=== PATIENT | male | born 1985 | race Caucasian/White ===

== ENCOUNTER → 2018-01-14 15:29 | Outpatient (CLI) | payer BC, SELFPAY ==
[2018-01-14 17:57] LABS: Absolute Lymphocyte Count 1.95 X10^3/ul (0.83-4.51); Absolute Neutrophil Count 10.1 X10^3/uL (2.0-7.7); Basophil# 0.01 X10^3/uL; Basophil% 0.1 % (0-1); Eosinophil# 0.11 X10^3/uL; Eosinophils% 0.8 % (0-5); Hematocrit 36.1 % (40-54); Hemoglobin 11.7 g/dl (13.0-16.5); Lymphocyte # 1.95 X10^3/ul (4.0); Lymphocyte % 14.6 % (19-41); Mean Corp Hgb Conc 32.4 g/gl (32-36); Mean Corpuscular Hgb 30.5 pg (27.0-32.0); Mean Platelet Vol. 11.7 fl (6.2-12.0); Monocyte# 1.15 X10^3/uL; Monocyte% 8.6 % (0-10); Neutrophil # 10.09 X10^3/uL (2.7-7.7); Neutrophil % 75.7 % (47-70); Platelet Count 173 K/mm3 (150-450); RBC Distribution Width CV 13.6 % (11.6-14.6); RBC Distribution Width SD 46.6 fl (35.1-43.9); Red Blood Count 3.84 M/mm3 (4.6-6.2); White Blood Count 13.3 K/mm3 (4.4-11.0)
[2018-01-14 18:05] LABS: POSITIVE COUNT NO; POSITIVE DIFFERENTIAL NO; POSITIVE MORPHOLOGY NO
[2018-01-14 22:49] LABS: ALB/GLOB Ratio 0.8 RATIO (0.9-2.4); AST(SGOT) 10 U/L (15-37); Alanine Aminotransfer ALT/SGPT 16 U/L (16-61); Albumin, Serum 3.5 g/dL (3.2-5.0); Alkaline Phosphatase 115 U/L (45-117); Anion Gap 12 (5-15); BUN 52 mg/dL (7-18); BUN/Creat Ratio 12.7 RATIO (10-20); Calcium,Total 8.6 mg/dL (8.5-10.1); Chloride 112 mmol/L (98-107); Creatinine, Serum 4.09 mg/dL (0.70-1.30); EST Glomerular Filtration Rate 18 mL/min (>60); Est Glom Filt Rate - Afr Amer 22 mL/min (>60); Globulin 4.3 g/dL (2.2-4.2); Glucose 93 mg/dL (74-106); Potassium 5.7 mmol/L (3.5-5.1); Protein, Total 7.8 g/dL (6.4-8.2); Sodium Level 136 mmol/L (136-145)
== END ==
PROVIDERS: Visit Provider Family Medicine
DX: E86.0 Dehydration (principal); Z79.899 Other long term (current) drug therapy; I12.9 Hypertensive chronic kidney disease with stage 1 through stage 4 chronic kidney disease, or unspecified chronic kidney disease; N18.9 Chronic kidney disease, unspecified; Z94.0 Kidney transplant status
CPT/HCPCS: 36415; 80053; 85025

== ENCOUNTER 2018-01-15 12:27 | Inpatient (IN) | payer BC, SELFPAY ==
[2018-01-15 12:28] VITALS: BP 124/64; PULSE 84; RESP 16; TEMP 37.4; O2SAT 98; BMI 27.8
[2018-01-15] MEDS: 0.9% Normal Saline 1,000 ML 1000 ML IV (12:58)
[2018-01-15 13:07] VITALS: BP 122/69; PULSE 73; RESP 24; TEMP 36.7; O2SAT 99
[2018-01-15 13:10] LABS: Absolute Lymphocyte Count 1.11 X10^3/ul (0.83-4.51); Absolute Neutrophil Count 11.6 X10^3/uL (2.0-7.7); Basophil# 0.02 X10^3/uL; Basophil% 0.1 % (0-1); Eosinophil# 0.12 X10^3/uL; Eosinophils% 0.9 % (0-5); Hematocrit 34.1 % (40-54); Hemoglobin 11.4 g/dl (13.0-16.5); Lymphocyte # 1.11 X10^3/ul (4.0); Lymphocyte % 7.9 % (19-41); Mean Corp Hgb Conc 33.4 g/gl (32-36); Mean Corpuscular Hgb 30.9 pg (27.0-32.0); Mean Corpuscular Volume 92.4 fL (80-94); Mean Platelet Vol. 10.8 fl (6.2-12.0); Monocyte# 1.15 X10^3/uL; Monocyte% 8.2 % (0-10); Neutrophil # 11.56 X10^3/uL (2.7-7.7); Neutrophil % 82.6 % (47-70); POSITIVE COUNT NO; POSITIVE DIFFERENTIAL NO; POSITIVE MORPHOLOGY NO; Platelet Count 165 K/mm3 (150-450); RBC Distribution Width CV 13.2 % (11.6-14.6); RBC Distribution Width SD 44.7 fl (35.1-43.9); Red Blood Count 3.69 M/mm3 (4.6-6.2)
--- NOTE | 2018-01-15 13:10 | RAD_ITS ---
STUDY: X-RAY CHEST REASON FOR EXAM: Male, 32 years old. Increased creatinine TECHNIQUE: PA and lateral views of the chest. COMPARISON: 01/19/2013 FINDINGS: The lungs are clear and expanded. There is no demonstrated pleural abnormality. Normal size heart. Normal mediastinum and stephanie. Normal visualized pulmonary arteries. Normal visualized aortic arch and descending thoracic aorta. Normal visualized thoracic spine. Normal visualized ribs, clavicles, and shoulders. There is no demonstrated abnormality of the visualized soft tissue structures of the upper abdomen. RAD/Chest PA and Lateral IMPRESSION: Normal x-ray examination of the chest. Electronically Signed: Kendell Schultz DO at 13:41 EDT Tel , Service support ,
--- NOTE | 2018-01-15 13:18 | EKG12_ITS ---
Test Reason : ABNL LABS Blood Pressure : / mmHG Vent. Rate : 069 BPM Atrial Rate : 069 BPM P-R Int : 146 ms QRS Dur : 104 ms QT Int : 382 ms P-R-T Axes : 042 054 043 degrees QTc Int : 409 ms Normal sinus rhythm Normal ECG Confirmed by DAKOTAH CARLSON, LIDIA ([id number]), general expeditor SYLVIA THOMASON ([id number]) on 01/16/2018 1:00:05 PM Referred By: RENETTA Confirmed By:LIDIA CLAIRE MD
[2018-01-15 13:25] LABS: ALB/GLOB Ratio 0.8 RATIO (0.9-2.4); AST(SGOT) 6 U/L (15-37); Alanine Aminotransfer ALT/SGPT 13 U/L (16-61); Albumin, Serum 3.2 g/dL (3.2-5.0); Alkaline Phosphatase 102 U/L (45-117); Anion Gap 9 (5-15); BUN 55 mg/dL (7-18); BUN/Creat Ratio 15.1 RATIO (10-20); Calcium,Total 8.5 mg/dL (8.5-10.1); Chloride 112 mmol/L (98-107); Creatinine, Serum 3.65 mg/dL (0.70-1.30); EST Glomerular Filtration Rate 20 mL/min (>60); Est Glom Filt Rate - Afr Amer 25 mL/min (>60); Estimated Creatinine Clearance 30.37 ml/min; Glucose 145 mg/dL (74-106); Potassium 5.2 mmol/L (3.5-5.1); Protein, Total 7.2 g/dL (6.4-8.2); Sodium Level 135 mmol/L (136-145)
[2018-01-15 13:32] LABS: Lactic Acid 0.7 mmol/L (0.4-2.0)
[2018-01-15 13:52] LABS: Bacteria 0 SEEN /hpf (None Seen); Mucous, Urine 0 SEEN /hpf (<or=2+); Red Blood Cells-Urine 0 SEEN /hpf (0-5); Squamous Epithelial Cells - UA 0 SEEN /hpf (0-5); White Blood Cells 0 SEEN /hpf (0-5)
[2018-01-15 14:03] LABS: Color, Urine Yellow (Yellow); Glucose, Dipstick Normal (Normal); Ketone-Dipstick Negative (Negative); Leukocyte Esterase-Dipstick Negative /ul (Negative); Nitrite-Dipstick Negative (Negative); Occult Blood-Urine Negative /ul (Negative); Protein-Dipstick 100 mg/dl (Negative); Urine Bilirubin Dipstick Negative (Negative); Urine Clarity Clear (Clear); Urine Urobilinogen Normal (Normal)
[2018-01-15] MEDS: Dextrose 50%-Water 25 GM/50 ML DISP.SYRIN IV (14:08)
[2018-01-15] MEDS: Calcium Chloride 1 GM/10 ML Syringe IV (14:08)
[2018-01-15 14:14] VITALS: BP 153/80; PULSE 66; RESP 18; O2SAT 100
--- NOTE | 2018-01-15 14:32 | ED.VISSUMM ---
- ER Visit Summary Date of Service: 01/15/18 Chief Complaint: Elevated creatinine History of Present Illness: The patient is a [address] Oglesby and Dr. Kamara. He has a history of a kidney transplant in 2004 at [facility]. 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 He is currently on CellCept and Prograf. Reports he has not missed any doses. Patient reports that over the course of the past 10 days he has had chills, a sore throat is 2 out of 10 severity, cough productive green/yellow sputum without blood and wheezing that is relieved by his inhaler. States over the past 2 days he has had generalized weakness. He had 3-4 episodes of diarrhea yesterday. No blood in his stools. No abdominal pain, nausea, or vomiting. No dysuria, hematuria or frequency. Patient saw his primary care physician in the office yesterday and had blood work obtained which showed his creatinine was 4.09. He reports his baseline is 2. Physical Examination: Vitals: 99.3, 124/64, 84, 16, 98% on room air which is not hypoxic. General: Well-nourished and well-developed. Head: Normocephalic atraumatic. Neck: Supple, no lymphadenopathy. No JVD. Nontender. Cardiovascular: Regular rate and rhythm. No murmurs. Respiratory: No respiratory distress. Clear to auscultation bilaterally. Abdominal: Soft, nontender, nondistended, normal bowel sounds. No guarding, rebound, or peritoneal signs. Back: Nontender. Extremities: Nontender, no edema. Skin: Normal color, no rash. Neurologic: Alert and oriented ?3. Cranial nerves II through XII are intact. Normal strength and sensation. Psych: Normal affect. Test Results: EKG is sinus at 69 with a QRS interval of 104. There is not an old EKG for comparison. Chest x-ray is normal. CBC is remarkable for a white count of 14.0, H&H 11.4 and 34.1, segment neutrophils 83, lymphs lites of 8. Chem-7 is more for a creatinine of 3.65 with a BUN of 55. Potassium is 5.2, chloride is 112, CO2 is 14, glucose 145. LFTs marked for an ALT of 13 and AST of 6. UA shows protein only. Lactic acid is 0.7. Strep is negative. Emergency Department Course and Treatment: The patient was discussed with Dr. Lundberg and was started on D5 water with 3 A of sodium bicarb at 150 cc/h. With the prolonged QRS he was given a dose of calcium chloride IV. He was also given D50 and insulin IV. Treatment Plan: Patient was discussed with Dr. Parikh. He will be admitted to the hospital for further relation and treatment. Disposition: Admitted in improved condition. Impression: 1. Acute on chronic renal insufficiency. 2. History of a kidney transplant. 3. Hyperkalemia. 4. URI. This note was generated with [employer] dictation software. It may contain incorrect words, spelling, and punctuation that were not noted in review of the chart prior to signing ED Disposition - Plan for ED Patient: Chief Complaint: Abn Labs Referrals: Fredrick Oglesby DO [Primary Care Provider] -
[2018-01-15 14:50] VITALS: BMI 27.9
[2018-01-15 15:59] VITALS: BP 128/84; PULSE 74; RESP 18; O2SAT 98
[2018-01-15 16:15] VITALS: BP 127/70; PULSE 76; RESP 18; TEMP 36.9; O2SAT 100
[2018-01-15 16:23] VITALS: BMI 27.8
--- NOTE | 2018-01-15 18:39 | PCM.HP.STD ---
Problem List (1) Elevated serum creatinine Status: Acute History of Present Illness Date of Admission: 01/15/18 Chief Complaint: Elevated creatinine The patient is a 32 year old M who was seen in the emergency room at [facility] after his PCP called him today informing him that he had an elevation of his creatinine on his labs. Patient has a history of kidney disease and underwent a renal transplant in 2004, his usual creatinine is around 2, his family physician renetta lab yesterday and his creatinine was 4.09. Patient has no complaints of any fatigue, he was recently placed on Zithromax for an upper respiratory tract infection but he denies any fevers, chills, or diaphoresis. Patient has no complaints of any shortness of breath. Evaluation in the emergency room today included labs which were remarkable for a potassium of 5.2, BUN was 55, creatinine was 3.65, white blood cell count was 14,000, hemoglobin was 11.4. Patient had a chest x-ray which showed no active disease. Nephrology was contacted by the emergency room physician, nephrology recommended D5W with bicarb be administered and the patient be admitted. Hospitalist service was called for admission, patient will be placed in observation status for acute kidney injury and seen in consultation by nephrology. IV fluids will be administered and labs will be repeated. Past Medical History Allergies No Known Allergies Allergy (Verified 01/15/18 12:32) Home Medications: Ambulatory Orders Medication Instructions Recorded Azithromycin [Zithromax] 250 mg PO DAILY 01/15/18 Cholecalciferol (Vitamin D3) 2,000 unit PO DAILY 01/15/18 [Vitamin D3] Lisinopril [Zestril] 10 mg PO DAILY 01/15/18 Mycophenolate Mofetil [Cellcept] 750 mg PO BID 01/15/18 Omeprazole 40 mg PO DAILY 01/15/18 Tacrolimus Anhydrous [Prograf] 4 mg PO BID 01/15/18 Surgical History: - - Renal transplant, fistula insertion Psychiatric History: No pertinent psych hx Lives: Spouse/ Significant Other Smoking Status: Light Smoker (<10/day) Tobacco Use: Cigarettes Alcohol: Occasional Drugs: None - *Family History Maternal History Items: No pertinent history Paternal History Items: Diabetes, Hypertension Review of Systems Constitutional: Denies: Anorexia, Chills, Fever, Night Sweats, Malaise, Weakness, Weight Change, Fatigue Eyes: Denies: Blurred vision, Cataracts, Conjunctivae Inflammation, Double vision, Drainage HEENT: Denies: Difficulty Swallowing, Dysphasia, Ear Pain, Eye Pain, Head Aches, Hearing Changes, Nasal bleeding, Nasal Congestion, Post Nasal Drip Cardiovascular: Denies: Chest Pain, Claudication, Chest Pressure, Chest Tightness, Edema, Heaviness, Orthopnea, Palpitations, Paroxysmal Noc. Dyspnea Respiratory: Reports: Cough, Sputum production - Yellow sputum production. Denies: Hemoptysis, Shortness of breath at rest, Shortness of breath upon exertion Gastrointestinal: Denies: Abdominal Pain, Constipation, Diarrhea, Hematemesis, Hematochezia, Nausea, Melena, Vomiting Genitourinary: Denies: Dysuria, Frequency, Hematuria, Hesitancy, Incontinence, Urgency Musculoskeletal: Denies: Back Pain, Foot Pain, Hand Pain, Joint Pain, Joint stiffness, Joint swelling, Joint Tenderness, Leg Pain Skin: Denies: Dryness, Jaundice, Pruritis, Rash Neurological: Denies: Blurred vision, Double vision, Change in Speech, Slurred speech, Difficulty swallowing, Focal weakness, Headaches, Incoordination, Numbness, Tingling Psychiatric: Denies: Anxiety, Depression, Homicidal Ideations, Suicidal Ideations Endocrine: Denies: Change in Body Habitus, Heat/ Cold Intolerance, Polydipsia, Polyuria Hematologic/ Lymphatic: Denies: Adenopathy, Anemia, Easy Bruising, Easy Bleeding, Petechiae, Purpura VTE Information - Inpt Only VTE Present on Admission: No VTE Mechan Device Prophylaxis: None VTE Pharm Prophylaxis ordered?: No Reason prophylaxis not ordered:: Treatment Not Indicated - low risk for VTE Patient Problems: Active and Suspected Problems Elevated serum creatinine (Acute) - Physical Exam General: Alert, Oriented x3, Cooperative, No apparent distress, Well developed, Well nourished HEENT: Atraumatic, PERRLA, EOMI, Normocephalic Oral: Moist Mucosa Neck: Supple, No JVD, Negative Carotid Bruits, No Nuchal Rigidity, Trachea Midline, Thyroid Normal Size and Texture Lungs: Clear to auscultation, Normal air movement, No rhonchi, No wheeze, No rales Cardiovascular: Regular rate, Regular Rhythm, Normal S1, Normal S2, No murmurs, No Ectopic Activity, PMI Normal, No rub noted, No Gallop Abdomen: Bowel Sounds Present, Soft, Non Tender, Non-Distended, No hernias noted Extremities: No clubbing, No cyanosis, No edema, Capillary Refill Less than 3 Seconds Skin: No rashes, No breakdown Musculoskeletal: No Tenderness to Palpation of Joints or Extremities Neurological: Cranial nerves II-XII grossly intact, Neuro grossly intact, Sensory exam intact to light touch and pain, Coordination normal Psych/Mental Status: Normal Affect, Appropriate, Alert and oriented to time, place, person, mood and affect Vital Signs Temp Pulse Resp BP Pulse Ox 98.4 F 76 18 127/70 H 100 01/15/18 16:15 01/15/18 16:15 01/15/18 16:15 01/15/18 16:15 01/15/18 16:15 Oxygen Delivery Method Room Air Weight: 90.775 kg Body Mass Index (BMI) 27.8 Intake and Output for Last 24 Hours 01/13/18 01/14/18 01/15/18 23:59 23:59 23:59 Intake Total 300 / 300 Balance 300 / 300 Assessment/Plan All Active Problems Elevated serum creatinine (Acute) #1 acute kidney injury on a backdrop of chronic kidney disease-patient will be placed in observation status on MedSurg 3, he will be seen by nephrology, he will be given IV fluids, labs will be rechecked. 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 #2 bronchitis-patient was placed on Zithromax yesterday for possible bronchitis, patient will continue his medication as an outpatient, it is likely he may be discharged tomorrow and he can resume this medication then. Patient has no evidence of any infiltrates on his chest x-ray and is afebrile. #3 GERD #4 chronic kidney disease #5 hyperkalemia-mild, this is probably not significant Code Visit OBSV E&M: 74931 Initial observation care L3
--- NOTE | 2018-01-15 18:47 | HP.PCM_ITS ---
Problem List (1) Elevated serum creatinine Status: Acute History of Present Illness Date of Admission: 01/15/18 Chief Complaint: Elevated creatinine The patient is a 32 year old M who was seen in the emergency room at [facility] after his PCP called him today informing him that he had an elevation of his creatinine on his labs. Patient has a history of kidney disease and underwent a renal transplant in 2004, his usual creatinine is around 2, his family physician renetta lab yesterday and his creatinine was 4.09. Patient has no complaints of any fatigue, he was recently placed on Zithromax for an upper respiratory tract infection but he denies any fevers, chills, or diaphoresis. Patient has no complaints of any shortness of breath. Evaluation in the emergency room today included labs which were remarkable for a potassium of 5.2, BUN was 55, creatinine was 3.65, white blood cell count was 14,000, hemoglobin was 11.4. Patient had a chest x-ray which showed no active disease. Nephrology was contacted by the emergency room physician, nephrology recommended D5W with bicarb be administered and the patient be admitted. Hospitalist service was called for admission, patient will be placed in observation status for acute kidney injury and seen in consultation by nephrology. IV fluids will be administered and labs will be repeated. Past Medical History Allergies No Known Allergies Allergy (Verified 01/15/18 12:32) Home Medications: Ambulatory Orders Medication Instructions Recorded Azithromycin [Zithromax] 250 mg PO DAILY 01/15/18 Cholecalciferol (Vitamin D3) 2,000 unit PO DAILY 01/15/18 [Vitamin D3] Lisinopril [Zestril] 10 mg PO DAILY 01/15/18 Mycophenolate Mofetil [Cellcept] 750 mg PO BID 01/15/18 Omeprazole 40 mg PO DAILY 01/15/18 Tacrolimus Anhydrous [Prograf] 4 mg PO BID 01/15/18 Surgical History: - - Renal transplant, fistula insertion Psychiatric History: No pertinent psych hx Lives: Spouse/ Significant Other Smoking Status: Light Smoker (<10/day) Tobacco Use: Cigarettes Alcohol: Occasional Drugs: None - *Family History Maternal History Items: No pertinent history Paternal History Items: Diabetes, Hypertension Review of Systems Constitutional: Denies: Anorexia, Chills, Fever, Night Sweats, Malaise, Weakness , Weight Change, Fatigue Eyes: Denies: Blurred vision, Cataracts, Conjunctivae Inflammation, Double vision, Drainage HEENT: Denies: Difficulty Swallowing, Dysphasia, Ear Pain, Eye Pain, Head Aches , Hearing Changes, Nasal bleeding, Nasal Congestion, Post Nasal Drip Cardiovascular: Denies: Chest Pain, Claudication, Chest Pressure, Chest Tightness, Edema, Heaviness, Orthopnea, Palpitations, Paroxysmal Noc. Dyspnea Respiratory: Reports: Cough, Sputum production - Yellow sputum production. Denies: Hemoptysis, Shortness of breath at rest, Shortness of breath upon exertion Gastrointestinal: Denies: Abdominal Pain, Constipation, Diarrhea, Hematemesis, Hematochezia, Nausea, Melena, Vomiting Genitourinary: Denies: Dysuria, Frequency, Hematuria, Hesitancy, Incontinence, Urgency Musculoskeletal: Denies: Back Pain, Foot Pain, Hand Pain, Joint Pain, Joint stiffness, Joint swelling, Joint Tenderness, Leg Pain Skin: Denies: Dryness, Jaundice, Pruritis, Rash Neurological: Denies: Blurred vision, Double vision, Change in Speech, Slurred speech, Difficulty swallowing, Focal weakness, Headaches, Incoordination, Numbness, Tingling Psychiatric: Denies: Anxiety, Depression, Homicidal Ideations, Suicidal Ideations Endocrine: Denies: Change in Body Habitus, Heat/ Cold Intolerance, Polydipsia, Polyuria Hematologic/ Lymphatic: Denies: Adenopathy, Anemia, Easy Bruising, Easy Bleeding , Petechiae, Purpura VTE Information - Inpt Only VTE Present on Admission: No VTE Mechan Device Prophylaxis: None VTE Pharm Prophylaxis ordered?: No Reason prophylaxis not ordered:: Treatment Not Indicated - low risk for VTE Patient Problems: Active and Suspected Problems Elevated serum creatinine (Acute) - Physical Exam General: Alert, Oriented x3, Cooperative, No apparent distress, Well developed, Well nourished HEENT: Atraumatic, PERRLA, EOMI, Normocephalic Oral: Moist Mucosa Neck: Supple, No JVD, Negative Carotid Bruits, No Nuchal Rigidity, Trachea Midline, Thyroid Normal Size and Texture Lungs: Clear to auscultation, Normal air movement, No rhonchi, No wheeze, No rales Cardiovascular: Regular rate, Regular Rhythm, Normal S1, Normal S2, No murmurs, No Ectopic Activity, PMI Normal, No rub noted, No Gallop Abdomen: Bowel Sounds Present, Soft, Non Tender, Non-Distended, No hernias noted Extremities: No clubbing, No cyanosis, No edema, Capillary Refill Less than 3 Seconds Skin: No rashes, No breakdown Musculoskeletal: No Tenderness to Palpation of Joints or Extremities Neurological: Cranial nerves II-XII grossly intact, Neuro grossly intact, Sensory exam intact to light touch and pain, Coordination normal Psych/Mental Status: Normal Affect, Appropriate, Alert and oriented to time, place, person, mood and affect Vital Signs Temp Pulse Resp BP Pulse Ox 98.4 F 76 18 127/70 H 100 01/15/18 16:15 01/15/18 16:15 01/15/18 16:15 01/15/18 16:15 01/15/18 16:15 Oxygen Delivery Method Room Air Weight: 90.775 kg Body Mass Index (BMI) 27.8 Intake and Output for Last 24 Hours 01/13/18 01/14/18 01/15/18 23:59 23:59 23:59 Intake Total 300 / 300 Balance 300 / 300 Assessment/Plan All Active Problems Elevated serum creatinine (Acute) #1 acute kidney injury on a backdrop of chronic kidney disease-patient will be placed in observation status on MedSurg 3, he will be seen by nephrology, he will be given IV fluids, labs will be rechecked. 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 #2 bronchitis-patient was placed on Zithromax yesterday for possible bronchitis , patient will continue his medication as an outpatient, it is likely he may be discharged tomorrow and he can resume this medication then. Patient has no evidence of any infiltrates on his chest x-ray and is afebrile. #3 GERD #4 chronic kidney disease #5 hyperkalemia-mild, this is probably not significant Code Visit OBSV E&M: 36054 Initial observation care L3
[2018-01-15 21:29] VITALS: BP 150/73; PULSE 74; RESP 16; TEMP 37.2; O2SAT 100
[2018-01-15] MEDS: Acetaminophen 325 MG Tablet 650 MG PO (21:45)
[2018-01-16 02:11] VITALS: BP 130/71; PULSE 70; RESP 16; TEMP 37.1; O2SAT 98
[2018-01-16 07:05] LABS: Anion Gap 10 (5-15); BUN 45 mg/dL (7-18); Calcium,Total 8.5 mg/dL (8.5-10.1); Chloride 110 mmol/L (98-107); Creatinine, Serum 2.82 mg/dL (0.70-1.30); EST Glomerular Filtration Rate 27 mL/min (>60); Est Glom Filt Rate - Afr Amer 33 mL/min (>60); Estimated Creatinine Clearance 39.31 ml/min; Glucose 122 mg/dL (74-106); Potassium 4.1 mmol/L (3.5-5.1); Sodium Level 140 mmol/L (136-145)
[2018-01-16 08:34] VITALS: BP 130/84; PULSE 75; RESP 18; TEMP 37.1; O2SAT 97
[2018-01-16] MEDS: 0.9% NaCl Peripheral Flush Adult/Peds IV (09:12)
--- NOTE | 2018-01-16 09:32 | CON.PCM_ITS ---
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 He is s/p LRD kidney transplant at [facility] in 2005 from his mom. He is immunosuppressed with tacrolimus and mycophenolate. The pt is followed by Dr. Kamara. His baseline SCr has been around 2.0 mg/dL. He has also been dealing with rising proteinuria, and he had been placed on lisinopril a few months ago. The pt presents with TED, SCr was 4.09 mg/dL on 01/14/18. The pt has been ill for the last 10 days. He started with decreased appetite and nausea. He also complained of diarrhea for 2 days prior to admission. He also has dysphagia for the last month. 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 The pt also has cough which is productive. He was placed on Zpak 2 days prior to admission. The pt feels better since admit and with IVF. He denies CP, SOB, nausea or edema today. There has been no LUTS. There is no hematuria or dysuria. He does admits to chill. The pt denies chronic use of NSAID. There is no recent exposure to IV contrast. - Allergies Allergies: Allergies No Known Allergies Allergy (Verified 01/15/18 12:32) - Current Medications Current Medications: Current Medications Acetaminophen (Tylenol) 650 mg PO Q6H PRN PRN PRN Reason: Mild Pain (1-3)/Temp > 100.7 F Last Admin: 01/15/18 21:45 Dose: 650 mg Sodium Bicarbonate 150 meq/ (Dextrose) 1,150 mls @ 150 mls/hr IV .[id number] SHERLYN Last Admin: 01/16/18 05:52 Dose: 150 mls/hr Lisinopril (Zestril) 10 mg PO DAILY REPLACED BY [facility] Mycophenolate Mofetil (Cellcept) 750 mg PO BID SHERLYN Last Admin: 01/16/18 08:34 Dose: Not Given Pantoprazole Sodium (Protonix) 40 mg PO DAILY REPLACED BY [facility] Sodium Chloride () 5 - 30 ml IV UD PRN PRN Reason: SALINE FLUSH Last Admin: 01/16/18 09:12 Dose: 20 ml Tacrolimus (Prograf) 4 mg PO BID SHERLYN Last Admin: 01/16/18 08:34 Dose: Not Given - Past Surgical History Surgical History: - - Renal transplant, fistula insertion - Social History Smoking Status: Light Smoker (<10/day) Alcohol: Occasional Drugs: None - Family History Maternal History Items: No pertinent history Paternal History Items: Diabetes, Hypertension Review of Systems Constitutional: Reports: Anorexia, Chills, Night Sweats, Malaise, Weakness, Fatigue. Denies: Fever Eyes: Denies: Blurred vision, Pain, Redness HEENT: Reports: Sore Throat. Denies: Head Aches, Sinus Congestion, Sinus Drainage Cardiovascular: Denies: Chest Pain, Claudication, Chest Pressure, Edema, Orthopnea, Palpitations Respiratory: Reports: Cough, Sputum production Gastrointestinal: Reports: Diarrhea, Nausea. Denies: Abdominal Pain, Constipation, Hematemesis, Hematochezia, Vomiting Genitourinary: Denies: Dysuria, Frequency, Hematuria, Hesitancy, Incontinence, Urgency Musculoskeletal: Reports: Muscle pain. Denies: Joint Pain, Joint Tenderness Skin: Denies: Rash, Wounds Neurological: Denies: Numbness, Tingling, Focal weakness Psychiatric: Denies: Anxiety, Depression, Homicidal Ideations, Suicidal Ideations Endocrine: Denies: Polydipsia, Polyuria Hematologic/ Lymphatic: Denies: Easy Bruising, Easy Bleeding Patient Problems: Active and Suspected Problems Elevated serum creatinine (Acute) - Physical Exam General: Alert, Oriented x3 HEENT: Atraumatic, PERRLA, EOMI Oral: Dry Mucosa Neck: Supple, No JVD Lungs: Clear to auscultation Cardiovascular: Regular rate, Regular Rhythm, Normal S1, Normal S2, No rub noted Abdomen: Bowel Sounds Present, Soft, Non Tender, Non-Distended Extremities: No clubbing, No cyanosis, No edema Skin: No rashes Musculoskeletal: No Tenderness to Palpation of Joints or Extremities Lymphatic: No Cervical, Supraclavicular, or Inguinal Adenopathy Neurological: Cranial nerves II-XII grossly intact Psych/Mental Status: Normal Affect Vital Signs Temp Pulse Resp BP Pulse Ox 98.8 F 75 18 130/84 H 97 01/16/18 08:34 01/16/18 08:34 01/16/18 08:34 01/16/18 08:34 01/16/18 08:34 Oxygen Delivery Method Room Air Weight: 90.775 kg Body Mass Index (BMI) 27.8 Intake and Output for Last 24 Hours 01/14/18 01/15/18 01/16/18 23:59 23:59 23:59 Intake Total 300 / 300 3550 / 3550 Output Total 700 / 700 Balance 300 / 300 2850 / 2850 Laboratory Tests Past 24 Hrs 01/16/18 06:05 Sodium 140 Potassium 4.1 Chloride 110 H Carbon Dioxide 20.0 L Anion Gap 10 BUN 45 H Creatinine 2.82 H Estim Creat Clear Calc 39.31 Est GFR (MDRD) Af Amer 33 L Est GFR (MDRD) Non-Af 27 L BUN/Creatinine Ratio 16.0 Glucose 122 H Calcium 8.5 Assessment/Plan All Active Problems Elevated serum creatinine (Acute) 1. Acute kidney injury on chronic kidney disease stage 3. Baseline SCr is 2.00 mg/dL. Pt has allograft dysfunction. May also have recurrence of FSGS. TED is likely prerenal from decreased intake, concurrent use of ACEI, GI loss. Allograft function is already improved with hydration. Would continue IVF. Stop ACEI for now. Will check urine indices. I have low suspicion for other causes of TED at this point. Doubt acute rejection or obstruction. However, I will expand the work up to include other causes of TED if SCr fails to continue to improve. No current need for MOBILE TESTER. Meds reviewed. 2. s/p LRD kidney transplant. Continue current immunosupression with tacrolimus and mycophenolate. 3. Hyperkalemia. Resolved. Will monitor K. 4. Nausea/Vomiting/Diarrhea. Gastroenteritis. Likely viral. Continue supportive care. 5. Cough. Will defer to hospitalist.
[2018-01-16] MEDS: Pantoprazole Sodium 40 MG Tablet PO (10:16)
[2018-01-16] MEDS: Acetaminophen 325 MG Tablet 650 MG PO (10:16)
[2018-01-16 10:20] VITALS: PULSE 76
--- NOTE | 2018-01-16 11:03 | PN_ITS ---
Patient Problems: Active and Suspected Problems Elevated serum creatinine (Acute) Subjective: Patient is a 32-year-old gentleman with history of kidney transplant currently on immunosuppressive therapy who presented with worsening kidney function Vitals/I&O's: Vital Signs Temp Pulse Resp BP Pulse Ox 98.8 F 75 18 130/84 H 97 01/16/18 08:34 01/16/18 08:34 01/16/18 08:34 01/16/18 08:34 01/16/18 08:34 Oxygen Delivery Method Room Air Weight: 90.775 kg Body Mass Index (BMI) 27.8 Intake and Output for Last 24 Hours 01/14/18 01/15/18 01/16/18 23:59 23:59 23:59 Intake Total 300 / 300 3550 / 3550 Output Total 700 / 700 Balance 300 / 300 2850 / 2850 General: Cooperative HEENT: Atraumatic Oral: Moist Mucosa Neck: Supple, No JVD Lungs: Clear to auscultation Cardiovascular: Regular rate, Regular Rhythm Abdomen: Bowel Sounds Present Extremities: No clubbing, No cyanosis Skin: No rashes Lymphatic: No Cervical, Supraclavicular, or Inguinal Adenopathy Psych/Mental Status: Normal Affect, Appropriate Laboratory Results 01/16/18 06:05: Sodium 140, Potassium 4.1, Chloride 110 H, Carbon Dioxide 20.0 L , Anion Gap 10, BUN 45 H, Creatinine 2.82 H, Estim Creat Clear Calc 39.31, Est GFR (MDRD) Af Amer 33 L, Est GFR (MDRD) Non-Af 27 L, BUN/Creatinine Ratio 16.0, Glucose 122 H, Calcium 8.5 Current Medications Acetaminophen (Tylenol) 650 mg PO Q6H PRN PRN PRN Reason: Mild Pain (1-3)/Temp > 100.7 F Last Admin: 01/16/18 10:16 Dose: 650 mg Sodium Bicarbonate 150 meq/ (Dextrose) 1,150 mls @ 150 mls/hr IV .Q7H40M COUNT INCLUDES THE [facility] Last Admin: 01/16/18 05:52 Dose: 150 mls/hr Mycophenolate Mofetil (Cellcept) 750 mg PO BID COUNT INCLUDES THE [facility] Last Admin: 01/16/18 08:34 Dose: Not Given Pantoprazole Sodium (Protonix) 40 mg PO DAILY COUNT INCLUDES THE [facility] Last Admin: 01/16/18 10:16 Dose: 40 mg Sodium Chloride () 5 - 30 ml IV UD PRN PRN Reason: SALINE FLUSH Last Admin: 01/16/18 09:12 Dose: 20 ml Tacrolimus (Prograf) 4 mg PO BID COUNT INCLUDES THE [facility] Last Admin: 01/16/18 08:34 Dose: Not Given Medical Necessity - Tobacco Use Smoking Status: Light Smoker (<10/day) Tobacco Use: Cigarettes Assessment/Plan All Active Problems Elevated serum creatinine (Acute) Patient is a 32-year-old gentleman with history of kidney transplant currently on immunosuppressive therapy who presented with worsening kidney function 1. Acute kidney injury to 2 prerenal kidney injury from dehydration in the setting of concomitant use of RADHA inhibitors. Patient is inhibitors were held on admission admitted to regular nursing floor managed with IV hydration with consultation placed to Dr. Brink with nephrology he did see the patient and his notes and recommendations reviewed 2. Acute gastroenteritis suspected to be viral managed with supportive care 3. Hypokalemia resolved 4. Chronic kidney disease stage III 5. History of kidney transplant with living donor currently on immunosupression with tacrolimus and mycophenolate. 6. Acute bronchitis managed with Z-Emmanuel as outpatient 7. DVT prophylaxis low risk did encourage early ambulation Clinical Impression(s) from Imaging Studies Chest X-Ray 01/15/18 13:10 IMPRESSION: Normal x-ray examination of the chest. Electronically Signed: Kendell Schultz DO at 13:41 EDT Tel , Service support , Active Medications Acetaminophen (Tylenol) 650 mg PO Q6H PRN PRN PRN Reason: Mild Pain (1-3)/Temp > 100.7 F Last Admin: 01/16/18 10:16 Dose: 650 mg Sodium Bicarbonate 150 meq/ (Dextrose) 1,150 mls @ 150 mls/hr IV .Q7H40M COUNT INCLUDES THE [facility] Last Admin: 01/16/18 05:52 Dose: 150 mls/hr Mycophenolate Mofetil (Cellcept) 750 mg PO BID COUNT INCLUDES THE [facility] Last Admin: 01/16/18 08:34 Dose: Not Given Pantoprazole Sodium (Protonix) 40 mg PO DAILY COUNT INCLUDES THE [facility] Last Admin: 01/16/18 10:16 Dose: 40 mg Sodium Chloride () 5 - 30 ml IV UD PRN PRN Reason: SALINE FLUSH Last Admin: 01/16/18 09:12 Dose: 20 ml Tacrolimus (Prograf) 4 mg PO BID COUNT INCLUDES THE [facility] Last Admin: 01/16/18 08:34 Dose: Not Given Code Visit Inpatient E&M: 81399 Subs Hosp L3
[2018-01-16 16:15] VITALS: BP 126/75; PULSE 66; RESP 16; TEMP 36.7; O2SAT 98
[2018-01-16 18:57] LABS: Urine Sodium 99 mmol/L (Not Establ.)
[2018-01-16 22:15] VITALS: BP 155/90; PULSE 71; RESP 18; TEMP 36.8; O2SAT 99
[2018-01-17] MEDS: Acetaminophen 325 MG Tablet 650 MG PO (04:04)
[2018-01-17 04:15] VITALS: BP 149/84; PULSE 66; RESP 18; TEMP 36.9; O2SAT 99
[2018-01-17 07:43] LABS: Albumin, Serum 3.2 g/dL (3.2-5.0); BUN 33 mg/dL (7-18); BUN/Creat Ratio 13.5 RATIO (10-20); Calcium,Total 9.1 mg/dL (8.5-10.1); Chloride 105 mmol/L (98-107); Creatinine, Serum 2.44 mg/dL (0.70-1.30); EST Glomerular Filtration Rate 32 mL/min (>60); Est Glom Filt Rate - Afr Amer 39 mL/min (>60); Estimated Creatinine Clearance 45.43 ml/min; Glucose 119 mg/dL (74-106); Phosphorus 3.2 mg/dL (2.5-4.9); Sodium Level 143 mmol/L (136-145)
[2018-01-17 07:53] VITALS: BP 144/93; PULSE 68; RESP 14; TEMP 36.8; O2SAT 100
--- NOTE | 2018-01-17 09:21 | NURSING ---
[facility] HAS A PAGE OUT FOR DR FIELD. ACCORDING TO DR SHETH, IF DR FIELD IS OKAY WITH [facility] PT CAN BE DC'D. WILL ALSO ASK ABOUT RESUMING LISINIPRIL. PT IS AWARE.
[2018-01-17] MEDS: Pantoprazole Sodium 40 MG Tablet PO (09:23)
--- NOTE | 2018-01-17 10:21 | DCINST_ITS ---
- Discharge Diagnoses Current Active Problems: Current Active and Chronic Problems Elevated serum creatinine (Acute) You will use the following diet at home:: Cardiac, Renal (restricted protein/ sodium) Discharge Activity: Return to Normal Activity Weight Bearing Status: Weight bearing as tolerated Call your doctor if you observe: Fever of 101 or Higher, Shortness of breath, Dizziness, Fainting spells, Chest pain, Increased palpitations (irregular heartbeat), Uncontrolled pain Allergies/Adverse Reactions: Allergies No Known Allergies Allergy (Verified 01/15/18 12:32) Medications to take at Discharge Azithromycin [Zithromax] 250 mg PO DAILY 01/15/18 Cholecalciferol (Vitamin D3) [Vitamin D3] 2,000 unit PO DAILY 01/15/18 Mycophenolate Mofetil [Cellcept] 750 mg PO BID 01/15/18 Omeprazole 40 mg PO DAILY 01/15/18 Tacrolimus Anhydrous [Prograf] 4 mg PO BID 01/15/18 Amlodipine [Norvasc] 5 mg PO DAILY #30 tab 01/17/18 The following prescriptions were given: Amlodipine [Norvasc] 5 mg PO DAILY #30 tab Primary Care Physician: Fredrick Oglesby DO [Primary Care Provider] - Please follow up with your Primary Care Physician in: 1 week. Test Results: Test results from this visit will be discussed in further detail at your follow- up appointment, if applicable. Please Follow Up With: Leonela Orantes MD When: please call his office.
[2018-01-17] MEDS: amLODIPine 5 MG Tablet PO (11:08)
--- NOTE | 2018-01-17 11:56 | PCM.DC.SUM ---
Discharge Date and Diagnosis Date of Admission: 01/15/18 Date of Discharge: 01/17/18 - Primary Discharge Diagnosis #1 acute kidney injury on top of stage III chronic kidney disease. #2 status post kidney transplant. #3 hyperkalemia. #4 acute viral gastroenteritis. Hospital Course and Treatment Imaging Results: Clinical Impression(s) from Imaging Studies Chest X-Ray 01/15/18 13:10 IMPRESSION: Normal x-ray examination of the chest. Electronically Signed: Kendell Schultz DO at 13:41 EDT Tel , Service support , Dr. Sepulveda, nephrology. Operations: None Procedures: None Summary of Care Provided: Patient seen and examined on the day of discharge and appeared to be stable to be discharged home. He denies any complaints. His vital signs are stable. His blood pressure started to go up since we stopped his lisinopril. - Physical Exam General: Alert, Oriented x3, Cooperative, No apparent distress. HEENT: Atraumatic, PERRLA, EOMI. Neck: Supple, No JVD, Negative Carotid Bruits, Trachea Midline, Thyroid Normal. Lungs: Clear to auscultation, Normal air movement, No rhonchi, No wheeze, No rales. Cardiovascular: Regular rate, Regular Rhythm, Normal S1, Normal S2, PMI Normal. Abdomen: Bowel Sounds Present, Soft, Non Tender, Non-Distended, No Hepato-splenomegaly. Extremities: No clubbing, No cyanosis, No edema Skin: No rashes, No breakdown Neurological: Neuro grossly intact Vital Signs are stable. Hospital course: The patient is a 32 year old M was referred to the ED from his PCPs office because of worsening kidney function. This patient had a history of kidney transplant, has been on immunosuppressive therapy. He had a blood work done as outpatient and he was found to have creatinine 4.09 and potassium 5.7. Patient did complain of diarrhea with nausea and vomiting which is attributed to probable viral gastritis. He was found to have acute kidney injury on top of stage III chronic kidney disease which is attributed to prerenal etiology secondary to dehydration as well as nausea and vomiting and diarrhea. His baseline creatinine according to nephrology has been around 2 mg/dL. Patient was treated with IV fluids and lisinopril was discontinued. With IV fluid therapy, patient's potassium went back to normal and his creatinine came down to 2.44. Nephrology consulted and recommended no other treatments to be given at this time. There was no evidence of organ rejection or dysfunction. His blood pressure has been in the range of 140-150 after discontinuation of lisinopril. After discussion with nephrology on the day of discharge, we agreed to discharge patient home, agreed to discontinue lisinopril and to start patient on Norvasc for hypertension. Patient discharged home in a stable medical condition, discharged on Norvasc 5 mg p.o. daily, recommended to continue and complete Zithromax that was started for bronchitis as outpatient, continued on CellCept and Prograf, order given to repeat BMP in 3 days, follow-up with PCP in 1 week and follow-up with nephrology according to Dr. Sepulveda recommendation. This note was generated with [employer] dictation software. It may contain incorrect words, spelling, and punctuation that were not noted in checking the note before signing. Discharge Activity: Return to Normal Activity Weight Bearing Status: Weight bearing as tolerated Call your doctor if you observe: Fever of 101 or Higher, Shortness of breath, Dizziness, Fainting spells, Chest pain, Increased palpitations (irregular heartbeat), Uncontrolled pain Home Medications: Medications to take at Discharge Azithromycin [Zithromax] 250 mg PO DAILY 01/15/18 Cholecalciferol (Vitamin D3) [Vitamin D3] 2,000 unit PO DAILY 01/15/18 Mycophenolate Mofetil [Cellcept] 750 mg PO BID 01/15/18 Omeprazole 40 mg PO DAILY 01/15/18 Tacrolimus Anhydrous [Prograf] 4 mg PO BID 01/15/18 Amlodipine [Norvasc] 5 mg PO DAILY #30 tab 01/17/18 Following Prescrptions Were Given to Patient: Amlodipine [Norvasc] 5 mg PO DAILY #30 tab Primary Care Physician: Fredrick Oglesby DO [Primary Care Provider] - Please follow up with your Primary Care Physician in: 1 week. Please Follow Up With: Leonela Orantes MD When: please call his office. Disposition: Home Minutes spent on discharge:: 32 Patient Condition:: Stable Medical Necessity - Tobacco Use Smoking Status: Light Smoker (<10/day) Tobacco Use: Cigarettes Meaningful Use Info Meaningful Use Diagnoses (Choose all that apply): None applicable Code Visit Inpatient E&M: 91790 Disch Hosp
--- NOTE | 2018-01-17 12:04 | DS.PCM_ITS ---
Discharge Date and Diagnosis Date of Admission: 01/15/18 Date of Discharge: 01/17/18 - Primary Discharge Diagnosis #1 acute kidney injury on top of stage III chronic kidney disease. #2 status post kidney transplant. #3 hyperkalemia. #4 acute viral gastroenteritis. Hospital Course and Treatment Imaging Results: Clinical Impression(s) from Imaging Studies Chest X-Ray 01/15/18 13:10 IMPRESSION: Normal x-ray examination of the chest. Electronically Signed: Kendell Schultz DO at 13:41 EDT Tel , Service support , Dr. Sepulveda, nephrology. Operations: None Procedures: None Summary of Care Provided: Patient seen and examined on the day of discharge and appeared to be stable to be discharged home. He denies any complaints. His vital signs are stable. His blood pressure started to go up since we stopped his lisinopril. - Physical Exam General: Alert, Oriented x3, Cooperative, No apparent distress. HEENT: Atraumatic, PERRLA, EOMI. Neck: Supple, No JVD, Negative Carotid Bruits, Trachea Midline, Thyroid Normal. Lungs: Clear to auscultation, Normal air movement, No rhonchi, No wheeze, No rales. Cardiovascular: Regular rate, Regular Rhythm, Normal S1, Normal S2, PMI Normal. Abdomen: Bowel Sounds Present, Soft, Non Tender, Non-Distended, No Hepato- splenomegaly. Extremities: No clubbing, No cyanosis, No edema Skin: No rashes, No breakdown Neurological: Neuro grossly intact Vital Signs are stable. Hospital course: The patient is a 32 year old M was referred to the ED from his PCPs office because of worsening kidney function. This patient had a history of kidney transplant, has been on immunosuppressive therapy. He had a blood work done as outpatient and he was found to have creatinine 4.09 and potassium 5.7. Patient did complain of diarrhea with nausea and vomiting which is attributed to probable viral gastritis. He was found to have acute kidney injury on top of stage III chronic kidney disease which is attributed to prerenal etiology secondary to dehydration as well as nausea and vomiting and diarrhea. His baseline creatinine according to nephrology has been around 2 mg/dL. Patient was treated with IV fluids and lisinopril was discontinued. With IV fluid therapy, patient's potassium went back to normal and his creatinine came down to 2.44. Nephrology consulted and recommended no other treatments to be given at this time. There was no evidence of organ rejection or dysfunction. His blood pressure has been in the range of 140-150 after discontinuation of lisinopril. After discussion with nephrology on the day of discharge, we agreed to discharge patient home, agreed to discontinue lisinopril and to start patient on Norvasc for hypertension. Patient discharged home in a stable medical condition, discharged on Norvasc 5 mg p.o. daily, recommended to continue and complete Zithromax that was started for bronchitis as outpatient, continued on CellCept and Prograf, order given to repeat BMP in 3 days, follow- up with PCP in 1 week and follow-up with nephrology according to Dr. Sepulveda recommendation. This note was generated with [employer] dictation software. It may contain incorrect words, spelling, and punctuation that were not noted in checking the note before signing. Discharge Activity: Return to Normal Activity Weight Bearing Status: Weight bearing as tolerated Call your doctor if you observe: Fever of 101 or Higher, Shortness of breath, Dizziness, Fainting spells, Chest pain, Increased palpitations (irregular heartbeat), Uncontrolled pain Home Medications: Medications to take at Discharge Azithromycin [Zithromax] 250 mg PO DAILY 01/15/18 Cholecalciferol (Vitamin D3) [Vitamin D3] 2,000 unit PO DAILY 01/15/18 Mycophenolate Mofetil [Cellcept] 750 mg PO BID 01/15/18 Omeprazole 40 mg PO DAILY 01/15/18 Tacrolimus Anhydrous [Prograf] 4 mg PO BID 01/15/18 Amlodipine [Norvasc] 5 mg PO DAILY #30 tab 01/17/18 Following Prescrptions Were Given to Patient: Amlodipine [Norvasc] 5 mg PO DAILY #30 tab Primary Care Physician: Fredrick Oglesby DO [Primary Care Provider] - Please follow up with your Primary Care Physician in: 1 week. Please Follow Up With: Leonela Orantes MD When: please call his office. Disposition: Home Minutes spent on discharge:: 32 Patient Condition:: Stable Medical Necessity - Tobacco Use Smoking Status: Light Smoker (<10/day) Tobacco Use: Cigarettes Meaningful Use Info Meaningful Use Diagnoses (Choose all that apply): None applicable Code Visit Inpatient E&M: 44309 Disch Hosp
[2018-01-19 12:26] LABS: Tacrolimus (FK506) 12.8 ng/mL (2.0-20.0)
== END 2018-01-17 11:29 | disposition home or self-care (01) | DRG 683 ==
LOC: ED 13:29 → MS3 01-16 07:20
PROVIDERS: Internal Medicine Nephrology; Admitting Provider Internal Medicine; Emergency Provider Emergency Medicine; Family Provider Family Medicine; PCP Family Medicine; Visit Provider Hospitalist
DX: N17.9 Acute kidney failure, unspecified (principal); Z94.0 Kidney transplant status; I12.9 Hypertensive chronic kidney disease with stage 1 through stage 4 chronic kidney disease, or unspecified chronic kidney disease; N18.3 Chronic kidney disease, stage 3 (moderate); E87.5 Hyperkalemia; F17.210 Nicotine dependence, cigarettes, uncomplicated; K21.9 Gastro-esophageal reflux disease without esophagitis; J20.9 Acute bronchitis, unspecified; A08.4 Viral intestinal infection, unspecified; E86.0 Dehydration
CPT/HCPCS: 36415; 71046; 80048; 80053; 80069; 80197; 81001; 82570; 83605; 84300; 85025; 87040; 87880; 93005; 99283; 99406; J7030; A4216

== ENCOUNTER 2018-01-19 22:00 | Inpatient (IN) | payer BC, SELFPAY ==
[2018-01-19 22:01] VITALS: BP 142/89; PULSE 80; RESP 16; TEMP 37.7; O2SAT 99; BMI 29.0
--- NOTE | 2018-01-19 23:22 | ED.VISSUMM ---
- ER Visit Summary Date of Service: 01/19/18 Chief Complaint: [] Left arm redness and infection History of Present Illness: The patient is a 32 M planing of cellulitis to his left inner arm for the last 3 days gradual onset continuous. He was recently admitted for acute on chronic kidney disease. He was prerenal secondary to nausea vomiting and diarrhea that has resolved. She was on a Z-Emmanuel earlier in the week for bronchitis but only took for 2 days. He just got discharged from our hospital couple days ago. He has a history of chronic kidney disease status post transplant plant. He is on CellCept and Prograf. He had an IV in his left antecubital he thinks got his arm infected. No abscess. No previous infections. No fevers or chills. Increasing pain and redness noted. Physical Examination: [] Vital signs reviewed General: Well-nourished well-developed Head: Normocephalic atraumatic Eyes: Pupils equal round and reactive to light extraocular movements intact ENT: TMs clear no hemotympanum no trauma Neck: Nontender full range of motion Cardiovascular: Regular rate rhythm no murmurs normal S1-S2 Respiratory: No distress clear to auscultation bilaterally chest nontender Abdomen: Soft nontender nondistended normal bowel sounds no masses Back: Nontender no CVA tenderness Extremities: Left inner arm from mid bicep to mid forearm shows a cellulitis. No abscess. Skin: Normal color no trauma Neuro alert oriented cranial nerves II through XII intact normal strength sensation reflexes Test Results: [] Emergency Department Course and Treatment: [] Patient given a dose of vancomycin which should cover all gram positives. Blood culture sent. Lab work obtained and the patient will be admitted for further treatment of his cellulitis. Lab work shows no leukocytosis. Creatinine 2.9. Treatment Plan: [] Disposition: [] Impression: [] Left arm cellulitis This note was generated with [employer] dictation software. It may contain incorrect words, spelling, and punctuation that were not noted in review of the chart prior to signing ED Disposition - Plan for ED Patient: Chief Complaint: Cellulitis Referrals: Fredrick Oglesby DO [Primary Care Provider] -
[2018-01-19] MEDS: Vancomycin IV 1,000 MG/200 ML BAG 200 MG IV (23:57)
[2018-01-20] VITALS (8 sets, daily range): BP systolic 132–145; BP diastolic 77–99; PULSE 66–73; RESP 16–22; TEMP 36.6–36.9; O2SAT 95–100; BMI 28.2
[2018-01-20] MEDS: Morphine 4 MG/ML Syringe IV (00:32)
[2018-01-20 00:34] LABS: Basophil# 0.03 X10^3/uL; Basophil% 0.3 % (0-1); Eosinophil# 0.31 X10^3/uL; Eosinophils% 3.2 % (0-5); Hematocrit 32.7 % (40-54); Hemoglobin 10.7 g/dl (13.0-16.5); Lymphocyte % 24.9 % (19-41); Mean Corp Hgb Conc 32.7 g/gl (32-36); Mean Corpuscular Hgb 30.5 pg (27.0-32.0); Mean Corpuscular Volume 93.2 fL (80-94); Mean Platelet Vol. 10.8 fl (6.2-12.0); Monocyte# 0.87 X10^3/uL; Neutrophil % 62.3 % (47-70); Platelet Count 215 K/mm3 (150-450); RBC Distribution Width CV 12.9 % (11.6-14.6); RBC Distribution Width SD 43.2 fl (35.1-43.9); Red Blood Count 3.51 M/mm3 (4.6-6.2); White Blood Count 9.6 K/mm3 (4.4-11.0)
[2018-01-20 00:39] LABS: POSITIVE COUNT NO; POSITIVE DIFFERENTIAL NO; POSITIVE MORPHOLOGY NO
[2018-01-20 00:40] LABS: Anion Gap 8 (5-15); BUN 31 mg/dL (7-18); BUN/Creat Ratio 10.5 RATIO (10-20); Calcium,Total 9.2 mg/dL (8.5-10.1); Chloride 107 mmol/L (98-107); Creatinine, Serum 2.94 mg/dL (0.70-1.30); EST Glomerular Filtration Rate 26 mL/min (>60); Est Glom Filt Rate - Afr Amer 32 mL/min (>60); Estimated Creatinine Clearance 36.56 ml/min; Glucose 131 mg/dL (74-106); Potassium 4.6 mmol/L (3.5-5.1); Sodium Level 138 mmol/L (136-145)
--- NOTE | 2018-01-20 01:19 | PCM.HP.STD ---
Problem List (1) History of kidney transplant Status: Chronic (2) Cellulitis Status: Acute (3) Elevated serum creatinine Status: Chronic History of Present Illness Date of Admission: 01/20/18 Chief Complaint: skin infection The patient is a 32 year old male patient who was just in the hospital for acute on chronic kidney disease who presents to the ER with a skin infection in his left arm. The arm was 8/10 painful this evening so he came in for evaluation. The area of erythema in on the left arm over the elbow and extends to mid forearm up to mid humerus. Vancomycin was initiated in the ER. The patient is on immunosuppressive therapy for his kidney transplant. Past Medical History Past Medical History (Chronic Problems): Chronic Problems Elevated serum creatinine (Chronic) History of kidney transplant (Chronic) Allergies No Known Allergies Allergy (Verified 01/19/18 22:05) Home Medications: Ambulatory Orders Medication Instructions Recorded Cholecalciferol (Vitamin D3) 2,000 unit PO DAILY 01/15/18 [Vitamin D3] Mycophenolate Mofetil [Cellcept] 750 mg PO BID 01/15/18 Omeprazole 40 mg PO DAILY 01/15/18 Tacrolimus Anhydrous [Prograf] 4 mg PO BID 01/15/18 Amlodipine [Norvasc] 5 mg PO DAILY #30 tab 01/17/18 Cephalexin [Keflex] 500 mg PO Q8 01/19/18 Surgical History: - - Renal transplant, fistula insertion Smoking Status: Never smoker - *Family History Maternal History Items: No pertinent history Paternal History Items: Diabetes, Hypertension Review of Systems Constitutional: Denies: Chills, Fever, Weight Change HEENT: Denies: Head Aches, Sinus Congestion, Sinus Drainage Cardiovascular: Denies: Chest Pain, Palpitations Respiratory: Denies: Cough, Shortness of breath at rest, Sputum production Gastrointestinal: Denies: Abdominal Pain, Nausea, Vomiting Genitourinary: Denies: Dysuria Musculoskeletal: Denies: Joint Pain, Joint Tenderness Skin: Reports: Wounds - left arm infection/pain. Denies: Rash Neurological: Denies: Numbness, Tingling, Focal weakness Psychiatric: Denies: Anxiety, Depression, Homicidal Ideations, Suicidal Ideations Hematologic/ Lymphatic: Denies: Easy Bruising, Easy Bleeding VTE Information - Inpt Only VTE Present on Admission: No VTE Mechan Device Prophylaxis: SCD's VTE Pharm Prophylaxis ordered?: No Patient Problems: Active and Suspected Problems Cellulitis (Acute) - Physical Exam General: Alert, Oriented x3, Cooperative HEENT: Atraumatic, Normocephalic Neck: Supple Lungs: Clear to auscultation, Normal air movement Cardiovascular: Regular rate, Normal S1, Normal S2, No murmurs Abdomen: Bowel Sounds Present Extremities: No edema, Capillary Refill Less than 3 Seconds Skin: Ulcer/ Wound - cellulitis, left arm left mid upper arm to left lower arm, erthema, tender Musculoskeletal: No Tenderness to Palpation of Joints or Extremities Neurological: Neuro grossly intact Psych/Mental Status: Normal Affect, Appropriate Vital Signs Temp Pulse Resp BP Pulse Ox 99.9 F H 71 16 145/77 H 95 01/19/18 22:01 01/20/18 00:35 01/20/18 00:35 01/20/18 00:35 01/20/18 00:35 Oxygen Delivery Method Room Air Weight: 202 lb 9.677 oz Body Mass Index (BMI) 29.0 Laboratory Tests Past 24 Hrs 01/19/18 01/19/18 22:15 22:15 WBC 9.6 RBC 3.51 L Hgb 10.7 L Hct 32.7 L MCV 93.2 MCH 30.5 MCHC 32.7 RDW 12.9 RDW Differential 43.2 Plt Count 215 MPV 10.8 Immature Gran % (Auto) 0.300 Neut % (Auto) 62.3 Lymph % (Auto) 24.9 [place] % (Auto) 9.0 Eos % (Auto) 3.2 Baso % (Auto) 0.3 Absolute Neuts (auto) 6.0 Absolute Lymphs (auto) 2.40 Total Counted Not Reportable Sodium 138 Potassium 4.6 Chloride 107 Carbon Dioxide 23.0 Anion Gap 8 BUN 31 H Creatinine 2.94 H Estim Creat Clear Calc 36.56 Est GFR (MDRD) Af Amer 32 L Est GFR (MDRD) Non-Af 26 L BUN/Creatinine Ratio 10.5 Glucose 131 H Calcium 9.2 Assessment/Plan All Active Problems Cellulitis (Acute) Chronic Problems Elevated serum creatinine (Chronic) History of kidney transplant (Chronic) Plan - admit to general medical floor - continue vancomycin pharmacy to dose - cbc, bmp in am - morphine 2mg q 2 hrs prn pain - scds for dvt prophylaxis - continue routine home medications Code Visit Inpatient E&M: 97532 Init Hosp L3
[2018-01-20 02:30] LABS: Bedside Glucose 98 mg/dL (70-110)
[2018-01-20] MEDS: HYDROmorphone 1 MG/ML Syringe IV ×6 (03:00→21:02)
[2018-01-20] MEDS: 0.9% NaCl Peripheral Flush Adult/Peds IV ×5 (03:00→18:14)
--- NOTE | 2018-01-20 05:57 | PCM.RX.CS ---
<Jimbo Olson - Last Filed: 01/20/18 05:57> Consult Pharmacy has been consulted to manage selected antiobiotic: Vancomycin Type of Consult: New start Suspected Infection: Skin/Soft tissue Labs: Sodium 138 mmol/L (136-145) 01/19/18 22:15 Potassium 4.6 mmol/L (3.5-5.1) 01/19/18 22:15 Chloride 107 mmol/L (98-107) 01/19/18 22:15 Carbon Dioxide 23.0 mmol/L (21.0-32.0) 01/19/18 22:15 Anion Gap 8 (5-15) 01/19/18 22:15 BUN 31 mg/dL (7-18) H 01/19/18 22:15 Creatinine 2.94 mg/dL (0.70-1.30) H 01/19/18 22:15 Est GFR (MDRD) Af Amer 32 mL/min (>60) L 01/19/18 22:15 Est GFR (MDRD) Non-Af 26 mL/min (>60) L 01/19/18 22:15 BUN/Creatinine Ratio 10.5 RATIO (10-20) 01/19/18 22:15 Glucose 131 mg/dL (74-106) H 01/19/18 22:15 Weight used for dosin lb 6.15 oz Estimated Creatinine Clearance: 36.56 Goal Trough: 10-15 mcg/mL Pharmacy Plan for Drug Dosing: Pharmacy Service will continue to monitor and adjust dosing as required. Medications Vancomycin HCl (Vancomycin) 1,000 mg in 200 mls @ 200 mls/hr IV Q24H [facility] Follow-Up Labs: Trough Vancomycin Labs to be done on [date and time ordered]: 01/22 @ 0000 <Gómez Lino - Last Filed: 01/20/18 06:48> Consult Labs: Sodium 138 mmol/L (136-145) 01/19/18 22:15 Potassium 4.6 mmol/L (3.5-5.1) 01/19/18 22:15 Chloride 107 mmol/L (98-107) 01/19/18 22:15 Carbon Dioxide 23.0 mmol/L (21.0-32.0) 01/19/18 22:15 Anion Gap 8 (5-15) 01/19/18 22:15 BUN 31 mg/dL (7-18) H 01/19/18 22:15 Creatinine 2.94 mg/dL (0.70-1.30) H 01/19/18 22:15 Est GFR (MDRD) Af Amer 32 mL/min (>60) L 01/19/18 22:15 Est GFR (MDRD) Non-Af 26 mL/min (>60) L 01/19/18 22:15 BUN/Creatinine Ratio 10.5 RATIO (10-20) 01/19/18 22:15 Glucose 131 mg/dL (74-106) H 01/19/18 22:15 Pharmacy Plan for Drug Dosing: Pharmacy Service will continue to monitor and adjust dosing as required.
[2018-01-20 07:16] LABS: Bedside Glucose 121 mg/dL (70-110)
[2018-01-20 07:50] LABS: Absolute Lymphocyte Count 2.36 X10^3/ul (0.83-4.51); Absolute Neutrophil Count 6.2 X10^3/uL (2.0-7.7); Basophil# 0.03 X10^3/uL; Basophil% 0.3 % (0-1); Eosinophil# 0.33 X10^3/uL; Eosinophils% 3.3 % (0-5); Hematocrit 32.5 % (40-54); Hemoglobin 10.7 g/dl (13.0-16.5); Lymphocyte # 2.36 X10^3/ul (4.0); Lymphocyte % 23.5 % (19-41); Mean Corp Hgb Conc 32.9 g/gl (32-36); Mean Corpuscular Hgb 31.1 pg (27.0-32.0); Mean Corpuscular Volume 94.5 fL (80-94); Mean Platelet Vol. 10.1 fl (6.2-12.0); Monocyte# 1.04 X10^3/uL; Monocyte% 10.3 % (0-10); Neutrophil # 6.22 X10^3/uL (2.7-7.7); Neutrophil % 61.8 % (47-70); Platelet Count 201 K/mm3 (150-450); RBC Distribution Width CV 12.6 % (11.6-14.6); RBC Distribution Width SD 42.1 fl (35.1-43.9); Red Blood Count 3.44 M/mm3 (4.6-6.2); White Blood Count 10.1 K/mm3 (4.4-11.0)
[2018-01-20 07:52] LABS: POSITIVE COUNT NO; POSITIVE DIFFERENTIAL NO; POSITIVE MORPHOLOGY NO
[2018-01-20 08:12] LABS: Anion Gap 8 (5-15); BUN 29 mg/dL (7-18); BUN/Creat Ratio 11.2 RATIO (10-20); Chloride 108 mmol/L (98-107); EST Glomerular Filtration Rate 30 mL/min (>60); Est Glom Filt Rate - Afr Amer 36 mL/min (>60); Estimated Creatinine Clearance 42.64 ml/min; Glucose 111 mg/dL (74-106); Potassium 4.5 mmol/L (3.5-5.1); Sodium Level 141 mmol/L (136-145)
--- NOTE | 2018-01-20 09:27 | VDUE_ITS ---
Reason For Study: LUE pain/swelling Left Proximal Left jugular vein is spontaneous, widely patent, phasic, with no intraluminal echogenicity noted. Left subclavian vein is spontaneous, widely patent, phasic, with no intraluminal echogenicity noted. Left Arm Left axillary vein is spontaneous, patent, phasic, competent, compressible and demonstrates augmentation. Left brachial vein is compressible. Cephalic v is partially compressible from wrist to antecubital space. Median cubital v is dilated and non- compressible. Basilic vein is dilated and non-compressible from Axillary/Basilic junction to antecubital space. Thrombus is at level of but not extending into deep system. Left Lower Arm Left radial vein is compressible. Left ulnar vein is compressible. < Interpretation Summary Deep veins of the left upper extremity are patent and compressible segmentally. There is no evidence of deep vein thrombosis. Acute superficial thrombophlebitis is noted in the left cephalic vein from the wrist to the left antecubital space. Acute superficial thrombophlebitis is noted in the left median cubital vein. Acute superficial thrombophlebitis is noted in the left basilic vein from the left antecubital space to the junction with the deep venous system in the axilla, but not extending into the deep venous system. Ordering Physician: Lyndsey Jimenez Referring Physician: Fredrick Oglesby Performed By: Jennifer Castorena RVT ??? Reason For Study: LUE pain/swelling < Interpretation Summary Ordering Physician: Lyndsey Jimenez Referring Physician: Fredrick Oglesby Performed By: Jennifer Castorena RVT
--- NOTE | 2018-01-20 09:45 | CASEMGMT ---
RN MARITA Face to Face with patient for initial transition planning/care coordination assessment. RN CM introduced self and role at [facility]. Patient sitting in chair, alert and oriented. Patient willing to participate in assessment and is able to answer all questions appropriately. Care providers, pharmacy, and demographics verified. See link attached. Patient wishes to discharge home, denies need for home health at this time. Patient states he has no further needs or concerns at this time. CM to follow for discharge planning needs that may arise. Disposition Plan: Patient to discharge home with family support and follow-up plans in place.
[2018-01-20] MEDS: oxyCODONE 5 MG Tablet PO ×2 (11:29→16:26)
--- NOTE | 2018-01-20 11:35 | NURSING ---
patient's went home to retrieve patient's medications that are needed related to kidney transplant. patient requesting to wait to take all pills at one time. Awaiting 's return.
[2018-01-20] MEDS: Pantoprazole Sodium 40 MG Tablet PO (11:50)
[2018-01-20] MEDS: amLODIPine 5 MG Tablet PO (11:50)
[2018-01-20] MEDS: Cefazolin 2 GM in 0.9% Normal Saline 100 ML IV ×2 (13:52→21:08)
--- NOTE | 2018-01-20 16:27 | PCM.PN.HOSP ---
Patient Problems: Active and Suspected Problems Cellulitis (Acute) Subjective: Patient was seen and examined. Left upper extremity swelling with erythema present. No fever or chills. Vitals/I&O's: Vital Signs Temp Pulse Resp BP Pulse Ox 98.3 F 71 18 145/99 H 100 01/20/18 13:42 01/20/18 13:42 01/20/18 13:42 01/20/18 13:42 01/20/18 13:42 Oxygen Delivery Method Room Air Weight: 91.8 kg Body Mass Index (BMI) 28.2 Intake and Output for Last 24 Hours 01/18/18 01/19/18 01/20/18 23:59 23:59 23:59 Intake Total 720 / 720 Balance 720 / 720 General: Alert, Oriented x3, Cooperative HEENT: Atraumatic, PERRLA, EOMI, Normocephalic Oral: Moist Mucosa Neck: Supple Lungs: Clear to auscultation, Normal air movement Cardiovascular: Regular rate, Regular Rhythm, Normal S1, Normal S2, No murmurs Abdomen: Bowel Sounds Present, Soft, Non Tender, Non-Distended, No Hepato-splenomegaly Extremities: - - Swelling of the left antecubital region with erythema and induration Skin: No rashes, No breakdown Musculoskeletal: No Tenderness to Palpation of Joints or Extremities Lymphatic: No Cervical, Supraclavicular, or Inguinal Adenopathy Neurological: Cranial nerves II-XII grossly intact, Neuro grossly intact Psych/Mental Status: Normal Affect, Appropriate Laboratory Results 01/20/18 02:25: POC Glucose 98 01/20/18 06:57: POC Glucose 121 H 01/20/18 07:35: WBC 10.1, RBC 3.44 L, Hgb 10.7 L, Hct 32.5 L, MCV 94.5 H, MCH 31.1, MCHC 32.9, RDW 12.6, RDW Differential 42.1, Plt Count 201, MPV 10.1, Immature Gran % (Auto) 0.800, Neut % (Auto) 61.8, Lymph % (Auto) 23.5, [place] % (Auto) 10.3 H, Eos % (Auto) 3.3, Baso % (Auto) 0.3, Absolute Neuts (auto) 6.2, Absolute Lymphs (auto) 2.36, Total Counted Not Reportable 01/20/18 07:35: Sodium 141, Potassium 4.5, Chloride 108 H, Carbon Dioxide 25.0, Anion Gap 8, BUN 29 H, Creatinine 2.60 H, Estim Creat Clear Calc 42.64, Est GFR (MDRD) Af Amer 36 L, Est GFR (MDRD) Non-Af 30 L, BUN/Creatinine Ratio 11.2, Glucose 111 H, Calcium 9.0 Current Medications Amlodipine Besylate (Norvasc) 5 mg PO DAILY [facility] Last Admin: 01/20/18 11:50 Dose: 5 mg Cholecalciferol (Vitamin D) 2,000 unit PO DAILY [facility] Last Admin: 01/20/18 11:50 Dose: 2,000 unit Hydromorphone HCl (Dilaudid Inj) 1 mg IV Q2H PRN PRN PRN Reason: SEVERE PAIN (6-10/10) Last Admin: 01/20/18 13:52 Dose: 1 mg Cefazolin Sodium 2 gm/ Sodium (Chloride) 110 mls @ 150 mls/hr IV Q8 [facility] Last Admin: 01/20/18 13:52 Dose: 150 mls/hr Magnesium Hydroxide (Milk Of Magnesia) 30 ml PO DAILY PRN PRN PRN Reason: Constipation Mycophenolate Mofetil (Cellcept) 750 mg PO BID [facility] Last Admin: 01/20/18 11:48 Dose: Not Given Oxycodone HCl (Oxyir) 5 mg PO Q4H PRN PRN PRN Reason: SEVERE PAIN (6-10/10) Last Admin: 01/20/18 16:26 Dose: 5 mg Pantoprazole Sodium (Protonix) 40 mg PO DAILY [facility] Last Admin: 01/20/18 11:50 Dose: 40 mg Sodium Chloride () 5 - 30 ml IV UD PRN PRN Reason: SALINE FLUSH Last Admin: 01/20/18 13:51 Dose: 10 ml Tacrolimus (Prograf) 4 mg PO BID [facility] Last Admin: 01/20/18 11:49 Dose: Not Given Medical Necessity - Tobacco Use Smoking Status: Light Smoker (<10/day) Tobacco Use: Cigarettes Assessment/Plan All Active Problems Cellulitis (Acute) 32 y/o male with past medical history of status post kidney transplant, on immunosuppressants, comes in with complaints of swelling of the left arm as well as erythema. She was recently seen in the hospital for acute on chronic CKD 1. Left extremity swelling/cellulitis, recent IV access at that site, Doppler ultrasound shows superficial vein thrombosis, with thrombosis in the basilic and cephalic vein to the deep system. Cultures are pending; would avoid vancomycin in view of patient's recent TED, will continue on IV cefazolin, would continue to ice the LUE. 2. CKD stage III, status post kidney transplant, on immunosuppression, will continue 3. Hypertension, continue on amlodipine, continue to monitor vitals 4. DVT PPx- Lovenox SC Code Visit Inpatient E&M: 30033 Subs Hosp L2
--- NOTE | 2018-01-20 16:30 | NURSING ---
Dr. Jimenez called this RN and states that patient does have superficial blood clot in arm but that there is no need for blood thinners. She states that she would like current treatment to continue- including ice. Notified that this RN could notify patient but that would prefer to notify patient in the morning. 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 Currently is taking care of child at home and will return later.
--- NOTE | 2018-01-20 16:39 | PN_ITS ---
Patient Problems: Active and Suspected Problems Cellulitis (Acute) Subjective: Patient was seen and examined. Left upper extremity swelling with erythema present. No fever or chills. Vitals/I&O's: Vital Signs Temp Pulse Resp BP Pulse Ox 98.3 F 71 18 145/99 H 100 01/20/18 13:42 01/20/18 13:42 01/20/18 13:42 01/20/18 13:42 01/20/18 13:42 Oxygen Delivery Method Room Air Weight: 91.8 kg Body Mass Index (BMI) 28.2 Intake and Output for Last 24 Hours 01/18/18 01/19/18 01/20/18 23:59 23:59 23:59 Intake Total 720 / 720 Balance 720 / 720 General: Alert, Oriented x3, Cooperative HEENT: Atraumatic, PERRLA, EOMI, Normocephalic Oral: Moist Mucosa Neck: Supple Lungs: Clear to auscultation, Normal air movement Cardiovascular: Regular rate, Regular Rhythm, Normal S1, Normal S2, No murmurs Abdomen: Bowel Sounds Present, Soft, Non Tender, Non-Distended, No Hepato- splenomegaly Extremities: - - Swelling of the left antecubital region with erythema and induration Skin: No rashes, No breakdown Musculoskeletal: No Tenderness to Palpation of Joints or Extremities Lymphatic: No Cervical, Supraclavicular, or Inguinal Adenopathy Neurological: Cranial nerves II-XII grossly intact, Neuro grossly intact Psych/Mental Status: Normal Affect, Appropriate Laboratory Results 01/20/18 02:25: POC Glucose 98 01/20/18 06:57: POC Glucose 121 H 01/20/18 07:35: WBC 10.1, RBC 3.44 L, Hgb 10.7 L, Hct 32.5 L, MCV 94.5 H, MCH 31.1, MCHC 32.9, RDW 12.6, RDW Differential 42.1, Plt Count 201, MPV 10.1, Immature Gran % (Auto) 0.800, Neut % (Auto) 61.8, Lymph % (Auto) 23.5, [place] % ( Auto) 10.3 H, Eos % (Auto) 3.3, Baso % (Auto) 0.3, Absolute Neuts (auto) 6.2, Absolute Lymphs (auto) 2.36, Total Counted Not Reportable 01/20/18 07:35: Sodium 141, Potassium 4.5, Chloride 108 H, Carbon Dioxide 25.0, Anion Gap 8, BUN 29 H, Creatinine 2.60 H, Estim Creat Clear Calc 42.64, Est GFR (MDRD) Af Amer 36 L, Est GFR (MDRD) Non-Af 30 L, BUN/Creatinine Ratio 11.2, Glucose 111 H, Calcium 9.0 Current Medications Amlodipine Besylate (Norvasc) 5 mg PO DAILY [facility] Last Admin: 01/20/18 11:50 Dose: 5 mg Cholecalciferol (Vitamin D) 2,000 unit PO DAILY [facility] Last Admin: 01/20/18 11:50 Dose: 2,000 unit Hydromorphone HCl (Dilaudid Inj) 1 mg IV Q2H PRN PRN PRN Reason: SEVERE PAIN (6-10/10) Last Admin: 01/20/18 13:52 Dose: 1 mg Cefazolin Sodium 2 gm/ Sodium (Chloride) 110 mls @ 150 mls/hr IV Q8 [facility] Last Admin: 01/20/18 13:52 Dose: 150 mls/hr Magnesium Hydroxide (Milk Of Magnesia) 30 ml PO DAILY PRN PRN PRN Reason: Constipation Mycophenolate Mofetil (Cellcept) 750 mg PO BID [facility] Last Admin: 01/20/18 11:48 Dose: Not Given Oxycodone HCl (Oxyir) 5 mg PO Q4H PRN PRN PRN Reason: SEVERE PAIN (6-10/10) Last Admin: 01/20/18 16:26 Dose: 5 mg Pantoprazole Sodium (Protonix) 40 mg PO DAILY [facility] Last Admin: 01/20/18 11:50 Dose: 40 mg Sodium Chloride () 5 - 30 ml IV UD PRN PRN Reason: SALINE FLUSH Last Admin: 01/20/18 13:51 Dose: 10 ml Tacrolimus (Prograf) 4 mg PO BID [facility] Last Admin: 01/20/18 11:49 Dose: Not Given Medical Necessity - Tobacco Use Smoking Status: Light Smoker (<10/day) Tobacco Use: Cigarettes Assessment/Plan All Active Problems Cellulitis (Acute) 32 y/o male with past medical history of status post kidney transplant, on immunosuppressants, comes in with complaints of swelling of the left arm as well as erythema. She was recently seen in the hospital for acute on chronic CKD 1. Left extremity swelling/cellulitis, recent IV access at that site, Doppler ultrasound shows superficial vein thrombosis, with thrombosis in the basilic and cephalic vein to the deep system. Cultures are pending; would avoid vancomycin in view of patient's recent TED, will continue on IV cefazolin, would continue to ice the LUE. 2. CKD stage III, status post kidney transplant, on immunosuppression, will continue 3. Hypertension, continue on amlodipine, continue to monitor vitals 4. DVT PPx- Lovenox SC Code Visit Inpatient E&M: 65755 Subs Hosp L2
[2018-01-20] MEDS: Enoxaparin 40 MG/0.4 ML Syringe SC (18:07)
[2018-01-21] MEDS: HYDROmorphone 1 MG/ML Syringe IV ×4 (00:55→12:16)
[2018-01-21 03:00] VITALS: BP 135/93; PULSE 68; RESP 16; TEMP 36.7; O2SAT 99
[2018-01-21] MEDS: oxyCODONE 5 MG Tablet PO ×2 (03:14→10:19)
[2018-01-21] MEDS: Cefazolin 2 GM in 0.9% Normal Saline 100 ML IV (05:47)
--- NOTE | 2018-01-21 08:22 | VDUE_ITS ---
Reason For Study: F/U LUE SVT Left Proximal Left jugular vein is spontaneous, widely patent, phasic, with no intraluminal echogenicity noted. Left subclavian vein is spontaneous, widely patent, phasic, with no intraluminal echogenicity noted. Left Arm Left axillary vein is spontaneous, patent, phasic, competent, compressible and demonstrates augmentation. Left brachial vein is compressible. Cephalic v is partially compressible from wrist to antecubital space Median Cubital vein is dilated and non- compressible. Basilic vein is dilated and non-compressible from axillary/basilic junction to antecubital space. Thrombus does not extend into deep system. No change from previous exam. Left Lower Arm Left radial vein is compressible. Left ulnar vein is compressible. < Interpretation Summary Deep veins of the left upper extremity are patent and compressible segmentally. There is no evidence of deep vein thrombosis. Acute superficial thrombophlebitis is noted in the left cephalic vein from the wrist to the left antecubital space. Acute superficial thrombophlebitis is noted in the left median cubital vein. Acute superficial thrombophlebitis is noted in the left basilic vein from the left antecubital space to the junction with the deep venous system in the axilla, but not extending into the deep venous system. There has been no change since a prior study on 01/20/2018. Ordering Physician: Lyndsey Jimenez Referring Physician: Fredrick Oglesby Performed By: Jennifer Castorena RVT ??? Reason For Study: F/U LUE SVT < Interpretation Summary Ordering Physician: Lyndsey Jimenez Referring Physician: Fredrick Oglesby Performed By: Jennifer Castorena RVT
[2018-01-21 08:31] VITALS: BP 142/92; PULSE 73; RESP 18; TEMP 36.9; O2SAT 99
[2018-01-21 08:34] LABS: Absolute Lymphocyte Count 2.51 X10^3/ul (0.83-4.51); Absolute Neutrophil Count 5.6 X10^3/uL (2.0-7.7); Basophil# 0.03 X10^3/uL; Basophil% 0.3 % (0-1); Eosinophil# 0.35 X10^3/uL; Eosinophils% 3.7 % (0-5); Hematocrit 37.5 % (40-54); Lymphocyte # 2.51 X10^3/ul (4.0); Lymphocyte % 26.6 % (19-41); Mean Corpuscular Hgb 30.2 pg (27.0-32.0); Mean Corpuscular Volume 94.2 fL (80-94); Mean Platelet Vol. 10.3 fl (6.2-12.0); Monocyte# 0.95 X10^3/uL; Monocyte% 10.1 % (0-10); Neutrophil # 5.55 X10^3/uL (2.7-7.7); Neutrophil % 58.7 % (47-70); Platelet Count 222 K/mm3 (150-450); RBC Distribution Width CV 12.7 % (11.6-14.6); RBC Distribution Width SD 43.7 fl (35.1-43.9); Red Blood Count 3.98 M/mm3 (4.6-6.2); White Blood Count 9.5 K/mm3 (4.4-11.0)
[2018-01-21 08:36] LABS: POSITIVE COUNT NO; POSITIVE DIFFERENTIAL NO; POSITIVE MORPHOLOGY NO
[2018-01-21] MEDS: 0.9% NaCl Peripheral Flush Adult/Peds IV ×2 (08:41→12:16)
[2018-01-21 08:48] LABS: Albumin, Serum 3.1 g/dL (3.2-5.0); BUN 24 mg/dL (7-18); BUN/Creat Ratio 9.7 RATIO (10-20); Calcium,Total 9.5 mg/dL (8.5-10.1); Chloride 107 mmol/L (98-107); Creatinine, Serum 2.48 mg/dL (0.70-1.30); EST Glomerular Filtration Rate 32 mL/min (>60); Est Glom Filt Rate - Afr Amer 38 mL/min (>60); Glucose 92 mg/dL (74-106); Phosphorus 3.6 mg/dL (2.5-4.9); Sodium Level 138 mmol/L (136-145)
[2018-01-21] MEDS: Piperacil/Tazobactam 3.375 GM/50 ML ML IV (08:57)
[2018-01-21] MEDS: amLODIPine 5 MG Tablet PO (10:19)
[2018-01-21] MEDS: Pantoprazole Sodium 40 MG Tablet PO (10:19)
[2018-01-21] MEDS: Enoxaparin 40 MG/0.4 ML Syringe SC (10:21)
--- NOTE | 2018-01-21 11:06 | PN_ITS ---
Patient Problems: Active and Suspected Problems Cellulitis (Acute) Subjective: Patient was seen and examined. Complains of worsening swelling of the left upper extremity. Doppler ultrasound yesterday showed superficial thrombus in the basilic vein from the axillary/basilic junction to antecubital space. Repeat doppler ultrasound shows the same. Denies fever or chills or chest pain or SOB or dizziness or palpitations. Family at bedside, hostile, attempted at answering all questions. Vitals/I&O's: Vital Signs Temp Pulse Resp BP Pulse Ox 98.4 F 73 18 142/92 H 99 01/21/18 08:31 01/21/18 08:31 01/21/18 08:31 01/21/18 08:31 01/21/18 08:31 Oxygen Delivery Method Room Air Weight: 91.8 kg Body Mass Index (BMI) 28.2 Intake and Output for Last 24 Hours 01/19/18 01/20/18 01/21/18 23:59 23:59 23:59 Intake Total 1320 / 1320 890 / 890 Balance 1320 / 1320 890 / 890 General: Alert, Oriented x3, Cooperative, No apparent distress HEENT: Atraumatic, PERRLA, EOMI, Normocephalic Oral: Moist Mucosa Neck: Supple Lungs: Clear to auscultation, Normal air movement Cardiovascular: Regular rate, Regular Rhythm, Normal S1, Normal S2, No murmurs Abdomen: Bowel Sounds Present, Soft, Non Tender, Non-Distended Extremities: - - LUE edema, not much change, erythema appears the same, not extending beyond the borders. Skin: No rashes Musculoskeletal: No Tenderness to Palpation of Joints or Extremities Lymphatic: No Cervical, Supraclavicular, or Inguinal Adenopathy Neurological: Cranial nerves II-XII grossly intact, Motor Exam 5/5 strength throughout Psych/Mental Status: Normal Affect, Appropriate Laboratory Results 01/21/18 08:15: WBC 9.5, RBC 3.98 L, Hgb 12.0 L, Hct 37.5 L, MCV 94.2 H, MCH 30.2, MCHC 32.0, RDW 12.7, RDW Differential 43.7, Plt Count 222, MPV 10.3, Immature Gran % (Auto) 0.600, Neut % (Auto) 58.7, Lymph % (Auto) 26.6, [place] % ( Auto) 10.1 H, Eos % (Auto) 3.7, Baso % (Auto) 0.3, Absolute Neuts (auto) 5.6, Absolute Lymphs (auto) 2.51, Total Counted Not Reportable 01/21/18 08:15: Sodium 138, Potassium 5.0, Chloride 107, Carbon Dioxide 23.0, BUN 24 H, Creatinine 2.48 H, Estim Creat Clear Calc 44.70, Est GFR (MDRD) Af Amer 38 L, Est GFR (MDRD) Non-Af 32 L, BUN/Creatinine Ratio 9.7 L, Glucose 92, Calcium 9.5, Phosphorus 3.6, Albumin 3.1 L Current Medications Amlodipine Besylate (Norvasc) 5 mg PO DAILY [facility] Last Admin: 01/21/18 10:19 Dose: 5 mg Cholecalciferol (Vitamin D) 2,000 unit PO DAILY [facility] Last Admin: 01/21/18 10:19 Dose: 2,000 unit Enoxaparin Sodium (Lovenox) 40 mg SC DAILY [facility] Last Admin: 01/21/18 10:21 Dose: 40 mg Hydromorphone HCl (Dilaudid Inj) 1 mg IV Q2H PRN PRN PRN Reason: SEVERE PAIN (6-1010) Last Admin: 01/21/18 08:41 Dose: 1 mg Piperacillin Sod/Tazobactam Sod (Zosyn) 3.375 gm in 50 mls @ 12.5 mls/hr IV Q8 [facility] Last Admin: 01/21/18 08:57 Dose: 12.5 mls/hr Magnesium Hydroxide (Milk Of Magnesia) 30 ml PO DAILY PRN PRN PRN Reason: Constipation Mycophenolate Mofetil (Cellcept) 750 mg PO BID [facility] Last Admin: 01/21/18 10:20 Dose: Not Given Oxycodone HCl (Oxyir) 5 mg PO Q4H PRN PRN PRN Reason: SEVERE PAIN (6-10/10) Last Admin: 01/21/18 10:19 Dose: 5 mg Pantoprazole Sodium (Protonix) 40 mg PO DAILY [facility] Last Admin: 01/21/18 10:19 Dose: 40 mg Sodium Chloride () 5 - 30 ml IV UD PRN PRN Reason: SALINE FLUSH Last Admin: 01/21/18 08:41 Dose: 10 ml Tacrolimus (Prograf) 4 mg PO BID [facility] Last Admin: 01/21/18 10:20 Dose: Not Given Medical Necessity - Tobacco Use Smoking Status: Light Smoker (<10/day) Tobacco Use: Cigarettes Assessment/Plan All Active Problems Cellulitis (Acute) 32 y/o male with past medical history of status post kidney transplant, on immunosuppressants, comes in with complaints of swelling of the left arm as well as erythema. She was recently seen in the hospital for acute on chronic CKD 1. Left extremity swelling secondary to cellulitis and basilic/cephalic vein superficial thrombus, no thrombus in the deep system. Recent IV access at that site, repeat Doppler ultrasound today is unchanged. No indication for anticoagulation. On cefazolin, switched to zosyn IV, reassured patient and family, will continue elevation of left upper extremity, Ice to help with swelling 2. CKD stage III, status post kidney transplant, Creatinine appears improved, will continue to monitor. 3. Hypertension, continue on amlodipine, continue to monitor vitals 4. DVT PPx- Lovenox SC Code Visit Inpatient E&M: 41808 Subs Hosp L3
--- NOTE | 2018-01-21 13:12 | CON.PCM_ITS ---
Problem List (1) Cellulitis Status: Acute Reason for Consult: cellulitis Consulted by: Dr. 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 Had PIV placed in L antecubital in ED. IV was removed due to some leaking, he was discharged 01/17, felt like he had a bruise at the site. On 01/18 had progressive swelling, redness, and pain at the site. No fever. Pain was moderate, worse with movement. No drainage or purulence. Came to ED due to worsening sx, admitted. Given vanc, cefazolin, then abx changed to zosyn this AM due to mildly worsened swelling. Stable pain, redness , and warmth. Full ROS performed and neg except as noted above. - Medical History Past Medical History (Chronic Problems): Chronic Problems Elevated serum creatinine (Chronic) History of kidney transplant (Chronic) Allergies/Adverse Reactions: Allergies No Known Allergies Allergy (Verified 01/19/18 22:05) Home Medications: Ambulatory Orders Medication Instructions Recorded Cholecalciferol (Vitamin D3) 2,000 unit PO DAILY 01/15/18 [Vitamin D3] Mycophenolate Mofetil [Cellcept] 750 mg PO BID 01/15/18 Omeprazole 40 mg PO DAILY 01/15/18 Tacrolimus Anhydrous [Prograf] 4 mg PO BID 01/15/18 Amlodipine [Norvasc] 5 mg PO DAILY #30 tab 01/17/18 Cephalexin [Keflex] 500 mg PO Q8 01/19/18 - Social History Tobacco Use: cigarettes Vital Signs Temp Pulse Resp BP Pulse Ox 98.4 F 73 18 142/92 H 99 01/21/18 08:31 01/21/18 08:31 01/21/18 08:31 01/21/18 08:31 01/21/18 08:31 Oxygen Delivery Method Room Air Weight: 91.8 kg Body Mass Index (BMI) 28.2 Laboratory Tests Past 24 Hrs 01/21/18 01/21/18 08:15 08:15 WBC 9.5 RBC 3.98 L Hgb 12.0 L Hct 37.5 L MCV 94.2 H MCH 30.2 MCHC 32.0 RDW 12.7 RDW Differential 43.7 Plt Count 222 MPV 10.3 Immature Gran % (Auto) 0.600 Neut % (Auto) 58.7 Lymph % (Auto) 26.6 [place] % (Auto) 10.1 H Eos % (Auto) 3.7 Baso % (Auto) 0.3 Absolute Neuts (auto) 5.6 Absolute Lymphs (auto) 2.51 Total Counted Not Reportable Sodium 138 Potassium 5.0 Chloride 107 Carbon Dioxide 23.0 BUN 24 H Creatinine 2.48 H Estim Creat Clear Calc 44.70 Est GFR (MDRD) Af Amer 38 L Est GFR (MDRD) Non-Af 32 L BUN/Creatinine Ratio 9.7 L Glucose 92 Calcium 9.5 Phosphorus 3.6 Albumin 3.1 L - Other Studies Radiology: [] reviewed Other Studies: [] Route of nutrition/ use of supplements: [] Nutritional Intake: [] IV Site: [] Betancourt Catheter: [] - Physical Exam General: Alert, Oriented x3, Cooperative, No apparent distress HEENT: Atraumatic, PERRLA, EOMI Neck: Supple, No Nodes Lungs: Clear to auscultation, Normal air movement Cardiovascular: Regular rate, Regular Rhythm, No murmurs Abdomen: Bowel Sounds Present, Soft, Non Tender, Non-Distended Extremities: - - LUE swelling Skin: - - L antecub with area of mild redness, warmth, and swelling IV Site: Peripheral, without redness Neurological: Cranial nerves II-XII grossly intact - Assessment/Plan Antibiotics: [] Assessment/Plan: [] Active and Suspected Problems Cellulitis (Acute) LUE SVT with phlebitis at site of recent PIV - not clear if there is associated cellulitis, very low suspicion for suppurative thrombophlebitis. Ok to narrow abx to short 7 day total course of abx, will treat with keflex. Given location and lack of improvement, would recommend anticoagulation to help resolve sx more quickly. Thank you, will follow, d/w primary team.
--- NOTE | 2018-01-21 13:43 | PCM.CONS.R ---
Problem List (1) History of kidney transplant Status: Chronic Consultation - Renal 01/21/18 PCP/ Referring MD: Requesting physician: Dr Jimenez Primary care physician: Fredrick Oglesby DO Reason for Consultation:: Kidney transplant - History of Present Illness History of Present Illness: The patient is a 32 year old M well known to us. 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 was recently admitted here for diarrhea. came back now with LUE cellulitis/thrombophlebitis. Sustained slight TED in last hospital stay. currently feels better - Allergies Allergies: Allergies No Known Allergies Allergy (Verified 01/19/18 22:05) - Current Medications Current Medications: Current Medications Acetaminophen (Tylenol) 650 mg PO Q6H PRN PRN PRN Reason: PAIN Amlodipine Besylate (Norvasc) 5 mg PO DAILY [facility] Last Admin: 01/21/18 10:19 Dose: 5 mg Cephalexin (Keflex) 500 mg PO Q12 [facility] Cholecalciferol (Vitamin D) 2,000 unit PO DAILY [facility] Last Admin: 01/21/18 10:19 Dose: 2,000 unit Enoxaparin Sodium (Lovenox) 40 mg SC DAILY [facility] Last Admin: 01/21/18 10:21 Dose: 40 mg Hydromorphone HCl (Dilaudid Inj) 1 mg IV Q2H PRN PRN PRN Reason: SEVERE PAIN (6-10/10) Last Admin: 01/21/18 12:16 Dose: 1 mg Magnesium Hydroxide (Milk Of Magnesia) 30 ml PO DAILY PRN PRN PRN Reason: Constipation Mycophenolate Mofetil (Cellcept) 750 mg PO BID [facility] Last Admin: 01/21/18 10:20 Dose: Not Given Oxycodone HCl (Oxyir) 5 mg PO Q4H PRN PRN PRN Reason: SEVERE PAIN (6-10/10) Last Admin: 01/21/18 10:19 Dose: 5 mg Pantoprazole Sodium (Protonix) 40 mg PO DAILY [facility] Last Admin: 01/21/18 10:19 Dose: 40 mg Sodium Chloride () 5 - 30 ml IV UD PRN PRN Reason: SALINE FLUSH Last Admin: 01/21/18 12:16 Dose: 10 ml Tacrolimus (Prograf) 4 mg PO BID [facility] Last Admin: 01/21/18 10:20 Dose: Not Given - Past Medical History Past Medical History (Chronic Problems): Chronic Problems Elevated serum creatinine (Chronic) History of kidney transplant (Chronic) - Past Surgical History Surgical History: - - Renal transplant, fistula insertion - Social History Smoking Status: Light Smoker (<10/day) - Family History Maternal History Items: No pertinent history Paternal History Items: Diabetes, Hypertension Review of Systems Constitutional: Denies: Chills, Fever, Weight Change HEENT: Denies: Head Aches, Sinus Congestion, Sinus Drainage Cardiovascular: Denies: Chest Pain, Palpitations Respiratory: Denies: Cough, Shortness of breath at rest, Sputum production Gastrointestinal: Denies: Abdominal Pain, Nausea, Vomiting Genitourinary: Denies: Dysuria Musculoskeletal: Denies: Joint Pain, Joint Tenderness Skin: Denies: Rash, Wounds Neurological: Denies: Numbness, Tingling, Focal weakness Psychiatric: Denies: Anxiety, Depression, Homicidal Ideations, Suicidal Ideations Hematologic/ Lymphatic: Denies: Easy Bruising, Easy Bleeding Patient Problems: Active and Suspected Problems Cellulitis (Acute) - Physical Exam General: Alert, Oriented x3, Cooperative HEENT: Atraumatic, PERRLA, EOMI, Normocephalic Neck: Supple, No JVD, Negative Carotid Bruits Lungs: Clear to auscultation, Normal air movement Cardiovascular: Regular rate, No murmurs Abdomen: Bowel Sounds Present, Soft, Non Tender Extremities: No edema, Capillary Refill Less than 3 Seconds Skin: No rashes, No breakdown Musculoskeletal: No Tenderness to Palpation of Joints or Extremities Neurological: Cranial nerves II-XII grossly intact Psych/Mental Status: Normal Affect, Appropriate Vital Signs Temp Pulse Resp BP Pulse Ox 98.4 F 73 18 142/92 H 99 01/21/18 08:31 01/21/18 08:31 01/21/18 08:31 01/21/18 08:31 01/21/18 08:31 Oxygen Delivery Method Room Air Weight: 91.8 kg Body Mass Index (BMI) 28.2 Intake and Output for Last 24 Hours 01/19/18 01/20/18 01/21/18 23:59 23:59 23:59 Intake Total 1320 / 1320 890 / 890 Balance 1320 / 1320 890 / 890 Laboratory Tests Past 24 Hrs 01/21/18 01/21/18 08:15 08:15 WBC 9.5 RBC 3.98 L Hgb 12.0 L Hct 37.5 L MCV 94.2 H MCH 30.2 MCHC 32.0 RDW 12.7 RDW Differential 43.7 Plt Count 222 MPV 10.3 Immature Gran % (Auto) 0.600 Neut % (Auto) 58.7 Lymph % (Auto) 26.6 [place] % (Auto) 10.1 H Eos % (Auto) 3.7 Baso % (Auto) 0.3 Absolute Neuts (auto) 5.6 Absolute Lymphs (auto) 2.51 Total Counted Not Reportable Sodium 138 Potassium 5.0 Chloride 107 Carbon Dioxide 23.0 BUN 24 H Creatinine 2.48 H Estim Creat Clear Calc 44.70 Est GFR (MDRD) Af Amer 38 L Est GFR (MDRD) Non-Af 32 L BUN/Creatinine Ratio 9.7 L Glucose 92 Calcium 9.5 Phosphorus 3.6 Albumin 3.1 L Assessment/Plan All Active Problems Cellulitis (Acute) CKD 3 Kidney transplant Baseline immunosupression is tacrolimus 4 mg BID and cellcept 750 mg BID Last level was somewhat high at 12.5. usual goal is 6-8 recently lisinopril was stopped and amlodipine started usually CCBs increase tacro levels. repeat levels from 2 days ago is pending. change to 3 mg BID for now continue same dose of cellcept ok to send home on [employer] d/w Dr Parikh, at bedside
--- NOTE | 2018-01-21 13:44 | PCM.DC ---
- Discharge Diagnoses Current Active Problems: Current Active and Chronic Problems History of kidney transplant (Chronic) Cellulitis (Acute) You will use the following diet at home:: No restrictions Your food should be the consistency of: Regular Your liquids should be the consistency of: Regular/Thin Discharge Activity: Return to Normal Activity Return to work on:: 01/27/18 Weight Bearing Status: Full weight bearing Additional Instructions: Take one 325 mg aspirin twice a day for two weeks, warm compress to left upper arm 3-4 times daily, elevate arm when seated if able Allergies/Adverse Reactions: Allergies No Known Allergies Allergy (Verified 01/19/18 22:05) Medications to take at Discharge Cholecalciferol (Vitamin D3) [Vitamin D3] 2,000 unit PO DAILY 01/15/18 Mycophenolate Mofetil [Cellcept] 750 mg PO BID 01/15/18 Omeprazole 40 mg PO DAILY 01/15/18 Amlodipine [Norvasc] 5 mg PO DAILY #30 tab 01/17/18 Acetaminophen [Tylenol Tablet] 650 mg PO Q6H PRN PRN tablet 01/21/18 Cephalexin [Keflex] 500 mg PO Q12 #14 cap 01/21/18 Oxycodone [Oxyir] 5 mg PO Q4H PRN PRN 7 Days #25 tablet 01/21/18 Tacrolimus Anhydrous [Prograf] 3 mg PO BID #1 capsule 01/21/18 The following prescriptions were given: Oxycodone [Oxyir] 5 mg PO Q4H PRN PRN 7 Days #25 tablet PRN Reason: Severe Pain (6-10/10) Cephalexin [Keflex] 500 mg PO Q12 #14 cap Tacrolimus Anhydrous [Prograf] 3 mg PO BID #1 capsule Primary Care Physician: Fredrick Oglesby DO [Primary Care Provider] - Please follow up with your Primary Care Physician in: Next Friday at 3:40 pm Test Results: Test results from this visit will be discussed in further detail at your follow-up appointment, if applicable.
[2018-01-21 13:46] VITALS: BP 132/88; PULSE 76; RESP 16; TEMP 36.9; O2SAT 100
--- NOTE | 2018-01-21 13:47 | DCINST_ITS ---
- Discharge Diagnoses Current Active Problems: Current Active and Chronic Problems History of kidney transplant (Chronic) Cellulitis (Acute) You will use the following diet at home:: No restrictions Your food should be the consistency of: Regular Your liquids should be the consistency of: Regular/Thin Discharge Activity: Return to Normal Activity Return to work on:: 01/27/18 Weight Bearing Status: Full weight bearing Additional Instructions: Take one 325 mg aspirin twice a day for two weeks, warm compress to left upper arm 3-4 times daily, elevate arm when seated if able Allergies/Adverse Reactions: Allergies No Known Allergies Allergy (Verified 01/19/18 22:05) Medications to take at Discharge Cholecalciferol (Vitamin D3) [Vitamin D3] 2,000 unit PO DAILY 01/15/18 Mycophenolate Mofetil [Cellcept] 750 mg PO BID 01/15/18 Omeprazole 40 mg PO DAILY 01/15/18 Amlodipine [Norvasc] 5 mg PO DAILY #30 tab 01/17/18 Acetaminophen [Tylenol Tablet] 650 mg PO Q6H PRN PRN tablet 01/21/18 Cephalexin [Keflex] 500 mg PO Q12 #14 cap 01/21/18 Oxycodone [Oxyir] 5 mg PO Q4H PRN PRN 7 Days #25 tablet 01/21/18 Tacrolimus Anhydrous [Prograf] 3 mg PO BID #1 capsule 01/21/18 The following prescriptions were given: Oxycodone [Oxyir] 5 mg PO Q4H PRN PRN 7 Days #25 tablet PRN Reason: Severe Pain (6-10/10) Cephalexin [Keflex] 500 mg PO Q12 #14 cap Tacrolimus Anhydrous [Prograf] 3 mg PO BID #1 capsule Primary Care Physician: Fredrick gOlesby DO [Primary Care Provider] - Please follow up with your Primary Care Physician in: Next Friday at 3:40 pm Test Results: Test results from this visit will be discussed in further detail at your follow- up appointment, if applicable.
--- NOTE | 2018-01-21 13:48 | CON.PCM_ITS ---
Problem List (1) History of kidney transplant Status: Chronic Consultation - Renal 01/21/18 PCP/ Referring MD: Requesting physician: Dr Jimenez Primary care physician: Fredrick Oglesby DO Reason for Consultation:: Kidney transplant - History of Present Illness History of Present Illness: The patient is a 32 year old M well known to us. 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 was recently admitted here for diarrhea. came back now with LUE cellulitis/thrombophlebitis. Sustained slight TED in last hospital stay. currently feels better - Allergies Allergies: Allergies No Known Allergies Allergy (Verified 01/19/18 22:05) - Current Medications Current Medications: Current Medications Acetaminophen (Tylenol) 650 mg PO Q6H PRN PRN PRN Reason: PAIN Amlodipine Besylate (Norvasc) 5 mg PO DAILY [facility] Last Admin: 01/21/18 10:19 Dose: 5 mg Cephalexin (Keflex) 500 mg PO Q12 [facility] Cholecalciferol (Vitamin D) 2,000 unit PO DAILY [facility] Last Admin: 01/21/18 10:19 Dose: 2,000 unit Enoxaparin Sodium (Lovenox) 40 mg SC DAILY [facility] Last Admin: 01/21/18 10:21 Dose: 40 mg Hydromorphone HCl (Dilaudid Inj) 1 mg IV Q2H PRN PRN PRN Reason: SEVERE PAIN (6-10/10) Last Admin: 01/21/18 12:16 Dose: 1 mg Magnesium Hydroxide (Milk Of Magnesia) 30 ml PO DAILY PRN PRN PRN Reason: Constipation Mycophenolate Mofetil (Cellcept) 750 mg PO BID [facility] Last Admin: 01/21/18 10:20 Dose: Not Given Oxycodone HCl (Oxyir) 5 mg PO Q4H PRN PRN PRN Reason: SEVERE PAIN (6-10/10) Last Admin: 01/21/18 10:19 Dose: 5 mg Pantoprazole Sodium (Protonix) 40 mg PO DAILY [facility] Last Admin: 01/21/18 10:19 Dose: 40 mg Sodium Chloride () 5 - 30 ml IV UD PRN PRN Reason: SALINE FLUSH Last Admin: 01/21/18 12:16 Dose: 10 ml Tacrolimus (Prograf) 4 mg PO BID [facility] Last Admin: 01/21/18 10:20 Dose: Not Given - Past Medical History Past Medical History (Chronic Problems): Chronic Problems Elevated serum creatinine (Chronic) History of kidney transplant (Chronic) - Past Surgical History Surgical History: - - Renal transplant, fistula insertion - Social History Smoking Status: Light Smoker (<10/day) - Family History Maternal History Items: No pertinent history Paternal History Items: Diabetes, Hypertension Review of Systems Constitutional: Denies: Chills, Fever, Weight Change HEENT: Denies: Head Aches, Sinus Congestion, Sinus Drainage Cardiovascular: Denies: Chest Pain, Palpitations Respiratory: Denies: Cough, Shortness of breath at rest, Sputum production Gastrointestinal: Denies: Abdominal Pain, Nausea, Vomiting Genitourinary: Denies: Dysuria Musculoskeletal: Denies: Joint Pain, Joint Tenderness Skin: Denies: Rash, Wounds Neurological: Denies: Numbness, Tingling, Focal weakness Psychiatric: Denies: Anxiety, Depression, Homicidal Ideations, Suicidal Ideations Hematologic/ Lymphatic: Denies: Easy Bruising, Easy Bleeding Patient Problems: Active and Suspected Problems Cellulitis (Acute) - Physical Exam General: Alert, Oriented x3, Cooperative HEENT: Atraumatic, PERRLA, EOMI, Normocephalic Neck: Supple, No JVD, Negative Carotid Bruits Lungs: Clear to auscultation, Normal air movement Cardiovascular: Regular rate, No murmurs Abdomen: Bowel Sounds Present, Soft, Non Tender Extremities: No edema, Capillary Refill Less than 3 Seconds Skin: No rashes, No breakdown Musculoskeletal: No Tenderness to Palpation of Joints or Extremities Neurological: Cranial nerves II-XII grossly intact Psych/Mental Status: Normal Affect, Appropriate Vital Signs Temp Pulse Resp BP Pulse Ox 98.4 F 73 18 142/92 H 99 01/21/18 08:31 01/21/18 08:31 01/21/18 08:31 01/21/18 08:31 01/21/18 08:31 Oxygen Delivery Method Room Air Weight: 91.8 kg Body Mass Index (BMI) 28.2 Intake and Output for Last 24 Hours 01/19/18 01/20/18 01/21/18 23:59 23:59 23:59 Intake Total 1320 / 1320 890 / 890 Balance 1320 / 1320 890 / 890 Laboratory Tests Past 24 Hrs 01/21/18 01/21/18 08:15 08:15 WBC 9.5 RBC 3.98 L Hgb 12.0 L Hct 37.5 L MCV 94.2 H MCH 30.2 MCHC 32.0 RDW 12.7 RDW Differential 43.7 Plt Count 222 MPV 10.3 Immature Gran % (Auto) 0.600 Neut % (Auto) 58.7 Lymph % (Auto) 26.6 [place] % (Auto) 10.1 H Eos % (Auto) 3.7 Baso % (Auto) 0.3 Absolute Neuts (auto) 5.6 Absolute Lymphs (auto) 2.51 Total Counted Not Reportable Sodium 138 Potassium 5.0 Chloride 107 Carbon Dioxide 23.0 BUN 24 H Creatinine 2.48 H Estim Creat Clear Calc 44.70 Est GFR (MDRD) Af Amer 38 L Est GFR (MDRD) Non-Af 32 L BUN/Creatinine Ratio 9.7 L Glucose 92 Calcium 9.5 Phosphorus 3.6 Albumin 3.1 L Assessment/Plan All Active Problems Cellulitis (Acute) CKD 3 Kidney transplant Baseline immunosupression is tacrolimus 4 mg BID and cellcept 750 mg BID Last level was somewhat high at 12.5. usual goal is 6-8 recently lisinopril was stopped and amlodipine started usually CCBs increase tacro levels. repeat levels from 2 days ago is pending. change to 3 mg BID for now continue same dose of cellcept ok to send home on [employer] [facility] d/w Dr Parikh, at bedside
--- NOTE | 2018-01-21 15:11 | NURSING ---
Addendum entered by La Gao 01/21/18 17:14: Earlier in discussion mother in law/ state that patient should have never had an IV in his left arm last admission due to fistula. This RN notified them it was reported that fistula was not function- no bruit or thrill. Verbally verified that same was correct. Notified that may be used if not functional and that orange band to not use left arm that was applied this stay was simply for DVT/ painful arm not due to fistula. Later in day- when Dr. Kamara came to see patient- again asked him same question. Dr. Kamara stated that it was fine for left arm to be used for IV's since fistula is non functional. Original Note: This RN entered patient's room this morning with prn pain medication per his request. At this time Dr. Jimenez entered patient's room and completed assessment and spoke with patient regarding POC. Opportunity offered for patient to voice his concerns- denied any. Doctor left room and this RN gave patient PRN dilaudid for elevated pain per pt request. Patient's called in and began inquiring if doctor had been in to see patient yet. He verbalized that she had and patient stated that the nurse said she wouldn't be in until after 0830. (This RN spoke with patient's yesterday prior to her leaving with daughters and stated that if she was here by 0730 she should not miss doctor rounding.) Verbalized that nursing cannot guarantee when a doctor will round. states that I WILL make the nurse get the physician IN THE ROOM when I arrive. Notified her that this RN will try but that we will definitely call her and she can speak with doctor. became short on phone and hung up. Upon 's arrival to unit- this RN entered and updated patient and on the changes and POC. This RN asked if she would like to speak with doctor or attempt to have her come to room. states, No, you have answered all my questions. This RN was called by patient's at 1002 to request for patient to receive his medications. This RN was providing care in another room but went to patient's room directly after. Upon entry to room found patient's and her mother in room visiting patient. Patient's mother in law was speaking with patient and then states well she has some explaining to do. gesturing to this RN. Mother in law was very aggressive and hostile when speaking with staff. She looked at this RN and stated, where was the IV located on his last visit? This RN verbalized that per patient IV was located on left AC- but this RN did not care for patient last visit and did not view. Mother in law stated well don't you think it is funny that all of his problems are located in the same area? It's from his IV isn't it? This RN stated that it cannot be confirmed but that it could be possible. This RN notified mother in law that it would be appreciated if we could deescalate the conversation- notified her that this RN feels like she is being attacked. Mother in law states that it probably comes off that was but that it is warranted due to all of the issues they are dealing with. Mother in law then demanding information regarding patient : pain meds, how often he is taking, why redness is there and why edema has increased if atb's are infusing. Notified [id number], who states that she is a community care nurse/ hospice nurse, that symptoms of blood clots cause redness, warmth and swelling and so it is difficult to say how much of the redness is due to cellulitis and how much to blood clot. Patient states this hospital is ridiculous and they should probably look to transfer care elsewhere. Looking at this RN- she then states he probably doesn't even have a pulse does he. The care here is terrible. Wanting to know exact times that consulted physicians would arrive. Mother in law asked more questions and then demanded for doctor to come in to room. She also asked if this RN was also the charge authorizer- which she was notified was the case. Dr. Jimenez notified of situation and of mother in law's behavior and arrived to unit to address questions. This RN entered patient's room with Dr. Jimenez. Dr. Jimenez said hello and notified them that she would talk to her patient and then answer any questions from family. Immediately doctor was speaking to patient and mother in law ran to head of bed to listen. Dr. Jimenez again stated that she would talk to patient and then family- patient's visibly angered stated that patient had a hard time understanding doctor due to accent. Dr. Jimenez very professional throughout conversation and mother in law's aggressive behavior continued. She stated that this could be litigation. Dr. Jimenez attempted to calm atmosphere in room a few different times by stating that we are here to take care of the patient, and that we all want the same thing- what is best for him. Dr. Jimenez refused to discuss what happened in the past but that she is focuses on fixing the present issues. Aggressive behavior continued from mother in law. Both mother and stated that questions were not answered adequately- doctor stated that she isn't sure what isn't clear- mother in law became very angry and stated that patient needs transferred or need a second opinion. visibly upset stormed out of room. Dr. Jimenez stood up stated that staff does not deserve to be treated in this manner and this RN left room with Doctor. This RN returned to room to see if patient would like to be transferred to another facility- and if so check with their insurance to decide where. mother in law states I never said we wanted to be transferred- You should have had all of the options available when you came here to talk to us. This RN inquired what options she wanted- she asked if there was another doctor that could come in for a second opinion. This RN stated that we would look into what we can do for family. Abigail, RN cheese supervisor notified and Juan, RN assistant professor of geography notified of situation. Juan came to speak with patient and Dr. Ceja came at same time. ATB changed to PO Keflex as Dr. Ceja attributed most of issue to be related to blood clot since ATB's had made no improvement. Juan spoke with family and was able to have Dr. Parikh come for a second opinion. At the time Dr. Costa came up to room- and patient were only ones here. Dr. Kamara arrived at that time as well. Dr. Parikh stated that he had contacted multiple physicians including vascular to form POC. States that all physicians agree patient can be d/c'ed home on PO Keflex and aspirin with warm compresses along with pain meds. Notified patient will need excused from work until after f/u appt with Dr. Oglesby on Friday. Understanding verbalized and further questions denied by patient and his .
--- NOTE | 2018-01-21 19:10 | PCM.HOSP.N ---
Hospitalist Note Patient was seen and examined today at the request of family members as a result of patient's family and patient requesting a new hospitalist for his medical care. Dr. Jimenez contacted me and I examined the patient, he has a superficial thrombophlebitis of his left upper arm vision to his cellulitis, I talked at length with infectious diseases who recommended treating the patient with oral antibiotics and Dr. Peter SalasKeokc-igpkfrgm-cegavcoood the case, Dr. Salas advised that the patient should receive anti-inflammatory agents not full anticoagulation for his thrombophlebitis since it is superficial, due to the fact the patient has intrinsic renal disease, he will not be able to take a nonsteroidal agent such as Motrin, instead, he will be placed on aspirin and follow-up with his family care physician early next week. I went over this plan of care with the patient's knockdown man Dr. Alex and he had no problems with the patient being placed on aspirin. Patient was discharged to home on Keflex, his renal transplant rejection medication was adjusted by , and I contacted his PCPs office regarding an office visit next Friday and I left a message with a nurse to give to his PCP regarding his hospital course and need for follow-up on his superficial thrombophlebitis of his left upper arm as well as his cellulitis.
--- NOTE | 2018-01-21 19:16 | CCHN_ITS ---
Hospitalist Note Patient was seen and examined today at the request of family members as a result of patient's family and patient requesting a new hospitalist for his medical care. Dr. Jimenez contacted me and I examined the patient, he has a superficial thrombophlebitis of his left upper arm vision to his cellulitis, I talked at length with infectious diseases who recommended treating the patient with oral antibiotics and Dr. Peter SalasWuflm-xwubsnva-mkhcjqvizr the case, Dr. Salas advised that the patient should receive anti-inflammatory agents not full anticoagulation for his thrombophlebitis since it is superficial, due to the fact the patient has intrinsic renal disease, he will not be able to take a nonsteroidal agent such as Motrin, instead, he will be placed on aspirin and follow-up with his family care physician early next week. I went over this plan of care with the patient's customer sales distributor Dr. Alex and he had no problems with the patient being placed on aspirin. Patient was discharged to home on Keflex, his renal transplant rejection medication was adjusted by , and I contacted his PCPs office regarding an office visit next Friday and I left a message with a nurse to give to his PCP regarding his hospital course and need for follow-up on his superficial thrombophlebitis of his left upper arm as well as his cellulitis.
--- NOTE | 2018-01-26 10:20 | DS.PCM_ITS ---
Discharge Date and Diagnosis Date of Admission: 01/20/18 Date of Discharge: 01/21/18 - Primary Discharge Diagnosis #1 left upper arm cellulitis #2 left upper arm superficial thrombophlebitis #3 kidney disease stage III - Secondary Discharge Diagnosis Chronic Problems Elevated serum creatinine (Chronic) History of kidney transplant (Chronic) Hospital Course and Treatment Operations: None Procedures: None Summary of Care Provided: The patient is a 32 year old M seen in the emergency room at [facility] with chief complaint of left upper arm redness and possible cellulitis , he complained of redness and swelling and discomfort of his left upper arm for approximately 3 days. Patient had recently been admitted to the hospital for acute kidney injury and has been given IV fluids and that same arm. Evaluation in the emergency room showed no leukocytosis on his CBC, his creatinine was 2.9, patient was given a dose of vancomycin and admitted to the hospitalist service on MedSurg 2. Is treated with IV antibiotics and analgesic medications. Patient continued to have left upper arm pain and consideration was given to the fact that the patient might have a DVT in the left upper arm, duplex scan of the left arm was carried out which showed superficial thrombophlebitis in the left arm. I contacted vascular surgery who advised treating the patient with aspirin and warm compresses to the left arm. Nephrology saw the patient in consultation and they agreed that aspirin therapy was permitted with the patient's kidney disease. On 01/21/18, patient was seen and examined and felt to be in stable condition for discharge home Discharge Activity: Return to Normal Activity Return to work on:: 01/27/18 Weight Bearing Status: Full weight bearing Home Medications: Medications to take at Discharge Cholecalciferol (Vitamin D3) [Vitamin D3] 2,000 unit PO DAILY 01/15/18 Mycophenolate Mofetil [Cellcept] 750 mg PO BID 01/15/18 Omeprazole 40 mg PO DAILY 01/15/18 Amlodipine [Norvasc] 5 mg PO DAILY #30 tab 01/17/18 Acetaminophen [Tylenol Tablet] 650 mg PO Q6H PRN PRN tablet 01/21/18 Cephalexin [Keflex] 500 mg PO Q12 #14 cap 01/21/18 Oxycodone [Oxyir] 5 mg PO Q4H PRN PRN 7 Days #25 tablet 01/21/18 Tacrolimus Anhydrous [Prograf] 3 mg PO BID #1 capsule 01/21/18 Following Prescrptions Were Given to Patient: Oxycodone [Oxyir] 5 mg PO Q4H PRN PRN 7 Days #25 tablet PRN Reason: Severe Pain (-04/08) Cephalexin [Keflex] 500 mg PO Q12 #14 cap Tacrolimus Anhydrous [Prograf] 3 mg PO BID #1 capsule Primary Care Physician: Fredrick Oglesby DO [Primary Care Provider] - Please follow up with your Primary Care Physician in: Next Friday at 3:40 pm Disposition: Home Minutes spent on discharge:: 32 Patient Condition:: Stable Medical Necessity - Tobacco Use Smoking Status: Light Smoker (<10/day) Tobacco Use: Cigarettes Meaningful Use Info Meaningful Use Diagnoses (Choose all that apply): None applicable Code Visit Inpatient E&M: 50460 Disch Hosp
== END 2018-01-21 14:24 | disposition home or self-care (01) | DRG 603 ==
LOC: ED 23:09 → MS2 01-20 01:45
PROVIDERS: Internal Medicine; Admitting Provider Family Medicine; Emergency Provider Emergency Medicine; Family Provider Family Medicine; PCP Family Medicine; Visit Provider Internal Medicine
DX: L03.114 Cellulitis of left upper limb (principal); Z94.0 Kidney transplant status; I12.0 Hypertensive chronic kidney disease with stage 5 chronic kidney disease or end stage renal disease; I82.612 Acute embolism and thrombosis of superficial veins of left upper extremity; N18.3 Chronic kidney disease, stage 3 (moderate); F17.210 Nicotine dependence, cigarettes, uncomplicated
CPT/HCPCS: 80048; 80069; 82962; 85025; 87040; 93971; 99284; J7040; A4216

== ENCOUNTER 2018-05-05 19:55 | Observation (INO) | payer BC, SELFPAY ==
--- NOTE | 2018-05-05 19:53 | PCM.HP.STD ---
Problem List (1) TED (acute kidney injury) Status: Acute (2) Uncontrolled hypertension Status: Acute (3) CKD (chronic kidney disease) stage 3, GFR 30-59 ml/min Status: Chronic (4) HTN (hypertension) Status: Chronic Qualifiers: Hypertension type: essential hypertension Qualified Code(s): I10 - Essential (primary) hypertension (5) Tobacco use Status: Chronic (6) GERD (gastroesophageal reflux disease) Status: Chronic Qualifiers: Esophagitis presence: esophagitis presence not specified Qualified Code(s): K21.9 - Gastro-esophageal reflux disease without esophagitis (7) History of kidney transplant Status: Chronic History of Present Illness Date of Admission: 05/05/18 Chief Complaint: TED, Uncontrolled HTN The patient is a 32 y/o M w/ PMHx: 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 Discussed case w/ Dr. Kamara who has been caring for the patient. At home his BPs have been varying, 150/105-->SBP in the 180s. He upon presentation notes having taken clonidine today secondary to elevated BPs. He has been wearing SYLVIA hose for the last 3 days secondary to the severity of the edema, 2+ pitting prior his notes with some improvement with these interventions. He denies any chest pain, dyspnea, headaches, vision changes with recent elevated BPs. Past Medical History Past Medical History (Chronic Problems): Chronic Problems Elevated serum creatinine (Chronic) History of kidney transplant (Chronic) CKD (chronic kidney disease) stage 3, GFR 30-59 ml/min (Chronic) HTN (hypertension) (Chronic) Tobacco use (Chronic) GERD (gastroesophageal reflux disease) (Chronic) Allergies No Known Allergies Allergy (Verified 01/19/18 22:05) Home Medications: Ambulatory Orders Medication Instructions Recorded Cholecalciferol (Vitamin D3) 2,000 unit PO DAILY 01/15/18 [Vitamin D3] Mycophenolate Mofetil [Cellcept] 750 mg PO BID 01/15/18 Omeprazole 40 mg PO DAILY 01/15/18 Amlodipine [Norvasc] 5 mg PO DAILY #30 tab 01/17/18 Acetaminophen [Tylenol Tablet] 650 mg PO Q6H PRN PRN tablet 01/21/18 Cephalexin [Keflex] 500 mg PO Q12 #14 cap 01/21/18 Oxycodone [Oxyir] 5 mg PO Q4H PRN PRN 7 Days #25 01/21/18 tablet Tacrolimus Anhydrous [Prograf] 3 mg PO BID #1 capsule 01/21/18 Surgical History: - - Renal transplant, fistula insertion/creation x 2 Psychiatric History: No pertinent psych hx Lives: Spouse/ Significant Other Tobacco Use: Cigarettes - 3-4 per day. Alcohol: None Drugs: None - *Family History Maternal History Items: - - Mother healthy, donated her kidney to her son. Paternal History Items: Diabetes, Hypertension Review of Systems Constitutional: Denies: Chills, Fever, Weight Change HEENT: Denies: Head Aches, Sinus Congestion, Sinus Drainage Cardiovascular: Denies: Chest Pain, Palpitations Respiratory: Denies: Cough, Shortness of breath at rest, Sputum production Gastrointestinal: Denies: Abdominal Pain, Nausea, Vomiting Genitourinary: Denies: Dysuria Musculoskeletal: Denies: Joint Pain, Joint Tenderness Skin: Denies: Rash, Wounds Neurological: Denies: Numbness, Tingling, Focal weakness Psychiatric: Denies: Anxiety, Depression, Homicidal Ideations, Suicidal Ideations Hematologic/ Lymphatic: Denies: Easy Bruising, Easy Bleeding VTE Information - Inpt Only VTE Present on Admission: No VTE Mechan Device Prophylaxis: SCD's VTE Pharm Prophylaxis ordered?: Yes Patient Problems: Active and Suspected Problems TED (acute kidney injury) (Acute) Uncontrolled hypertension (Acute) Subjective: Seated upright in the bed, NAD currently. Objective: Physical Examination: General: awake, alert, oriented x 3 and cooperative, seated upright in bed in no apparent distress. Skin: normal color, turgor, no icterus, cyanosis. HEENT: AT/NC, EOMI, PERRLA, MMM, no carotid bruits or JVD noted. Lungs: CTA bilaterally, moderate effort, mild decrease BL bases, no rales, ronchi or wheezing. Heart: Regular rate and rhythm; no gallop, rub audible. Abdomen: soft, overweight, NTTP, ND, normal BS, no HSM. Extremities: no cyanosis, clubbing, BL LE pedal to proximal huff 1+ pitting edema, and patient note was worse prior, has been wearing TEDs, LUE w/ fistula present. Neurological: patient awake, alert, oriented x 3; cognitive function intact; pupils equally reactive to light and accomodation; cranial nerves II-XII grossly normal, moving all 4 extremities, no focal deficits, strength preserved. Psychiatric: affect appears normal, no acute evidence of depressive or anxiety feelings. 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 (1) Acute kidney injury on CKD stage III: Secondary to his worsened hypertension and also nephrotoxic regimen in addition to possibly allograft dysfunction w/ possibly recurrence FSGS. Admission Cr 3.[address] Kamara recent report, prior baseline creatinine noted to be 2.4-2.6. Given concurrent uncontrolled hypertension with BL LE edema per discussion w/ Nephrology will obtain renal artery doppler of specifically the transplanted kidney as suspectible to stenosis, initiate IV lasix 40 mg BID, decrease norvasc to 5 mg daily, discontinue chlorthalidone, add labetolol, add hydralazine if needed. Repeat BMP upon admission and in AM. (2) Uncontrolled Hypertension: Per discussion w/ Nephrology will place on lasix IV 40 mg BID given worsened BL LE edema and worsened renal function w/ likely ineffectiveness of other agents, decrease the prior norvasc back to 5 mg daily which he had been on prior, add labetolol. PRN hydralazine. If severely worsens may consider transitioning to drip. Snug RADHA wraps. (3) Renal Transplant Status: Maintain on home cellcept, prograf. Possible allograft dysfunction w/ possibly recurrence FSGS. Continue evaluation as noted #1. (4) Tobacco Abuse: Encouraged cessation, inpatient consultation per RT, defer NR given only 3-5 cigarette/day (5) GERD: PPI. (6) DVT Prophylaxis: SCDs, heparin. Code Visit Inpatient E&M: 63973 Init Hosp L3
--- NOTE | 2018-05-05 19:55 | EKG12_ITS ---
Test Reason : DIRECT ADMIT Blood Pressure : / mmHG Vent. Rate : 065 BPM Atrial Rate : 065 BPM P-R Int : 142 ms QRS Dur : 104 ms QT Int : 410 ms P-R-T Axes : 044 062 053 degrees QTc Int : 426 ms Normal sinus rhythm Normal ECG When compared with ECG of 15-JAN-2018 13:43, No significant change was found Confirmed by DAKOTAH CARLSON, LIDIA ([id number]), editor map SYLVIA THOMASON ([id number]) on 05/07/2018 3:55:58 PM Referred By: Ale Che Confirmed By:LIDIA CLAIRE MD
[2018-05-05 20:00] VITALS: BP 136/84; BP 146/94; PULSE 66; RESP 18; TEMP 36.8; O2SAT 96
--- NOTE | 2018-05-05 20:00 | HP.PCM_ITS ---
Problem List (1) TED (acute kidney injury) Status: Acute (2) Uncontrolled hypertension Status: Acute (3) CKD (chronic kidney disease) stage 3, GFR 30-59 ml/min Status: Chronic (4) HTN (hypertension) Status: Chronic Qualifiers: Hypertension type: essential hypertension Qualified Code(s): I10 - Essential (primary) hypertension (5) Tobacco use Status: Chronic (6) GERD (gastroesophageal reflux disease) Status: Chronic Qualifiers: Esophagitis presence: esophagitis presence not specified Qualified Code(s): K21.9 - Gastro-esophageal reflux disease without esophagitis (7) History of kidney transplant Status: Chronic History of Present Illness Date of Admission: 05/05/18 Chief Complaint: TED, Uncontrolled HTN The patient is a 32 y/o M w/ PMHx: ESRD secondary to FSGS s/p LRD Renal Transplant at [place] [address] from his mother w/ now CKD stage III progressing toward CKD stage IV w/ baseline Cr prior to current presentation 2.4-2.6, Tobacco use, GERD, HTN who presents to the [facility] on 05/05/18 as direct admission w/ history off worsening hypertension over the last 1 month 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 Discussed case w/ Dr. Kamara who has been caring for the patient. At home his BPs have been varying, 150/105-->SBP in the 180s. He upon presentation notes having taken clonidine today secondary to elevated BPs. He has been wearing SYLVIA hose for the last 3 days secondary to the severity of the edema, 2+ pitting prior his notes with some improvement with these interventions. He denies any chest pain, dyspnea, headaches, vision changes with recent elevated BPs. Past Medical History Past Medical History (Chronic Problems): Chronic Problems Elevated serum creatinine (Chronic) History of kidney transplant (Chronic) CKD (chronic kidney disease) stage 3, GFR 30-59 ml/min (Chronic) HTN (hypertension) (Chronic) Tobacco use (Chronic) GERD (gastroesophageal reflux disease) (Chronic) Allergies No Known Allergies Allergy (Verified 01/19/18 22:05) Home Medications: Ambulatory Orders Medication Instructions Recorded Cholecalciferol (Vitamin D3) 2,000 unit PO DAILY 01/15/18 [Vitamin D3] Mycophenolate Mofetil [Cellcept] 750 mg PO BID 01/15/18 Omeprazole 40 mg PO DAILY 01/15/18 Amlodipine [Norvasc] 5 mg PO DAILY #30 tab 01/17/18 Acetaminophen [Tylenol Tablet] 650 mg PO Q6H PRN PRN tablet 01/21/18 Cephalexin [Keflex] 500 mg PO Q12 #14 cap 01/21/18 Oxycodone [Oxyir] 5 mg PO Q4H PRN PRN 7 Days #25 01/21/18 tablet Tacrolimus Anhydrous [Prograf] 3 mg PO BID #1 capsule 01/21/18 Surgical History: - - Renal transplant, fistula insertion/creation x 2 Psychiatric History: No pertinent psych hx Lives: Spouse/ Significant Other Tobacco Use: Cigarettes - 3-4 per day. Alcohol: None Drugs: None - *Family History Maternal History Items: - - Mother healthy, donated her kidney to her son. Paternal History Items: Diabetes, Hypertension Review of Systems Constitutional: Denies: Chills, Fever, Weight Change HEENT: Denies: Head Aches, Sinus Congestion, Sinus Drainage Cardiovascular: Denies: Chest Pain, Palpitations Respiratory: Denies: Cough, Shortness of breath at rest, Sputum production Gastrointestinal: Denies: Abdominal Pain, Nausea, Vomiting Genitourinary: Denies: Dysuria Musculoskeletal: Denies: Joint Pain, Joint Tenderness Skin: Denies: Rash, Wounds Neurological: Denies: Numbness, Tingling, Focal weakness Psychiatric: Denies: Anxiety, Depression, Homicidal Ideations, Suicidal Ideations Hematologic/ Lymphatic: Denies: Easy Bruising, Easy Bleeding VTE Information - Inpt Only VTE Present on Admission: No VTE Mechan Device Prophylaxis: SCD's VTE Pharm Prophylaxis ordered?: Yes Patient Problems: Active and Suspected Problems TED (acute kidney injury) (Acute) Uncontrolled hypertension (Acute) Subjective: Seated upright in the bed, NAD currently. Objective: Physical Examination: General: awake, alert, oriented x 3 and cooperative, seated upright in bed in no apparent distress. Skin: normal color, turgor, no icterus, cyanosis. HEENT: AT/NC, EOMI, PERRLA, MMM, no carotid bruits or JVD noted. Lungs: CTA bilaterally, moderate effort, mild decrease BL bases, no rales, ronchi or wheezing. Heart: Regular rate and rhythm; no gallop, rub audible. Abdomen: soft, overweight, NTTP, ND, normal BS, no HSM. Extremities: no cyanosis, clubbing, BL LE pedal to proximal huff 1+ pitting edema, and patient note was worse prior, has been wearing TEDs, LUE w/ fistula present. Neurological: patient awake, alert, oriented x 3; cognitive function intact; pupils equally reactive to light and accomodation; cranial nerves II-XII grossly normal, moving all 4 extremities, no focal deficits, strength preserved. Psychiatric: affect appears normal, no acute evidence of depressive or anxiety feelings. 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 (1) Acute kidney injury on CKD stage III: Secondary to his worsened hypertension and also nephrotoxic regimen in addition to possibly allograft dysfunction w/ possibly recurrence FSGS. Admission Cr 3.[address] Kamara recent report, prior baseline creatinine noted to be 2.4-2.6. Given concurrent uncontrolled hypertension with BL LE edema per discussion w/ Nephrology will obtain renal artery doppler of specifically the transplanted kidney as suspectible to stenosis, initiate IV lasix 40 mg BID, decrease norvasc to 5 mg daily, discontinue chlorthalidone, add labetolol, add hydralazine if needed. Repeat BMP upon admission and in AM. (2) Uncontrolled Hypertension: Per discussion w/ Nephrology will place on lasix IV 40 mg BID given worsened BL LE edema and worsened renal function w/ likely ineffectiveness of other agents, decrease the prior norvasc back to 5 mg daily which he had been on prior, add labetolol. PRN hydralazine. If severely worsens may consider transitioning to drip. Snug RADHA wraps. (3) Renal Transplant Status: Maintain on home cellcept, prograf. Possible allograft dysfunction w/ possibly recurrence FSGS. Continue evaluation as noted #1. (4) Tobacco Abuse: Encouraged cessation, inpatient consultation per RT, defer NR given only 3-5 cigarette/day (5) GERD: PPI. (6) DVT Prophylaxis: SCDs, heparin. Code Visit Inpatient E&M: 44631 Init Hosp L3
[2018-05-05 20:09] VITALS: PULSE 72
[2018-05-05 20:32] VITALS: BMI 29.9
[2018-05-05 21:01] LABS: Hematocrit 42.1 % (40-54); Hemoglobin 14.5 g/dl (13.0-16.5); Mean Corp Hgb Conc 34.4 g/gl (32-36); Mean Corpuscular Hgb 31.3 pg (27.0-32.0); Mean Corpuscular Volume 90.7 fL (80-94); Mean Platelet Vol. 10.9 fl (6.2-12.0); Platelet Count 208 K/mm3 (150-450); RBC Distribution Width CV 13.9 % (11.6-14.6); RBC Distribution Width SD 45.7 fl (35.1-43.9); Red Blood Count 4.64 M/mm3 (4.6-6.2); Scan Indicated on CBC? Y/N NO
[2018-05-05 21:16] LABS: ALB/GLOB Ratio 0.7 RATIO (0.9-2.4); AST(SGOT) 20 U/L (15-37); Alanine Aminotransfer ALT/SGPT 27 U/L (16-61); Albumin, Serum 2.6 g/dL (3.2-5.0); Alkaline Phosphatase 126 U/L (45-117); Anion Gap 11 (5-15); BUN 44 mg/dL (7-18); BUN/Creat Ratio 13.3 RATIO (10-20); Calcium,Total 7.9 mg/dL (8.5-10.1); Chloride 110 mmol/L (98-107); Creatinine, Serum 3.32 mg/dL (0.70-1.30); EST Glomerular Filtration Rate 23 mL/min (>60); Est Glom Filt Rate - Afr Amer 27 mL/min (>60); Estimated Creatinine Clearance 33.39 ml/min; Globulin 3.7 g/dL (2.2-4.2); Glucose 111 mg/dL (74-106); Magnesium 1.7 mg/dL (1.6-2.6); Phosphorus 4.3 mg/dL (2.5-4.9); Potassium 3.9 mmol/L (3.5-5.1); Protein, Total 6.3 g/dL (6.4-8.2); Sodium Level 140 mmol/L (136-145)
[2018-05-05] MEDS: Tacrolimus Anhydrous 1 MG Capsule 3 MG PO (22:02)
[2018-05-05] MEDS: Furosemide 40 MG/4 ML Vial IV (22:03)
[2018-05-05] MEDS: Mycophenolate Mofetil 250 MG Capsule 750 MG PO (22:03)
[2018-05-05] MEDS: Heparin Injection (Vial) 5,000 UNIT/ML VIAL 5000 UNIT SC (22:03)
[2018-05-05] MEDS: Pantoprazole Sodium 40 MG Tablet PO (22:27)
[2018-05-05 22:30] VITALS: BP 141/91; PULSE 66; RESP 18; TEMP 36.5; O2SAT 97
[2018-05-05 22:58] VITALS: PULSE 66
[2018-05-06 02:59] VITALS: PULSE 60
[2018-05-06 04:10] VITALS: BP 133/86; PULSE 62; RESP 16; TEMP 36.4; O2SAT 96
--- NOTE | 2018-05-06 05:55 | RDU_ITS ---
Reason For Study: HYPERTENSION Right Renal Artery Transplant artery Origin - 111.0/20.1 cm/s Prox - 111.0/20.1 cm/s Mid - 95.8/20.1 cm/s Distal - 89.2/19.6 cm/s RT RAR - 1.2. Right Renal Parenchyma Upper Pole Medula 17.6/5.7 PSV/EDV. Right upper pole medulla EDR .32 . Right upper pole medulla R.I. .68 . Upper Jass Cortx 13.3/4.0 PSV/EDV. Right upper pole cortex EDR .30 . Right upper pole cortex R.I. .70 . Right lower Pole medulla 30.9/10.7 PSV/EDV . Right lower pole medulla EDR .35 . Right lower pole medulla R.I. .65 . Lower Pole Cortex 20.6/6.7 PSV/EDV. Right lower pole cortex EDR .33 . Right lower pole cortex R.I. .68 . Right Renal Hilar Right Hilar avg 69.3/15.5 PSV/EDV. Right hilar acceleration time 51 m/sec. Right Renal Dimensions Right kidney size 12.0 cm . Right cortical dimension 1.2 cm . Aorta Proximal abdominal aorta 1.8 x 1.7 cm . Distal abdominal aorta 1.5 x 1.6 cm . Proximal abdominal aorta peak systolic velocity is 93.0 cm/sec . Distal abdominal aorta peak systolic velocity is 102.0 cm/sec . Interpretation Summary Right kidney 12 cm length Right renal transplant artery with <60% stenosis. No criteria exist for transplant artery evaluation but normal flows are identified. Abdominal aorta 1.78 x 1.72 cm maximally proximally Ordering Physician: Ale Che Referring Physician: Fredrick Oglesby Performed By: Jennifer Castorena RVT
[2018-05-06 06:39] LABS: Anion Gap 11 (5-15); BUN 46 mg/dL (7-18); BUN/Creat Ratio 14.2 RATIO (10-20); Calcium,Total 8.6 mg/dL (8.5-10.1); Chloride 110 mmol/L (98-107); Creatinine, Serum 3.25 mg/dL (0.70-1.30); EST Glomerular Filtration Rate 23 mL/min (>60); Est Glom Filt Rate - Afr Amer 28 mL/min (>60); Estimated Creatinine Clearance 34.11 ml/min; Glucose 104 mg/dL (74-106); Potassium 3.6 mmol/L (3.5-5.1); Sodium Level 141 mmol/L (136-145)
[2018-05-06 07:04] VITALS: PULSE 69
[2018-05-06 08:38] VITALS: BP 147/94; PULSE 65; RESP 18; TEMP 36.3; O2SAT 97
[2018-05-06] MEDS: Mycophenolate Mofetil 250 MG Capsule 750 MG PO (08:47)
[2018-05-06] MEDS: Labetalol 100 MG Tablet PO (08:47)
[2018-05-06] MEDS: amLODIPine 5 MG Tablet PO (08:47)
[2018-05-06] MEDS: Furosemide 40 MG/4 ML Vial IV (08:47)
[2018-05-06] MEDS: Pantoprazole Sodium 40 MG Tablet PO (08:47)
[2018-05-06] MEDS: Tacrolimus Anhydrous 1 MG Capsule 3 MG PO (08:47)
[2018-05-06 08:57] VITALS: RESP 18
--- NOTE | 2018-05-06 09:23 | PCM.CONS.R ---
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 12 year out. on immunosupression as below recently had high BP readings, edema, poor appetite and weakness all within last 2 weeks several medications were adjusted , amlodipine to 10 mg daily, addition of chlorthalidone and addition of clonidine. BP remained high hence referred to admission overnight he received lasix 40 mg BID IV. feels better - Allergies Allergies: Allergies No Known Allergies Allergy (Verified 01/19/18 22:05) - Current Medications Current Medications: Current Medications Acetaminophen (Tylenol) 650 mg PO Q6H PRN PRN PRN Reason: Non-cardiac pain (mod-severe) Al Hydroxide/Mg Hydroxide (Mylanta Ii) 30 ml PO Q6H PRN PRN PRN Reason: Gastric burning Amlodipine Besylate (Norvasc) 5 mg PO DAILY [facility] Last Admin: 05/06/18 08:47 Dose: 5 mg Cholecalciferol (Vitamin D) 2,000 unit PO DAILYCM [facility] Last Admin: 05/06/18 08:47 Dose: 2,000 unit Furosemide (Lasix) 40 mg IV BID@1000,1800 [facility] Last Admin: 05/06/18 08:47 Dose: 40 mg Heparin Sodium (Porcine) (Heparin Na) 5,000 unit SC Q12 [facility] Last Admin: 05/06/18 08:47 Dose: Not Given Hydralazine HCl (Apresoline Iv) 10 mg IV Q4H PRN PRN PRN Reason: SBP > 160 Labetalol HCl (Trandate) 100 mg PO BID [facility] Last Admin: 05/06/18 08:47 Dose: 100 mg Magnesium Hydroxide (Milk Of Magnesia) 30 ml PO DAILY PRN PRN Reason: Constipation Mycophenolate Mofetil (Cellcept) 750 mg PO BID [facility] Last Admin: 05/06/18 08:47 Dose: 750 mg Ondansetron HCl (Zofran) 4 mg IV Q8H PRN PRN PRN Reason: NAUSEA Pantoprazole Sodium (Protonix) 40 mg PO BID [facility] Last Admin: 05/06/18 08:47 Dose: 40 mg Sodium Chloride () 5 - 30 ml IV UD PRN PRN Reason: SALINE FLUSH Tacrolimus (Prograf) 3 mg PO BID [facility] Last Admin: 05/06/18 08:47 Dose: 3 mg - Past Medical History Past Medical History (Chronic Problems): Chronic Problems Elevated serum creatinine (Chronic) History of kidney transplant (Chronic) CKD (chronic kidney disease) stage 3, GFR 30-59 ml/min (Chronic) HTN (hypertension) (Chronic) Tobacco use (Chronic) GERD (gastroesophageal reflux disease) (Chronic) - Past Surgical History Surgical History: - - Renal transplant, fistula insertion/creation x 2 - Social History Smoking Status: Current every day smoker Alcohol: None Drugs: None - Family History Maternal History Items: - - Mother healthy, donated her kidney to her son. Paternal History Items: Diabetes, Hypertension Review of Systems Constitutional: Denies: Chills, Fever, Weight Change HEENT: Denies: Head Aches, Sinus Congestion, Sinus Drainage Cardiovascular: Denies: Chest Pain, Palpitations Respiratory: Denies: Cough, Shortness of breath at rest, Sputum production Gastrointestinal: Denies: Abdominal Pain, Nausea, Vomiting Genitourinary: Denies: Dysuria Musculoskeletal: Denies: Joint Pain, Joint Tenderness Skin: Denies: Rash, Wounds Neurological: Denies: Numbness, Tingling, Focal weakness Psychiatric: Denies: Anxiety, Depression, Homicidal Ideations, Suicidal Ideations Hematologic/ Lymphatic: Denies: Easy Bruising, Easy Bleeding Patient Problems: Active and Suspected Problems TED (acute kidney injury) (Acute) Uncontrolled hypertension (Acute) - Physical Exam General: Alert, Oriented x3, Cooperative HEENT: Atraumatic, PERRLA, EOMI, Normocephalic Neck: Supple, No JVD, Negative Carotid Bruits Lungs: Clear to auscultation, Normal air movement Cardiovascular: Regular rate, No murmurs Abdomen: Bowel Sounds Present, Soft, Non Tender Extremities: No edema, Capillary Refill Less than 3 Seconds Skin: No rashes, No breakdown Musculoskeletal: No Tenderness to Palpation of Joints or Extremities Neurological: Cranial nerves II-XII grossly intact Psych/Mental Status: Normal Affect, Appropriate Vital Signs Temp Pulse Resp BP Pulse Ox 97.4 F L 65 18 147/94 H 97 05/06/18 08:38 05/06/18 08:38 05/06/18 08:57 05/06/18 08:38 05/06/18 08:38 Oxygen Delivery Method Room Air Weight: 97.6 kg Body Mass Index (BMI) 29.9 Intake and Output for Last 24 Hours 05/04/18 05/05/18 05/06/18 23:59 23:59 23:59 Intake Total 240 / 240 Output Total 1375 / 1375 Balance -1135 / -1135 Laboratory Tests Past 24 Hrs 05/05/18 05/05/18 05/06/18 20:45 20:45 05:50 WBC 9.0 RBC 4.64 Hgb 14.5 Hct 42.1 MCV 90.7 MCH 31.3 MCHC 34.4 RDW 13.9 RDW Differential 45.7 H Plt Count 208 MPV 10.9 Sodium 140 141 Potassium 3.9 3.6 Chloride 110 H 110 H Carbon Dioxide 19.0 L 20.0 L Anion Gap 11 11 BUN 44 H 46 H Creatinine 3.32 H 3.25 H Estim Creat Clear Calc 33.39 34.11 Est GFR (MDRD) Af Amer 27 L 28 L Est GFR (MDRD) Non-Af 23 L 23 L BUN/Creatinine Ratio 13.3 14.2 Glucose 111 H 104 Calcium 7.9 L 8.6 Phosphorus 4.3 Magnesium 1.7 Total Bilirubin 0.20 AST 20 ALT 27 Alkaline Phosphatase 126 H Total Protein 6.3 L Albumin 2.6 L Globulin 3.7 Albumin/Globulin Ratio 0.7 L Assessment/Plan All Active Problems Cellulitis (Acute) TED (acute kidney injury) (Acute) Uncontrolled hypertension (Acute) TED CKD stage 3 kidney transplant Creatinine most of last year is 2 to 2.4. now around 3.2 or so primary kidney disease was related FSGS creatinine is more than baseline overall. ? progression of kidney disease vs sub acute rejection will plan for a kidney biopsy as outpatient HTN. likely volume related continue amlodipine 5 mg daily change lasix to 40 mg PO daily continue labetalol at current dose will follow on renal doppler d/w Dr Parikh
--- NOTE | 2018-05-06 09:35 | CON.PCM_ITS ---
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 12 year out. on immunosupression as below recently had high BP readings, edema, poor appetite and weakness all within last 2 weeks several medications were adjusted , amlodipine to 10 mg daily, addition of chlorthalidone and addition of clonidine. BP remained high hence referred to admission overnight he received lasix 40 mg BID IV. feels better - Allergies Allergies: Allergies No Known Allergies Allergy (Verified 01/19/18 22:05) - Current Medications Current Medications: Current Medications Acetaminophen (Tylenol) 650 mg PO Q6H PRN PRN PRN Reason: Non-cardiac pain (mod-severe) Al Hydroxide/Mg Hydroxide (Mylanta Ii) 30 ml PO Q6H PRN PRN PRN Reason: Gastric burning Amlodipine Besylate (Norvasc) 5 mg PO DAILY [facility] Last Admin: 05/06/18 08:47 Dose: 5 mg Cholecalciferol (Vitamin D) 2,000 unit PO DAILYCM [facility] Last Admin: 05/06/18 08:47 Dose: 2,000 unit Furosemide (Lasix) 40 mg IV BID@1000,1800 [facility] Last Admin: 05/06/18 08:47 Dose: 40 mg Heparin Sodium (Porcine) (Heparin Na) 5,000 unit SC Q12 [facility] Last Admin: 05/06/18 08:47 Dose: Not Given Hydralazine HCl (Apresoline Iv) 10 mg IV Q4H PRN PRN PRN Reason: SBP > 160 Labetalol HCl (Trandate) 100 mg PO BID [facility] Last Admin: 05/06/18 08:47 Dose: 100 mg Magnesium Hydroxide (Milk Of Magnesia) 30 ml PO DAILY PRN PRN Reason: Constipation Mycophenolate Mofetil (Cellcept) 750 mg PO BID [facility] Last Admin: 05/06/18 08:47 Dose: 750 mg Ondansetron HCl (Zofran) 4 mg IV Q8H PRN PRN PRN Reason: NAUSEA Pantoprazole Sodium (Protonix) 40 mg PO BID [facility] Last Admin: 05/06/18 08:47 Dose: 40 mg Sodium Chloride () 5 - 30 ml IV UD PRN PRN Reason: SALINE FLUSH Tacrolimus (Prograf) 3 mg PO BID [facility] Last Admin: 05/06/18 08:47 Dose: 3 mg - Past Medical History Past Medical History (Chronic Problems): Chronic Problems Elevated serum creatinine (Chronic) History of kidney transplant (Chronic) CKD (chronic kidney disease) stage 3, GFR 30-59 ml/min (Chronic) HTN (hypertension) (Chronic) Tobacco use (Chronic) GERD (gastroesophageal reflux disease) (Chronic) - Past Surgical History Surgical History: - - Renal transplant, fistula insertion/creation x 2 - Social History Smoking Status: Current every day smoker Alcohol: None Drugs: None - Family History Maternal History Items: - - Mother healthy, donated her kidney to her son. Paternal History Items: Diabetes, Hypertension Review of Systems Constitutional: Denies: Chills, Fever, Weight Change HEENT: Denies: Head Aches, Sinus Congestion, Sinus Drainage Cardiovascular: Denies: Chest Pain, Palpitations Respiratory: Denies: Cough, Shortness of breath at rest, Sputum production Gastrointestinal: Denies: Abdominal Pain, Nausea, Vomiting Genitourinary: Denies: Dysuria Musculoskeletal: Denies: Joint Pain, Joint Tenderness Skin: Denies: Rash, Wounds Neurological: Denies: Numbness, Tingling, Focal weakness Psychiatric: Denies: Anxiety, Depression, Homicidal Ideations, Suicidal Ideations Hematologic/ Lymphatic: Denies: Easy Bruising, Easy Bleeding Patient Problems: Active and Suspected Problems TED (acute kidney injury) (Acute) Uncontrolled hypertension (Acute) - Physical Exam General: Alert, Oriented x3, Cooperative HEENT: Atraumatic, PERRLA, EOMI, Normocephalic Neck: Supple, No JVD, Negative Carotid Bruits Lungs: Clear to auscultation, Normal air movement Cardiovascular: Regular rate, No murmurs Abdomen: Bowel Sounds Present, Soft, Non Tender Extremities: No edema, Capillary Refill Less than 3 Seconds Skin: No rashes, No breakdown Musculoskeletal: No Tenderness to Palpation of Joints or Extremities Neurological: Cranial nerves II-XII grossly intact Psych/Mental Status: Normal Affect, Appropriate Vital Signs Temp Pulse Resp BP Pulse Ox 97.4 F L 65 18 147/94 H 97 05/06/18 08:38 05/06/18 08:38 05/06/18 08:57 05/06/18 08:38 05/06/18 08:38 Oxygen Delivery Method Room Air Weight: 97.6 kg Body Mass Index (BMI) 29.9 Intake and Output for Last 24 Hours 05/04/18 05/05/18 05/06/18 23:59 23:59 23:59 Intake Total 240 / 240 Output Total 1375 / 1375 Balance -1135 / -1135 Laboratory Tests Past 24 Hrs 05/05/18 05/05/18 05/06/18 20:45 20:45 05:50 WBC 9.0 RBC 4.64 Hgb 14.5 Hct 42.1 MCV 90.7 MCH 31.3 MCHC 34.4 RDW 13.9 RDW Differential 45.7 H Plt Count 208 MPV 10.9 Sodium 140 141 Potassium 3.9 3.6 Chloride 110 H 110 H Carbon Dioxide 19.0 L 20.0 L Anion Gap 11 11 BUN 44 H 46 H Creatinine 3.32 H 3.25 H Estim Creat Clear Calc 33.39 34.11 Est GFR (MDRD) Af Amer 27 L 28 L Est GFR (MDRD) Non-Af 23 L 23 L BUN/Creatinine Ratio 13.3 14.2 Glucose 111 H 104 Calcium 7.9 L 8.6 Phosphorus 4.3 Magnesium 1.7 Total Bilirubin 0.20 AST 20 ALT 27 Alkaline Phosphatase 126 H Total Protein 6.3 L Albumin 2.6 L Globulin 3.7 Albumin/Globulin Ratio 0.7 L Assessment/Plan All Active Problems Cellulitis (Acute) TED (acute kidney injury) (Acute) Uncontrolled hypertension (Acute) TED CKD stage 3 kidney transplant Creatinine most of last year is 2 to 2.4. now around 3.2 or so primary kidney disease was related FSGS creatinine is more than baseline overall. ? progression of kidney disease vs sub acute rejection will plan for a kidney biopsy as outpatient HTN. likely volume related continue amlodipine 5 mg daily change lasix to 40 mg PO daily continue labetalol at current dose will follow on renal doppler d/w Dr Parikh
[2018-05-06 11:05] VITALS: PULSE 74
--- NOTE | 2018-05-06 11:30 | DCINST_ITS ---
- Discharge Diagnoses Current Active Problems: Current Active and Chronic Problems TED (acute kidney injury) (Acute) CKD (chronic kidney disease) stage 3, GFR 30-59 ml/min (Chronic) Uncontrolled hypertension (Acute) HTN (hypertension) (Chronic) Tobacco use (Chronic) GERD (gastroesophageal reflux disease) (Chronic) You will use the following diet at home:: No restrictions Your food should be the consistency of: Regular Your liquids should be the consistency of: Regular/Thin Discharge Activity: Return to Normal Activity Weight Bearing Status: Full weight bearing Allergies/Adverse Reactions: Allergies No Known Allergies Allergy (Verified 01/19/18 22:05) Medications to take at Discharge Cholecalciferol (Vitamin D3) [Vitamin D3] 2,000 unit PO DAILY 01/15/18 Mycophenolate Mofetil [Cellcept] 750 mg PO BID 01/15/18 Acetaminophen [Tylenol Tablet] 650 mg PO Q6H PRN PRN tablet 01/21/18 Oxycodone [Oxyir] 5 mg PO Q4H PRN PRN 7 Days #25 tablet 01/21/18 Tacrolimus Anhydrous [Prograf] 3 mg PO BID #1 capsule 01/21/18 Cholecalciferol (Vitamin D3) [Vitamin D3] 2,000 unit PO 05/05/18 Pantoprazole Sodium [Protonix] 40 mg PO BID 05/05/18 Acetaminophen [Tylenol Tablet] 650 mg PO Q6H PRN PRN tablet 05/06/18 Amlodipine [Norvasc] 5 mg PO DAILY tablet 05/06/18 Furosemide [Lasix] 40 mg PO DAILY #30 tablet 05/06/18 Labetalol [Trandate (Beta Evelina)] 100 mg PO BID #60 tablet 05/06/18 The following prescriptions were given: Furosemide [Lasix] 40 mg PO DAILY #30 tablet Labetalol [Trandate (Beta Evelina)] 100 mg PO BID #60 tablet Primary Care Physician: Fredrick Oglesby DO [Primary Care Provider] - Please follow up with your Primary Care Physician in: at regular office visit Test Results: Test results from this visit will be discussed in further detail at your follow- up appointment, if applicable. Please Follow Up With: Kris Kamara MD When: call for appointment
--- NOTE | 2018-05-07 20:11 | PCM.DC.SUM ---
Discharge Date and Diagnosis Date of Admission: 05/05/18 Date of Discharge: 05/06/18 - Primary Discharge Diagnosis #1 uncontrolled hypertension #2 acute kidney injury #3 chronic kidney disease stage III - Secondary Discharge Diagnosis Chronic Problems Elevated serum creatinine (Chronic) History of kidney transplant (Chronic) CKD (chronic kidney disease) stage 3, GFR 30-59 ml/min (Chronic) HTN (hypertension) (Chronic) Tobacco use (Chronic) GERD (gastroesophageal reflux disease) (Chronic) Hospital Course and Treatment Operations: None Procedures: - - Renal artery ultrasound Summary of Care Provided: The patient is a 32 year old M was directly admitted to PCU at [facility] at the request of his community cultural development officer due to uncontrolled high blood pressure. Patient's medications were adjusted during his hospital stay, blood pressure was under control with addition of several medications. Patient's renal function improved slightly during his hospitalization. Physical exam: On examination he appeared in good health and spirits. Vital signs as documented. Skin warm and dry and without overt rashes. Neck without JVD. Lungs clear. Heart exam notable for regular rhythm, normal sounds and absence of murmurs, rubs or gallops. Abdomen unremarkable and without evidence of organomegaly, masses, or abdominal aortic enlargement. Extremities nonedematous. Neuro: Cranial nerves II through XII are grossly intact, no focal motor deficits were noted. Psych: Patient is alert and oriented x3 and is appropriate, patient does not appear anxious or depressed Patient was seen and examined on 05/06/18 and felt to be in stable condition for discharge home. - Physical Exam Vital Signs Temp Pulse Resp BP Pulse Ox 97.4 F L 74 18 147/94 H 97 05/06/18 08:38 05/06/18 11:05 05/06/18 08:57 05/06/18 08:38 05/06/18 08:38 Oxygen Delivery Method Room Air Weight: 97.6 kg Body Mass Index (BMI) 29.9 Intake and Output for Last 24 Hours 05/05/18 05/06/18 05/07/18 23:59 23:59 23:59 Intake Total 240 / 240 Output Total 1375 / 1375 Balance -1135 / -1135 Discharge Activity: Return to Normal Activity Weight Bearing Status: Full weight bearing Home Medications: Medications to take at Discharge Cholecalciferol (Vitamin D3) [Vitamin D3] 2,000 unit PO DAILY 01/15/18 Mycophenolate Mofetil [Cellcept] 750 mg PO BID 01/15/18 Acetaminophen [Tylenol Tablet] 650 mg PO Q6H PRN PRN tablet 01/21/18 Oxycodone [Oxyir] 5 mg PO Q4H PRN PRN 7 Days #25 tablet 01/21/18 Tacrolimus Anhydrous [Prograf] 3 mg PO BID #1 capsule 01/21/18 Cholecalciferol (Vitamin D3) [Vitamin D3] 2,000 unit PO 05/05/18 Pantoprazole Sodium [Protonix] 40 mg PO BID 05/05/18 Acetaminophen [Tylenol Tablet] 650 mg PO Q6H PRN PRN tablet 05/06/18 Amlodipine [Norvasc] 5 mg PO DAILY tablet 05/06/18 Furosemide [Lasix] 40 mg PO DAILY #30 tablet 05/06/18 Labetalol [Trandate (Beta Evelina)] 100 mg PO BID #60 tablet 05/06/18 Following Prescrptions Were Given to Patient: Furosemide [Lasix] 40 mg PO DAILY #30 tablet Labetalol [Trandate (Beta Evelina)] 100 mg PO BID #60 tablet Primary Care Physician: Fredrick Oglesby DO [Primary Care Provider] - Please follow up with your Primary Care Physician in: at regular office visit Please Follow Up With: Kris Kamara MD When: call for appointment Disposition: Home Minutes spent on discharge:: 25 Patient Condition:: Stable Medical Necessity - Tobacco Use Smoking Status: Current every day smoker Tobacco Use: Cigarettes Meaningful Use Info Meaningful Use Diagnoses (Choose all that apply): None applicable Code Visit OBSV E&M: 13343 Observation care discharge
== END 2018-05-06 12:11 | disposition home or self-care (01) ==
PROVIDERS: Admitting Provider Family Medicine; Family Provider Family Medicine; PCP Family Medicine; Referring Provider Family Medicine; Visit Provider Internal Medicine
DX: I12.9 Hypertensive chronic kidney disease with stage 1 through stage 4 chronic kidney disease, or unspecified chronic kidney disease (principal); N18.3 Chronic kidney disease, stage 3 (moderate); N17.9 Acute kidney failure, unspecified; Z94.0 Kidney transplant status; K21.9 Gastro-esophageal reflux disease without esophagitis; F17.210 Nicotine dependence, cigarettes, uncomplicated; Z79.899 Other long term (current) drug therapy
CPT/HCPCS: 36415; 80048; 80053; 83735; 84100; 85027; 93005; 93975; 96372; 96374; 96376; 97802; 99218; G0378; G0379; J1940

== ENCOUNTER 2018-07-03 10:58 | Inpatient (IN) | payer BC, SELFPAY ==
[2018-07-03] VITALS (8 sets, daily range): BP systolic 143–170; BP diastolic 86–108; PULSE 68–86; RESP 16–20; TEMP 36.6–36.8; O2SAT 95–98; BMI 29.2; BMI 30.7; BMI 30.8
[2018-07-03] MEDS: Acetaminophen 500 MG Tablet 1000 MG PO (11:46)
[2018-07-03] MEDS: Ondansetron 4 MG/2 ML Vial IV (11:47)
[2018-07-03 12:00] LABS: Absolute Neutrophil Count 12.1 X10^3/uL (2.0-7.7); Basophil# 0.02 X10^3/uL; Basophil% 0.2 % (0-1); Eosinophil# 0.01 X10^3/uL; Eosinophils% 0.1 % (0-5); Hematocrit 41.8 % (40-54); Hemoglobin 13.8 g/dl (13.0-16.5); Lymphocyte % 3.8 % (19-41); Mean Corpuscular Hgb 30.4 pg (27.0-32.0); Mean Corpuscular Volume 92.1 fL (80-94); Mean Platelet Vol. 10.6 fl (6.2-12.0); Monocyte# 0.43 X10^3/uL; Monocyte% 3.2 % (0-10); Neutrophil % 91.2 % (47-70); Platelet Count 170 K/mm3 (150-450); RBC Distribution Width CV 14.3 % (11.6-14.6); RBC Distribution Width SD 48.1 fl (35.1-43.9); Red Blood Count 4.54 M/mm3 (4.6-6.2); White Blood Count 13.3 K/mm3 (4.4-11.0)
--- NOTE | 2018-07-03 12:00 | ED.VISSUMM ---
- ER Visit Summary Date of Service: 07/03/18 Chief Complaint: I need dialysis History of Present Illness: The patient is a [address] Oglesby and Dr. Kamara. He has a history of a kidney transplant at [facility] 13 years ago following FSGN. They no longer have a transplant unit and he just follows along with Dr. Kamara. His baseline creatinine had been 1.9 prior to December 2017. At that time he became dehydrated and had acute kidney injury. His creatinine is been 2.4 since then. Is been gradually increasing. 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 This was performed at [facility]. He was referred to the transplant unit in [place] last month and at that time was placed on steroids. He has taken 2 weeks of 60 mg of prednisone and is on day 2 of 40 mg of prednisone. Prograf was decreased from 3 twice daily to 3 every morning and 2 every afternoon. Patient had blood work today that shows that his creatinine is increased to 4.3. He complains of increasing lower extremity edema over the past 2 weeks. States that his blood pressure has been difficult to control and that he has a mild headache and generalized weakness. Physical Examination: Vitals: Stable. Afebrile. General: Well-nourished and well-developed. Head: Normocephalic atraumatic. Neck: Supple, no lymphadenopathy. No JVD. Nontender. Cardiovascular: Regular rate and rhythm. No murmurs. Respiratory: No respiratory distress. Clear to auscultation bilaterally. Abdominal: Soft, nontender, nondistended, normal bowel sounds. No guarding, rebound, or peritoneal signs. Back: Nontender. Extremities: Nontender, 1+ edema of his lower extremities bilaterally.. Skin: Normal color, no rash. Neurologic: Alert and oriented ?3. Cranial nerves II through XII are intact. Normal strength and sensation. Psych: Normal affect. Test Results: CBC is remarkable for a white count of 13.3 with 91 segmented neutrophils and 4 lymphocytes. Chem-7 is more for CO2 of 19, glucose 148, BUN of 80, creatinine of 4.13. Emergency Department Course and Treatment: Patient had an IV placed. He was given Zofran IV and Tylenol p.o. He is resting comfortably. Treatment Plan: Patient was discussed with Dr. Kamara and Dr. Dionisio Alonso. He will be admitted to the hospital with a plan to have a tunneled dialysis catheter placed tomorrow morning at [address] Dionisio Alonso. The patient will be discussed with the hospitalist for admission. Disposition: Admitted in stable condition. Impression: 1. Acute on chronic renal insufficiency. 2. Leukocytosis, uncertain cause. This note was generated with [employer] dictation software. It may contain incorrect words, spelling, and punctuation that were not noted in review of the chart prior to signing ED Disposition - Plan for ED Patient: Chief Complaint: General Illness Referrals: Fredrick Oglesby DO [Primary Care Provider] -
[2018-07-03 12:03] LABS: Differential Indicated SCAN CRITERIA MET; POSITIVE COUNT NO; POSITIVE DIFFERENTIAL YES; POSITIVE MORPHOLOGY NO
--- NOTE | 2018-07-03 12:03 | ED.DCSUM_ITS ---
- ER Visit Summary Date of Service: 07/03/18 Chief Complaint: I need dialysis History of Present Illness: The patient is a [address] Oglesby and Dr. Kamara. He has a history of a kidney transplant at [facility] 13 years ago following FSGN. They no longer have a transplant unit and he just follows along with Dr. Kamara. His baseline creatinine had been 1.9 prior to December 2017. At that time he became dehydrated and had acute kidney injury. His creatinine is been 2.4 since then. Is been gradually increasing. 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 This was performed at [facility]. He was referred to the transplant unit in [place] last month and at that time was placed on steroids. He has taken 2 weeks of 60 mg of prednisone and is on day 2 of 40 mg of prednisone. Prograf was decreased from 3 twice daily to 3 every morning and 2 every afternoon. Patient had blood work today that shows that his creatinine is increased to 4.3. He complains of increasing lower extremity edema over the past 2 weeks. States that his blood pressure has been difficult to control and that he has a mild headache and generalized weakness. Physical Examination: Vitals: Stable. Afebrile. General: Well-nourished and well-developed. Head: Normocephalic atraumatic. Neck: Supple, no lymphadenopathy. No JVD. Nontender. Cardiovascular: Regular rate and rhythm. No murmurs. Respiratory: No respiratory distress. Clear to auscultation bilaterally. Abdominal: Soft, nontender, nondistended, normal bowel sounds. No guarding, rebound, or peritoneal signs. Back: Nontender. Extremities: Nontender, 1+ edema of his lower extremities bilaterally.. Skin: Normal color, no rash. Neurologic: Alert and oriented ?3. Cranial nerves II through XII are intact. Normal strength and sensation. Psych: Normal affect. Test Results: CBC is remarkable for a white count of 13.3 with 91 segmented neutrophils and 4 lymphocytes. Chem-7 is more for CO2 of 19, glucose 148, BUN of 80, creatinine of 4.13. Emergency Department Course and Treatment: Patient had an IV placed. He was given Zofran IV and Tylenol p.o. He is resting comfortably. Treatment Plan: Patient was discussed with Dr. Kamara and Dr. Dionisio Alonso. He will be admitted to the hospital with a plan to have a tunneled dialysis catheter placed tomorrow morning at [address] Dionisio Alonso. The patient will be discussed with the hospitalist for admission. Disposition: Admitted in stable condition. Impression: 1. Acute on chronic renal insufficiency. 2. Leukocytosis, uncertain cause. This note was generated with [employer] dictation software. It may contain incorrect words, spelling, and punctuation that were not noted in review of the chart prior to signing ED Disposition - Plan for ED Patient: Chief Complaint: General Illness Referrals: Fredrick Oglesby DO [Primary Care Provider] -
[2018-07-03 12:04] LABS: Anion Gap 15 (5-15); BUN 80 mg/dL (7-18); BUN/Creat Ratio 19.4 RATIO (10-20); Calcium,Total 8.5 mg/dL (8.5-10.1); Chloride 106 mmol/L (98-107); Creatinine, Serum 4.13 mg/dL (0.70-1.30); EST Glomerular Filtration Rate 18 mL/min (>60); Est Glom Filt Rate - Afr Amer 21 mL/min (>60); Estimated Creatinine Clearance 26.84 ml/min; Glucose 148 mg/dL (74-106); Potassium 4.1 mmol/L (3.5-5.1); Sodium Level 140 mmol/L (136-145)
--- NOTE | 2018-07-03 12:30 | NURSING ---
DR KIMBERLY HENAO
--- NOTE | 2018-07-03 13:32 | PCM.HP.STD ---
Problem List (1) TED (acute kidney injury) Status: Acute (2) History of kidney transplant Status: Chronic (3) CKD (chronic kidney disease) stage 3, GFR 30-59 ml/min Status: Chronic (4) HTN (hypertension) Status: Chronic Qualifiers: Hypertension type: essential hypertension Qualified Code(s): I10 - Essential (primary) hypertension (5) Tobacco use Status: Chronic (6) GERD (gastroesophageal reflux disease) Status: Chronic Qualifiers: Esophagitis presence: esophagitis presence not specified Qualified Code(s): K21.9 - Gastro-esophageal reflux disease without esophagitis History of Present Illness Date of Admission: 07/03/18 Chief Complaint: Nausea, increased BL LE edema, fatigue x 1-2 weeks. 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 Kamara in conjunction with the transplant team with recent trial steroids without marked improvement with now recommendation from Nephrology for increase oral steroids which they had recently already increased versus HD. Patient given symptoms ongoing, worsening elected to have HD intervention. Work-up in the ED w/ VS T 98, HR 86, BP 170/108, RR 16, CBC w/ WBC 13.3, Hgb 13.8, Plts 170 with L shift, BMP w/ CO2 19, BUN/Cr 80/4.13, glucose 148. In the ED patient administered tylenol, zofran. ED physician discussed status with Nephrology and also with Dr. Alonso who will place HD acecss 07/04/17 6:40 am. Past Medical History Past Medical History (Chronic Problems): Chronic Problems Elevated serum creatinine (Chronic) History of kidney transplant (Chronic) CKD (chronic kidney disease) stage 3, GFR 30-59 ml/min (Chronic) HTN (hypertension) (Chronic) Tobacco use (Chronic) GERD (gastroesophageal reflux disease) (Chronic) Allergies No Known Allergies Allergy (Verified 07/03/18 11:02) Home Medications: Ambulatory Orders Medication Instructions Recorded Mycophenolate Mofetil [Cellcept] 750 mg PO BID 01/15/18 Pantoprazole Sodium [Protonix] 40 mg PO BID 05/05/18 Amlodipine [Norvasc] 5 mg PO DAILY tablet 05/06/18 Furosemide [Lasix] 40 mg PO DAILY #30 tablet 05/06/18 Labetalol [Trandate (Beta Evelina)] 100 mg PO BID #60 tablet 05/06/18 Acetaminophen [Tylenol Extra 1,000 mg PO Q6H PRN PRN 07/03/18 Strength] Ascorbic Acid [Vitamin C] 1,000 mg PO DAILY 07/03/18 Calcitriol 1 tab PO DAILY 07/03/18 Cholecalciferol (Vitamin D3) 2,000 unit PO DAILY 07/03/18 [Vitamin D3] L.acidoph,Paracasei, B.lactis 2 capsule PO DAILY 07/03/18 [Probiotic] Multivit-Mins/Iron/Folic/Lycop 1 tab PO DAILY 07/03/18 [Centrum Men's Tablet] Prednisone 20 mg PO BID 07/03/18 Tacrolimus Anhydrous [Prograf] 2 mg PO QHS 07/03/18 Tacrolimus Anhydrous [Prograf] 3 mg PO DAILY 07/03/18 hydrALAZINE [Apresoline] 1 tab PO TID 07/03/18 Surgical History: - - Renal transplant, fistula insertion/creation x 2 Psychiatric History: No pertinent psych hx Lives: Spouse/ Significant Other Smoking Status: Current every day smoker - 3-4 per day. Tobacco Use: Cigarettes Alcohol: None Drugs: None - *Family History Maternal History Items: - - Mother healthy, donated her kidney to her son. Paternal History Items: Diabetes, Hypertension Review of Systems Constitutional: Reports: Anorexia, Malaise, Weakness, Weight Change, Fatigue. Denies: Chills, Fever HEENT: Denies: Head Aches, Sinus Congestion, Sinus Drainage Cardiovascular: Denies: Chest Pain, Palpitations Respiratory: Denies: Cough, Shortness of breath at rest, Sputum production Gastrointestinal: Reports: Nausea. Denies: Abdominal Pain, Vomiting Genitourinary: Denies: Dysuria Musculoskeletal: Denies: Joint Pain, Joint Tenderness Skin: Denies: Rash, Wounds Neurological: Denies: Numbness, Tingling, Focal weakness Psychiatric: Denies: Anxiety, Depression, Homicidal Ideations, Suicidal Ideations Hematologic/ Lymphatic: Reports: Anemia. Denies: Easy Bruising, Easy Bleeding VTE Information - Inpt Only VTE Present on Admission: No VTE Mechan Device Prophylaxis: SCD's VTE Pharm Prophylaxis ordered?: Yes Subjective: Seated upright in the ED bed, fatigued appearance, NAD otherwise. Objective: Physical Examination: General: awake, alert, oriented x 3 and cooperative, seated upright in the ED bed in no apparent distress. Skin: normal color, turgor, no icterus, cyanosis. HEENT: AT/NC, EOMI, PERRLA, MMM, no carotid bruits or JVD noted. Lungs: CTA bilaterally, moderate effort, mild decrease BL bases, no rales, ronchi or wheezing. Heart: Regular rate and rhythm; no gallop, rub audible. Abdomen: soft, overweight, NTTP, ND, normal BS, no HSM. Extremities: no cyanosis, clubbing, BL LE pedal to proximal huff 1+ pitting edema, improved from prior admit with family and noting he has been elevating his BL L E and wearing SYLVIA/compression hose, LUE w/ fistula present. Neurological: patient awake, alert, oriented x 3; cognitive function intact; pupils equally reactive to light and accomodation; cranial nerves II-XII grossly normal, moving all 4 extremities, no focal deficits, strength mildly to moderately globally decreased. Psychiatric: affect appears fatigued, mildly flat, no acute evidence of depressive or anxiety feelings. - Physical Exam Vital Signs Temp Pulse Resp BP 98.0 F 79 19 H 170/108 H 07/03/18 10:59 07/03/18 13:08 07/03/18 13:08 07/03/18 10:59 Weight: 210 lb Body Mass Index (BMI) 29.2 Laboratory Tests Past 24 Hrs 07/03/18 07/03/18 11:42 11:42 WBC 13.3 H RBC 4.54 L Hgb 13.8 Hct 41.8 MCV 92.1 MCH 30.4 MCHC 33.0 RDW 14.3 RDW Differential 48.1 H Plt Count 170 MPV 10.6 Immature Gran % (Auto) 1.500 H Neut % (Auto) 91.2 H Lymph % (Auto) 3.8 L [place] % (Auto) 3.2 Eos % (Auto) 0.1 Baso % (Auto) 0.2 Absolute Neuts (auto) 12.1 H Absolute Lymphs (auto) 0.50 L Total Counted Not Reportable Differential Comment COMMENT Sodium 140 Potassium 4.1 Chloride 106 Carbon Dioxide 19.0 L Anion Gap 15 BUN 80 H Creatinine 4.13 H Estim Creat Clear Calc 26.84 Est GFR (MDRD) Af Amer 21 L Est GFR (MDRD) Non-Af 18 L BUN/Creatinine Ratio 19.4 Glucose 148 H Calcium 8.5 Assessment/Plan All Active Problems Cellulitis (Resolved) TED (acute kidney injury) (Acute) Uncontrolled hypertension (Acute) The patient is a 32 y/o M w/ PMHx: 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 Given currently presentation, possibly allograft dysfunction w/ possibly recurrence FSGS. Admission Cr 4.13, prior baseline creatinine noted to be 2.4-2.6, but prior 05/05/18 3.32-->05/06/18 Cr 3.25. Recent admission w/ renal artery doppler US of renal transplant w/ noted right kidney 12 cm length, right renal transplant artery with less than 60% stenosis, normal flow is identified, abdominal aorta 1.78 x 1.72 cm maximally proximally. Will admit to [facility], initiate IV lasix 80 mg BID to start now pending AM HD, continue norvasc, labetolol and hydralazine regimen w/ PRN IV hydralazine. Trend BMP, pending mag and phos, INR/PT/PTT for planned AM HD operative access intervention per Dr. Alonso. Dr. Kamara consulted. (2) Uncontrolled Hypertension: Secondary to worsening function, possibly likely allograft dysfunction w/ possibly recurrence FSGS, has remained SBP 180s per family and patient report, will as noted initiate IV lasix 80 mg BID to start now pending AM HD, continue norvasc, labetolol and hydralazine regimen w/ PRN IV hydralazine. Snug RADHA wraps. (3) Renal Transplant Status: Maintain on home cellcept, prograf. Possible allograft dysfunction w/ possibly recurrence FSGS. Discussed with Dr. Kamara and effect likely not marked, but will in interim continue current steroid dose regimen. (4) Tobacco Abuse: Encouraged cessation, inpatient consultation per RT, defer NR given only 1-2 cigarette/day, reduced since last evaluation. (5) GERD: PPI. (6) DVT Prophylaxis: SCDs, hold chemoprophylaxis as planned early AM surgery, start following once cleared per Surgery. Code Visit Inpatient E&M: 53808 Init Hosp L3
[2018-07-03] MEDS: LORazepam 1 MG Tablet PO (13:52)
[2018-07-03 14:45] LABS: International Normalized Ratio 0.9; Prothrombin Time (Protime)PT. 12.5 SECONDS (11.7-14.9)
[2018-07-03 14:46] LABS: Partial Thromboplast Time 25.2 Seconds (24.1-36.2)
[2018-07-03] MEDS: Furosemide 100 MG/10 ML Vial 80 MG IV (15:25)
[2018-07-03] MEDS: hydrALAZINE 50 MG Tablet PO ×2 (15:25→21:51)
--- NOTE | 2018-07-03 16:52 | PCM.CONS.R ---
Problem List (1) History of kidney transplant Status: Chronic (2) TED (acute kidney injury) Status: Acute Consultation - Renal 07/03/18 PCP/ Referring MD: Requesting physician: Dr Che Primary care physician: Fredrick Oglesby DO Reason for Consultation:: TED - History of Present Illness History of Present Illness: The patient is a 32 year old M well known to us. Known history of LRKT at [facility]. on double immunosupression with tacro and cellcept. recently had progressively worsening renal failure. 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 discussed case with [facility] transplant nephrology and we decided to increase immunosupression significantly. Increased cellcept, started prednisone taper. unfortunately renal function continued to get worse. today am we received a call from patient and about significantly worsening symptoms of generalized weakness, edema. cr was 4.3. was supposed to see me in office next week but could not tolerate symptoms hence referred to ER. plan is to start dialysis for now - Allergies Allergies: Allergies No Known Allergies Allergy (Verified 07/03/18 11:02) - Current Medications Current Medications: Current Medications Acetaminophen (Tylenol) 650 mg PO Q6H PRN PRN PRN Reason: Non-cardiac pain (mod-severe) Hydrocodone Bitart/Acetaminophen ([place] 5mg-325mg) 1 - 2 tablet PO Q6H PRN PRN PRN Reason: Moderate-severe pain Al Hydroxide/Mg Hydroxide (Mylanta Ii) 30 ml PO Q6H PRN PRN PRN Reason: Gastric burning Amlodipine Besylate (Norvasc) 5 mg PO DAILY SHERLYN Ascorbic Acid (Vitamin C) 1,000 mg PO DAILY SHERLYN Calcitriol (Rocaltrol) 0.25 mcg PO DAILY SHERLYN Furosemide (Lasix) 80 mg IV BID@1000,1800 SHERLYN Hydralazine HCl (Apresoline) 50 mg PO TID SHERLYN Hydralazine HCl (Apresoline Iv) 10 mg IV Q4H PRN PRN PRN Reason: SBP > 160 Labetalol HCl (Trandate) 100 mg PO BID SHERLYN Magnesium Hydroxide (Milk Of Magnesia) 30 ml PO DAILY PRN PRN PRN Reason: Constipation Mycophenolate Mofetil (Cellcept) 750 mg PO BID SHERLYN Ondansetron HCl (Zofran) 4 mg IV Q8H PRN PRN PRN Reason: NAUSEA Pantoprazole Sodium (Protonix) 40 mg PO BID SHERLYN Prednisone () 20 mg PO BIDCM SHERLYN Tacrolimus (Prograf) 2 mg PO QHS SHERLYN Tacrolimus (Prograf) 3 mg PO DAILY SHERLYN - Past Medical History Past Medical History (Chronic Problems): Chronic Problems Elevated serum creatinine (Chronic) History of kidney transplant (Chronic) CKD (chronic kidney disease) stage 3, GFR 30-59 ml/min (Chronic) HTN (hypertension) (Chronic) Tobacco use (Chronic) GERD (gastroesophageal reflux disease) (Chronic) - Past Surgical History Surgical History: - - Renal transplant, fistula insertion/creation x 2 - Social History Smoking Status: Current every day smoker Alcohol: None Drugs: None - Family History Maternal History Items: - - Mother healthy, donated her kidney to her son. Paternal History Items: Diabetes, Hypertension Review of Systems HEENT: Denies: Head Aches, Sinus Congestion, Sinus Drainage Cardiovascular: Reports: Edema. Denies: Chest Pain, Palpitations Respiratory: Denies: Cough, Shortness of breath at rest, Sputum production Skin: Denies: Rash, Wounds Neurological: Denies: Numbness, Tingling, Focal weakness Psychiatric: Denies: Anxiety, Depression, Homicidal Ideations, Suicidal Ideations Hematologic/ Lymphatic: Denies: Easy Bruising, Easy Bleeding - Physical Exam General: Alert, Oriented x3, Cooperative HEENT: Atraumatic, PERRLA, EOMI, Normocephalic Neck: Supple, No JVD, Negative Carotid Bruits Lungs: Clear to auscultation, Normal air movement Cardiovascular: Regular rate, No murmurs Abdomen: Bowel Sounds Present, Soft, Non Tender Extremities: Edema Skin: No rashes, No breakdown Musculoskeletal: No Tenderness to Palpation of Joints or Extremities Neurological: Cranial nerves II-XII grossly intact Psych/Mental Status: Normal Affect, Appropriate Vital Signs Temp Pulse Resp BP Pulse Ox 98 F 68 16 159/100 H 98 07/03/18 14:26 07/03/18 15:25 07/03/18 14:26 07/03/18 14:26 07/03/18 14:26 Oxygen Delivery Method Room Air Weight: 100.1 kg Body Mass Index (BMI) 30.7 Laboratory Tests Past 24 Hrs 07/03/18 07/03/18 07/03/18 11:42 11:42 11:42 WBC 13.3 H RBC 4.54 L Hgb 13.8 Hct 41.8 MCV 92.1 MCH 30.4 MCHC 33.0 RDW 14.3 RDW Differential 48.1 H Plt Count 170 MPV 10.6 Immature Gran % (Auto) 1.500 H Neut % (Auto) 91.2 H Lymph % (Auto) 3.8 L [place] % (Auto) 3.2 Eos % (Auto) 0.1 Baso % (Auto) 0.2 Absolute Neuts (auto) 12.1 H Absolute Lymphs (auto) 0.50 L Total Counted Not Reportable Differential Comment COMMENT PT 12.5 INR 0.9 APTT 25.2 Sodium 140 Potassium 4.1 Chloride 106 Carbon Dioxide 19.0 L Anion Gap 15 BUN 80 H Creatinine 4.13 H Estim Creat Clear Calc 26.84 Est GFR (MDRD) Af Amer 21 L Est GFR (MDRD) Non-Af 18 L BUN/Creatinine Ratio 19.4 Glucose 148 H Calcium 8.5 Assessment/Plan All Active Problems Cellulitis (Resolved) TED (acute kidney injury) (Acute) Uncontrolled hypertension (Acute) 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 of note his e GFR is reading 18, somewhat higher cutoff for a young person like him to develop uremia. will check BKV and CMV virus titres. no evidence of BKV or CMV on recent transplant biopsy continue all meds as before will reach out to [facility] nephrology friday start dialysis tomorrow after TDC placement all questions answered
--- NOTE | 2018-07-03 18:19 | PCM.CONS.GEN ---
Problem List (1) TED (acute kidney injury) Status: Acute Reason for Consult Date of Consultation: 07/03/18 History of Present Illness: The patient is a 32 year old M who has had a renal transplant approximately since 2005. He now has acute on chronic kidney injury. His GFR has declined to the point where he has felt the need hemodialysis. He apparently was hospitalized in December with acute hypertension and initial renal decline. He was hospitalized in April with an IV site infection of his left upper arm/thrombophlebitis. He now has been ill for at least a week and a half with progressive lower extremity swelling. He has been initiated on high-dose reports an attempt to salvage his transplant renal function. I was contacted via the emergency room that request for urgent placement of hemodialysis catheters was requested. 3 It is of note that the patient has a congenitally small right upper extremity making it not feasible for fistula. He has previously had a left forearm fistula and possibly an additional left upper arm fistula both of which now are thrombosed. As noted he has had a recent thrombophlebitis with possible MRSA infection left upper arm at the site of an IV. His other medical problems include chronic tobacco use. Gastroesophageal reflux disease. Hypertension. His recent symptoms include nausea vomiting weakness and lower extremity swelling. The pt is referred by Dr Kamara and a written copy of my consult will be available in his chart. I have assisted him with his hemodialysis access in the past and I appreciate the opportunity of continue with the surgical care Dionisio Alonso M.D., F.A.C.S. Past Medical History Past Medical History (Chronic Problems): Chronic Problems Elevated serum creatinine (Chronic) History of kidney transplant (Chronic) CKD (chronic kidney disease) stage 3, GFR 30-59 ml/min (Chronic) HTN (hypertension) (Chronic) Tobacco use (Chronic) GERD (gastroesophageal reflux disease) (Chronic) Allergies No Known Allergies Allergy (Verified 07/03/18 11:02) Home Medications: Ambulatory Orders Medication Instructions Recorded Mycophenolate Mofetil [Cellcept] 750 mg PO BID 01/15/18 Pantoprazole Sodium [Protonix] 40 mg PO BID 05/05/18 Amlodipine [Norvasc] 5 mg PO DAILY tablet 05/06/18 Furosemide [Lasix] 40 mg PO DAILY #30 tablet 05/06/18 Labetalol [Trandate (Beta Evelina)] 100 mg PO BID #60 tablet 05/06/18 Acetaminophen [Tylenol Extra 1,000 mg PO Q6H PRN PRN 07/03/18 Strength] Ascorbic Acid [Vitamin C] 1,000 mg PO DAILY 07/03/18 Calcitriol 1 tab PO DAILY 07/03/18 Cholecalciferol (Vitamin D3) 2,000 unit PO DAILY 07/03/18 [Vitamin D3] L.acidoph,Paracasei, B.lactis 2 capsule PO DAILY 07/03/18 [Probiotic] Multivit-Mins/Iron/Folic/Lycop 1 tab PO DAILY 07/03/18 [Centrum Men's Tablet] Prednisone 20 mg PO BID 07/03/18 Tacrolimus Anhydrous [Prograf] 2 mg PO QHS 07/03/18 Tacrolimus Anhydrous [Prograf] 3 mg PO DAILY 07/03/18 hydrALAZINE [Apresoline] 50 mg PO TID 07/03/18 Surgical History: - - Renal transplant, fistula insertion/creation x 2 Lives: Spouse/ Significant Other Smoking Status: Current every day smoker Tobacco Use: Cigarettes Alcohol: None Drugs: None - *Family History Maternal History Items: - - Mother healthy, donated her kidney to her son. Paternal History Items: Diabetes, Hypertension Review of Systems Constitutional: Reports: Fatigue HEENT: Denies: Difficulty Swallowing Cardiovascular: Denies: Chest Pain Respiratory: Denies: Cough Gastrointestinal: Denies: Abdominal Pain Musculoskeletal: Denies: Arm Pain Psychiatric: Denies: Anxiety - Physical Exam General: Alert, Oriented x3, Cooperative, No apparent distress HEENT: Atraumatic Oral: Moist Mucosa Neck: Supple Lungs: Clear to auscultation Cardiovascular: Regular rate, Regular Rhythm Abdomen: Bowel Sounds Present, Soft, Non Tender, - - Transplant right lower quadrant without tenderness Skin: No rashes Psych/Mental Status: Normal Affect Vital Signs Temp Pulse Resp BP Pulse Ox 98 F 68 16 159/100 H 97 07/03/18 14:26 07/03/18 15:25 07/03/18 14:26 07/03/18 14:26 07/03/18 15:25 Oxygen Delivery Method Room Air Weight: 220 lb 10.923 oz Body Mass Index (BMI) 30.7 Laboratory Tests Past 24 Hrs 07/03/18 07/03/18 07/03/18 11:42 11:42 11:42 WBC 13.3 H RBC 4.54 L Hgb 13.8 Hct 41.8 MCV 92.1 MCH 30.4 MCHC 33.0 RDW 14.3 RDW Differential 48.1 H Plt Count 170 MPV 10.6 Immature Gran % (Auto) 1.500 H Neut % (Auto) 91.2 H Lymph % (Auto) 3.8 L [place] % (Auto) 3.2 Eos % (Auto) 0.1 Baso % (Auto) 0.2 Absolute Neuts (auto) 12.1 H Absolute Lymphs (auto) 0.50 L Total Counted Not Reportable Differential Comment COMMENT PT 12.5 INR 0.9 APTT 25.2 Sodium 140 Potassium 4.1 Chloride 106 Carbon Dioxide 19.0 L Anion Gap 15 BUN 80 H Creatinine 4.13 H Estim Creat Clear Calc 26.84 Est GFR (MDRD) Af Amer 21 L Est GFR (MDRD) Non-Af 18 L BUN/Creatinine Ratio 19.4 Glucose 148 H Calcium 8.5 Assessment/Plan All Active Problems Cellulitis (Resolved) TED (acute kidney injury) (Acute) Uncontrolled hypertension (Acute) The patient has a thrombosed left forearm radiocephalic AV fistula. By report he has had thrombophlebitis with cellulitis of the left upper arm. He has a congenitally atrophied right upper extremity. He may be a very difficult patient to inspect for future fistula creation. He has not had tunneled dialysis catheter since 2005 I proposed for him and ultrasound-guided placement of tunneled dialysis catheters right internal jugular. If that is not successful then would consider left internal jugular approach. He is aware of the technique, benefits, risks, alternatives. Absolutely no guarantees of success have been provided. Then as an outpatient in a more timely fashion would pursue bilateral upper extremity vein mapping for consideration of future replacement of an AV fistula if feasible. The patient has had an opportunity to ask and have questions answered. We will expedite his care early tomorrow morning. Dionisio Alonso M.D., F.A.C.S. cc:Dr Kamara
[2018-07-03] MEDS: predniSONE 20 MG Tablet PO (18:38)
[2018-07-03] MEDS: Mycophenolate Mofetil 250 MG Capsule 750 MG PO (21:51)
[2018-07-03] MEDS: Tacrolimus Anhydrous 1 MG Capsule 2 MG PO (21:51)
[2018-07-03] MEDS: Pantoprazole Sodium 40 MG Tablet PO (21:52)
[2018-07-03] MEDS: Labetalol 100 MG Tablet PO (21:52)
[2018-07-03] MEDS: DiphenhydrAMINE 25 MG Capsule PO (22:39)
[2018-07-03] MEDS: Acetaminophen 325 MG Tablet 650 MG PO (22:39)
[2018-07-04] VITALS (13 sets, daily range): BP systolic 147–171; BP diastolic 83–98; PULSE 70–89; RESP 16–18; TEMP 36.2–37.2; O2SAT 95–99
--- NOTE | 2018-07-04 04:00 | EKG12_ITS ---
Test Reason : PRE OP Blood Pressure : / mmHG Vent. Rate : 069 BPM Atrial Rate : 069 BPM P-R Int : 138 ms QRS Dur : 114 ms QT Int : 416 ms P-R-T Axes : 041 051 055 degrees QTc Int : 445 ms Normal sinus rhythm Normal ECG Confirmed by ANGELO CARLSON, SEFERINO ([id number]), state editor SYLVIA THOMASON ([id number]) on 07/09/2018 11:02:22 AM Referred By: Ale Che Confirmed By:SEFERNIO STEPHENS MD
[2018-07-04] MEDS: hydrALAZINE 50 MG Tablet PO ×2 (04:04→21:28)
[2018-07-04 05:23] LABS: Absolute Lymphocyte Count 0.55 X10^3/ul (0.83-4.51); Basophil# 0.02 X10^3/uL; Basophil% 0.2 % (0-1); Eosinophil# 0.01 X10^3/uL; Eosinophils% 0.1 % (0-5); Hematocrit 39.6 % (40-54); Lymphocyte # 0.55 X10^3/ul (4.0); Lymphocyte % 4.8 % (19-41); Mean Corp Hgb Conc 32.8 g/gl (32-36); Mean Corpuscular Hgb 30.6 pg (27.0-32.0); Mean Corpuscular Volume 93.2 fL (80-94); Monocyte# 0.65 X10^3/uL; Monocyte% 5.7 % (0-10); Neutrophil # 10.04 X10^3/uL (2.7-7.7); Neutrophil % 87.5 % (47-70); Platelet Count 159 K/mm3 (150-450); RBC Distribution Width CV 14.3 % (11.6-14.6); RBC Distribution Width SD 46.9 fl (35.1-43.9); Red Blood Count 4.25 M/mm3 (4.6-6.2); White Blood Count 11.5 K/mm3 (4.4-11.0)
[2018-07-04 05:24] LABS: Differential Indicated SCAN CRITERIA MET; POSITIVE COUNT NO; POSITIVE DIFFERENTIAL YES; POSITIVE MORPHOLOGY NO
[2018-07-04 05:30] LABS: International Normalized Ratio 0.9; Prothrombin Time (Protime)PT. 12.4 SECONDS (11.7-14.9)
[2018-07-04 05:31] LABS: Partial Thromboplast Time 24.9 Seconds (24.1-36.2)
[2018-07-04 05:32] LABS: Anion Gap 12 (5-15); BUN 83 mg/dL (7-18); Calcium,Total 8.1 mg/dL (8.5-10.1); Chloride 106 mmol/L (98-107); Creatinine, Serum 3.96 mg/dL (0.70-1.30); EST Glomerular Filtration Rate 19 mL/min (>60); Est Glom Filt Rate - Afr Amer 22 mL/min (>60); Estimated Creatinine Clearance 27.99 ml/min; Glucose 181 mg/dL (74-106); Magnesium 1.8 mg/dL (1.6-2.6); Phosphorus 5.9 mg/dL (2.5-4.9); Potassium 3.8 mmol/L (3.5-5.1); Sodium Level 138 mmol/L (136-145)
--- NOTE | 2018-07-04 05:54 | NURSING ---
verbal report to surgery nurse
--- NOTE | 2018-07-04 06:19 | PCM.DC.POR ---
Discharge Diet: Renal Diet Discharge Activity: Return to Normal Activity, May Not Shower Additional Dressing/Incision Instructions:: Please keep the dialysis catheter site clean and dry. Please assist with office contact and scheduling for outpatient upper extremity vein mapping Allergies/Adverse Reactions: Allergies No Known Allergies Allergy (Verified 07/03/18 11:02) Medications to take at Discharge Mycophenolate Mofetil [Cellcept] 750 mg PO BID 01/15/18 Pantoprazole Sodium [Protonix] 40 mg PO BID 05/05/18 Amlodipine [Norvasc] 5 mg PO DAILY tablet 05/06/18 Furosemide [Lasix] 40 mg PO DAILY #30 tablet 05/06/18 Labetalol [Trandate (Beta Evelina)] 100 mg PO BID #60 tablet 05/06/18 Acetaminophen [Tylenol Extra Strength] 1,000 mg PO Q6H PRN PRN 07/03/18 Ascorbic Acid [Vitamin C] 1,000 mg PO DAILY 07/03/18 Calcitriol 1 tab PO DAILY 07/03/18 Cholecalciferol (Vitamin D3) [Vitamin D3] 2,000 unit PO DAILY 07/03/18 L.acidoph,Paracasei, B.lactis [Probiotic] 2 capsule PO DAILY 07/03/18 Multivit-Mins/Iron/Folic/Lycop [Centrum Men's Tablet] 1 tab PO DAILY 07/03/18 Prednisone 20 mg PO BID 07/03/18 Tacrolimus Anhydrous [Prograf] 2 mg PO QHS 07/03/18 Tacrolimus Anhydrous [Prograf] 3 mg PO DAILY 07/03/18 hydrALAZINE [Apresoline] 50 mg PO TID 07/03/18 Primary Care Physician: Fredrick Oglesby DO [Primary Care Provider] - Test Results: Test results from this visit will be discussed in further detail at your follow-up appointment, if applicable. Please Follow Up With: Dionisio Alonso MD - [phone] When: Please plan to follow up in 7 days in the office.
--- NOTE | 2018-07-04 06:22 | DCINST_ITS ---
Discharge Diet: Renal Diet Discharge Activity: Return to Normal Activity, May Not Shower Additional Dressing/Incision Instructions:: Please keep the dialysis catheter site clean and dry. Please assist with office contact and scheduling for outpatient upper extremity vein mapping Allergies/Adverse Reactions: Allergies No Known Allergies Allergy (Verified 07/03/18 11:02) Medications to take at Discharge Mycophenolate Mofetil [Cellcept] 750 mg PO BID 01/15/18 Pantoprazole Sodium [Protonix] 40 mg PO BID 05/05/18 Amlodipine [Norvasc] 5 mg PO DAILY tablet 05/06/18 Furosemide [Lasix] 40 mg PO DAILY #30 tablet 05/06/18 Labetalol [Trandate (Beta Evelina)] 100 mg PO BID #60 tablet 05/06/18 Acetaminophen [Tylenol Extra Strength] 1,000 mg PO Q6H PRN PRN 07/03/18 Ascorbic Acid [Vitamin C] 1,000 mg PO DAILY 07/03/18 Calcitriol 1 tab PO DAILY 07/03/18 Cholecalciferol (Vitamin D3) [Vitamin D3] 2,000 unit PO DAILY 07/03/18 L.acidoph,Paracasei, B.lactis [Probiotic] 2 capsule PO DAILY 07/03/18 Multivit-Mins/Iron/Folic/Lycop [Centrum Men's Tablet] 1 tab PO DAILY 07/03/18 Prednisone 20 mg PO BID 07/03/18 Tacrolimus Anhydrous [Prograf] 2 mg PO QHS 07/03/18 Tacrolimus Anhydrous [Prograf] 3 mg PO DAILY 07/03/18 hydrALAZINE [Apresoline] 50 mg PO TID 07/03/18 Primary Care Physician: Fredrick Oglesby DO [Primary Care Provider] - Test Results: Test results from this visit will be discussed in further detail at your follow- up appointment, if applicable. Please Follow Up With: Dionisio Alonso MD - [phone] When: Please plan to follow up in 7 days in the office.
[2018-07-04] MEDS: Cefazolin 2 GM in 0.9% Normal Saline 100 ML IV (06:25)
[2018-07-04] MEDS: Heparin 10,000 UNITS/10 ML Vial 10000 UNITS (06:45)
[2018-07-04] MEDS: Bupivacaine 0.5% PF 10 ML VIAL (06:45)
--- NOTE | 2018-07-04 06:53 | PCM.OPRPT ---
Problem List (1) TED (acute kidney injury) Status: Acute (2) Kidney transplant failure Status: Acute Report of Operation Date of Procedure: 07/04/18 Pre-Operative Diagnosis: Renal transplant failure Post-Operative Diagnosis: Same Surgery/Procedure Performed:: Right internal jugular 19 cm pre-curved tunneled palindrome catheter placement Description of Surgical Findings:: Timeout and informed consent was obtained. 32-year-old gent was a Room. He was placed on the table. He underwent monitored anesthesia care. Ancef 2 g given intravenously he operatively. The right neck and chest and sterilely prepped and draped. Ultrasound was performed demonstrating a nicely patent right internal jugular vein. Under ultrasound guidance 1% lidocaine mixed 50-50 with 0.5% Marcaine was instilled as a local anesthetic. Throughout the entire procedure a total of 19 cc was used. Local was instilled and a micropuncture needle was inserted micropuncture wire inserted micropuncture catheter inserted and using fluoroscopy an 035 J-wire was nicely advanced into the SVC. Local was instilled down upon the right chest wall and exit site was selected the tubing was tunneled from the chest to the neck site. Serial dilatation was performed over the J-wire. The sheath dilator was inserted. The dilator and wire were removed. The catheter was advanced through the sheath. The sheath was split. The catheter was positioned to have the tip at the SVC atrial junction there was good curvilinear positioning. The catheter was secured to skin with interrupted 3-0 nylon. The counterincision of the neck was closed with interrupted 5-0 Vicryl subdermal stitches. Steri-Strip Telfa OpSite dressing was applied to that site. Silver dressing was applied to the exit site. The cath were aspirated easily. It was flushed then with saline and then with 1.8 cc of heparinized saline per channel. Sterile dressings applied. He was taken to the recovery area in satisfactory condition without apparent complication. Stat portable chest x-ray is pending. Specimens none. Drains none. Blood loss minimal. Dionisio Alonso M.D., F.A.C.S. Type of Anesthesia:: Local MAC Anesthesiologist: Anders Herrmann
--- NOTE | 2018-07-04 07:20 | RAD_ITS ---
STUDY: X-RAY CHEST REASON FOR EXAM: Male, 32 years old. Chest postop. TECHNIQUE: Single AP portable view of the chest. COMPARISON: 15 January 2018 FINDINGS: Right central line tip overlies the distal SVC. The lungs are clear and expanded. There is no demonstrated pleural abnormality. Normal size heart. Prominence of the right upper mediastinal region with underlying liver adenopathy not excluded. Normal visualized pulmonary arteries. Normal visualized aortic arch and descending thoracic aorta. Normal visualized thoracic spine. Normal visualized ribs, clavicles, and shoulders. There is no demonstrated abnormality of the visualized soft tissue structures of the upper abdomen. RAD/Chest 1 View (Portable) IMPRESSION: 1. Right central line tip overlies the distal SVC. There is right paratracheal and upper mediastinal prominence with underlying lymphadenopathy not excluded. No evidence of acute focal airspace disease. Electronically Signed: Douglas Contreras DO at 8:27 EST , Service support ,
[2018-07-04] MEDS: Acetaminophen 325 MG Tablet 650 MG PO (07:48)
[2018-07-04] MEDS: predniSONE 20 MG Tablet PO ×2 (07:49→21:28)
[2018-07-04] MEDS: Labetalol 100 MG Tablet PO ×2 (07:59→21:27)
[2018-07-04] MEDS: amLODIPine 5 MG Tablet PO (07:59)
[2018-07-04] MEDS: Mycophenolate Mofetil 250 MG Capsule 750 MG PO ×2 (09:34→21:28)
[2018-07-04] MEDS: Calcitriol 0.25 MCG Capsule PO (09:34)
[2018-07-04] MEDS: Pantoprazole Sodium 40 MG Tablet PO ×2 (09:34→21:27)
[2018-07-04] MEDS: Tacrolimus Anhydrous 1 MG Capsule 3 MG PO (09:34)
[2018-07-04] MEDS: Ascorbic Acid 500 MG Tablet 1000 MG PO (09:35)
--- NOTE | 2018-07-04 10:00 | PCM.PN.HOSP ---
Patient Problems: Active and Suspected Problems Kidney transplant failure (Acute) Subjective: Patient seen and examined. He was admitted on account of elevated BUN and creatinine. 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 He got a dialysis catheter placed way. He is due to start dialysis today. Patient seen and examined. He had no complaints and felt well. Pain is well controlled and denies any fever, any chills, any palpitations, any nausea vomiting, any abdominal pain, any diarrhea vomiting. Review of systems otherwise negative. He received a kidney transplant in the past which has failed and is being assessed for another kidney transplant. Patient would want to be referred to [facility] for workup for kidney transplant. Labs and vitals reviewed. Vitals/I&O's: Vital Signs Temp Pulse Resp BP Pulse Ox 97.6 F L 70 16 153/96 H 95 07/04/18 08:00 07/04/18 08:00 07/04/18 08:00 07/04/18 08:00 07/04/18 08:00 Oxygen Delivery Method Room Air Weight: 222 lb 10.67 oz Body Mass Index (BMI) 30.7 Intake and Output for Last 24 Hours 07/02/18 07/03/18 07/04/18 23:59 23:59 23:59 Intake Total 720 / 720 1000 / 1000 Output Total 1300 / 1300 2049 / 2049 Balance -580 / -580 -1050 / -1050 General: Alert, Oriented x3, Cooperative, No apparent distress HEENT: Atraumatic, PERRLA, EOMI, Normocephalic Oral: Moist Mucosa Neck: Supple, No JVD, Negative Carotid Bruits Lungs: Clear to auscultation, Normal air movement Cardiovascular: Regular rate, Regular Rhythm, Normal S1, Normal S2, No murmurs Abdomen: Bowel Sounds Present, Soft, Non Tender, Non-Distended, No Hepato-splenomegaly Extremities: No clubbing, No cyanosis, No edema, Capillary Refill Less than 3 Seconds Skin: No rashes, No breakdown Musculoskeletal: No Tenderness to Palpation of Joints or Extremities, - - left chest dialysis catheter in place Lymphatic: No Cervical, Supraclavicular, or Inguinal Adenopathy Neurological: Cranial nerves II-XII grossly intact Psych/Mental Status: Normal Affect, Appropriate, Alert and oriented to time, place, person, mood and affect Laboratory Results 07/03/18 11:42: WBC 13.3 H, RBC 4.54 L, Hgb 13.8, Hct 41.8, MCV 92.1, MCH 30.4, MCHC 33.0, RDW 14.3, RDW Differential 48.1 H, Plt Count 170, MPV 10.6, Immature Gran % (Auto) 1.500 H, Neut % (Auto) 91.2 H, Lymph % (Auto) 3.8 L, [place] % (Auto) 3.2, Eos % (Auto) 0.1, Baso % (Auto) 0.2, Absolute Neuts (auto) 12.1 H, Absolute Lymphs (auto) 0.50 L, Total Counted Not Reportable, Differential Comment COMMENT 07/03/18 11:42: Sodium 140, Potassium 4.1, Chloride 106, Carbon Dioxide 19.0 L, Anion Gap 15, BUN 80 H, Creatinine 4.13 H, Estim Creat Clear Calc 26.84, Est GFR (MDRD) Af Amer 21 L, Est GFR (MDRD) Non-Af 18 L, BUN/Creatinine Ratio 19.4, Glucose 148 H, Calcium 8.5 07/03/18 11:42: PT 12.5, INR 0.9, APTT 25.2 07/04/18 04:50: WBC 11.5 H, RBC 4.25 L, Hgb 13.0, Hct 39.6 L, MCV 93.2, MCH 30.6, MCHC 32.8, RDW 14.3, RDW Differential 46.9 H, Plt Count 159, MPV 11.0, Immature Gran % (Auto) 1.700 H, Neut % (Auto) 87.5 H, Lymph % (Auto) 4.8 L, [place] % (Auto) 5.7, Eos % (Auto) 0.1, Baso % (Auto) 0.2, Absolute Neuts (auto) 10.0 H, Absolute Lymphs (auto) 0.55 L, Total Counted Not Reportable 07/04/18 04:50: PT 12.4, INR 0.9, APTT 24.9 07/04/18 04:50: Sodium 138, Potassium 3.8, Chloride 106, Carbon Dioxide 20.0 L, Anion Gap 12, BUN 83 H, Creatinine 3.96 H, Estim Creat Clear Calc 27.99, Est GFR (MDRD) Af Amer 22 L, Est GFR (MDRD) Non-Af 19 L, BUN/Creatinine Ratio 21.0 H, Glucose 181 H, Calcium 8.1 L, Phosphorus 5.9 H, Magnesium 1.8 Current Medications Acetaminophen (Tylenol) 650 mg PO Q6H PRN PRN PRN Reason: pain Last Admin: 07/04/18 07:48 Dose: 650 mg Hydrocodone Bitart/Acetaminophen ([place] 5mg-325mg) 1 tablet PO Q4H PRN PRN PRN Reason: PAIN Al Hydroxide/Mg Hydroxide (Mylanta Ii) 30 ml PO Q6H PRN PRN PRN Reason: Gastric burning Amlodipine Besylate (Norvasc) 5 mg PO DAILY [facility] Last Admin: 07/04/18 07:59 Dose: 5 mg Ascorbic Acid (Vitamin C) 1,000 mg PO DAILY [facility] Last Admin: 07/04/18 09:35 Dose: 1,000 mg Calcitriol (Rocaltrol) 0.25 mcg PO DAILY [facility] Last Admin: 07/04/18 09:34 Dose: 0.25 mcg Diphenhydramine HCl (Benadryl) 25 mg PO QHS PRN PRN PRN Reason: SLEEP Last Admin: 07/03/18 22:39 Dose: 25 mg Furosemide (Lasix) 80 mg IV BID@1000,1800 [facility] Last Admin: 07/04/18 08:49 Dose: Not Given Hydralazine HCl (Apresoline) 50 mg PO TID [facility] Last Admin: 07/04/18 04:04 Dose: 50 mg Hydralazine HCl (Apresoline Iv) 10 mg IV Q4H PRN PRN PRN Reason: SBP > 160 Labetalol HCl (Trandate) 100 mg PO BID [facility] Last Admin: 07/04/18 07:59 Dose: 100 mg Magnesium Hydroxide (Milk Of Magnesia) 30 ml PO DAILY PRN PRN PRN Reason: Constipation Mycophenolate Mofetil (Cellcept) 750 mg PO BID [facility] Last Admin: 07/04/18 09:34 Dose: 750 mg Ondansetron HCl (Zofran) 4 mg IV Q8H PRN PRN PRN Reason: NAUSEA Pantoprazole Sodium (Protonix) 40 mg PO BID [facility] Last Admin: 07/04/18 09:34 Dose: 40 mg Prednisone () 20 mg PO BIDCM [facility] Last Admin: 07/04/18 07:49 Dose: 20 mg Sodium Chloride () 5 - 15 ml IV UD PRN PRN Reason: SALINE FLUSH Tacrolimus (Prograf) 2 mg PO QHS [facility] Last Admin: 07/03/18 21:51 Dose: 2 mg Tacrolimus (Prograf) 3 mg PO DAILY [facility] Last Admin: 07/04/18 09:34 Dose: 3 mg Medical Necessity - Tobacco Use Smoking Status: Current every day smoker Tobacco Use: Cigarettes Assessment/Plan All Active Problems Kidney transplant failure (Acute) Cellulitis (Resolved) TED (acute kidney injury) (Acute) Uncontrolled hypertension (Acute) 1. 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 admitted with a complaitn of worsening fatigue, weakness and nausea baseline Cr known to be 2.4-2.6; was 4.3 on admission, with BUN of 80 admitted for initiation of dialysis nephrology on board had dialysis catheter placed today to start dialysis today; Cr today is 3.96, BUN of 83 on IV lasix 40mg bid 2. Uncontrolled hypertension: continue norvasc, labetalol and hydralazine,. PRN hydralazine. 3. S/p renal transplant has chronic transplant rejection, per nephro on Cellcept and tacrolimus rest of management as per nephro 4.non-anion gap acidosis: Bicarb is 20 today. Anion gap is 12. Likely due to [place] on CKD. We will continue to monitor. should improve with dialysis 5. Nicotine abuse: encourage cessation. Nicotine patch 6. GERD: on PPI 7. DVT prophylaxis: SCDs Code Visit Inpatient E&M: 24031 Subs Hosp L3
--- NOTE | 2018-07-04 10:10 | PN_ITS ---
Patient Problems: Active and Suspected Problems Kidney transplant failure (Acute) Subjective: Patient seen and examined. He was admitted on account of elevated BUN and creatinine. 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 He got a dialysis catheter placed way. He is due to start dialysis today. Patient seen and examined. He had no complaints and felt well. Pain is well controlled and denies any fever, any chills, any palpitations, any nausea vomiting, any abdominal pain, any diarrhea vomiting. Review of systems otherwise negative. He received a kidney transplant in the past which has failed and is being assessed for another kidney transplant. Patient would want to be referred to [facility] for workup for kidney transplant. Labs and vitals reviewed. Vitals/I&O's: Vital Signs Temp Pulse Resp BP Pulse Ox 97.6 F L 70 16 153/96 H 95 07/04/18 08:00 07/04/18 08:00 07/04/18 08:00 07/04/18 08:00 07/04/18 08:00 Oxygen Delivery Method Room Air Weight: 222 lb 10.67 oz Body Mass Index (BMI) 30.7 Intake and Output for Last 24 Hours 07/02/18 07/03/18 07/04/18 23:59 23:59 23:59 Intake Total 720 / 720 1000 / 1000 Output Total 1300 / 1300 2049 / 2049 Balance -580 / -580 -1050 / -1050 General: Alert, Oriented x3, Cooperative, No apparent distress HEENT: Atraumatic, PERRLA, EOMI, Normocephalic Oral: Moist Mucosa Neck: Supple, No JVD, Negative Carotid Bruits Lungs: Clear to auscultation, Normal air movement Cardiovascular: Regular rate, Regular Rhythm, Normal S1, Normal S2, No murmurs Abdomen: Bowel Sounds Present, Soft, Non Tender, Non-Distended, No Hepato- splenomegaly Extremities: No clubbing, No cyanosis, No edema, Capillary Refill Less than 3 Seconds Skin: No rashes, No breakdown Musculoskeletal: No Tenderness to Palpation of Joints or Extremities, - - left chest dialysis catheter in place Lymphatic: No Cervical, Supraclavicular, or Inguinal Adenopathy Neurological: Cranial nerves II-XII grossly intact Psych/Mental Status: Normal Affect, Appropriate, Alert and oriented to time, place, person, mood and affect Laboratory Results 07/03/18 11:42: WBC 13.3 H, RBC 4.54 L, Hgb 13.8, Hct 41.8, MCV 92.1, MCH 30.4, MCHC 33.0, RDW 14.3, RDW Differential 48.1 H, Plt Count 170, MPV 10.6, Immature Gran % (Auto) 1.500 H, Neut % (Auto) 91.2 H, Lymph % (Auto) 3.8 L, [place] % (Auto) 3.2, Eos % (Auto) 0.1, Baso % (Auto) 0.2, Absolute Neuts (auto) 12.1 H, Absolute Lymphs (auto) 0.50 L, Total Counted Not Reportable, Differential Comment COMMENT 07/03/18 11:42: Sodium 140, Potassium 4.1, Chloride 106, Carbon Dioxide 19.0 L, Anion Gap 15, BUN 80 H, Creatinine 4.13 H, Estim Creat Clear Calc 26.84, Est GFR (MDRD) Af Amer 21 L, Est GFR (MDRD) Non-Af 18 L, BUN/Creatinine Ratio 19.4, Glucose 148 H, Calcium 8.5 07/03/18 11:42: PT 12.5, INR 0.9, APTT 25.2 07/04/18 04:50: WBC 11.5 H, RBC 4.25 L, Hgb 13.0, Hct 39.6 L, MCV 93.2, MCH 30.6, MCHC 32.8, RDW 14.3, RDW Differential 46.9 H, Plt Count 159, MPV 11.0, Immature Gran % (Auto) 1.700 H, Neut % (Auto) 87.5 H, Lymph % (Auto) 4.8 L, [place] % (Auto) 5.7, Eos % (Auto) 0.1, Baso % (Auto) 0.2, Absolute Neuts (auto) 10.0 H, Absolute Lymphs (auto) 0.55 L, Total Counted Not Reportable 07/04/18 04:50: PT 12.4, INR 0.9, APTT 24.9 07/04/18 04:50: Sodium 138, Potassium 3.8, Chloride 106, Carbon Dioxide 20.0 L, Anion Gap 12, BUN 83 H, Creatinine 3.96 H, Estim Creat Clear Calc 27.99, Est GFR (MDRD) Af Amer 22 L, Est GFR (MDRD) Non-Af 19 L, BUN/Creatinine Ratio 21.0 H, Glucose 181 H, Calcium 8.1 L, Phosphorus 5.9 H, Magnesium 1.8 Current Medications Acetaminophen (Tylenol) 650 mg PO Q6H PRN PRN PRN Reason: pain Last Admin: 07/04/18 07:48 Dose: 650 mg Hydrocodone Bitart/Acetaminophen ([place] 5mg-325mg) 1 tablet PO Q4H PRN PRN PRN Reason: PAIN Al Hydroxide/Mg Hydroxide (Mylanta Ii) 30 ml PO Q6H PRN PRN PRN Reason: Gastric burning Amlodipine Besylate (Norvasc) [address] [facility] Last Admin: 07/04/18 07:59 Dose: 5 mg Ascorbic Acid (Vitamin C) 1,[address] [facility] Last Admin: 07/04/18 09:35 Dose: 1,000 mg Calcitriol (Rocaltrol) 0.[address] [facility] Last Admin: 07/04/18 09:34 Dose: 0.25 mcg Diphenhydramine HCl (Benadryl) 25 mg PO QHS PRN PRN PRN Reason: SLEEP Last Admin: 07/03/18 22:39 Dose: 25 mg Furosemide (Lasix) 80 mg IV BID@1000,1800 [facility] Last Admin: 07/04/18 08:49 Dose: Not Given Hydralazine HCl (Apresoline) [address] [facility] Last Admin: 07/04/18 04:04 Dose: 50 mg Hydralazine HCl (Apresoline Iv) 10 mg IV Q4H PRN PRN PRN Reason: SBP > 160 Labetalol HCl (Trandate) [address] [facility] Last Admin: 07/04/18 07:59 Dose: 100 mg Magnesium Hydroxide (Milk Of Magnesia) 30 ml PO DAILY PRN PRN PRN Reason: Constipation Mycophenolate Mofetil (Cellcept) [address] [facility] Last Admin: 07/04/18 09:34 Dose: 750 mg Ondansetron HCl (Zofran) 4 mg IV Q8H PRN PRN PRN Reason: NAUSEA Pantoprazole Sodium (Protonix) [address] [facility] Last Admin: 07/04/18 09:34 Dose: 40 mg Prednisone () [address] [facility] Last Admin: 07/04/18 07:49 Dose: 20 mg Sodium Chloride () 5 - 15 ml IV UD PRN PRN Reason: SALINE FLUSH Tacrolimus (Prograf) [address] [facility] Last Admin: 07/03/18 21:51 Dose: 2 mg Tacrolimus (Prograf) [address] [facility] Last Admin: 07/04/18 09:34 Dose: 3 mg Medical Necessity - Tobacco Use Smoking Status: Current every day smoker Tobacco Use: Cigarettes Assessment/Plan All Active Problems Kidney transplant failure (Acute) Cellulitis (Resolved) TED (acute kidney injury) (Acute) Uncontrolled hypertension (Acute) 1. 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 * admitted with a complaitn of worsening fatigue, weakness and nausea * baseline Cr known to be 2.4-2.6; was 4.3 on admission, with BUN of 80 * admitted for initiation of dialysis * nephrology on board * had dialysis catheter placed today * to start dialysis today; Cr today is 3.96, BUN of 83 * on IV lasix 40mg bid * 2. Uncontrolled hypertension: continue norvasc, labetalol and hydralazine,. PRN hydralazine. 3. S/p renal transplant * has chronic transplant rejection, per nephro * on Cellcept and tacrolimus * rest of management as per nephro * 4.non-anion gap acidosis: Bicarb is 20 today. Anion gap is 12. Likely due to [place] on CKD. We will continue to monitor. should improve with dialysis 5. Nicotine abuse: encourage cessation. Nicotine patch 6. GERD: on PPI 7. DVT prophylaxis: SCDs Code Visit Inpatient E&M: 88543 Subs Hosp L3
[2018-07-04] MEDS: HYDROcodone Bitartrate/Apap 5/325 Tablet PO (13:21)
--- NOTE | 2018-07-04 14:42 | CM.UR ---
exchange architect completed. Met face to face with patient and his spouse, introduced myself and explained my role. Verbal consent for assessment. 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 Would prefer he get dialysis there but ok if it has to be in [place]. The patient is sleepy as he went to [place] this am. He kept falling asleep during assessment. will discuss further with him when he wakes up more. Soraya Che RN, [facility].
--- NOTE | 2018-07-04 16:35 | PCA ---
pt receiving dialysis
--- NOTE | 2018-07-04 18:22 | DIALYSIS ---
1st HD today off 23 min early due to clotting. RIJ with good flows. UF -1000ml pt and given education regarding treatment options. hep labs ordered. Post vitals stable. report to [place] [facility] Will need heparin next treatment
--- NOTE | 2018-07-04 18:52 | PCA ---
pt receiving dialysis
[2018-07-04] MEDS: Tacrolimus Anhydrous 1 MG Capsule 2 MG PO (21:27)
[2018-07-05] VITALS (9 sets, daily range): BP systolic 154–172; BP diastolic 85–102; PULSE 73–86; RESP 16–20; TEMP 36.6–37.4; O2SAT 97–98
[2018-07-05 05:24] LABS: Absolute Lymphocyte Count 0.64 X10^3/ul (0.83-4.51); Absolute Neutrophil Count 10.2 X10^3/uL (2.0-7.7); Basophil# 0.02 X10^3/uL; Basophil% 0.2 % (0-1); Hematocrit 38.7 % (40-54); Hemoglobin 12.5 g/dl (13.0-16.5); Lymphocyte # 0.64 X10^3/ul (4.0); Lymphocyte % 5.5 % (19-41); Mean Corp Hgb Conc 32.3 g/gl (32-36); Mean Corpuscular Hgb 30.4 pg (27.0-32.0); Mean Corpuscular Volume 94.2 fL (80-94); Monocyte# 0.64 X10^3/uL; Monocyte% 5.5 % (0-10); Neutrophil # 10.16 X10^3/uL (2.7-7.7); Neutrophil % 86.7 % (47-70); Platelet Count 149 K/mm3 (150-450); RBC Distribution Width CV 14.2 % (11.6-14.6); RBC Distribution Width SD 47.1 fl (35.1-43.9); Red Blood Count 4.11 M/mm3 (4.6-6.2); White Blood Count 11.7 K/mm3 (4.4-11.0)
[2018-07-05 05:25] LABS: Albumin, Serum 2.3 g/dL (3.2-5.0); BUN 64 mg/dL (7-18); BUN/Creat Ratio 19.2 RATIO (10-20); Calcium,Total 8.3 mg/dL (8.5-10.1); Chloride 107 mmol/L (98-107); Creatinine, Serum 3.33 mg/dL (0.70-1.30); EST Glomerular Filtration Rate 23 mL/min (>60); Est Glom Filt Rate - Afr Amer 27 mL/min (>60); Estimated Creatinine Clearance 33.29 ml/min; Glucose 145 mg/dL (74-106); Phosphorus 4.5 mg/dL (2.5-4.9); Sodium Level 140 mmol/L (136-145)
[2018-07-05 05:27] LABS: POSITIVE COUNT YES; POSITIVE DIFFERENTIAL NO; POSITIVE MORPHOLOGY YES
[2018-07-05] MEDS: hydrALAZINE 50 MG Tablet PO ×3 (05:57→21:39)
--- NOTE | 2018-07-05 09:55 | PCM.PN.HOSP ---
Patient Problems: Active and Suspected Problems Kidney transplant failure (Acute) Objective: Patient seen and examined. He had dialysis yesterday. He denies any fever chills, any pain around dialysis site, any cough or chest pain, any shortness of breath, abdominal pain, any diarrhea vomiting. He is due to have another session of dialysis tomorrow. Labs and vitals reviewed. Vitals/I&O's: Vital Signs Temp Pulse Resp BP Pulse Ox 98.7 F 80 16 160/85 H 97 07/05/18 02:42 07/05/18 05:57 07/05/18 02:42 07/05/18 02:42 07/05/18 07:24 Oxygen Delivery Method Room Air Weight: 220 lb 7.396 oz Body Mass Index (BMI) 30.7 Intake and Output for Last 24 Hours 07/03/18 07/04/18 07/05/18 23:59 23:59 23:59 Intake Total 720 / 720 1480 / 1480 950 / 950 Output Total 1300 / 1300 3500 / 3500 500 / 500 Balance -580 / -580 -2020 / -2020 450 / 450 General: Alert, Oriented x3, Cooperative, No apparent distress HEENT: Atraumatic, PERRLA, EOMI, Normocephalic Oral: Moist Mucosa Neck: Supple, No JVD, Negative Carotid Bruits Lungs: Clear to auscultation, Normal air movement Cardiovascular: Regular rate, Regular Rhythm, Normal S1, Normal S2, No murmurs Abdomen: Bowel Sounds Present, Soft, Non Tender, Non-Distended, No Hepato-splenomegaly Extremities: No clubbing, No cyanosis, No edema, Capillary Refill Less than 3 Seconds Skin: No rashes, No breakdown Musculoskeletal: No Tenderness to Palpation of Joints or Extremities, - - left chest dialysis catheter in place Lymphatic: No Cervical, Supraclavicular, or Inguinal Adenopathy Neurological: Cranial nerves II-XII grossly intact Psych/Mental Status: Normal Affect, Appropriate, Alert and oriented to time, place, person, mood and affect Laboratory Results 07/05/18 04:56: WBC 11.7 H, RBC 4.11 L, Hgb 12.5 L, Hct 38.7 L, MCV 94.2 H, MCH 30.4, MCHC 32.3, RDW 14.2, RDW Differential 47.1 H, Plt Count 149 L, MPV 11.0, Immature Gran % (Auto) 2.100 H, Neut % (Auto) 86.7 H, Lymph % (Auto) 5.5 L, [place] % (Auto) 5.5, Eos % (Auto) 0.0, Baso % (Auto) 0.2, Absolute Neuts (auto) 10.2 H, Absolute Lymphs (auto) 0.64 L, Total Counted Not Reportable, Diff Path Review October07/05/18 04:56: Sodium 140, Potassium 4.0, Chloride 107, Carbon Dioxide 22.0, BUN 64 H, Creatinine 3.33 H, Estim Creat Clear Calc 33.29, Est GFR (MDRD) Af Amer 27 L, Est GFR (MDRD) Non-Af 23 L, BUN/Creatinine Ratio 19.2, Glucose 145 H, Calcium 8.3 L, Phosphorus 4.5, Albumin 2.3 L 07/05/18 04:56: Hep Bs Antigen Pending, Hep Bs Antibody Pending, Hep B Core Total Ab Pending Current Medications Acetaminophen (Tylenol) 650 mg PO Q6H PRN PRN PRN Reason: pain Last Admin: 07/04/18 07:48 Dose: 650 mg Hydrocodone Bitart/Acetaminophen ([place] 5mg-325mg) 1 tablet PO Q4H PRN PRN PRN Reason: PAIN Last Admin: 07/04/18 13:21 Dose: 1 tablet Al Hydroxide/Mg Hydroxide (Mylanta Ii) 30 ml PO Q6H PRN PRN PRN Reason: Gastric burning Amlodipine Besylate (Norvasc) 5 mg PO DAILY [facility] Last Admin: 07/04/18 07:59 Dose: 5 mg Ascorbic Acid (Vitamin C) 1,000 mg PO DAILY [facility] Last Admin: 07/04/18 09:35 Dose: 1,000 mg Calcitriol (Rocaltrol) 0.25 mcg PO DAILY [facility] Last Admin: 07/04/18 09:34 Dose: 0.25 mcg Diphenhydramine HCl (Benadryl) 25 mg PO QHS PRN PRN PRN Reason: SLEEP Last Admin: 07/03/18 22:39 Dose: 25 mg Furosemide (Lasix) 80 mg IV BID@1000,1800 [facility] Last Admin: 07/04/18 08:49 Dose: Not Given Hydralazine HCl (Apresoline) 50 mg PO TID [facility] Last Admin: 07/05/18 05:57 Dose: 50 mg Hydralazine HCl (Apresoline Iv) 10 mg IV Q4H PRN PRN PRN Reason: SBP > 160 Labetalol HCl (Trandate) 100 mg PO BID [facility] Last Admin: 07/04/18 21:27 Dose: 100 mg Magnesium Hydroxide (Milk Of Magnesia) 30 ml PO DAILY PRN PRN PRN Reason: Constipation Mycophenolate Mofetil (Cellcept) 750 mg PO BID [facility] Last Admin: 07/04/18 21:28 Dose: 750 mg Ondansetron HCl (Zofran) 4 mg IV Q8H PRN PRN PRN Reason: NAUSEA Pantoprazole Sodium (Protonix) 40 mg PO BID [facility] Last Admin: 07/04/18 21:27 Dose: [facility] Last Admin: 07/04/18 21:28 Dose: 20 mg Sodium Chloride () 5 - 15 ml IV UD PRN PRN Reason: SALINE FLUSH Tacrolimus (Prograf) 2 mg PO QHS [facility] Last Admin: 07/04/18 21:27 Dose: 2 mg Tacrolimus (Prograf) 3 mg PO DAILY [facility] Last Admin: 07/04/18 09:34 Dose: 3 mg Medical Necessity - Tobacco Use Smoking Status: Current every day smoker Tobacco Use: Cigarettes Assessment/Plan All Active Problems Kidney transplant failure (Acute) Cellulitis (Resolved) TED (acute kidney injury) (Acute) Uncontrolled hypertension (Acute) 1. 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 admitted with a complaitn of worsening fatigue, weakness and nausea Cr down to 3.33 today had dialysis yesterday via left chest dialysis catheter still on IV lasix 40mg bid for another session of dialysis tomorrow nephrology on board 2. Hypertension: poorly controlled. On Norvasc, labetalol and hydralazine,. PRN hydralazine. 3. S/p renal transplant has chronic transplant rejection, per nephro on Cellcept and tacrolimus rest of management as per nephro 4.non-anion gap acidosis: resolved. Bicarb is 22 today. 5. Nicotine abuse: encourage cessation. Nicotine patch 6. GERD: on PPI 7. DVT prophylaxis: SCDs Code Visit Inpatient E&M: 76578 Subs Hosp L3
--- NOTE | 2018-07-05 09:58 | PN_ITS ---
Patient Problems: Active and Suspected Problems Kidney transplant failure (Acute) Objective: Patient seen and examined. He had dialysis yesterday. He denies any fever chills, any pain around dialysis site, any cough or chest pain, any shortness of breath, abdominal pain, any diarrhea vomiting. He is due to have another session of dialysis tomorrow. Labs and vitals reviewed. Vitals/I&O's: Vital Signs Temp Pulse Resp BP Pulse Ox 98.7 F 80 16 160/85 H 97 07/05/18 02:42 07/05/18 05:57 07/05/18 02:42 07/05/18 02:42 07/05/18 07:24 Oxygen Delivery Method Room Air Weight: 220 lb 7.396 oz Body Mass Index (BMI) 30.7 Intake and Output for Last 24 Hours 07/03/18 07/04/18 07/05/18 23:59 23:59 23:59 Intake Total 720 / 720 1480 / 1480 950 / 950 Output Total 1300 / 1300 3500 / 3500 500 / 500 Balance -580 / -580 -2020 / -2020 450 / 450 General: Alert, Oriented x3, Cooperative, No apparent distress HEENT: Atraumatic, PERRLA, EOMI, Normocephalic Oral: Moist Mucosa Neck: Supple, No JVD, Negative Carotid Bruits Lungs: Clear to auscultation, Normal air movement Cardiovascular: Regular rate, Regular Rhythm, Normal S1, Normal S2, No murmurs Abdomen: Bowel Sounds Present, Soft, Non Tender, Non-Distended, No Hepato- splenomegaly Extremities: No clubbing, No cyanosis, No edema, Capillary Refill Less than 3 Seconds Skin: No rashes, No breakdown Musculoskeletal: No Tenderness to Palpation of Joints or Extremities, - - left chest dialysis catheter in place Lymphatic: No Cervical, Supraclavicular, or Inguinal Adenopathy Neurological: Cranial nerves II-XII grossly intact Psych/Mental Status: Normal Affect, Appropriate, Alert and oriented to time, place, person, mood and affect Laboratory Results 07/05/18 04:56: WBC 11.7 H, RBC 4.11 L, Hgb 12.5 L, Hct 38.7 L, MCV 94.2 H, MCH 30.4, MCHC 32.3, RDW 14.2, RDW Differential 47.1 H, Plt Count 149 L, MPV 11.0, Immature Gran % (Auto) 2.100 H, Neut % (Auto) 86.7 H, Lymph % (Auto) 5.5 L, [place] % (Auto) 5.5, Eos % (Auto) 0.0, Baso % (Auto) 0.2, Absolute Neuts (auto) 10.2 H, Absolute Lymphs (auto) 0.64 L, Total Counted Not Reportable, Diff Path Review October07/05/18 04:56: Sodium 140, Potassium 4.0, Chloride 107, Carbon Dioxide 22.0, BUN 64 H, Creatinine 3.33 H, Estim Creat Clear Calc 33.29, Est GFR (MDRD) Af Amer 27 L, Est GFR (MDRD) Non-Af 23 L, BUN/Creatinine Ratio 19.2, Glucose 145 H, Calcium 8.3 L, Phosphorus 4.5, Albumin 2.3 L 07/05/18 04:56: Hep Bs Antigen Pending, Hep Bs Antibody Pending, Hep B Core Total Ab Pending Current Medications Acetaminophen (Tylenol) 650 mg PO Q6H PRN PRN PRN Reason: pain Last Admin: 07/04/18 07:48 Dose: 650 mg Hydrocodone Bitart/Acetaminophen (Lando 5mg-325mg) 1 tablet PO Q4H PRN PRN PRN Reason: PAIN Last Admin: 07/04/18 13:21 Dose: 1 tablet Al Hydroxide/Mg Hydroxide (Mylanta Ii) 30 ml PO Q6H PRN PRN PRN Reason: Gastric burning Amlodipine Besylate (Norvasc) 5 mg PO DAILY [facility] Last Admin: 07/04/18 07:59 Dose: 5 mg Ascorbic Acid (Vitamin C) 1,000 mg PO DAILY [facility] Last Admin: 07/04/18 09:35 Dose: 1,000 mg Calcitriol (Rocaltrol) 0.25 mcg PO DAILY [facility] Last Admin: 07/04/18 09:34 Dose: 0.25 mcg Diphenhydramine HCl (Benadryl) 25 mg PO QHS PRN PRN PRN Reason: SLEEP Last Admin: 07/03/18 22:39 Dose: 25 mg Furosemide (Lasix) 80 mg IV BID@1000,1800 [facility] Last Admin: 07/04/18 08:49 Dose: Not Given Hydralazine HCl (Apresoline) 50 mg PO TID [facility] Last Admin: 07/05/18 05:57 Dose: 50 mg Hydralazine HCl (Apresoline Iv) 10 mg IV Q4H PRN PRN PRN Reason: SBP > 160 Labetalol HCl (Trandate) 100 mg PO BID [facility] Last Admin: 07/04/18 21:27 Dose: 100 mg Magnesium Hydroxide (Milk Of Magnesia) 30 ml PO DAILY PRN PRN PRN Reason: Constipation Mycophenolate Mofetil (Cellcept) 750 mg PO BID [facility] Last Admin: 07/04/18 21:28 Dose: 750 mg Ondansetron HCl (Zofran) 4 mg IV Q8H PRN PRN PRN Reason: NAUSEA Pantoprazole Sodium (Protonix) 40 mg PO BID [facility] Last Admin: 07/04/18 21:27 Dose: 40 mg Prednisone () 20 mg PO BIDCM [facility] Last Admin: 07/04/18 21:28 Dose: 20 mg Sodium Chloride () 5 - 15 ml IV UD PRN PRN Reason: SALINE FLUSH Tacrolimus (Prograf) 2 mg PO QHS [facility] Last Admin: 07/04/18 21:27 Dose: 2 mg Tacrolimus (Prograf) 3 mg PO DAILY [facility] Last Admin: 07/04/18 09:34 Dose: 3 mg Medical Necessity - Tobacco Use Smoking Status: Current every day smoker Tobacco Use: Cigarettes Assessment/Plan All Active Problems Kidney transplant failure (Acute) Cellulitis (Resolved) TED (acute kidney injury) (Acute) Uncontrolled hypertension (Acute) 1. 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 * admitted with a complaitn of worsening fatigue, weakness and nausea * Cr down to 3.33 today * had dialysis yesterday via left chest dialysis catheter * still on IV lasix 40mg bid * for another session of dialysis tomorrow * nephrology on board * 2. Hypertension: poorly controlled. On Norvasc, labetalol and hydralazine,. PRN hydralazine. 3. S/p renal transplant * has chronic transplant rejection, per nephro * on Cellcept and tacrolimus * rest of management as per nephro * 4.non-anion gap acidosis: resolved. Bicarb is 22 today. 5. Nicotine abuse: encourage cessation. Nicotine patch 6. GERD: on PPI 7. DVT prophylaxis: SCDs Code Visit Inpatient E&M: 43149 Subs Hosp L3
[2018-07-05] MEDS: Mycophenolate Mofetil 250 MG Capsule 750 MG PO ×2 (10:06→21:39)
[2018-07-05] MEDS: amLODIPine 5 MG Tablet PO (10:07)
[2018-07-05] MEDS: Pantoprazole Sodium 40 MG Tablet PO ×2 (10:07→21:40)
[2018-07-05] MEDS: Furosemide 100 MG/10 ML Vial 80 MG IV ×2 (10:07→18:36)
[2018-07-05] MEDS: predniSONE 20 MG Tablet PO ×2 (10:07→18:39)
[2018-07-05] MEDS: Labetalol 100 MG Tablet PO ×2 (10:08→21:39)
[2018-07-05] MEDS: Ascorbic Acid 500 MG Tablet 1000 MG PO (10:08)
[2018-07-05] MEDS: Tacrolimus Anhydrous 1 MG Capsule 3 MG PO (10:09)
[2018-07-05] MEDS: Calcitriol 0.25 MCG Capsule PO (10:10)
[2018-07-05] MEDS: HYDROcodone Bitartrate/Apap 5/325 Tablet PO (10:19)
[2018-07-05] MEDS: 0.9% NaCl Peripheral Flush Adult/Peds IV (10:20)
[2018-07-05] MEDS: Acetaminophen 325 MG Tablet 650 MG PO ×2 (15:09→21:41)
--- NOTE | 2018-07-05 16:02 | PCM.PN.REN ---
Patient Problems: Active and Suspected Problems Kidney transplant failure (Acute) Subjective: no new complaints - Physical Exam General: Alert, Oriented x3, Cooperative HEENT: Atraumatic, PERRLA, EOMI, Normocephalic Neck: Supple, No JVD, Negative Carotid Bruits Lungs: Clear to auscultation, Normal air movement Cardiovascular: Regular rate, No murmurs Abdomen: Bowel Sounds Present, Soft, Non Tender Extremities: No edema, Capillary Refill Less than 3 Seconds Skin: No rashes, No breakdown Musculoskeletal: No Tenderness to Palpation of Joints or Extremities Neurological: Cranial nerves II-XII grossly intact Psych/Mental Status: Normal Affect, Appropriate Vital Signs Temp Pulse Resp BP Pulse Ox 99.3 F H 83 18 154/96 H 98 07/05/18 15:22 07/05/18 15:22 07/05/18 15:22 07/05/18 15:22 07/05/18 15:22 Oxygen Delivery Method Room Air Weight: 100 kg Body Mass Index (BMI) 30.7 Intake and Output for Last 24 Hours 07/03/18 07/04/18 07/05/18 23:59 23:59 23:59 Intake Total 720 / 720 1480 / 1480 1350 / 1350 Output Total 1300 / 1300 3500 / 3500 1100 / 1100 Balance -580 / -580 -2020 / -2020 250 / 250 Laboratory Tests Past 24 Hrs 07/05/18 07/05/18 07/05/18 04:56 04:56 04:56 WBC 11.7 H RBC 4.11 L Hgb 12.5 L Hct 38.7 L MCV 94.2 H MCH 30.4 MCHC 32.3 RDW 14.2 RDW Differential 47.1 H Plt Count 149 L MPV 11.0 Immature Gran % (Auto) 2.100 H Neut % (Auto) 86.7 H Lymph % (Auto) 5.5 L [place] % (Auto) 5.5 Eos % (Auto) 0.0 Baso % (Auto) 0.2 Absolute Neuts (auto) 10.2 H Absolute Lymphs (auto) 0.64 L Total Counted Not Reportable Diff Path Review May foll Sodium 140 Potassium 4.0 Chloride 107 Carbon Dioxide 22.0 BUN 64 H Creatinine 3.33 H Estim Creat Clear Calc 33.29 Est GFR (MDRD) Af Amer 27 L Est GFR (MDRD) Non-Af 23 L BUN/Creatinine Ratio 19.2 Glucose 145 H Calcium 8.3 L Phosphorus 4.5 Albumin 2.3 L Hep Bs Antigen Pending Hep Bs Antibody Pending Hep B Core Total Ab Pending Medical Necessity - Tobacco Use Smoking Status: Current every day smoker Tobacco Use: Cigarettes Assessment/Plan All Active Problems Kidney transplant failure (Acute) Cellulitis (Resolved) TED (acute kidney injury) (Acute) Uncontrolled hypertension (Acute) TED CKD 4 Chronic transplant rejection (antibody mediated) fluid overload S/p one session of dialysis feels significantly better. next HD tomorrow continue immunosupressive therapy as before cr is significantly better for one small session of dialysis check tacro levels tomorrow AM send CMV PCR tunneled line in place will discuss with family if PD is an option, if they want HD only will have Dr Alonso place an AVF
[2018-07-05] MEDS: Tacrolimus Anhydrous 1 MG Capsule 2 MG PO (21:40)
[2018-07-05] MEDS: DiphenhydrAMINE 25 MG Capsule PO (21:44)
[2018-07-06 03:28] VITALS: BP 152/87; PULSE 78; RESP 14; TEMP 36.8; O2SAT 94
--- NOTE | 2018-07-06 05:43 | VDUE_ITS ---
Reason For Study: Assessment for possible dialysis access placement Right Arm Left Arm Right Cephalic Vein at the wrist Right Cephalic Vein at wrist is non- measures .25 x .29 cm. compressible Right Cephalic Vein in the forearm Right Cephalic Vein mid forearm is partially measures .31 x .29 cm. compressible and residual lumen measures .41 Right Cephalic Vein below antecub x .47 cm measures .34 x .31 cm. Right Cephalic Vein is diminutive in upper Right Cephalic Vein above antecub arm. measures .14 x .14 cm. Left Cephalic Vein below antecub Right Cephalic Vein mid bicep measures .18 measures .54 x .55 cm. x .20 cm. Left Basilic Vein origin/mid is non- Right Cephalic Vein at the shoulder compressible with bright intraluminal echoes measures .19 x .19 cm. Left Basilic Vein distal - .29 x .28 cm Right Basilic Vein at the origin Brachial artery - .65 x .60 cm with a measures .61 x .69 cm. velocity of 115.0 cm/s Right Basilic Vein mid bicep measures .65 Radial artery - .39 x .40 cm with a velocity x .69 cm. of 76.8 cm/s. Right Basilic Vein above antecub measures .55 x .57 cm. Right Basilic Vein below antecub measures .35 x .33 cm. Right Basilic Vein in the forearm measures .29 x .29 cm. Right Basilic Vein at the wrist measures .29 x .31 cm. Brachial artery - .41 x .40 cm with a velocity of 60.5 cm/s Radial artery - .36 x .35 cm with a velocity of 78.2 cm/s. Interpretation Summary Adequate right cephalic vein of forearm but diminutive in upper arm Adequate right basilic vein throughout the upper arm and forearm Superficial thrombophlebitis left cephalic vein at wrist with partial thrombosis in the left mid forearm Chronic thrombophlebitis left basilic vein Adequate bilateral brachial and radial arteries. Ordering Physician: Dionisio Alonso Referring Physician: Fredrick Oglesby Performed By: Jennifer Castorena RVT ?
[2018-07-06 06:09] LABS: Absolute Lymphocyte Count 0.91 X10^3/ul (0.83-4.51); Absolute Neutrophil Count 11.6 X10^3/uL (2.0-7.7); Basophil# 0.01 X10^3/uL; Basophil% 0.1 % (0-1); Eosinophil# 0.01 X10^3/uL; Eosinophils% 0.1 % (0-5); Hematocrit 38.3 % (40-54); Hemoglobin 12.3 g/dl (13.0-16.5); Lymphocyte # 0.91 X10^3/ul (4.0); Lymphocyte % 6.7 % (19-41); Mean Corp Hgb Conc 32.1 g/gl (32-36); Mean Corpuscular Volume 93.4 fL (80-94); Mean Platelet Vol. 10.9 fl (6.2-12.0); Monocyte# 0.79 X10^3/uL; Monocyte% 5.9 % (0-10); Neutrophil # 11.64 X10^3/uL (2.7-7.7); Neutrophil % 86.2 % (47-70); Platelet Count 141 K/mm3 (150-450); RBC Distribution Width CV 14.4 % (11.6-14.6); RBC Distribution Width SD 48.7 fl (35.1-43.9); White Blood Count 13.5 K/mm3 (4.4-11.0)
[2018-07-06 06:10] LABS: Albumin, Serum 2.3 g/dL (3.2-5.0); BUN 68 mg/dL (7-18); BUN/Creat Ratio 19.3 RATIO (10-20); Calcium,Total 8.4 mg/dL (8.5-10.1); Chloride 107 mmol/L (98-107); Creatinine, Serum 3.52 mg/dL (0.70-1.30); EST Glomerular Filtration Rate 21 mL/min (>60); Est Glom Filt Rate - Afr Amer 26 mL/min (>60); Estimated Creatinine Clearance 31.49 ml/min; Glucose 162 mg/dL (74-106); Phosphorus 5.2 mg/dL (2.5-4.9); Potassium 3.8 mmol/L (3.5-5.1); Sodium Level 141 mmol/L (136-145)
[2018-07-06 06:20] VITALS: PULSE 78
[2018-07-06] MEDS: hydrALAZINE 50 MG Tablet PO ×2 (06:20→14:41)
[2018-07-06 06:26] LABS: POSITIVE COUNT NO; POSITIVE DIFFERENTIAL NO; POSITIVE MORPHOLOGY NO
[2018-07-06] MEDS: HYDROcodone Bitartrate/Apap 5/325 Tablet PO (06:26)
[2018-07-06 08:23] VITALS: BP 152/92; PULSE 81; RESP 16; TEMP 36.3; O2SAT 95
[2018-07-06 11:51] LABS: Pathologist Review Reviewed
[2018-07-06] MEDS: Pantoprazole Sodium 40 MG Tablet PO (12:25)
[2018-07-06] MEDS: Mycophenolate Mofetil 250 MG Capsule 750 MG PO (12:25)
[2018-07-06] MEDS: predniSONE 20 MG Tablet PO (12:25)
[2018-07-06] MEDS: Tacrolimus Anhydrous 1 MG Capsule 3 MG PO (12:26)
[2018-07-06] MEDS: amLODIPine 5 MG Tablet PO (12:26)
[2018-07-06] MEDS: Ascorbic Acid 500 MG Tablet 1000 MG PO (12:27)
[2018-07-06] MEDS: Calcitriol 0.25 MCG Capsule PO (12:27)
[2018-07-06] MEDS: Labetalol 100 MG Tablet PO (12:27)
[2018-07-06 12:30] VITALS: BP 140/96; PULSE 78; RESP 16; TEMP 36.7; O2SAT 94
[2018-07-06 14:41] VITALS: PULSE 77
--- NOTE | 2018-07-06 14:43 | PCM.DC ---
- Discharge Diagnoses Current Active Problems: Current Active and Chronic Problems Kidney transplant failure (Acute) You will use the following diet at home:: Renal (restricted protein/sodium) Your food should be the consistency of: Regular Your liquids should be the consistency of: Regular/Thin Discharge Activity: Return to Normal Activity, May Not Shower Weight Bearing Status: Weight bearing as tolerated Call your doctor if you observe: Fever of 101 or Higher, Inability to urinate, Shortness of breath, Swelling in the ankles Additional Dressing/Incision Instructions:: Please keep the dialysis catheter site clean and dry. Please assist with office contact and scheduling for outpatient upper extremity vein mapping Instructions: ED Renal Failure Chronic Allergies/Adverse Reactions: Allergies No Known Allergies Allergy (Verified 07/03/18 11:02) Medications to take at Discharge Mycophenolate Mofetil [Cellcept] 750 mg PO BID 01/15/18 Pantoprazole Sodium [Protonix] 40 mg PO BID 05/05/18 Amlodipine [Norvasc] 5 mg PO DAILY tablet 05/06/18 Labetalol [Trandate (Beta Evelina)] 100 mg PO BID #60 tablet 05/06/18 Acetaminophen [Tylenol Extra Strength] 1,000 mg PO Q6H PRN PRN 07/03/18 Ascorbic Acid [Vitamin C] 1,000 mg PO DAILY 07/03/18 Calcitriol 1 tab PO DAILY 07/03/18 Cholecalciferol (Vitamin D3) [Vitamin D3] 2,000 unit PO DAILY 07/03/18 L.acidoph,Paracasei, B.lactis [Probiotic] 2 capsule PO DAILY 07/03/18 Multivit-Mins/Iron/Folic/Lycop [Centrum Men's Tablet] 1 tab PO DAILY 07/03/18 Prednisone 20 mg PO BID 07/03/18 Tacrolimus Anhydrous [Prograf] 2 mg PO QHS 07/03/18 Tacrolimus Anhydrous [Prograf] 3 mg PO DAILY 07/03/18 hydrALAZINE [Apresoline] 50 mg PO TID 07/03/18 Furosemide [Lasix] 80 mg PO BIDLX #60 tablet 07/06/18 The following prescriptions were given: Furosemide [Lasix] 80 mg PO BIDLX #60 tablet Primary Care Physician: Fredrick Oglesby DO [Primary Care Provider] - Please follow up with your Primary Care Physician in: one week Test Results: Test results from this visit will be discussed in further detail at your follow-up appointment, if applicable. Please Follow Up With: Dionisio Alonso MD - [phone] When: Please plan to follow up in 7 days in the office. Please Follow Up With: Kris Kamara MD When: 1 week Proposed Discharge Date: 07/06/18
[2018-07-06 14:46] VITALS: BP 143/89; PULSE 77; RESP 16; TEMP 36.7; O2SAT 96
--- NOTE | 2018-07-06 14:46 | DCINST_ITS ---
- Discharge Diagnoses Current Active Problems: Current Active and Chronic Problems Kidney transplant failure (Acute) You will use the following diet at home:: Renal (restricted protein/sodium) Your food should be the consistency of: Regular Your liquids should be the consistency of: Regular/Thin Discharge Activity: Return to Normal Activity, May Not Shower Weight Bearing Status: Weight bearing as tolerated Call your doctor if you observe: Fever of 101 or Higher, Inability to urinate, Shortness of breath, Swelling in the ankles Additional Dressing/Incision Instructions:: Please keep the dialysis catheter site clean and dry. Please assist with office contact and scheduling for outpatient upper extremity vein mapping Instructions: ED Renal Failure Chronic Allergies/Adverse Reactions: Allergies No Known Allergies Allergy (Verified 07/03/18 11:02) Medications to take at Discharge Mycophenolate Mofetil [Cellcept] 750 mg PO BID 01/15/18 Pantoprazole Sodium [Protonix] 40 mg PO BID 05/05/18 Amlodipine [Norvasc] 5 mg PO DAILY tablet 05/06/18 Labetalol [Trandate (Beta Evelina)] 100 mg PO BID #60 tablet 05/06/18 Acetaminophen [Tylenol Extra Strength] 1,000 mg PO Q6H PRN PRN 07/03/18 Ascorbic Acid [Vitamin C] 1,000 mg PO DAILY 07/03/18 Calcitriol 1 tab PO DAILY 07/03/18 Cholecalciferol (Vitamin D3) [Vitamin D3] 2,000 unit PO DAILY 07/03/18 L.acidoph,Paracasei, B.lactis [Probiotic] 2 capsule PO DAILY 07/03/18 Multivit-Mins/Iron/Folic/Lycop [Centrum Men's Tablet] 1 tab PO DAILY 07/03/18 Prednisone 20 mg PO BID 07/03/18 Tacrolimus Anhydrous [Prograf] 2 mg PO QHS 07/03/18 Tacrolimus Anhydrous [Prograf] 3 mg PO DAILY 07/03/18 hydrALAZINE [Apresoline] 50 mg PO TID 07/03/18 Furosemide [Lasix] 80 mg PO BIDLX #60 tablet 07/06/18 The following prescriptions were given: Furosemide [Lasix] 80 mg PO BIDLX #60 tablet Primary Care Physician: Fredrick Oglesby DO [Primary Care Provider] - Please follow up with your Primary Care Physician in: one week Test Results: Test results from this visit will be discussed in further detail at your follow- up appointment, if applicable. Please Follow Up With: Dionisio Alonso MD - [phone] When: Please plan to follow up in 7 days in the office. Please Follow Up With: Kris Kamara MD When: 1 week Proposed Discharge Date: 07/06/18
--- NOTE | 2018-07-06 14:46 | PCM.DC.SUM ---
Discharge Date and Diagnosis - Problem List Patient Problems: Active and Suspected Problems Kidney transplant failure (Acute) Date of Admission: 07/03/18 Date of Discharge: 07/06/18 - Primary Discharge Diagnosis Active and Suspected Problems Kidney transplant failure (Acute) - Secondary Discharge Diagnosis Chronic Problems Elevated serum creatinine (Chronic) History of kidney transplant (Chronic) CKD (chronic kidney disease) stage 3, GFR 30-59 ml/min (Chronic) HTN (hypertension) (Chronic) Tobacco use (Chronic) GERD (gastroesophageal reflux disease) (Chronic) Hospital Course and Treatment Imaging Results: Diagnostic Data Chest X-Ray 07/04/18 07:20 IMPRESSION: 1. Right central line tip overlies the distal SVC. There is right paratracheal and upper mediastinal prominence with underlying lymphadenopathy not excluded. No evidence of acute focal airspace disease. 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 He also has a past medical history of tobacco abuse, hypertension and GERD. He was admitted with a complaint of progressively worsening fatigue, nausea and weakness without emesis for 2 weeks prior to presentation. He was evaluated by his kidney doctor noted to have worsening renal function. He had been initiated on steroids this did not help. He was admitted to be started on dialysis. He had dialysis catheter placed on 07/04/2017. He had 2 sessions of dialysis during this admission. He was set up to go for dialysis at [facility] oon Wednesdays for next session to be on Friday07/08/18. He is to follow-up with his primary care doctor, impression printer and general surgery. Patient seen and examined prior to discharge. He had no complaints and felt well. He was awaiting dialysis. He denied any fever, any chills, any cough or chest pain, any shortness of breath, abdominal pain could be dated 12. 12 point review of systems otherwise negative. Labs and vitals reviewed. Home medications reviewed and reconciled. o/e: Vital Signs Height 5 ft 11 in Weight: 220 lb 10.923 oz Weight in Pounds 220.7 lbs Pulse Ox 96 Temperature 98.0 F Pulse Rate 77 Respiratory Rate 16 Blood Pressure [2nd BP] 158/88 Blood Pressure 143/89 Blood Pressure Position [2nd Semi-Fowlers BP] Blood Pressure Position Semi-Fowlers General: Alert, Oriented x3, Cooperative, No apparent distress HEENT: Atraumatic, PERRLA, EOMI, Normocephalic Oral: Moist Mucosa Neck: Supple, No JVD, Negative Carotid Bruits Lungs: Clear to auscultation, Normal air movement Cardiovascular: Regular rate, Regular Rhythm, Normal S1, Normal S2, No murmurs Abdomen: Bowel Sounds Present, Soft, Non Tender, Non-Distended, No Hepato-splenomegaly Extremities: No clubbing, No cyanosis, No edema, Capillary Refill Less than 3 Seconds Skin: No rashes, No breakdown Musculoskeletal: No Tenderness to Palpation of Joints or Extremities, - - left chest dialysis catheter in place Lymphatic: No Cervical, Supraclavicular, or Inguinal Adenopathy Neurological: Cranial nerves II-XII grossly intact Psych/Mental Status: Normal Affect, Appropriate, Alert and oriented to time, place, person, mood and affect He was discharged with a prescription for p.o. Lasix 80 mg twice daily. Rest of plan as described above. He is also to follow up with the Transplant Team at [facility]. [] Patient Problems: Active and Suspected Problems Kidney transplant failure (Acute) - Physical Exam Vital Signs Temp Pulse Resp BP Pulse Ox 98.1 F 77 16 140/96 H 94 07/06/18 12:30 07/06/18 14:41 07/06/18 12:30 07/06/18 12:30 07/06/18 12:30 Oxygen Delivery Method Room Air Weight: 220 lb 10.923 oz Body Mass Index (BMI) 30.7 Intake and Output for Last 24 Hours 07/04/18 07/05/18 07/06/18 23:59 23:59 23:59 Intake Total 1480 / 1480 2200 / 2200 1100 / 1100 Output Total 3500 / 3500 1800 / 1800 460 / 460 Balance -2019 / -2019 400 / 400 640 / 640 Laboratory Tests Past 24 Hrs 07/05/18 07/06/18 07/06/18 04:56 05:30 05:30 WBC 13.5 H RBC 4.10 L Hgb 12.3 L Hct 38.3 L MCV 93.4 MCH 30.0 MCHC 32.1 RDW 14.4 RDW Differential 48.7 H Plt Count 141 L MPV 10.9 Immature Gran % (Auto) 1.000 H Neut % (Auto) 86.2 H Lymph % (Auto) 6.7 L [place] % (Auto) 5.9 Eos % (Auto) 0.1 Baso % (Auto) 0.1 Absolute Neuts (auto) 11.6 H Absolute Lymphs (auto) 0.91 Total Counted Not Reportable Diff Path Review Reviewed Sodium 141 Potassium 3.8 Chloride 107 Carbon Dioxide 21.0 BUN 68 H Creatinine 3.52 H Estim Creat Clear Calc 31.49 Est GFR (MDRD) Af Amer 26 L Est GFR (MDRD) Non-Af 21 L BUN/Creatinine Ratio 19.3 Glucose 162 H Calcium 8.4 L Phosphorus 5.2 H Albumin 2.3 L Tacrolimus CMV DNA Qual PCR 07/06/18 07/06/18 05:30 05:30 WBC RBC Hgb Hct MCV MCH MCHC RDW RDW Differential Plt Count MPV Immature Gran % (Auto) Neut % (Auto) Lymph % (Auto) [place] % (Auto) Eos % (Auto) Baso % (Auto) Absolute Neuts (auto) Absolute Lymphs (auto) Total Counted Diff Path Review Sodium Potassium Chloride Carbon Dioxide BUN Creatinine Estim Creat Clear Calc Est GFR (MDRD) Af Amer Est GFR (MDRD) Non-Af BUN/Creatinine Ratio Glucose Calcium Phosphorus Albumin Tacrolimus Pending CMV DNA Qual PCR Pending Discharge Diet: Renal Diet Discharge Activity: Return to Normal Activity, May Not Shower Weight Bearing Status: Weight bearing as tolerated Call your doctor if you observe: Fever of 101 or Higher, Inability to urinate, Shortness of breath, Swelling in the ankles Additional Dressing/Incision Instructions:: Please keep the dialysis catheter site clean and dry. Please assist with office contact and scheduling for outpatient upper extremity vein mapping Home Medications: Medications to take at Discharge Mycophenolate Mofetil [Cellcept] 750 mg PO BID 01/15/18 Pantoprazole Sodium [Protonix] 40 mg PO BID 05/05/18 Amlodipine [Norvasc] 5 mg PO DAILY tablet 05/06/18 Labetalol [Trandate (Beta Evelina)] 100 mg PO BID #60 tablet 05/06/18 Acetaminophen [Tylenol Extra Strength] 1,000 mg PO Q6H PRN PRN 07/03/18 Ascorbic Acid [Vitamin C] 1,000 mg PO DAILY 07/03/18 Calcitriol 1 tab PO DAILY 07/03/18 Cholecalciferol (Vitamin D3) [Vitamin D3] 2,000 unit PO DAILY 07/03/18 L.acidoph,Paracasei, B.lactis [Probiotic] 2 capsule PO DAILY 07/03/18 Multivit-Mins/Iron/Folic/Lycop [Centrum Men's Tablet] 1 tab PO DAILY 07/03/18 Prednisone 20 mg PO BID 07/03/18 Tacrolimus Anhydrous [Prograf] 2 mg PO QHS 07/03/18 Tacrolimus Anhydrous [Prograf] 3 mg PO DAILY 07/03/18 hydrALAZINE [Apresoline] 50 mg PO TID 07/03/18 Furosemide [Lasix] 80 mg PO BIDLX #60 tablet 07/06/18 Following Prescrptions Were Given to Patient: Furosemide [Lasix] 80 mg PO BIDLX #60 tablet Primary Care Physician: Fredrick Oglesby DO [Primary Care Provider] - Please follow up with your Primary Care Physician in: one week Please Follow Up With: Dionisio Alonso MD - [phone] When: Please plan to follow up in 7 days in the office. Please Follow Up With: Kris Kamara MD When: 1 week Patient Instructions: ED Renal Failure Chronic Disposition: Home Minutes spent on discharge:: 40 Patient Condition:: Stable Medical Necessity - Tobacco Use Smoking Status: Current every day smoker Tobacco Use: Cigarettes Meaningful Use Info Meaningful Use Diagnoses (Choose all that apply): None applicable Code Visit Inpatient E&M: 55748 Disch Hosp
--- NOTE | 2018-07-06 14:51 | DS.PCM_ITS ---
Discharge Date and Diagnosis - Problem List Patient Problems: Active and Suspected Problems Kidney transplant failure (Acute) Date of Admission: 07/03/18 Date of Discharge: 07/06/18 - Primary Discharge Diagnosis Active and Suspected Problems Kidney transplant failure (Acute) - Secondary Discharge Diagnosis Chronic Problems Elevated serum creatinine (Chronic) History of kidney transplant (Chronic) CKD (chronic kidney disease) stage 3, GFR 30-59 ml/min (Chronic) HTN (hypertension) (Chronic) Tobacco use (Chronic) GERD (gastroesophageal reflux disease) (Chronic) Hospital Course and Treatment Imaging Results: Diagnostic Data Chest X-Ray 07/04/18 07:20 IMPRESSION: 1. Right central line tip overlies the distal SVC. There is right paratracheal and upper mediastinal prominence with underlying lymphadenopathy not excluded. No evidence of acute focal airspace disease. 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 He also has a past medical history of tobacco abuse, hypertension and GERD. He was admitted with a complaint of progressively worsening fatigue, nausea and weakness without emesis for 2 weeks prior to presentation. He was evaluated by his kidney doctor noted to have worsening renal function. He had been initiated on steroids this did not help. He was admitted to be started on dialysis. He had dialysis catheter placed on 07/04/2017. He had 2 sessions of dialysis during this admission. He was set up to go for dialysis at [facility] oon Wednesdays for next session to be on Friday07/08/18. He is to follow-up with his primary care doctor, music pastor and general surgery. Patient seen and examined prior to discharge. He had no complaints and felt well. He was awaiting dialysis. He denied any fever, any chills, any cough or chest pain, any shortness of breath, abdominal pain could be dated 12. 12 point review of systems otherwise negative. Labs and vitals reviewed. Home medications reviewed and reconciled. o/e: Vital Signs Height 5 ft 11 in Weight: 220 lb 10.923 oz Weight in Pounds 220.7 lbs Pulse Ox 96 Temperature 98.0 F Pulse Rate 77 Respiratory Rate 16 Blood Pressure [2nd BP] 158/88 Blood Pressure 143/89 Blood Pressure Position [2nd Semi-Fowlers BP] Blood Pressure Position Semi-Fowlers General: Alert, Oriented x3, Cooperative, No apparent distress HEENT: Atraumatic, PERRLA, EOMI, Normocephalic Oral: Moist Mucosa Neck: Supple, No JVD, Negative Carotid Bruits Lungs: Clear to auscultation, Normal air movement Cardiovascular: Regular rate, Regular Rhythm, Normal S1, Normal S2, No murmurs Abdomen: Bowel Sounds Present, Soft, Non Tender, Non-Distended, No Hepato- splenomegaly Extremities: No clubbing, No cyanosis, No edema, Capillary Refill Less than 3 Seconds Skin: No rashes, No breakdown Musculoskeletal: No Tenderness to Palpation of Joints or Extremities, - - left chest dialysis catheter in place Lymphatic: No Cervical, Supraclavicular, or Inguinal Adenopathy Neurological: Cranial nerves II-XII grossly intact Psych/Mental Status: Normal Affect, Appropriate, Alert and oriented to time, place, person, mood and affect He was discharged with a prescription for p.o. Lasix 80 mg twice daily. Rest of plan as described above. He is also to follow up with the Transplant Team at [facility]. [] Patient Problems: Active and Suspected Problems Kidney transplant failure (Acute) - Physical Exam Vital Signs Temp Pulse Resp BP Pulse Ox 98.1 F 77 16 140/96 H 94 07/06/18 12:30 07/06/18 14:41 07/06/18 12:30 07/06/18 12:30 07/06/18 12:30 Oxygen Delivery Method Room Air Weight: 220 lb 10.923 oz Body Mass Index (BMI) 30.7 Intake and Output for Last 24 Hours 07/04/18 07/05/18 07/06/18 23:59 23:59 23:59 Intake Total 1480 / 1480 2200 / 2200 1100 / 1100 Output Total 3500 / 3500 1800 / 1800 460 / 460 Balance -2019 / -2019 400 / 400 640 / 640 Laboratory Tests Past 24 Hrs 07/05/18 07/06/18 07/06/18 04:56 05:30 05:30 WBC 13.5 H RBC 4.10 L Hgb 12.3 L Hct 38.3 L MCV 93.4 MCH 30.0 MCHC 32.1 RDW 14.4 RDW Differential 48.7 H Plt Count 141 L MPV 10.9 Immature Gran % (Auto) 1.000 H Neut % (Auto) 86.2 H Lymph % (Auto) 6.7 L [place] % (Auto) 5.9 Eos % (Auto) 0.1 Baso % (Auto) 0.1 Absolute Neuts (auto) 11.6 H Absolute Lymphs (auto) 0.91 Total Counted Not Reportable Diff Path Review Reviewed Sodium 141 Potassium 3.8 Chloride 107 Carbon Dioxide 21.0 BUN 68 H Creatinine 3.52 H Estim Creat Clear Calc 31.49 Est GFR (MDRD) Af Amer 26 L Est GFR (MDRD) Non-Af 21 L BUN/Creatinine Ratio 19.3 Glucose 162 H Calcium 8.4 L Phosphorus 5.2 H Albumin 2.3 L Tacrolimus CMV DNA Qual PCR 07/06/18 07/06/18 05:30 05:30 WBC RBC Hgb Hct MCV MCH MCHC RDW RDW Differential Plt Count MPV Immature Gran % (Auto) Neut % (Auto) Lymph % (Auto) [place] % (Auto) Eos % (Auto) Baso % (Auto) Absolute Neuts (auto) Absolute Lymphs (auto) Total Counted Diff Path Review Sodium Potassium Chloride Carbon Dioxide BUN Creatinine Estim Creat Clear Calc Est GFR (MDRD) Af Amer Est GFR (MDRD) Non-Af BUN/Creatinine Ratio Glucose Calcium Phosphorus Albumin Tacrolimus Pending CMV DNA Qual PCR Pending Discharge Diet: Renal Diet Discharge Activity: Return to Normal Activity, May Not Shower Weight Bearing Status: Weight bearing as tolerated Call your doctor if you observe: Fever of 101 or Higher, Inability to urinate, Shortness of breath, Swelling in the ankles Additional Dressing/Incision Instructions:: Please keep the dialysis catheter site clean and dry. Please assist with office contact and scheduling for outpatient upper extremity vein mapping Home Medications: Medications to take at Discharge Mycophenolate Mofetil [Cellcept] 750 mg PO BID 01/15/18 Pantoprazole Sodium [Protonix] 40 mg PO BID 05/05/18 Amlodipine [Norvasc] 5 mg PO DAILY tablet 05/06/18 Labetalol [Trandate (Beta Evelina)] 100 mg PO BID #60 tablet 05/06/18 Acetaminophen [Tylenol Extra Strength] 1,000 mg PO Q6H PRN PRN 07/03/18 Ascorbic Acid [Vitamin C] 1,000 mg PO DAILY 07/03/18 Calcitriol 1 tab PO DAILY 07/03/18 Cholecalciferol (Vitamin D3) [Vitamin D3] 2,000 unit PO DAILY 07/03/18 L.acidoph,Paracasei, B.lactis [Probiotic] 2 capsule PO DAILY 07/03/18 Multivit-Mins/Iron/Folic/Lycop [Centrum Men's Tablet] 1 tab PO DAILY 07/03/18 Prednisone 20 mg PO BID 07/03/18 Tacrolimus Anhydrous [Prograf] 2 mg PO QHS 07/03/18 Tacrolimus Anhydrous [Prograf] 3 mg PO DAILY 07/03/18 hydrALAZINE [Apresoline] 50 mg PO TID 07/03/18 Furosemide [Lasix] 80 mg PO BIDLX #60 tablet 07/06/18 Following Prescrptions Were Given to Patient: Furosemide [Lasix] 80 mg PO BIDLX #60 tablet Primary Care Physician: Fredrick Oglesby DO [Primary Care Provider] - Please follow up with your Primary Care Physician in: one week Please Follow Up With: Dionisio Alonso MD - [phone] When: Please plan to follow up in 7 days in the office. Please Follow Up With: Kris Kamara MD When: 1 week Patient Instructions: ED Renal Failure Chronic Disposition: Home Minutes spent on discharge:: 40 Patient Condition:: Stable Medical Necessity - Tobacco Use Smoking Status: Current every day smoker Tobacco Use: Cigarettes Meaningful Use Info Meaningful Use Diagnoses (Choose all that apply): None applicable Code Visit Inpatient E&M: 53611 Disch Hosp
--- NOTE | 2018-07-06 15:41 | PCM.PN.REN ---
Patient Problems: Active and Suspected Problems Kidney transplant failure (Acute) Subjective: no new complaints dialysis today uneventful - Physical Exam General: Alert, Oriented x3, Cooperative HEENT: Atraumatic, PERRLA, EOMI, Normocephalic Neck: Supple, No JVD, Negative Carotid Bruits Lungs: Clear to auscultation, Normal air movement Cardiovascular: Regular rate, No murmurs Abdomen: Bowel Sounds Present, Soft, Non Tender Extremities: No edema, Capillary Refill Less than 3 Seconds Skin: No rashes, No breakdown Musculoskeletal: No Tenderness to Palpation of Joints or Extremities Neurological: Cranial nerves II-XII grossly intact Psych/Mental Status: Normal Affect, Appropriate Vital Signs Temp Pulse Resp BP Pulse Ox 98.0 F 77 16 143/89 H 96 07/06/18 14:46 07/06/18 14:46 07/06/18 14:46 07/06/18 14:46 07/06/18 14:46 Oxygen Delivery Method Room Air Weight: 100.1 kg Body Mass Index (BMI) 30.7 Intake and Output for Last 24 Hours 07/04/18 07/05/18 07/06/18 23:59 23:59 23:59 Intake Total 1480 / 1480 2200 / 2200 1100 / 1100 Output Total 3500 / 3500 1800 / 1800 460 / 460 Balance -2020 / -2020 400 / 400 640 / 640 Laboratory Tests Past 24 Hrs 07/05/18 07/06/18 07/06/18 04:56 05:30 05:30 WBC 13.5 H RBC 4.10 L Hgb 12.3 L Hct 38.3 L MCV 93.4 MCH 30.0 MCHC 32.1 RDW 14.4 RDW Differential 48.7 H Plt Count 141 L MPV 10.9 Immature Gran % (Auto) 1.000 H Neut % (Auto) 86.2 H Lymph % (Auto) 6.7 L [place] % (Auto) 5.9 Eos % (Auto) 0.1 Baso % (Auto) 0.1 Absolute Neuts (auto) 11.6 H Absolute Lymphs (auto) 0.91 Total Counted Not Reportable Diff Path Review Reviewed Sodium 141 Potassium 3.8 Chloride 107 Carbon Dioxide 21.0 BUN 68 H Creatinine 3.52 H Estim Creat Clear Calc 31.49 Est GFR (MDRD) Af Amer 26 L Est GFR (MDRD) Non-Af 21 L BUN/Creatinine Ratio 19.3 Glucose 162 H Calcium 8.4 L Phosphorus 5.2 H Albumin 2.3 L Tacrolimus CMV DNA Qual PCR 07/06/18 07/06/18 05:30 05:30 WBC RBC Hgb Hct MCV MCH MCHC RDW RDW Differential Plt Count MPV Immature Gran % (Auto) Neut % (Auto) Lymph % (Auto) [place] % (Auto) Eos % (Auto) Baso % (Auto) Absolute Neuts (auto) Absolute Lymphs (auto) Total Counted Diff Path Review Sodium Potassium Chloride Carbon Dioxide BUN Creatinine Estim Creat Clear Calc Est GFR (MDRD) Af Amer Est GFR (MDRD) Non-Af BUN/Creatinine Ratio Glucose Calcium Phosphorus Albumin Tacrolimus Pending CMV DNA Qual PCR Pending Medical Necessity - Tobacco Use Smoking Status: Current every day smoker Tobacco Use: Cigarettes Assessment/Plan All Active Problems Kidney transplant failure (Acute) Cellulitis (Resolved) TED (acute kidney injury) (Acute) Uncontrolled hypertension (Acute) TED CKD 4 Chronic transplant rejection (antibody mediated) fluid overload Today I spent a total of 45 min with patient, over phone and both of them in conference. I also called the dialysis unit to check outpatient schedule, outpatient orders and further plans explained ongoing events, future plans including HD vs PD. they will discuss about dialysis modality and get back to me they have already been referred to [facility] for consideration of kidney transplant evaluation called dialysis unit and confirmed MWF 430 PM slot will check 24 hr collection for crcl this weekend all questions answered d/w Dr Aquiles rolon today change lasix to 80 mg BID
[2018-07-07 06:06] LABS: HEPATITIS B SURFACE AG Negative (Negative)
[2018-07-07 08:35] LABS: Hep B Surface Antibodies Non Reactive (.); Hepatitis B Core Ab Total Negative (Negative)
--- NOTE | 2018-07-08 13:09 | CASEMGMT ---
THis CINDA KIRKLAND received call from Dileep at [facility] and he is requesting hep panel to be faxed at this time. Hep panel faxed to [facility] at this time. Perla LOO CM
[2018-07-09 14:42] LABS: Tacrolimus (FK506) 4.1 ng/mL (2.0-20.0)
[2018-07-09 15:32] LABS: CMV by PCR Positive (Negative)
== END 2018-07-06 17:55 | disposition home or self-care (01) | DRG 674 ==
LOC: ED 13:47 → MS3 14:10
PROVIDERS: Internal Medicine Nephrology; Surgery; Admitting Provider Family Medicine; Emergency Provider Emergency Medicine; Family Provider Family Medicine; PCP Family Medicine; Referring Provider Family Medicine; Visit Provider Student in an Organized Health Care Education/Training Program
PROC: 0JH63XZ Insertion of Tunneled Vascular Access Device into Chest Subcutaneous Tissue and Fascia, Percutaneous Approach (ICD-10-PCS; principal; 2018-07-04 06:15)
DX: N17.9 Acute kidney failure, unspecified (principal); T86.12 Kidney transplant failure; K21.9 Gastro-esophageal reflux disease without esophagitis; I12.9 Hypertensive chronic kidney disease with stage 1 through stage 4 chronic kidney disease, or unspecified chronic kidney disease; Z79.899 Other long term (current) drug therapy; N18.4 Chronic kidney disease, stage 4 (severe); F17.210 Nicotine dependence, cigarettes, uncomplicated
CPT/HCPCS: 36415; 71045; 76000; 80048; 80069; 80197; 83735; 84100; 85025; 85610; 85730; 86704; 86706; 87340; 87496; 90937; 93005; 93970; 97802; 99285; 99406; A4216; C1750; G0257; J1940; J2405

== ENCOUNTER → 2018-07-15 15:26 | Outpatient (CLI) | payer BC, SELFPAY ==
[2018-07-08 08:28] VITALS: BMI 30.7
[2018-07-20 11:07] LABS: CMV by PCR Positive (Negative)
--- OUTSIDE RECORDS SUMMARY | 2018-09-19 14:49 | XMS RPT_ITS ---
:1985 Author Organization OHIP Support Name Relationship Address Phone WASTEQUIP Unavailable [address] + [place] [address] KIMMIE COREA Unavailable [address] + [place] [address] NOT GIVEN Unavailable Unavailable Unavailable COREAAMARAI Unavailable [address] + [place] [address] KIMMIE COREA Unavailable [address] [place] [address] NOT GIVEN Unavailable Unavailable Unavailable NAHOMY KIMMIE Unavailable [address] + [place] [address] KIMMIE COREA Unavailable [address] [place] [address] WASTEQUIP Unavailable [address] + [place] [address] KIMMIE COREA Unavailable [address] + [place] [address] WASTEQUIP Unavailable [address] + [place] [address] KIMMIE COREA Unavailable [address] + [place] [address] WASTEQUIP Unavailable [address] + [place] [address] KIMMIE COREA Unavailable [address] + [place] [address] WASTEQUIP Unavailable [address] + [place] [address] KIMMIE COREA Unavailable [address] + [place] [address] WASTEQUIP Unavailable [address] + [place] [address] COREA KIMMIE Unavailable [address] + [place] [address] WASTEQUIP Unavailable [address] + [place] [address] COREA KIMMIE Unavailable [address] + [place] [address] WASTEQUIP Unavailable [address] + [place] [address] COREA KIMMIE Unavailable [address] + [place] [address] WASTEQUIP Unavailable [address] + [place] [address] COREA KIMMIE Unavailable [address] + [place] [address] NOT GIVEN Unavailable Unavailable Unavailable COREA, KIMMIE Unavailable [address] + [place] [address] COREA KIMMIE Unavailable [address] [place] [address] NOT GIVEN Unavailable Unavailable Unavailable COREA, KIMMIE Unavailable [address] + [place] [address] COREA KIMMIE Unavailable [address] [place] [address] WASTEQUIP Unavailable [address] + [place] [address] COREA KIMMIE Unavailable [address] + [place] [address] WASTEQUIP Unavailable [address] + [place] [address] COERA KIMMIE Unavailable [address] + [place] [address] WASTEQUIP Unavailable [address] + [place] [address] COREA KIMMIE Unavailable [address] + [place] [address] WASTEQUIP Unavailable [address] + [place] [address] COREA KIMMIE Unavailable [address] + [place] [address] WASTEQUIP Unavailable [address] + [place] [address] COREA, KIMMIE Unavailable [address] + [place] [address] NOT GIVEN Unavailable Unavailable Unavailable COREA, KIMMIE Unavailable [address] + [place] [address] COREA, KIMMIE Unavailable [address] [place] [address] NOT GIVEN Unavailable Unavailable Unavailable COREA, KIMMIE Unavailable [address] + [place] [address] COREA, KIMMIE Unavailable [address] [place] [address] NOT GIVEN Unavailable Unavailable Unavailable COREA, KIMMIE Unavailable [address] + [place] [address] COREA, KIMMIE Unavailable [address] [place] [address] NOT GIVEN Unavailable Unavailable Unavailable COREA, KIMMIE Unavailable [address] + [place] [address] COREA, KIMMIE Unavailable [address] [place] [address] NOT GIVEN Unavailable Unavailable Unavailable COREA, KIMMIE Unavailable [address] + [place] [address] COREA, KIMMIE Unavailable [address] [place] [address] NOT GIVEN Unavailable Unavailable Unavailable COREA, KIMMIE Unavailable [address] + [place] [address] COREA, KIMMIE Unavailable [address] [place] [address] NOT GIVEN Unavailable Unavailable Unavailable COREA, KIMMIE Unavailable [address] + [place] [address] COREA, KIMMIE Unavailable [address] [place] [address] WASTEQUIP Unavailable [address] + [place] [address] AMARA COREAI Unavailable [address] + [place] [address] WASTEQUIP Unavailable [address] + [place] [address] AMARA COREAI Unavailable [address] + [place] [address] WASTEQUIP Unavailable [address] + [place] [address] NAHOMY KIMMIE Unavailable [address] + [place] [address] WASTEQUIP Unavailable [address] + [place] [address] NAHOMY KIMMIE Unavailable [address] + [place] [address] NOT GIVEN Unavailable Unavailable Unavailable COREAKIMMIE Mesa Unavailable [address] + [place] [address] NAHOMY KIMMIE Unavailable [address] [place] [address] WASTEQUIP Unavailable [address] + [place] [address] AMARA COREAI Unavailable [address] + [place] [address] WASTEQUIP Unavailable [address] + [place] [address] AMARA COREAI Unavailable [address] + [place] [address] WASTEQUIP Unavailable [address] + [place] [address] NAHOMY KIMMIE Unavailable [address] + [place] [address] WASTEQUIP Unavailable [address] + [place] [address] AMARA COREAI Unavailable [address] + [place] [address] WASTEQUIP Unavailable [address] + [place] [address] AMARA COREAI Unavailable [address] [facility] + [place] [address] NOT GIVEN Unavailable Unavailable Unavailable KIMMIE COREA Unavailable [address] [facility] + [place] [address] KIMMIE COREA Unavailable [address] [facility] [place] [address] Care Team Providers Name Role Phone KIMBERLY, JAYAPRAKASH Primary Care Unavailable KIMBERLY, JAYAPRAKASH Attending Unavailable KIMBERLY, JAYAPRAKASH Admitting Unavailable KIMBERLY, JAYAPRAKASH Primary Care Unavailable KIMBERLY, JAYAPRAKASH Attending Unavailable KIMBERLY, JAYAPRAKASH Admitting Unavailable IKMBERLY, JAYAPRAKASH Admitting Unavailable KIMBERLY, JAYAPRAKASH Attending Unavailable KIMBERLY, JAYAPRAKASH Primary Care Unavailable JOHANN BAILEY Admitting Unavailable JOHANN BAILEY Attending Unavailable JOHANN BAILEY Primary Care Unavailable ASHELFAH, GHASEM Admitting Unavailable ASHELFAH GHASEM Attending Unavailable ASHELFAH, GHASEM Primary Care Unavailable KIMBERLY, JAYAPRAKASH Admitting Unavailable KIMBERLY, JAYAPRAKASH Attending Unavailable KIMBERLY, JAYAPRAKASH Primary Care Unavailable YUDY KELLEY T Primary Care Unavailable YUDY KELLEY T Attending Unavailable MARLEENYUDY YOST T Admitting Unavailable MARLEENYUDY YOST T Admitting Unavailable MARLEENYUDY YOST T Attending Unavailable MARLEEN YUDY T Primary Care Unavailable KIMBERLY, JAYAPRAKASH Admitting Unavailable KIMBERLY, JAYAPRAKASH Attending Unavailable KIMBERLY, JAYAPRAKASH Primary Care Unavailable JOHANN BAILEY Consulting Unavailable PROVIDER, UNKNOWN Consulting Unavailable YANE JUNIOR Primary Care Unavailable JAKI CHEOLD Attending Unavailable YANE JUNIOR Admitting Unavailable JOHANN BAILEY Consulting Unavailable PROVIDER, UNKNOWN Consulting Unavailable KIMBERLY, JAYAPRAKASH Admitting Unavailable KIMBERLY, JAYAPRAKASH Attending Unavailable KIMBERLY, JAYAPRAKASH Primary Care Unavailable JOHANN BAILEY Consulting Unavailable PROVIDER, UNKNOWN Consulting Unavailable KIMBERLY, JAYAPRAKASH Admitting Unavailable KIMBERLY, JAYAPRAKASH Attending Unavailable KIMBERLY, JAYAPRAKASH Primary Care Unavailable JOHANN BAILEY Consulting Unavailable PROVIDER, UNKNOWN Consulting Unavailable KIMBERLY, JAYAPRAKASH Admitting Unavailable KIMBERLY, JAYAPRAKASH Attending Unavailable KIMBERLY, JAYAPRAKASH Primary Care Unavailable JOHANN BAILEY Consulting Unavailable PROVIDER, UNKNOWN Consulting Unavailable Koram, Daphne Jackelin Attending Unavailable Reny, Johann Primary Care Unavailable White, Ale Admitting Unavailable White, Ale Referring Unavailable Cebul, Dionisio Consulting Unavailable Kimberly, Jayaprakash Consulting Unavailable White, Ale Admitting Unavailable White, Ale Attending Unavailable White, Ale Referring Unavailable Reny, Johann Primary Care Unavailable White, Ale Consulting Unavailable White, Ale Admitting Unavailable Koram, Daphne Jackelin Attending Unavailable White, Ale Referring Unavailable Reny, Johann Primary Care Unavailable Cebul, Dionisio Consulting Unavailable Kimberly, Jayaprakash Consulting Unavailable Koram, Daphne Jackelin Consulting Unavailable White, Ale Admitting Unavailable Koram, Daphne Jackelin Attending Unavailable White, Ale Referring Unavailable Reny, Johann Primary Care Unavailable Cebul, Dionisio Consulting Unavailable Kimberly, Jayaprakash Consulting Unavailable Koram, Daphne Jackelin Consulting Unavailable White, Ale Admitting Unavailable Koram, Daphne Jackelin Attending Unavailable White, Ale Referring Unavailable Reny, Johann Primary Care Unavailable Cebul, Dionisio Consulting Unavailable Kimberly, Jayaprakash Consulting Unavailable Koram, Daphne Jackelin Consulting Unavailable Cebul, Dionisio Attending Unavailable RenyJohann deutsch Referring Unavailable Cebul, Dionisio Attending Unavailable Cebul, Dionisio Referring Unavailable Reny, Johann Primary Care Unavailable Gómez Carrero Attending Unavailable Anders [place] Referring Unavailable MARK FINCH Attending Unavailable MARK FINCH Referring Unavailable Johann Bailey Primary Care Unavailable Morris Prince Attending Unavailable Primay Care Physicia, No Primary Care Unavailable Reny, Johann Primary Care Unavailable Tereletsky, Johann Admitting Unavailable Bakhous, Aziz Consulting Unavailable HoldenelfRavinder santosasem Attending Unavailable Jl Johann Admitting Unavailable Johann Parikh Attending Unavailable Reny, Johann Primary Care Unavailable Bakhous, Aziz Consulting Unavailable Tereletsky, Johann Consulting Unavailable Tereletsky, Johann Admitting Unavailable Gregor Ball Attending Unavailable Reny, Johann Primary Care Unavailable Bakhous, Aziz Consulting Unavailable Gregor Ball Consulting Unavailable Tereletsky, Johann Admitting Unavailable Ashelfah, Ghasem Attending Unavailable Reny, Johann Primary Care Unavailable Bakhous, Aziz Consulting Unavailable Ashelfah, Ghasem Consulting Unavailable Reny, Johann Primary Care Unavailable Zoie, Gómez Admitting Unavailable Kimberly, Jayaprakash Consulting Unavailable Johann Parikh Attending Unavailable Marcial, Dionisio Consulting Unavailable Lino, Gómez Attending Unavailable Reny, Johann Primary Care Unavailable Lino, Gómez Admitting Unavailable Reny, Johann Primary Care Unavailable Kimberly, Jayaprakash Consulting Unavailable Johann Parikh Attending Unavailable Dionisio Ceja Consulting Unavailable Paintsil, [place] Consulting Unavailable Lino, Gómez Admitting Unavailable TerJohann mclain Attending Unavailable Reny, Johann Primary Care Unavailable Kimberly, Jayaprakash Consulting Unavailable Marcial, Dionisio Consulting Unavailable Jl, Johann Consulting Unavailable White, Ale Admitting Unavailable White, Ale Referring Unavailable Reny, Johann Primary Care Unavailable Kimberly, Jayaprakash Consulting Unavailable Johann Parikh Attending Unavailable White, Ale Admitting Unavailable White, Ale Attending Unavailable White, Ale Referring Unavailable Reny, Johann Primary Care Unavailable Kimberly, Jayaprakash Consulting Unavailable White, Ale Consulting Unavailable White, Ale Admitting Unavailable Johann Parikh Attending Unavailable White, Ale Referring Unavailable Reny, Johann Primary Care Unavailable Kimberly, Jayaprakash Consulting Unavailable Jl, Johann Consulting Unavailable Umberto, Joshua Attending Unavailable White, Ale Referring Unavailable Cebul, Dionisio Attending Unavailable White, Ael Referring Unavailable MARLEEN RICE, ~[phone] YUDY Attending Unavailable DR. JOHANN BAILEY DO Consulting Unavailable Junior Che Admitting Unavailable Junior Che Attending Unavailable IMCA Primary Care Unavailable JUNIOR CHE Admitting Unavailable JUNIOR CHE Attending Unavailable PROBLEMS PROBLEMS DATE TYPE CONDITION / CODE ATTENDING STATUS SOURCE 07/08/2018 Unknown T86.12 - Kidney Dionisio Alonso Active [facility] transplant failure Community / T86.12(ICD-10) Hospital Repository 07/15/2018 Unknown I12.9 - Gómez Carrero Active [facility] Hypertensive [facility] chronic kidney Hospital disease with stage Repository 1 through stage 4 chronic kidney disease, or unspecified chronic kidney disease / I12.9(ICD-10) 06/05/2018 Admitting Unknown / Junior Che General diagnosis UNK(Unknown) [facility] Repository 06/05/2018 Active Chronic kidney WHITEJUNIOR Active Elder disease, stage 3 Clinic Other (moderate) / [facility] N18.3(ICD-10) Repository 04/09/2018 Admitting Dysphagia, MARLEEN RICE, Active [facility] Diagnosis unspecified / ~[id number] [facility] R13.10(ICD-10) YUDY Repository 04/09/2018 Admitting Ulcer of esophagus MARLEEN RICE, Active [facility] Diagnosis without bleeding / ~[id number] [facility] K22.10(ICD-10) YUDY Repository 01/26/2018 Unknown L03.90 - Tereletsky, Active [facility] Cellulitis, [facility] unspecified / Hospital L03.90(ICD-10) Repository 01/19/2018 Admitting Acute kidney ASHELFAH, Active Greg[facility] Diagnosis failure, [facility] unspecified / Hospital N179(ICD-10) Repository 01/19/2018 Principle Acute kidney ASHELFAH, Active Gregor Pomerene Diagnosis failure, [facility] unspecified / Hospital N179(ICD-10) Repository 01/19/2018 Secondary Chronic kidney ASHELFAH, Active Greg[facility] Pomerene Diagnosis disease, [facility] unspecified / Hospital N189(ICD-10) Repository 01/14/2018 Unknown E86.0 - Morris Prince Active [facility] Dehydration / Community E86.0(ICD-10) Hospital Repository 01/14/2018 Unknown 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 Result Comment: INTERPRETATION: CMV DNA Detected by PCR Linear Range 137 - 9,100,000 IU/mL (2.14 - 6.96 log IU/mL) Reference Range: Negative for CMV DNA LAB CMVLOG log IU/mL CMV DNA (log IU/mL) <2.14 LAB CMVCPY copies/mL CMV DNA (copies/mL) <151 Performed By: #### CMVQNT #### [place] [address] [address] [place] [id number] BMP WITH EGFR Collected: 07/20/2018 Status: F Source: [facility] [place] 5:15 AM [facility] REPOSITORY TYPE CODE TESTS RESULT OUT OF RANGE REFERENCE UNITS LAB BMP with eGFR(LOINC) BMP with eGFR Result Comment: BASIC METABOLIC PANEL LAB SODIUM(LOINC) 136 - 145 mmol/l SODIUM 136 LAB POTASSIUM(LOINC) 3.5 - 5.1 mmol/L High POTASSIUM 5.3 LAB CHLORIDE(LOINC) 98 - 107 mmol/L CHLORIDE 105 LAB CO2(LOINC) 21.0 - mmol/L 31.0 CO2 22.6 LAB GLUCOSE(LOINC) 74 - 106 mg/dl GLUCOSE High 160 LAB BUN(LOINC) 6 - 20 mg/dl BUN High 60 LAB CREATININE(LOINC) 0.7 - 1.3 mg/dl High CREATININE 5.3 LAB CALCIUM(LOINC) 8.6 - mg/dl 10.2 CALCIUM 9.4 LAB ANION GAP(LOINC) 10 - 20 mmol/L ANION GAP 14 LAB AGE(LOINC) years AGE 33 LAB eGFR(LOINC) 60 - 999 ML/MINUTE eGFR Low 12 LAB eGFR(AA)(LOINC) 60 - 999 ML/MINUTE eGFR(AA) Low 15 Result Comment: ACCORDING TO THE NATIONAL KIDNEY DISEASE EDUCATION PROGRAM(NKDE), A NORMAL eGFR IS A VALUE GREATER THAN OR EQUAL TO 60 ML/MIN/1.73 SQ METERS. CHRONIC KIDNEY DISEASE: <60mL/MIN/1.73 SQ METERS KIDNEY FAILURE: <15mL/MIN/1.73 SQ METERS THIS TEST SHOULD ONLY BE USED FOR PATIENTS 18 YEARS OF AGE AND OLDER. Performed By: #### [id number] #### [facility],[address] [place] [address] BMP WITH EGFR Collected: 07/17/2018 Status: F Source: [facility] [place] 8:56 AM [facility] REPOSITORY TYPE CODE TESTS RESULT OUT OF RANGE REFERENCE UNITS LAB BMP with eGFR(LOINC) BMP with eGFR Result Comment: BASIC METABOLIC PANEL LAB SODIUM(LOINC) 136 - 145 mmol/l SODIUM 140 LAB POTASSIUM(LOINC) 3.5 - 5.1 mmol/L POTASSIUM 4.1 LAB CHLORIDE(LOINC) 98 - 107 mmol/L CHLORIDE 105 LAB CO2(LOINC) 21.0 - mmol/L 31.0 CO2 24.6 LAB GLUCOSE(LOINC) 74 - 106 mg/dl GLUCOSE High 134 LAB BUN(LOINC) 6 - 20 mg/dl BUN High 52 LAB CREATININE(LOINC) 0.7 - 1.3 mg/dl High CREATININE 3.7 LAB CALCIUM(LOINC) 8.6 - mg/dl 10.2 CALCIUM 9.3 LAB ANION GAP(LOINC) 10 - 20 mmol/L ANION GAP 15 LAB AGE(LOINC) years AGE 33 LAB eGFR(LOINC) 60 - 999 ML/MINUTE eGFR Low 19 LAB eGFR(AA)(LOINC) 60 - 999 ML/MINUTE eGFR(AA) Low 23 Result Comment: ACCORDING TO THE NATIONAL KIDNEY DISEASE EDUCATION PROGRAM(NKDE), A NORMAL eGFR IS A VALUE GREATER THAN OR EQUAL TO 60 ML/MIN/1.73 SQ METERS. CHRONIC KIDNEY DISEASE: <60mL/MIN/1.73 SQ METERS KIDNEY FAILURE: <15mL/MIN/1.73 SQ METERS THIS TEST SHOULD ONLY BE USED FOR PATIENTS 18 YEARS OF AGE AND OLDER. Performed By: #### [id number] #### [facility],[address] [place] [id number] CMV BY PCR Collected: 07/15/2018 Status: F Source: [facility] 3:34 PM [facility] REPOSITORY TYPE CODE TESTS RESULT OUT OF REFERENCE UNITS RANGE LAB L3400.1525 Negative High CMV PCR Positive [id number] Result Comment: Cytomegalovirus DNA Detected. This test was developed and its performance characteristics determined by [facility]. It has not been cleared or approved by the Food and Drug Administration. The FDA has determined that such clearance or approval is not necessary. Performed at: [address] [id number] [employer] Salesperson: Fareed Martel MD, Phone: [phone] Performed By: #### L3400.1525 #### [facility] (refer to report for specific site) refer to report for address and phone number 12 LEAD ELECTROCARDIOGRAM Observed: 07/09/2018 Status: F Source: [facility] 11:02 AM [facility] Cardiovascular Services [address] [place] [address] 12 Lead EKG 07/04/18 0524 MR#: [id number] Acct: [id number] Name: GERARDO COREA Rep #: [id number] : 1985 32 From: Gómez Carrero MD Attending Dr: Daphne Kwan MD Status: DIS IN Ordering Dr: Anders Herrmann MD Date: 07/04/18 Location: [facility] Sex: M C Admitted: 07/03/18 Test Reason : PRE OP Blood Pressure : / mmHG Vent. Rate : 069 BPM Atrial Rate : 069 BPM P-R Int : 138 ms QRS Dur : 114 ms QT Int : 416 ms P-R-T Axes : 041 051 055 degrees QTc Int : 445 ms Normal sinus rhythm Normal ECG Confirmed by ANGELO CARLSON, GÓMEZ ([id number]), news video editor SYLVIA THOMASON ([id number]) on 07/09/2018 11:02:22 AM Referred By: Ale Che Confirmed By:GÓMEZ CARRERO MD 07/09/18 1102 Date Gómez Carrero MD CC: Anders Herrmann MD; Ale Che; Johann Bailey DO; Daphne Kwan MD Signed SURGERY VISIT REPORT Observed: 07/08/2018 Status: F Source: [facility] 8:47 AM [facility] [address] [place] [address] OFFICE VISIT Date of Service: 07/08/18 MR#: [id number] Acct: [id number] Name: GERARDO COREA Rep #: [id number] : 1985 Provider: Dionisio Alonso MD Age/Sex: 32/M Location: [facility] Status: Signed Intake Vital Signs07/08/18 Body Mass Index (BMI) 30.7 07/08/18 Height 5 ft 11 in 07/08/18 Weight: 210 lb 07/08/18 Body Mass Index (BMI) 29.2 Intake Visit Reasons: Fistula Creation Chief Complaint: TED on CKD Crabber Required: No Allergies No Known Allergies Allergy (Verified 07/08/18 08:27) Medications Mycophenolate Mofetil [Cellcept] 750 mg PO BID 01/15/18 [History Confirmed 07/08/18] Pantoprazole Sodium [Protonix] 40 mg PO BID 05/05/18 [History Confirmed 07/08/18] Amlodipine [Norvasc] 5 mg PO DAILY tab 05/06/18 [Rx Confirmed 07/08/18] Labetalol [Trandate (Beta Evelina)] 100 mg PO BID #60 tab 05/06/18 [Rx Confirmed 07/08/18] Acetaminophen [Tylenol Extra Strength] 1,000 mg PO Q6H PRN PRN 07/03/18 [History Confirmed 07/08/18] Ascorbic Acid [Vitamin C] 1,000 mg PO DAILY 07/03/18 [History Confirmed 07/08/18] Calcitriol 1 tab PO DAILY 07/03/18 [History Confirmed 07/08/18] Cholecalciferol (Vitamin D3) [Vitamin D3] 2,000 unit PO DAILY 07/03/18 [History Confirmed 07/08/18] L.acidoph,Paracasei, B.lactis [Probiotic] 2 cap PO DAILY 07/03/18 [History Confirmed 07/08/18] Multivit-Mins/Iron/Folic/Lycop [Centrum Men's Tablet] 1 tab PO DAILY 07/03/18 [History Confirmed 07/08/18] Prednisone 20 mg PO BID 07/03/18 [History Confirmed 07/08/18] Tacrolimus Anhydrous [Prograf] 2 mg PO QHS 07/03/18 [History Confirmed 07/08/18] Tacrolimus Anhydrous [Prograf] 3 mg PO DAILY 07/03/18 [History Confirmed 07/08/18] hydrALAZINE [Apresoline] 50 mg PO TID 07/03/18 [History Confirmed 07/08/18] Furosemide [Lasix] 80 mg PO BIDLX #60 tab 07/06/18 [Rx Confirmed 07/08/18] PFSH Medical History Kidney transplant failure (Acute) Elevated serum creatinine (Chronic) Cellulitis (Resolved) TED (acute kidney injury) (Acute) CKD (chronic kidney disease) stage 3, GFR 30-59 ml/min (Chronic) Uncontrolled hypertension (Acute) HTN (hypertension) (Chronic) Tobacco use (Chronic) GERD (gastroesophageal reflux disease) (Chronic) Surgical History History of kidney transplant (Chronic) Social History Smoking Status: Current every day smoker alcohol intake: never HPI HPI HPI: GERARDO COREA, is a 32 M who presents to the office today for ongoing surgical consultation regarding dialysis needs. The patient was recently hospitalized at the [facility] with acute chronic transplant failure. I placed a urgent right internal jugular tunneled dialysis catheters for him on July 04, 2018. On July 06, 2018 had bilateral extremity vein mapping. He reminds me that remotely I attempted a right forearm radiocephalic AV fistula which failed. Then for a long period of time he was successful with a left forearm radiocephalic AV fistula. He then had a transplant placed in approximate 2005. Left forearm AV fistula eventually failed. On July 06, 2017 bilateral upper extremity vein mapping demonstrates that the left forearm AV fistula and cephalic vein is thrombosed. The left upper arm cephalic vein is diminutive. The left upper arm basilic vein has evidence of chronic deep venous thrombosis the patient works as a line welder. Very dirty environment. He is concerned about going to that area with his tunneled dialysis catheters. There was a brief discussion as to whether he would be a candidate for peritoneal dialysis catheters. The same problem exists with his dirty work environment and the peritoneal catheter ROS General General: Yes weight change and fatigue; no appetite, colon cancer, breast cancer or weakness HEENT HEENT: No difficulty swallowing, eye injury, eye surgery, swollen glands or hoarseness Endo Endocrine: No thyroid disease, diabetes mellitus, thyroid cancer, Hair loss, heat intolerance or cold intolerance Skin Skin: No rash or changing moles Breast Breast: No left breast lump, right breast lump, nipple discharge, breast pain, abnormal mammogram, abnormal US or breast enlargement Musc Musculoskeletal: No back problems, arthritis, rheumatoid arthritis, gout or joint pain Cardio Cardiovascular: Yes high blood pressure; no murmur, pacemaker, heart disease, atrial fibrillation, heart attack, heart stent, palpitations, shortness of breat with exertion or chest pain Psych Psychiatric: No depression, anxiety or hearing voices Resp Respiratory: Yes shortness of breath, Yes asthma, No sleep apnea, No cough, No COPD, No emphysema, No wheezing Gastro Gastrointestinal: No abdominal pain, No nausea or vomiting, No diarrhea, No constipation, No blood in stool, No acid reflux, No hemorrhoids, No ulcers, No gallbladder problem, No black,tarry stools Bradley Hematologic: No blood thinners, No blood disorders, No bleeding, No anemia, No blood clots Neuro Neurologic: No system reviewed and no additional complaints, except as docu, No as per HPI, No abnormal walking, No abnormal hearing, No abnormal movements, No abnormal speech, No behavioral changes, No burning sensations, No confusion, No seizure-like activity, No unsteadiness, No dizziness, No localized weakness, No frequent falls, No headache(s), No lack of coordination, No loss of vision, No memory loss, No numbness, No other visual disturbances, No radiating pain, No restless legs, No sensory deficit, No fainting, No tingling, No tremor(s), No weakness, No other Exam Const General: cooperative Nutritional Appearance: average body habitus Orientation: alert, awake, oriented x3 HENSC Head: normal to inspection Chest Breast Palpation: No nipple discharge Other: Tunneled right internal jugular dialysis catheters noted Resp Effort AND Inspection: normal respiratory effort Auscultation: clear to auscultation bilaterally Cardio Rate: regular rate Rhythm: regular rhythm Heart Sounds: no murmurs GI Palpation: soft, no hepatosplenomegaly Skin General: no rashes or lesions noted Extrem General: no calf tenderness bilaterally Psych Affect: normal affect Assessment AND Plan Problems 1. Kidney transplant failure T86.12 Plan I reviewed the patient's vein mapping. 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 His right upper extremity cephalic vein of the forearm is borderline but there is a very diminutive right upper arm cephalic vein. The right upper arm basilic vein is quite appropriate I propose for him stage I right upper extremity brachial to basilic arteriovenous fistula creation. He is aware of the technique, benefit, risks, alternatives. No guarantees of success have been offered. He is aware that future repeat surgery for transposition will be required. I very much appreciate the ongoing opportunity of assisting with his surgical care. CC: Dr. Johann Bailey and Dr.Dasari Dionisio Alonso M.D., F.A.C.S. Coding Level of Care Code Global Post Op Diagnoses Kidney transplant failure T86.12 07/08/18 0847 <Electronically signed by Dionisio Alonso MD> Date Dionisio Alonso MD Cosigner Signature: Date (if applicable) CC: Lucina Kamara M.D.; Johann Bailey DO VENOUS DUPLEX [facility] Observed: 07/07/2018 Status: F Source: [facility] 5:43 AM [facility] REPOSITORY [facility] Cardiovascular Services [address] [place] [address] Venous Duplex - [facility] 07/06/18 1516 MR#: [id number] Acct: [id number] Name: GERARDO COREA Rep #: [id number] : 1985 32 From: Dionisio Alonso MD Attending Dr: Daphne Kwan MD Status: DIS IN Ordering Dr: Dionisio Alonso MD Date: 07/06/18 Location: [facility]3 Sex: M C Admitted: 07/03/18 Reason For Study: Assessment for possible dialysis access placement Right Arm Left Arm Right Cephalic Vein at the wrist Right Cephalic Vein at wrist is non- measures .25 x .29 cm. compressible Right Cephalic Vein in the forearm Right Cephalic Vein mid forearm is partially measures .31 x .29 cm. compressible and residual lumen measures .41 Right Cephalic Vein below antecub x .47 cm measures .34 x .31 cm. Right Cephalic Vein is diminutive in upper Right Cephalic Vein above antecub arm. measures .14 x .14 cm. Left Cephalic Vein below antecub Right Cephalic Vein mid bicep measures .18 measures .54 x .55 cm. x .20 cm. Left Basilic Vein origin/mid is non- Right Cephalic Vein at the shoulder compressible with bright intraluminal echoes measures .19 x .19 cm. Left Basilic Vein distal - .29 x .28 cm Right Basilic Vein at the origin Brachial artery - .65 x .60 cm with a measures .61 x .69 cm. velocity of 115.0 cm/s Right Basilic Vein mid bicep measures .65 Radial artery - .39 x .40 cm with a velocity x .69 cm. of 76.8 cm/s. Right Basilic Vein above antecub measures .55 x .57 cm. Right Basilic Vein below antecub measures .35 x .33 cm. Right Basilic Vein in the forearm measures .29 x .29 cm. Right Basilic Vein at the wrist measures .29 x .31 cm. Brachial artery - .41 x .40 cm with a velocity of 60.5 cm/s Radial artery - .36 x .35 cm with a velocity of 78.2 cm/s. Interpretation Summary Adequate right cephalic vein of forearm but diminutive in upper arm Adequate right basilic vein throughout the upper arm and forearm Superficial thrombophlebitis left cephalic vein at wrist with partial thrombosis in the left mid forearm Chronic thrombophlebitis left basilic vein Adequate bilateral brachial and radial arteries. Ordering Physician: Dionisio Alonso Referring Physician: Johann Bailey Performed By: Jennifer Castorena RVT ? 07/07/18 0541 Date Dionisio Alonso MD CC: Ale Che; Johann Bailey DO; Daphne Kwan MD; Dionisio Alonso MD Date Dictated: 07/06/18 1516 Date Transcribed: 07/07/18 0541 Rn Care Transition: Signed DISCHARGE SUMMARY Observed: 07/06/2018 Status: F Source: [place] 2:52 PM [facility] REPOSIT[facility] Medical Records Department [address] [place] [address] Discharge Summary 07/06/18 1446 MR#: [id number] Acct: [id number] Name: GERARDO COREA Rep #: [id number] : 1985 32 From: Daphne Kwan MD PCP: Johann Bailey DO Status: ADM IN Y Location: [place] [id number] Discharge Date and Diagnosis - Problem List Patient Problems: Active and Suspected Problems Kidney transplant failure (Acute) Date of Admission: 07/03/18 Date of Discharge: 07/06/18 - Primary Discharge Diagnosis Active and Suspected Problems Kidney transplant failure (Acute) - Secondary Discharge Diagnosis Chronic Problems Elevated serum creatinine (Chronic) History of kidney transplant (Chronic) CKD (chronic kidney disease) stage 3, GFR 30-59 ml/min (Chronic) HTN (hypertension) (Chronic) Tobacco use (Chronic) GERD (gastroesophageal reflux disease) (Chronic) Hospital Course and Treatment Imaging Results: Diagnostic Data Chest X-Ray 07/04/18 07:20 IMPRESSION: 1. Right central line tip overlies the distal SVC. There is right paratracheal and upper mediastinal prominence with underlying lymphadenopathy not excluded. No evidence of acute focal airspace disease. 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 He also has a past medical history of tobacco abuse, hypertension and GERD. He was admitted with a complaint of progressively worsening fatigue, nausea and weakness without emesis for 2 weeks prior to presentation. He was evaluated by his kidney doctor noted to have worsening renal function. He had been initiated on steroids this did not help. He was admitted to be started on dialysis. He had dialysis catheter placed on 07/04/2017. He had 2 sessions of dialysis during this admission. He was set up to go for dialysis at [facility] oon Wednesdays for next session to be on Friday07/08/18. He is to follow-up with his primary care doctor, drafter structural and general surgery. Patient seen and examined prior to discharge. He had no complaints and felt well. He was awaiting dialysis. He denied any fever, any chills, any cough or chest pain, any shortness of breath, abdominal pain could be dated 12. 12 point review of systems otherwise negative. Labs and vitals reviewed. Home medications reviewed and reconciled. o/e: Vital Signs Height 5 ft 11 in Weight: 220 lb 10.923 oz General: Alert, Oriented x3, Cooperative, No apparent distress HEENT: Atraumatic, PERRLA, EOMI, Normocephalic Oral: Moist Mucosa Neck: Supple, No JVD, Negative Carotid Bruits Lungs: Clear to auscultation, Normal air movement Cardiovascular: Regular rate, Regular Rhythm, Normal S1, Normal S2, No murmurs Abdomen: Bowel Sounds Present, Soft, Non Tender, Non-Distended, No Hepato-splenomegaly Extremities: No clubbing, No cyanosis, No edema, Capillary Refill Less than 3 Seconds Skin: No rashes, No breakdown Musculoskeletal: No Tenderness to Palpation of Joints or Extremities, - - left chest dialysis catheter in place Lymphatic: No Cervical, Supraclavicular, or Inguinal Adenopathy Neurological: Cranial nerves II-XII grossly intact Psych/Mental Status: Normal Affect, Appropriate, Alert and oriented to time, place, person, mood and affect He was discharged with a prescription for p.o. Lasix 80 mg twice daily. Rest of plan as described above. He is also to follow up with the Transplant Team at [facility]. [] Patient Problems: Active and Suspected Problems Kidney transplant failure (Acute) - Physical Exam Vital Signs Temp Pulse Resp BP Pulse Ox 98.1 F 77 16 140/96 H 94 07/06/18 12:30 07/06/18 14:41 07/06/18 12:30 07/06/18 12:30 07/06/18 12:30 Oxygen Delivery Method Room Air Weight: 220 lb 10.923 oz Body Mass Index (BMI) 30.7 Intake and Output for Last 24 Hours Intake Total 1480 / 1480 2200 / 2200 1100 / 1100 Output Total 3500 / 3500 1800 / 1800 460 / 460 Balance -2019 / -2019 400 / 400 640 / 640 Laboratory Tests Past 24 Hrs WBC 13.5 H RBC 4.10 L Hgb 12.3 L WBC Discharge Diet: Renal Diet Discharge Activity: Return to Normal Activity, May Not Shower Weight Bearing Status: Weight bearing as tolerated Call your doctor if you observe: Fever of 101 or Higher, Inability to urinate, Shortness of breath, Swelling in the ankles Additional Dressing/Incision Instructions:: Please keep the dialysis catheter site clean and dry. Please assist with office contact and scheduling for outpatient upper extremity vein mapping Home Medications: Medications to take at Discharge Mycophenolate Mofetil [Cellcept] 750 mg PO BID 01/15/18 Pantoprazole Sodium [Protonix] 40 mg PO BID 05/05/18 Amlodipine [Norvasc] 5 mg PO DAILY tablet 05/06/18 Labetalol [Trandate (Beta Evelina)] 100 mg PO BID #60 tablet 05/06/18 Acetaminophen [Tylenol Extra Strength] 1,000 mg PO Q6H PRN PRN 07/03/18 Ascorbic Acid [Vitamin C] 1,000 mg PO DAILY 07/03/18 Calcitriol 1 tab PO DAILY 07/03/18 Cholecalciferol (Vitamin D3) [Vitamin D3] 2,000 unit PO DAILY 07/03/18 L.acidoph,Paracasei, B.lactis [Probiotic] 2 capsule PO DAILY 07/03/18 Multivit-Mins/Iron/Folic/Lycop [Centrum Men's Tablet] 1 tab PO DAILY 07/03/18 Prednisone 20 mg PO BID 07/03/18 Tacrolimus Anhydrous [Prograf] 2 mg PO QHS 07/03/18 Tacrolimus Anhydrous [Prograf] 3 mg PO DAILY 07/03/18 hydrALAZINE [Apresoline] 50 mg PO TID 07/03/18 Furosemide [Lasix] 80 mg PO BIDLX #60 tablet 07/06/18 Following Prescrptions Were Given to Patient: Furosemide [Lasix] 80 mg PO BIDLX #60 tablet Primary Care Physician: Johann Bailey DO [Primary Care Provider] - Please follow up with your Primary Care Physician in: one week Please Follow Up With: Dionisio Alonso MD - [phone] When: Please plan to follow up in 7 days in the office. Please Follow Up With: Kris Kamara MD When: 1 week Patient Instructions: ED Renal Failure Chronic Disposition: Home Minutes spent on discharge:: 40 Patient Condition:: Stable Medical Necessity - Tobacco Use Smoking Status: Current every day smoker Tobacco Use: Cigarettes Meaningful Use Info Meaningful Use Diagnoses (Choose all that apply): None applicable Code Visit Inpatient E AND M: 26738 Disch Hosp 07/06/18 1452 <Electronically signed by Daphne Kwan MD> Date Daphne Kwan MD Cosigner Signature (if applicable): Date CC: Johann Bailey DO; Daphne Kwan MD Signed DISCHARGE INSTRUCTION Observed: 07/06/2018 Status: F Source: [place] 2:46 PM [facility] RE[facility]IT[facility] Medical Records Department [address] [place] [address] Instructions for Home/Discharge Instructions 07/06/18 1443 MR#: [id number] Acct: [id number] Name: GERARDO COREA Marilee Rep #: [id number] : 1985 32 From: Daphne Kwan MD PCP: Johann Bailey DO Status: ADM IN - Discharge Diagnoses Current Active Problems: Current Active and Chronic Problems Kidney transplant failure (Acute) You will use the following diet at home:: Renal (restricted protein/sodium) Your food should be the consistency of: Regular Your liquids should be the consistency of: Regular/Thin Discharge Activity: Return to Normal Activity, May Not Shower Weight Bearing Status: Weight bearing as tolerated Call your doctor if you observe: Fever of 101 or Higher, Inability to urinate, Shortness of breath, Swelling in the ankles Additional Dressing/Incision Instructions:: Please keep the dialysis catheter site clean and dry. Please assist with office contact and scheduling for outpatient upper extremity vein mapping Instructions: ED Renal Failure Chronic Allergies/Adverse Reactions: Allergies No Known Allergies Allergy (Verified 07/03/18 11:02) Medications to take at Discharge Mycophenolate Mofetil [Cellcept] 750 mg PO BID 01/15/18 Pantoprazole Sodium [Protonix] 40 mg PO BID 05/05/18 Amlodipine [Norvasc] 5 mg PO DAILY tablet 05/06/18 Labetalol [Trandate (Beta Evelina)] 100 mg PO BID #60 tablet 05/06/18 Acetaminophen [Tylenol Extra Strength] 1,000 mg PO Q6H PRN PRN 07/03/18 Ascorbic Acid [Vitamin C] 1,000 mg PO DAILY 07/03/18 Calcitriol 1 tab PO DAILY 07/03/18 Cholecalciferol (Vitamin D3) [Vitamin D3] 2,000 unit PO DAILY 07/03/18 L.acidoph,Paracasei, B.lactis [Probiotic] 2 capsule PO DAILY 07/03/18 Multivit-Mins/Iron/Folic/Lycop [Centrum Men's Tablet] 1 tab PO DAILY 07/03/18 Prednisone 20 mg PO BID 07/03/18 Tacrolimus Anhydrous [Prograf] 2 mg PO QHS 07/03/18 Tacrolimus Anhydrous [Prograf] 3 mg PO DAILY 07/03/18 hydrALAZINE [Apresoline] 50 mg PO TID 07/03/18 Furosemide [Lasix] 80 mg PO BIDLX #60 tablet 07/06/18 The following prescriptions were given: Furosemide [Lasix] 80 mg PO BIDLX #60 tablet Primary Care Physician: Johann Bailey DO [Primary Care Provider] - Please follow up with your Primary Care Physician in: one week Test Results: Test results from this visit will be discussed in further detail at your follow-up appointment, if applicable. Please Follow Up With: Dionisio Alonso MD - [phone] When: Please plan to follow up in 7 days in the office. Please Follow Up With: Kris Kamara MD When: 1 week Proposed Discharge Date: 07/06/18 07/06/18 1446 <Electronically signed by Daphne Kwan MD> Date Daphne Kwan MD CC: Lucina Kamara M.D.; Johann Bailey DO; Dionisio Alonso MD Signed OPERATIVE REPORT Observed: 07/06/2018 Status: F Source: [place] 6:40 AM [facility] REPOSIT[facility] Medical Records Department [address] [place] [address] Operative Report 07/04/18 0653 MR#: [id number] Acct: [id number] Name: GERARDO COREA Rep #: [id number] : 1985 32 From: Dionisio Alonso MD PCP: Johann Bailey DO Status: ADM IN Location: [facility] [place] [id number] Problem List (1) TED (acute kidney injury) Status: Acute (2) Kidney transplant failure Status: Acute Report of Operation Date of Procedure: 07/04/18 Pre-Operative Diagnosis: Renal transplant failure Post-Operative Diagnosis: Same Surgery/Procedure Performed:: Right internal jugular 19 cm pre-curved tunneled palindrome catheter placement Description of Surgical Findings:: Timeout and informed consent was obtained. 32-year-old gent was a Room. He was placed on the table. He underwent monitored anesthesia care. Ancef 2 g given intravenously he operatively. The right neck and chest and sterilely prepped and draped. Ultrasound was performed demonstrating a nicely patent right internal jugular vein. Under ultrasound guidance 1% lidocaine mixed 50-50 with 0.5% Marcaine was instilled as a local anesthetic. Throughout the entire procedure a total of 19 cc was used. Local was instilled and a micropuncture needle was inserted micropuncture wire inserted micropuncture catheter inserted and using fluoroscopy an 035 J-wire was nicely advanced into the SVC. Local was instilled down upon the right chest wall and exit site was selected the tubing was tunneled from the chest to the neck site. Serial dilatation was performed over the J-wire. The sheath dilator was inserted. The dilator and wire were removed. The catheter was advanced through the sheath. The sheath was split. The catheter was positioned to have the tip at the SVC atrial junction there was good curvilinear positioning. The catheter was secured to skin with interrupted 3-0 nylon. The counterincision of the neck was closed with interrupted 5- 0 Vicryl subdermal stitches. Steri-Strip Telfa OpSite dressing was applied to that site. Silver dressing was applied to the exit site. The cath were aspirated easily. It was flushed then with saline and then with 1.8 cc of heparinized saline per channel. Sterile dressings applied. He was taken to the recovery area in satisfactory condition without apparent complication. Stat portable chest x-ray is pending. Specimens none. Drains none. Blood loss minimal. Dionisio Alonso M.D., F.A.C.S. Type of Anesthesia:: Local MAC Anesthesiologist: Anders Herrmann 07/06/18 0640 <Electronically signed by Dionisio Alonso MD> Date Dionisio Alonso MD CC: Ale Che; Lucina Kamara M.D.; Johann Bailey DO; Dionisio Alonso MD Signed DISCHARGE INSTRUCTION Observed: 07/06/2018 Status: F Source: [place] 6:40 AM [facility] Medical Records Department [address] [place] [address] Instructions for Home/Discharge Instructions 07/04/18 0619 MR#: [id number] Acct: [id number] Name: GERARDO COREA Rep #: [id number] : 1985 32 From: Dionisio Alonso MD PCP: Johann Bailey DO Status: ADM IN Discharge Diet: Renal Diet Discharge Activity: Return to Normal Activity, May Not Shower Additional Dressing/Incision Instructions:: Please keep the dialysis catheter site clean and dry. Please assist with office contact and scheduling for outpatient upper extremity vein mapping Allergies/Adverse Reactions: Allergies No Known Allergies Allergy (Verified 07/03/18 11:02) Medications to take at Discharge Mycophenolate Mofetil [Cellcept] 750 mg PO BID 01/15/18 Pantoprazole Sodium [Protonix] 40 mg PO BID 05/05/18 Amlodipine [Norvasc] 5 mg PO DAILY tablet 05/06/18 Furosemide [Lasix] 40 mg PO DAILY #30 tablet 05/06/18 Labetalol [Trandate (Beta Evelina)] 100 mg PO BID #60 tablet 05/06/18 Acetaminophen [Tylenol Extra Strength] 1,000 mg PO Q6H PRN PRN 07/03/18 Ascorbic Acid [Vitamin C] 1,000 mg PO DAILY 07/03/18 Calcitriol 1 tab PO DAILY 07/03/18 Cholecalciferol (Vitamin D3) [Vitamin D3] 2,000 unit PO DAILY 07/03/18 L.acidoph,Paracasei, B.lactis [Probiotic] 2 capsule PO DAILY 07/03/18 Multivit-Mins/Iron/Folic/Lycop [Centrum Men's Tablet] 1 tab PO DAILY 07/03/18 Prednisone 20 mg PO BID 07/03/18 Tacrolimus Anhydrous [Prograf] 2 mg PO QHS 07/03/18 Tacrolimus Anhydrous [Prograf] 3 mg PO DAILY 07/03/18 hydrALAZINE [Apresoline] 50 mg PO TID 07/03/18 Primary Care Physician: Johann Bailey DO [Primary Care Provider] - Test Results: Test results from this visit will be discussed in further detail at your follow-up appointment, if applicable. Please Follow Up With: Dionisio Alonso MD - [phone] When: Please plan to follow up in 7 days in the office. 07/06/18 0640 <Electronically signed by Dionisio Alonso MD> Date Dionisio Alonso MD CC: Lucina Kamara M.D.; Johann Bailey DO; Dionisio Alonso MD Signed RENAL PROFILE Collected: 07/06/2018 Status: F Source: [place] 5:30 AM [facility] REPOSITORY TYPE CODE TESTS RESULT OUT OF RANGE REFERENCE UNITS LAB L501.0100 74-106 mg/dL High GLU 162 Result Comment: Fasting Glucose result greater than or equal to 126 mg/dL suggests DIABETES MELLITUS per A.D.A. criteria. Please note revised GLUCOSE reference range effective 2017. LAB L501.1000 7-18 mg/dL High BUN 68 LAB L501.1100 0.70-1.30 mg/dL High CREAT,SERUM 3.52 Result Comment: The validity of the calculated GFR AND GFRAA in patients over 70 years has not been determined. Clinical correlation is essential. LAB L501.1110 >60 mL/min Low EST GFR 21 Result Comment: Non- GFR Calc LAB L501.1115 >60 mL/min Low EST GFR - AA 26 Result Comment: GFR Calc LAB L501.1255 ml/min Normal Estimated CRCL 31.49 LAB L501.1300 10-20 RATIO Normal BUN/CRE 19.3 LAB L501.1800 3.2-5. g/dL Low 0 ALB 2.3 LAB L501.2200 8.5-10 mg/dL Low .1 CA 8.4 LAB L501.2300 2.5-4. mg/dL High 9 PHOS 5.2 LAB L501.5300 136-14 mmol/L Normal 5 NA 141 LAB L501.5600 3.5-5. mmol/L Normal 1 K 3.8 LAB L501.5900 98-107 mmol/L Normal CL 107 LAB L501.6100 21.0-3 mmol/L Normal 2.0 CO2 21.0 Performed By: #### L500.3600 #### [facility] [address] [place], [place] [address], [address] CBC W/DIFF, AUTOMATED Collected: 07/06/2018 Status: F Source: [place] 5:30 AM [facility] REPOSIT[facility] TYPE CODE TESTS RESULT OUT OF RANGE REFERENCE UNITS LAB L100.1000 4.4-11.0 K/mm3 High WBC 13.5 LAB L100.1200 4.6-6.2 M/mm3 Low RBC 4.10 LAB L100.1300 13.0-16.5 g/dl Low HGB 12.3 LAB L100.1400 40-54 % Low HCT 38.3 LAB L100.1500 80-94 fL Normal MCV 93.4 LAB L100.1600 27.0-32.0 pg Normal MCH 30.0 LAB L100.1700 32-36 g/gl Normal MCHC 32.1 LAB L100.1810 11.6-14.6 % Normal RDW CV 14.4 LAB L100.1820 35.1-43.9 fl High RDW SD 48.7 LAB L100.1900 150-450 K/mm3 Low PLT 141 LAB L100.2000 6.2-12.0 fl Normal MPV 10.9 LAB L100.2100 47-70 % High NEUT% 86.2 LAB L100.2200 19-41 % Low LY% 6.7 LAB L100.2300 0-10 % Normal MONO% 5.9 LAB L100.2400 0-5 % Normal EO% 0.1 LAB L100.2500 0-1 % Normal BASO% 0.1 LAB L100.2550 0.0-0.9 % High IM GRAN % 1.000 Result Comment: IG% - Immature Granulocytes (promyelocytes, myelocytes and metamyelocytes) > 1% indicates that a LEFT SHIFT is Present. LAB L100.2620 2.0-7.7 X10 3/uL High Absolute Neut 11.6 LAB L100.2720 0.83-4.51 X10 3/ul Normal Absolute Lymph 0.91 Performed By: #### L100.0100 #### [facility] [address] [place], [address] TACROLIMUS (PROGRAF) Collected: 07/06/2018 Status: F Source: [place] 5:30 AM [facility] REPOSITORY TYPE CODE TESTS RESULT OUT OF RANGE REFERENCE UNITS LAB L3380.1100 2.0-20.0 ng/mL Normal TACROLIMUS 4.1 Result Comment: Trough (immediately following transplant) 15.0 Trough (steady state, 2 weeks or more after transplant): 3.0 - 8.0 Detection Limit = 1.0 Performed by LC-MS/MS technology. Performed at: [facility] [id number] [employer] Salesperson: Fareed Martel MD, Phone: [phone] Performed By: #### L3380.1000 #### [facility] (refer to report for specific site) refer to report for address and phone number CMV BY PCR Collected: 07/06/2018 Status: F Source: [place] 5:30 AM [facility] REPOSIT[facility] TYPE CODE TESTS RESULT OUT OF REFERENCE UNITS RANGE LAB L3400.1525 Negative High CMV PCR Positive [id number] Result Comment: Cytomegalovirus DNA Detected. This test was developed and its performance characteristics determined by [facility]. It has not been cleared or approved by the Food and Drug Administration. The FDA has determined that such clearance or approval is not necessary. Performed at: [facility] [id number] [employer] Salesperson: Fareed Martel MD, Phone: [phone] Performed By: #### L3400.1525 #### [facility] (refer to report for specific site) refer to report for address and phone number RENAL PROFILE Collected: 07/05/2018 Status: F Source: [place] 4:56 AM [facility] REPOS[facility] TYPE CODE TESTS RESULT OUT OF RANGE REFERENCE UNITS LAB L501.0100 74-106 mg/dL High GLU 145 Result Comment: Fasting Glucose result greater than or equal to 126 mg/dL suggests DIABETES MELLITUS per A.D.A. criteria. Please note revised GLUCOSE reference range effective 2017. LAB L501.1000 7-18 mg/dL High BUN 64 LAB L501.1100 0.70-1.30 mg/dL High CREAT,SERUM 3.33 Result Comment: The validity of the calculated GFR AND GFRAA in patients over 70 years has not been determined. Clinical correlation is essential. LAB L501.1110 >60 mL/min Low EST GFR 23 Result Comment: Non- GFR Calc LAB L501.1115 >60 mL/min Low EST GFR - AA 27 Result Comment: GFR Calc LAB L501.1255 ml/min Normal Estimated CRCL 33.29 LAB L501.1300 10-20 RATIO Normal BUN/CRE 19.2 LAB L501.1800 3.2-5. g/dL Low 0 ALB 2.3 LAB L501.2200 8.5-10 mg/dL Low .1 CA 8.3 LAB L501.2300 2.5-4. mg/dL Normal 9 PHOS 4.5 LAB L501.5300 136-14 mmol/L Normal 5 NA 140 LAB L501.5600 3.5-5. mmol/L Normal 1 K 4.0 LAB L501.5900 98-107 mmol/L Normal CL 107 LAB L501.6100 21.0-3 mmol/L Normal 2.0 CO2 22.0 Performed By: #### L500.3600 #### [facility] [address] [place], [address] CBC W/DIFF, AUTOMATED Collected: 07/05/2018 Status: C Source: [place] 4:56 AM [facility] REPOSITORY TYPE CODE TESTS RESULT OUT OF RANGE REFERENCE UNITS LAB L100.1000 4.4-11.0 K/mm3 High WBC 11.7 LAB L100.1200 4.6-6.2 M/mm3 Low RBC 4.11 LAB L100.1300 13.0-16.5 g/dl Low HGB 12.5 LAB L100.1400 40-54 % Low HCT 38.7 LAB L100.1500 80-94 fL High MCV 94.2 LAB L100.1600 27.0-32.0 pg Normal MCH 30.4 LAB L100.1700 32-36 g/gl Normal MCHC 32.3 LAB L100.1810 11.6-14.6 % Normal RDW CV 14.2 LAB L100.1820 35.1-43.9 fl High RDW SD 47.1 LAB L100.1900 150-450 K/mm3 Low PLT 149 LAB L100.2000 6.2-12.0 fl Normal MPV 11.0 LAB L100.2100 47-70 % High NEUT% 86.7 LAB L100.2200 19-41 % Low LY% 5.5 LAB L100.2300 0-10 % Normal MONO% 5.5 LAB L100.2400 0-5 % Normal EO% 0.0 LAB L100.2500 0-1 % Normal BASO% 0.2 LAB L100.2550 0.0-0.9 % High IM GRAN % 2.100 Result Comment: IG% - Immature Granulocytes (promyelocytes, myelocytes and metamyelocytes) > 1% indicates that a LEFT SHIFT is Present. LAB L100.2620 2.0-7.7 X10 3/uL High Absolute Neut 10.2 LAB L100.2720 0.83-4.51 X10 3/ul Low Absolute Lymph 0.64 LAB L100.9900 Normal PATH REV Reviewed Result Comment: Neutrophilic leukocytosis. Macrocytic anemia. Clinical correlation suggested. Jessee Meza D.O. 07/06/18 AMENDED REPORT 07/06/18 1151 PATH REV previously reported as: October Performed By: #### L100.0100 #### [facility] [address] [place], [address] HEPATITIS B SURFACE Collected: 07/05/2018 Status: F Source: [place] AG 4:56 AM [facility] REPOSITORY Order Comment: ADD TO MORNING RUN TYPE CODE TESTS RESULT OUT OF RANGE REFERENCE UNITS LAB L3100.0400 Negative Normal HB Negative SURF AG Performed By: #### L3100.0390, L3100.0460, L3100.0528 #### [facility] (refer to report for specific site) refer to report for address and phone number HEPATITIS B CORE AB Collected: 07/05/2018 Status: F Source: [place] TOTAL 4:56 AM [facility] REPOSITORY Order Comment: ADD TO MORNING RUN TYPE CODE TESTS RESULT OUT OF RANGE REFERENCE UNITS LAB L3100.0460 Negative Normal HEP B Negative CORE,TOT Result Comment: Performed at: [facility] [address] [id number] [employer] Supp[employer] Salesperson: Santiago Deshpande PhD, Phone: [phone] Performed By: #### L3100.0390, L3100.0460, L3100.0528 #### [facility] (refer to report for specific site) refer to report for address and phone number HEP B SURFACE Collected: 07/05/2018 Status: F Source: [place] ANTIBODIES 4:56 AM [facility] REPOSITORY Order Comment: ADD TO MORNING RUN TYPE CODE TESTS RESULT OUT OF RANGE REFERENCE UNITS LAB L3100.0528 . Normal Hep B Non Reactive Mendez AB Result Comment: Non Reactive: Inconsistent with immunity, less than 10 mIU/mL Reactive: Consistent with immunity, greater than 9.9 mIU/mL Verified by repeat analysis Performed By: #### L3100.0390, L3100.0460, L3100.0528 #### [facility] (refer to report for specific site) refer to report for address and phone number CHEST 1 VIEW Observed: 07/04/2018 Status: F Source: [place] (PORTABLE) 7:12 AM [facility] HOSPITAL REPOSITORY [facility] Imaging Services [address] [place] [address] Chest 1 View (Portable) MR#: [id number] Acct: [id number] Name: GERARDO COREA Rep #: [id number] : 1985 M 32 From: Douglas Contreras DO PCP: Johann Bailey DO Status: ADM IN Study: Chest 1 View (Portable) Date of Exam: 07/04/18 Exam# [id number] Ordering Dr: Dionisio Alonso MD STUDY: X-RAY CHEST REASON FOR EXAM: Male, 32 years old. Chest postop. TECHNIQUE: Single AP portable view of the chest. COMPARISON: 15 January 2018 FINDINGS: Right central line tip overlies the distal SVC. The lungs are clear and expanded. There is no demonstrated pleural abnormality. Normal size heart. Prominence of the right upper mediastinal region with underlying liver adenopathy not excluded. Normal visualized pulmonary arteries. Normal visualized aortic arch and descending thoracic aorta. Normal visualized thoracic spine. Normal visualized ribs, clavicles, and shoulders. There is no demonstrated abnormality of the visualized soft tissue structures of the upper abdomen. RAD/Chest 1 View (Portable) IMPRESSION: 1. Right central line tip overlies the distal SVC. There is right paratracheal and upper mediastinal prominence with underlying lymphadenopathy not excluded. No evidence of acute focal airspace disease. Electronically Signed: Douglas Contreras DO at 8:27 EST , Service support , CC: Johann Bailey DO; Dionisio Alonso MD Rn Care Transition: Signed CONSULTATION Observed: 07/04/2018 Status: F Source: [place] 5:27 AM [facility] HOSPITAL REPOSITORY [facility] Medical Records Department [address] [place] [address] Consultation 07/03/18 1819 MR#: [id number] Acct: [id number] Name: GERARDO COREA Rep #: [id number] : 1985 32 From: Dionisio Alonso MD PCP: Johann Bailey DO Status: ADM IN Y [id number] Problem List (1) TED (acute kidney injury) Status: Acute Reason for Consult Date of Consultation: 07/03/18 History of Present Illness: The patient is a 32 year old M who has had a renal transplant approximately since 2005. He now has acute on chronic kidney injury. His GFR has declined to the point where he has felt the need hemodialysis. He apparently was hospitalized in December with acute hypertension and initial renal decline. He was hospitalized in April with an IV site infection of his left upper arm/thrombophlebitis. He now has been ill for at least a week and a half with progressive lower extremity swelling. He has been initiated on high-dose reports an attempt to salvage his transplant renal function. I was contacted via the emergency room that request for urgent placement of hemodialysis catheters was requested. 3 It is of note that the patient has a congenitally small right upper extremity making it not feasible for fistula. He has previously had a left forearm fistula and possibly an additional left upper arm fistula both of which now are thrombosed. As noted he has had a recent thrombophlebitis with possible MRSA infection left upper arm at the site of an IV. His other medical problems include chronic tobacco use. Gastroesophageal reflux disease. Hypertension. His recent symptoms include nausea vomiting weakness and lower extremity swelling. The pt is referred by Dr Kamara and a written copy of my consult will be available in his chart. I have assisted him with his hemodialysis access in the past and I appreciate the opportunity of continue with the surgical care Dionisio Alonso M.D., F.A.C.S. Past Medical History Past Medical History (Chronic Problems): Chronic Problems Elevated serum creatinine (Chronic) History of kidney transplant (Chronic) CKD (chronic kidney disease) stage 3, GFR 30-59 ml/min (Chronic) HTN (hypertension) (Chronic) Tobacco use (Chronic) GERD (gastroesophageal reflux disease) (Chronic) Allergies No Known Allergies Allergy (Verified 07/03/18 11:02) Home Medications: Ambulatory Orders Medication Instructions Recorded Mycophenolate Mofetil [Cellcept] 750 mg PO BID 01/15/18 Pantoprazole Sodium [Protonix] 40 mg PO BID 05/05/18 Surgical History: - - Renal transplant, fistula insertion/creation x 2 Lives: Spouse/ Significant Other Smoking Status: Current every day smoker Tobacco Use: Cigarettes Alcohol: None Drugs: None - *Family History Maternal History Items: - - Mother healthy, donated her kidney to her son. Paternal History Items: Diabetes, Hypertension Review of Systems Constitutional: Reports: Fatigue HEENT: Denies: Difficulty Swallowing Cardiovascular: Denies: Chest Pain Respiratory: Denies: Cough Gastrointestinal: Denies: Abdominal Pain Musculoskeletal: Denies: Arm Pain Psychiatric: Denies: Anxiety - Physical Exam General: Alert, Oriented x3, Cooperative, No apparent distress HEENT: Atraumatic Oral: Moist Mucosa Neck: Supple Lungs: Clear to auscultation Cardiovascular: Regular rate, Regular Rhythm Abdomen: Bowel Sounds Present, Soft, Non Tender, - - Transplant right lower quadrant without tenderness Skin: No rashes Psych/Mental Status: Normal Affect Vital Signs Temp Pulse Resp BP Pulse Ox 98 F 68 16 159/100 H 97 07/03/18 14:26 07/03/18 15:25 07/03/18 14:26 07/03/18 14:26 07/03/18 15:25 Oxygen Delivery Method Room Air Weight: 220 lb 10.923 oz Body Mass Index (BMI) 30.7 Laboratory Tests Past 24 Hrs WBC 13.3 H Assessment/Plan All Active Problems Cellulitis (Resolved) TED (acute kidney injury) (Acute) Uncontrolled hypertension (Acute) The patient has a thrombosed left forearm radiocephalic AV fistula. By report he has had thrombophlebitis with cellulitis of the left upper arm. He has a congenitally atrophied right upper extremity. He may be a very difficult patient to inspect for future fistula creation. He has not had tunneled dialysis catheter since 2005 I proposed for him and ultrasound-guided placement of tunneled dialysis catheters right internal jugular. If that is not successful then would consider left internal jugular approach. He is aware of the technique, benefits, risks, alternatives. Absolutely no guarantees of success have been provided. Then as an outpatient in a more timely fashion would pursue bilateral upper extremity vein mapping for consideration of future replacement of an AV fistula if feasible. The patient has had an opportunity to ask and have questions answered. We will expedite his care early tomorrow morning. Dionisio Alonso M.D., F.A.C.S. cc:Dr Kamara 07/04/18 0527 <Electronically signed by Dionisio Alonso MD> Date Dionisio Alonso MD Cosigner Signature (if applicable): Date CC: Ale Che; Lucina Kamara M.D.; Johann Bailey DO; Dionisio Alonso MD Signed CBC W/DIFF, AUTOMATED Collected: 07/04/2018 Status: F Source: [place] 4:50 AM [facility] REPOSITORY TYPE CODE TESTS RESULT OUT OF RANGE REFERENCE UNITS LAB L100.1000 4.4-11.0 K/mm3 High WBC 11.5 LAB L100.1200 4.6-6.2 M/mm3 Low RBC 4.25 LAB L100.1300 13.0-16.5 g/dl Normal HGB 13.0 LAB L100.1400 40-54 % Low HCT 39.6 LAB L100.1500 80-94 fL Normal MCV 93.2 LAB L100.1600 27.0-32.0 pg Normal MCH 30.6 LAB L100.1700 32-36 g/gl Normal MCHC 32.8 LAB L100.1810 11.6-14.6 % Normal RDW CV 14.3 LAB L100.1820 35.1-43.9 fl High RDW SD 46.9 LAB L100.1900 150-450 K/mm3 Normal PLT 159 LAB L100.2000 6.2-12.0 fl Normal MPV 11.0 LAB L100.2100 47-70 % High NEUT% 87.5 LAB L100.2200 19-41 % Low LY% 4.8 LAB L100.2300 0-10 % Normal MONO% 5.7 LAB L100.2400 0-5 % Normal EO% 0.1 LAB L100.2500 0-1 % Normal BASO% 0.2 LAB L100.2550 0.0-0.9 % High IM GRAN % 1.700 Result Comment: IG% - Immature Granulocytes (promyelocytes, myelocytes and metamyelocytes) > 1% indicates that a LEFT SHIFT is Present. LAB L100.2620 2.0-7.7 X10 3/uL High Absolute Neut 10.0 LAB L100.2720 0.83-4.51 X10 3/ul Low Absolute Lymph 0.55 Performed By: #### L100.0100 #### [facility] [address] [facility] [place], [place], [id number] PROTHROMBIN TIME W/INR Collected: 07/04/2018 Status: F Source: [place] 4:50 AM [facility] REPOSITORY TYPE CODE TESTS RESULT OUT OF RANGE REFERENCE UNITS LAB L300.4150 11.7-14.9 SECONDS Normal PROTIME 12.4 LAB L300.4200 Normal INR 0.9 Performed By: #### L300.3900, L300.4310 #### [facility] [address] [facility] [id number] PARTIAL THROMBOPLAST Collected: 07/04/2018 Status: F Source: [place] TIME 4:50 AM [facility] REPOSITORY TYPE CODE TESTS RESULT OUT OF RANGE REFERENCE UNITS LAB L300.4310 24.1-36.2 Seconds Normal PTT 24.9 Performed By: #### L300.3900, L300.4310 #### [facility] [address] [facility] [facility] [address] BASIC METABOLIC Collected: 07/04/2018 Status: F Source: [place] PROFILE (BMP) 4:50 AM [facility] REPOSITORY TYPE CODE TESTS RESULT OUT OF RANGE REFERENCE UNITS LAB L501.0100 74-106 mg/dL High GLU 181 Result Comment: Fasting Glucose result greater than or equal to 126 mg/dL suggests DIABETES MELLITUS per A.D.A. criteria. Please note revised GLUCOSE reference range effective 2017. LAB L501.1000 7-18 mg/dL High BUN 83 LAB L501.1100 0.70-1.30 mg/dL High CREAT,SERUM 3.96 Result Comment: The validity of the calculated GFR AND GFRAA in patients over 70 years has not been determined. Clinical correlation is essential. LAB L501.1110 >60 mL/min Low EST GFR 19 Result Comment: Non- GFR Calc LAB L501.1115 >60 mL/min Low EST GFR - AA 22 Result Comment: GFR Calc LAB L501.1255 ml/min Normal Estimated CRCL 27.99 LAB L501.1300 10-20 RATIO High BUN/CRE 21.0 LAB L501.2200 8.5-10 mg/dL Low .1 CA 8.1 LAB L501.5300 136-14 mmol/L Normal 5 NA 138 LAB L501.5600 3.5-5. mmol/L Normal 1 K 3.8 LAB L501.5900 98-107 mmol/L Normal CL 106 LAB L501.6100 21.0-3 mmol/L Low 2.0 CO2 20.0 LAB L501.6200 5-15 Normal GAP 12 Performed By: #### L500.2500, L501.2300, L501.5200 #### [facility] [address] [place], [place], [id number] PHOSPHORUS Collected: 07/04/2018 Status: F Source: [place] 4:50 AM [facility] REPOSITORY TYPE CODE TESTS RESULT OUT OF RANGE REFERENCE UNITS LAB L501.2300 2.5-4.9 mg/dL High PHOS 5.9 Performed By: #### L500.2500, L501.2300, L501.5200 #### [facility] [address] [place], [address] MAGNESIUM Collected: 07/04/2018 Status: F Source: [place] 4:50 AM [facility] REPOSITORY TYPE CODE TESTS RESULT OUT OF RANGE REFERENCE UNITS LAB L501.5200 1.6-2.6 mg/dL Normal MG 1.8 Performed By: #### L500.2500, L501.2300, L501.5200 #### [facility] [address] [place], [place], [id number] EMERGENCY DEPARTMENT Observed: 07/03/2018 Status: F Source: [place] SUMMARY 5:26 PM [facility] REPOSITORY [facility] Medical Records Department [address] [place] [address] Emergency Department Summary 07/03/18 1200 MR#: [id number] Acct: [id number] Name: GERARDO COREA Rep #: [id number] : 1985 32 From: Carroll Araujo MD PCP: Johann Bailey DO Status: ADM IN - ER Visit Summary Date of Service: 07/03/18 Chief Complaint: I need dialysis History of Present Illness: The patient is a [address] Bailey and Dr. Kamara. 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 They no longer have a transplant unit and he just follows along with Dr. Kamara. His baseline creatinine had been 1.9 prior to December 2017. At that time he became dehydrated and had acute kidney injury. His creatinine is been 2.4 since then. Is been gradually increasing. 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 This was performed at [facility]. He was referred to the transplant unit in [place] last month and at that time was placed on steroids. He has taken 2 weeks of 60 mg of prednisone and is on day 2 of 40 mg of prednisone. Prograf was decreased from 3 twice daily to 3 every morning and 2 every afternoon. Patient had blood work today that shows that his creatinine is increased to 4.3. He complains of increasing lower extremity edema over the past 2 weeks. States that his blood pressure has been difficult to control and that he has a mild headache and generalized weakness. Physical Examination: Vitals: Stable. Afebrile. General: Well-nourished and well-developed. Head: Normocephalic atraumatic. Neck: Supple, no lymphadenopathy. No JVD. Nontender. Cardiovascular: Regular rate and rhythm. No murmurs. Respiratory: No respiratory distress. Clear to auscultation bilaterally. Abdominal: Soft, nontender, nondistended, normal bowel sounds. No guarding, rebound, or peritoneal signs. Back: Nontender. Extremities: Nontender, 1+ edema of his lower extremities bilaterally.. Skin: Normal color, no rash. Neurologic: Alert and oriented 3. Cranial nerves II through XII are intact. Normal strength and sensation. Psych: Normal affect. Test Results: CBC is remarkable for a white count of 13.3 with 91 segmented neutrophils and 4 lymphocytes. Chem-7 is more for CO2 of 19, glucose 148, BUN of 80, creatinine of 4.13. Emergency Department Course and Treatment: Patient had an IV placed. He was given Zofran IV and Tylenol p.o. He is resting comfortably. Treatment Plan: Patient was discussed with Dr. Kamara and Dr. Dionisio Alonso. He will be admitted to the hospital with a plan to have a tunneled dialysis catheter placed tomorrow morning at [address] Dionisio Alonso. The patient will be discussed with the hospitalist for admission. Disposition: Admitted in stable condition. Impression: 1. Acute on chronic renal insufficiency. 2. Leukocytosis, uncertain cause. This note was generated with Flutter dictation software. It may contain incorrect words, spelling, and punctuation that were not noted in review of the chart prior to signing ED Disposition - Plan for ED Patient: Chief Complaint: General Illness Referrals: Johann Bailey, [Primary Care Provider] - What to do if you have Problems For any increased pain, shortness of breath, bleeding, nausea or vomiting, chest pain, or any unexpected problems, contact your Primary Care Provider. Call [facility] ([phone]) or report to the closest Emergency Room. Call 911 if necessary. 07/03/18 1726 <Electronically signed by Carroll Araujo MD> Date Carroll Araujo MD Cosigner Signature (If Indicated): Date CC: Johann Bailey DO CONSULTATION Observed: 07/03/2018 Status: F Source: [place] 5:00 PM [facility] REPOSITORY [facility] Medical Records Department [address] [place] [address] Consultation 07/03/18 1652 MR#: [id number] Acct: [id number] Name: GERARDO COREA Rep #: [id number] : 1985 32 From: Kris Kamara MD PCP: Johann Bailey DO Status: ADM IN Y Location: [place] [id number] Problem List (1) History of kidney transplant Status: Chronic (2) TED (acute kidney injury) Status: Acute Consultation - Renal 07/03/18 PCP/ Referring MD: Requesting physician: Dr Che Primary care physician: Johann Bailey DO Reason for Consultation:: TED - History of Present Illness History of Present Illness: The patient is a 32 year old M well known to us. Known history of [facility]KT at [facility]. on double immunosupression with tacro and cellcept. recently had progressively worsening renal failure. 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 discussed case with [facility] transplant nephrology and we decided to increase immunosupression significantly. Increased cellcept, started prednisone taper. unfortunately renal function continued to get worse. today am we received a call from patient and about significantly worsening symptoms of generalized weakness, edema. cr was 4.3. was supposed to see me in office next week but could not tolerate symptoms hence referred to ER. plan is to start dialysis for now - Allergies Allergies: Allergies No Known Allergies Allergy (Verified 07/03/18 11:02) - Current Medications Current Medications: Current Medications Acetaminophen (Tylenol) 650 mg PO Q6H PRN PRN PRN Reason: Non-cardiac pain (mod-severe) Hydrocodone Bitart/Acetaminophen ([place] 5mg-325mg) 1 - 2 tablet PO Q6H PRN PRN PRN Reason: Moderate-severe pain Al Hydroxide/Mg Hydroxide (Mylanta Ii) 30 ml PO Q6H PRN PRN PRN Reason: Gastric burning Amlodipine Besylate (Norvasc) 5 mg PO DAILY SHERLYN Ascorbic Acid (Vitamin C) 1,000 mg PO DAILY SHERLYN Calcitriol (Rocaltrol) 0.25 mcg PO DAILY SHERLYN Furosemide (Lasix) 80 mg IV BID@1000,1800 SHER[facility]N Hydralazine HCl (Apresoline) 50 mg PO TID SHERLYN Hydralazine HCl (Apresoline Iv) 10 mg IV Q4H PRN PRN PRN Reason: SBP > 160 Labetalol HCl (Trandate) 100 mg PO BID [facility] Magnesium Hydroxide (Milk Of Magnesia) 30 ml PO DAILY PRN PRN PRN Reason: Constipation Mycophenolate Mofetil (Cellcept) 750 mg PO BID [facility] Ondansetron HCl (Zofran) 4 mg IV Q8H PRN PRN PRN Reason: NAUSEA Pantoprazole Sodium (Protonix) 40 mg PO BID [facility] Prednisone () 20 mg PO BIDCM SHERLYN Tacrolimus (Prograf) 2 mg PO QHS SHERLYN Tacrolimus (Prograf) 3 mg PO DAILY SHERLYN - Past Medical History Past Medical History (Chronic Problems): Chronic Problems Elevated serum creatinine (Chronic) History of kidney transplant (Chronic) CKD (chronic kidney disease) stage 3, GFR 30-59 ml/min (Chronic) HTN (hypertension) (Chronic) Tobacco use (Chronic) GERD (gastroesophageal reflux disease) (Chronic) - Past Surgical History Surgical History: - - Renal transplant, fistula insertion/creation x 2 - Social History Smoking Status: Current every day smoker Alcohol: None Drugs: None - Family History Maternal History Items: - - Mother healthy, donated her kidney to her son. Paternal History Items: Diabetes, Hypertension Review of Systems HEENT: Denies: Head Aches, Sinus Congestion, Sinus Drainage Cardiovascular: Reports: Edema. Denies: Chest Pain, Palpitations Respiratory: Denies: Cough, Shortness of breath at rest, Sputum production Skin: Denies: Rash, Wounds Neurological: Denies: Numbness, Tingling, Focal weakness Psychiatric: Denies: Anxiety, Depression, Homicidal Ideations, Suicidal Ideations Hematologic/ Lymphatic: Denies: Easy Bruising, Easy Bleeding - Physical Exam General: Alert, Oriented x3, Cooperative HEENT: Atraumatic, PERRLA, EOMI, Normocephalic Neck: Supple, No JVD, Negative Carotid Bruits Lungs: Clear to auscultation, Normal air movement Cardiovascular: Regular rate, No murmurs Abdomen: Bowel Sounds Present, Soft, Non Tender Extremities: Edema Skin: No rashes, No breakdown Musculoskeletal: No Tenderness to Palpation of Joints or Extremities Neurological: Cranial nerves II-XII grossly intact Psych/Mental Status: Normal Affect, Appropriate Vital Signs Temp Pulse Resp BP Pulse Ox 98 F 68 16 159/100 H 98 07/03/18 14:26 07/03/18 15:25 07/03/18 14:26 07/03/18 14:26 07/03/18 14:26 Oxygen Delivery Method Room Air Weight: 100.1 kg Body Mass Index (BMI) 30.7 Laboratory Tests Past 24 Hrs WBC 13.3 H Assessment/Plan All Active Problems Cellulitis (Resolved) TED (acute kidney injury) (Acute) Uncontrolled hypertension (Acute) 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 of note his e GFR is reading 18, somewhat higher cutoff for a young person like him to develop uremia. will check BKV and CMV virus titres. no evidence of BKV or CMV on recent transplant biopsy continue all meds as before will reach out to [facility] nephrology friday start dialysis tomorrow after TDC placement all questions answered 07/03/18 1700 <Electronically signed by Kris Kamara MD> Date Kris Kamara MD Cosigner Signature (if applicable): Date CC: Ale Che; Lucina Kamara M.D.; Johann Bailey DO; Dionisio Alonso MD Signed HISTORY AND PHYSICAL Observed: 07/03/2018 Status: F Source: [place] EXAM 2:23 PM [facility] REPOSITORY [facility] Medical Records Department [address] [place] [address] History and Physical 07/03/18 1332 MR#: [id number] Acct: [id number] Name: GERARDO COREA Rep #: [id number] : 1985 32 From: Ale Che PCP: Johann Bailey DO Status: [id number] Problem List (1) TED (acute kidney injury) Status: Acute (2) History of kidney transplant Status: Chronic (3) CKD (chronic kidney disease) stage 3, GFR 30-59 ml/min Status: Chronic (4) HTN (hypertension) Status: Chronic Qualifiers: Hypertension type: essential hypertension Qualified Code(s): I10 - Essential (primary) hypertension (5) Tobacco use Status: Chronic (6) GERD (gastroesophageal reflux disease) Status: Chronic Qualifiers: Esophagitis presence: esophagitis presence not specified Qualified Code(s): K21.9 - Gastro-esophageal reflux disease without esophagitis History of Present Illness Date of Admission: 07/03/18 Chief Complaint: Nausea, increased BL LE edema, fatigue x 1-2 weeks. 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 ED on 07/03/17 with history of progressively worsening fatigue, weakness and nausea without emesis over the last 2 weeks with worsening renal function with evaluations per Dr. Kamara in conjunction with the transplant team with recent trial steroids without marked improvement with now recommendation from Nephrology for increase oral steroids which they had recently already increased versus HD. Patient given symptoms ongoing, worsening elected to have HD intervention. Work-up in the ED w/ VS T 98, HR 86, BP 170/108, RR 16, CBC w/ WBC 13.3, Hgb 13.8, Plts 170 with L shift, BMP w/ CO2 19, BUN/Cr 80/4.13, glucose 148. In the ED patient administered tylenol, zofran. ED physician discussed status with Nephrology and also with Dr. Alonso who will place HD acecss 07/04/17 6:40 am. Past Medical History Past Medical History (Chronic Problems): Chronic Problems Elevated serum creatinine (Chronic) History of kidney transplant (Chronic) CKD (chronic kidney disease) stage 3, GFR 30-59 ml/min (Chronic) HTN (hypertension) (Chronic) Tobacco use (Chronic) GERD (gastroesophageal reflux disease) (Chronic) Allergies No Known Allergies Allergy (Verified 07/03/18 11:02) Home Medications: Ambulatory Orders Medication Instructions Recorded Mycophenolate Mofetil [Cellcept] 750 mg PO BID 01/15/18 Pantoprazole Sodium [Protonix] 40 mg PO BID 05/05/18 Surgical History: - - Renal transplant, fistula insertion/creation x 2 Psychiatric History: No pertinent psych hx Lives: Spouse/ Significant Other Smoking Status: Current every day smoker - 3-4 per day. Tobacco Use: Cigarettes Alcohol: None Drugs: None - *Family History Maternal History Items: - - Mother healthy, donated her kidney to her son. Paternal History Items: Diabetes, Hypertension Review of Systems Constitutional: Reports: Anorexia, Malaise, Weakness, Weight Change, Fatigue. Denies: Chills, Fever HEENT: Denies: Head Aches, Sinus Congestion, Sinus Drainage Cardiovascular: Denies: Chest Pain, Palpitations Respiratory: Denies: Cough, Shortness of breath at rest, Sputum production Gastrointestinal: Reports: Nausea. Denies: Abdominal Pain, Vomiting Genitourinary: Denies: Dysuria Musculoskeletal: Denies: Joint Pain, Joint Tenderness Skin: Denies: Rash, Wounds Neurological: Denies: Numbness, Tingling, Focal weakness Psychiatric: Denies: Anxiety, Depression, Homicidal Ideations, Suicidal Ideations Hematologic/ Lymphatic: Reports: Anemia. Denies: Easy Bruising, Easy Bleeding VTE Information - Inpt Only VTE Present on Admission: No VTE Mechan Device Prophylaxis: SCD's VTE Pharm Prophylaxis ordered?: Yes Subjective: Seated upright in the ED bed, fatigued appearance, NAD otherwise. Objective: Physical Examination: General: awake, alert, oriented x 3 and cooperative, seated upright in the ED bed in no apparent distress. Skin: normal color, turgor, no icterus, cyanosis. HEENT: AT/NC, EOMI, PERRLA, MMM, no carotid bruits or JVD noted. Lungs: CTA bilaterally, moderate effort, mild decrease BL bases, no rales, ronchi or wheezing. Heart: Regular rate and rhythm; no gallop, rub audible. Abdomen: soft, overweight, NTTP, ND, normal BS, no HSM. Extremities: no cyanosis, clubbing, BL LE pedal to proximal huff 1+ pitting edema, improved from prior admit with family and noting he has been elevating his BL L E and wearing SYLVIA/compression hose, LUE w/ fistula present. Neurological: patient awake, alert, oriented x 3; cognitive function intact; pupils equally reactive to light and accomodation; cranial nerves II-XII grossly normal, moving all 4 extremities, no focal deficits, strength mildly to moderately globally decreased. Psychiatric: affect appears fatigued, mildly flat, no acute evidence of depressive or anxiety feelings. 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 ED on 07/03/17 with history of progressively worsening fatigue, weakness and nausea without emesis over the last 2 weeks with worsening renal function. 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 Given currently presentation, possibly allograft dysfunction w/ possibly recurrence FSGS. Admission Cr 4.13, prior baseline creatinine noted to be 2.4-2.6, but prior 05/05/18 3.32-->05/06/18 Cr 3.25. Recent admission w renal artery doppler US of renal transplant w/ noted right kidney 12 cm length, right renal transplant artery with less than 60% stenosis, normal flow is identified, abdominal aorta 1.78 x 1.72 cm maximally proximally. Will admit to DC, initiate IV lasix 80 mg BID to start now pending AM HD, continue norvasc, labetolol and hydralazine regimen w/ PRN IV hydralazine. Trend BMP, pending mag and phos, INR/PT/PTT for planned AM HD operative access intervention per Dr. Alonso. Dr. Kamara consulted. (2) Uncontrolled Hypertension: Secondary to worsening function, possibly likely allograft dysfunction w/ possibly recurrence FSGS, has remained SBP 180s per family and patient report, will as noted initiate IV lasix 80 mg BID to start now pending AM HD, continue norvasc, labetolol and hydralazine regimen w/ PRN IV hydralazine. Snug RADHA wraps. (3) Renal Transplant Status: Maintain on home cellcept, prograf. Possible allograft dysfunction w/ possibly recurrence FSGS. Discussed with Dr. Kamara and effect likely not marked, but will in interim continue current steroid dose regimen. (4) Tobacco Abuse: Encouraged cessation, inpatient consultation per RT, defer NR given only 1-2 cigarette/day, reduced since last evaluation. (5) GERD: PPI. (6) DVT Prophylaxis: SCDs, hold chemoprophylaxis as planned early AM surgery, start following once cleared per Surgery. Code Visit Inpatient E AND M: [id number] Init Hosp L3 07/03/18 1423 <Electronically signed by Ale Che > Date Ale Che Cosigner Signature: Date (if applicable) CC: Ale Che; Johann Bailey DO Signed CBC W/DIFF, AUTOMATED Collected: 07/03/2018 Status: F Source: [place] 11:42 AM [facility] REPOSITORY TYPE CODE TESTS RESULT OUT OF RANGE REFERENCE UNITS LAB L100.1000 4.4-11.0 K/mm3 High WBC 13.3 LAB L100.1200 4.6-6.2 M/mm3 Low RBC 4.54 LAB L100.1300 13.0-16.5 g/dl Normal HGB 13.8 LAB L100.1400 40-54 % Normal HCT 41.8 LAB L100.1500 80-94 fL Normal MCV 92.1 LAB L100.1600 27.0-32.0 pg Normal MCH 30.4 LAB L100.1700 32-36 g/gl Normal MCHC 33.0 LAB L100.1810 11.6-14.6 % Normal RDW CV 14.3 LAB L100.1820 35.1-43.9 fl High RDW SD 48.1 LAB L100.1900 150-450 K/mm3 Normal PLT 170 LAB L100.2000 6.2-12.0 fl Normal MPV 10.6 LAB L100.2100 47-70 % High NEUT% 91.2 LAB L100.2200 19-41 % Low LY% 3.8 LAB L100.2300 0-10 % Normal MONO% 3.2 LAB L100.2400 0-5 % Normal EO% 0.1 LAB L100.2500 0-1 % Normal BASO% 0.2 LAB L100.2550 0.0-0.9 % High IM GRAN % 1.500 Result Comment: IG% - Immature Granulocytes (promyelocytes, myelocytes and metamyelocytes) > 1% indicates that a LEFT SHIFT is Present. LAB L100.2620 2.0-7.7 X10 3/uL High Absolute Neut 12.1 LAB L100.2720 0.83-4.51 X10 3/ul Low Absolute Lymph 0.50 LAB L100.4500 Normal SMEAR COMMENT COMMENT Result Comment: SLIDE SCANNED - LYMPHOPENIA NOTED. Performed By: #### L100.0100 #### [facility] [address] [place], [place], [id number] BASIC METABOLIC Collected: 07/03/2018 Status: F Source: [place] PROFILE (BMP) 11:42 AM [facility] REPOSITORY TYPE CODE TESTS RESULT OUT OF RANGE REFERENCE UNITS LAB L501.0100 74-106 mg/dL High GLU 148 Result Comment: Fasting Glucose result greater than or equal to 126 mg/dL suggests DIABETES MELLITUS per A.D.A. criteria. Please note revised GLUCOSE reference range effective 2017. LAB L501.1000 7-18 mg/dL High BUN 80 LAB L501.1100 0.70-1.30 mg/dL High CREAT,SERUM 4.13 Result Comment: The validity of the calculated GFR AND GFRAA in patients over 70 years has not been determined. Clinical correlation is essential. LAB L501.1110 >60 mL/min Low EST GFR 18 Result Comment: Non- GFR Calc LAB L501.1115 >60 mL/min Low EST GFR - AA 21 Result Comment: GFR Calc LAB L501.1255 ml/min Normal Estimated CRCL 26.84 LAB L501.1300 10-20 RATIO Normal BUN/CRE 19.4 LAB L501.2200 8.5-10 mg/dL Normal .1 CA 8.5 LAB L501.5300 136-14 mmol/L Normal 5 NA 140 LAB L501.5600 3.5-5. mmol/L Normal 1 K 4.1 LAB L501.5900 98-107 mmol/L Normal CL 106 LAB L501.6100 21.0-3 mmol/L Low 2.0 CO2 19.0 LAB L501.6200 5-15 Normal GAP 15 Performed By: #### L500.2500 #### [facility] [address] [place], [address] PROTHROMBIN TIME W/INR Collected: 07/03/2018 Status: F Source: [place] 11:42 AM [facility] REPOSITORY TYPE CODE TESTS RESULT OUT OF RANGE REFERENCE UNITS LAB L300.4150 11.7-14.9 SECONDS Normal PROTIME 12.5 LAB L300.4200 Normal INR 0.9 Performed By: #### L300.3900, L300.4310 #### [facility] [address] [place], [address] PARTIAL THROMBOPLAST Collected: 07/03/2018 Status: F Source: [place] TIME 11:42 AM [facility] REPOSITORY TYPE CODE TESTS RESULT OUT OF RANGE REFERENCE UNITS LAB L300.4310 24.1-36.2 Seconds Normal PTT 25.2 Performed By: #### L300.3900, L300.4310 #### [facility] [address] [place], [address] BMP WITH EGFR Collected: 07/03/2018 Status: F Source: [place] 6:00 AM [facility] REPOSITORY TYPE CODE TESTS RESULT OUT OF RANGE REFERENCE UNITS LAB BMP with eGFR(LOINC) BMP with eGFR Result Comment: BASIC METABOLIC PANEL LAB SODIUM(LOINC) 136 - 145 mmol/l SODIUM 136 LAB POTASSIUM(LOINC) 3.5 - 5.1 mmol/L POTASSIUM 4.1 LAB CHLORIDE(LOINC) 98 - 107 mmol/L CHLORIDE 106 LAB CO2(LOINC) 21.0 - mmol/L 31.0 CO2 Low 19.0 LAB GLUCOSE(LOINC) 74 - 106 mg/dl GLUCOSE High 115 LAB BUN(LOINC) 6 - 20 mg/dl BUN High 74 LAB CREATININE(LOINC) 0.7 - 1.3 mg/dl High CREATININE 4.3 LAB CALCIUM(LOINC) 8.6 - mg/dl 10.2 CALCIUM Low 8.5 LAB ANION GAP(LOINC) 10 - 20 mmol/L ANION GAP 15 LAB AGE(LOINC) years AGE 32 LAB eGFR(LOINC) 60 - 999 ML/MINUTE eGFR Low 16 LAB eGFR(AA)(LOINC) 60 - 999 ML/MINUTE eGFR(AA) Low 19 Result Comment: ACCORDING TO THE NATIONAL KIDNEY DISEASE EDUCATION PROGRAM(NKDE), A NORMAL eGFR IS A VALUE GREATER THAN OR EQUAL TO 60 ML/MIN/1.73 SQ METERS. CHRONIC KIDNEY DISEASE: <60mL/MIN/1.73 SQ METERS KIDNEY FAILURE: <15mL/MIN/1.73 SQ METERS THIS TEST SHOULD ONLY BE USED FOR PATIENTS 18 YEARS OF AGE AND OLDER. Performed By: #### [id number] #### [facility],[address] [place] [address] NURSING PROG Observed: 06/05/2018 Status: COMPLETED Source: [place] 3:08 PM CLINIC OTHER CAMPUS REPOSITORY HNO ID: [id number] Author: Suzanne (Rn) Manuel RN Service: ASSESSMENT Author Type: Registered Nurse Type: Nursing Progress Note Filed: 06/05/2018 3:09 PM Note Text: 1500 patient up to BR/ right side dressing remains D/I site soft, VSS. Home instructions reinforced with patient and family. NURSING PROG Observed: 06/05/2018 Status: COMPLETED Source: [place] 11:11 AM [facility] OTHER [facility] REPOSITORY HNO ID: [id number] Author: Suzanne HumphreyRn) Manuel RN Service: ASSESSMENT Author Type: Registered Nurse Type: Nursing Progress Note Filed: 06/05/2018 11:12 AM Note Text: 1105 patient return to [facility], right mid abd site soft, dressing D/I no complaints pain. VSS continue to monitor. US RENAL NEEDLE Observed: 06/05/2018 Status: F Source: [facility] 11:00 AM HEALTH SYSTEM REPOSITORY Performed at [facility] APPROVED BY: Junior Che MD EXAM TITLE: ULTRASOUND GUIDED RENAL BIOPSY OF TRANSPLANT KIDNEY DATE: 06/05/2018 09:55 COMPARISON: None. CLINICAL INDICATION/HISTORY: The patient has a diagnosis glomerulosclerosis. The patient is referred for image guided biopsy of the transplant kidney. FINDINGS: Informed consent was obtained from the patient.. The transplant kidney located within the right lower quadrant was localized with ultrasound. The skin was marked. A timeout was performed. The patien t was prepped and draped in a sterile manner. Local anesthesia was affected with 2% Xylocaine. Utilizing real-time ultrasound guidance and a needle guide 17- gauge guide needle was introduced into the superior pole of the transplant kidney. 3 passes with a 18-gauge Temno needle were performed. The patient tolerated the procedure well. No immediate complications were noted. The patient received conscious sedation with intravenous Versed and Fentanyl. . The patient was monitored throughout the procedure by the Radiology nurse. Intra-service time (monitoring for moderate sedation) (starts with administration of agent, ends when continuous [id number] time ends): 10 minutes Patient mon itoring: I personally supervised and directed an independent trained observer who assisted in monitoring the patient?s level of consciousness and physiological status throughout the procedure. The pat ient was transferred to the radiology nursing station for post procedure monitoring. The specimens were submitted for electron microscopy and immunofluorescence microscopy. IMPRESSION: 1. Technically successful ultrasound guided core biopsy of the transplant kidney. BRIEF OP NOT Observed: 06/05/2018 Status: COMPLETED Source: [place] 10:55 AM [facility] OTHER CAMPUS REPOSITORY HNO ID: [id number] Author: Junior Che Service: Interventional Radiology Author Type: Physician Type: Brief Op Note Filed: 06/05/2018 10:58 AM Note Text: BRIEF OPERATIVE / PROCEDURE NOTE LOG ID: [id number] Surgery/Procedure Date: 06/05/2018 Incision/Procedure Start Time: Incision Close/Procedure End Time: Surgeon(s)/Proceduralist(s) and Head Waiter/Waitress(s): Surgeon(s) and Role: * Junior Che - Primary No Additional Staff Procedure(s): Other (specify) - Ultrasound guided core biopsy of renal transplant Anesthesia: Procedural Sedation Findings: Utilizing US guidance a 17 g guide needle was placed adjacent to the lesion of interest. 3 passes with a 18 g core biopsy needle was performed. The specimens were submitted for EM AND IM analysis. The patient tolerated the procedure well. No immediate complications were noted. The full report is located under Imaging in the Radiology report for the procedure. Estimated Blood Loss: 0 ml Specimens: 3 18 g cores from transplant kidney. Complications: None Pre-Op/Pre-Procedure Diagnosis: glomerulonephrosis Post-Op/Post-Procedure Diagnosis: same The full report is located under Imaging in the Radiology report for the procedure. SIGNATURE: Junior Che MD PATIENT NAME: Gerardo Corea DATE: June 05, 2018 TIME: 10:55 AM PAGER/CONTACT #: [phone] HISTORY PHYSICAL Observed: 06/05/2018 Status: COMPLETED Source: [place] 10:43 AM [facility] HNO ID: [id number] Author: Junior Che Service: Interventional Radiology Author Type: Physician Type: HANDP Filed: 06/05/2018 10:43 AM Note Text: UPDATED HISTORY AND PHYSICAL EXAMINATION SERVICE DATE: 06/05/2018 SERVICE TIME: 10:43 AM PHYSICAL EXAM MUST BE COMPLETED ON ADMISSION The History and Physical (completed in the past 30 days) has been reviewed and the patient has been examined. The contents accurately reflect the patient's condition with the following additions or revisions since the HANDP was completed. Examination indicates no changes. This HANDP can be found in the Electronic Medical Record dated 05/26/18. SIGNATURE: Junior Che MD PATIENT NAME: Gerardo Corea DATE: June 05, 2018 TIME: 10:43 AM PAGER: NURSING PROG Observed: 06/05/2018 Status: COMPLETED Source: [place] 9:28 AM [facility] HNO ID: [id number] Author: Suzanne (Rn) CINDA Jackson Service: ASSESSMENT Author Type: Registered Nurse Type: Nursing Progress Note Filed: 06/05/2018 9:28 AM Note Text: 0928 labs drawn and sent PROTIME Collected: 06/05/2018 Status: F Source: [facility] 9:25 AM HEALTH SYSTEM REPOSITORY TYPE CODE TESTS RESULT OUT OF REFERENCE UNITS RANGE LAB PTI(LOINC) 9.7-13.0 sec Prothrombin Time 10.0 LAB INR(LOINC) 0.90-1.30 INR 0.96 Result Comment: Note: Reference Range Change Vitamin K Antagonist (VKA) Therapeutic Range: INR 2 to 3 (Target INR of 2.5) Note: For patients treated with VKA drugs, such as warfarin, the [place] [employer] 2012 Guideline recommends a therapeutic INR range of 2 to 3 (target INR of 2.5). This recommendation includes high-risk patients with antiphospholipid syndrome with previous arterial or venous thromboembolism, current-generation mechanical or bioprosthetic aortic heart valve replacement. VKA Therapeutic Range for some Mechanical Valve Replacement: INR 2.5 to 3.5 (Target INR of 3) Note: Patients with mechanical aortic valve replacement and additional risk factors for thromboembolic events (atrial fibrillation, previous thromboembolism, LV dysfunction, hypercoagulable conditions) or an older generation mechanical AVR (i.e., ball in-Cage) or any mechanical MVR should have a INR therapeutic range of 2.5 to 3.5 target INR of 3). Pavel GH, et al. Chest 2012; 141:7S-47S Everett RA, et al. JACC 2017; 70: 252-289 Performed By: #### PT #### [place] [address] NURSING PROG Observed: 06/05/2018 Status: COMPLETED Source: [place] 9:14 AM [facility] OTHER CAMPUS REPOSITORY HNO ID: [id number] Author: Suzanne (Rn) CINDA Jackson Service: ASSESSMENT Author Type: Registered Nurse Type: Nursing Progress Note Filed: 06/05/2018 9:14 AM Note Text: 0914 Patient admitted to [facility], pre procedure teaching at bedside. Review of medications and moderate sedation with patient. SURGICAL TISSUE EXAM Observed: 06/05/2018 Status: F Source: [facility] 12:00 AM HEALTH SYSTEM REPOSITORY Test performed at [place] [address] NAME: GERARDO COREA REQUESTING: JUNIOR CHE M.D. FINAL DIAGNOSIS: SPECIMEN TRANSPORTED TO [facility] FOR PATHOLOGIC EVALUATION. OPERATIVE PROCEDURE: US guided renal biopsy CLINICAL INFORMATION: Renal transplant kidney GROSS DESCRIPTION: Renal biopsy Received in Artemio's fixative, labeled renal biopsy, is a specimen sent to [facility] for immunohistochemistry and electron microscopy. ARH:jada EXTERNAL CONSULT, PATHOLOGIST (Electronic signature on file) Signed out: 06/08/2018 11:36 PRINTED: 06/08/2018 Page 1 of 1 Performed By: #### SURG #### [place] [address] PATHOLOGY MISCELLANEOUS Observed: 06/05/2018 Status: F Source: [facility] 12:00 AM HEALTH SYSTEM REPOSITORY Test performed at [place] [address] NAME: GERARDO COREA REQUESTING: JUNIOR CHE M.D. DIAGNOSIS: Renal Transplant Biopsy: See complete report from [facility]. SPECIMEN: TISSUE FOR SEND-OUT, Kidney Bx to [facility] EXTERNAL CONSULT, PATHOLOGIST (Electronic signature on file) Signed out: 06/09/2018 08:47 PRINTED: 06/09/2018 Page 1 of 1 Performed By: #### MISC #### [place] [address] CBC Collected: 06/02/2018 Status: F Source: [place] 6:25 AM [facility] REPOSITORY TYPE CODE TESTS RESULT OUT OF RANGE REFERENCE UNITS LAB CBC(LOINC) CBC Result Comment: CBC-COMPLETE BLOOD COUNT LAB WBC(LOINC) 4.5 - 10.8 x 10EE3/UL WBC High 11.1 LAB RBC(LOINC) 4.50 - x 10EE6/UL 6.00 RBC 4.82 LAB HEMOGLOBIN(LOINC 13.0 - g/dl ) 17.5 HEMOGLOBIN 14.6 LAB HEMATOCRIT(LOINC 40.0 - % ) 52.0 HEMATOCRIT 43.5 LAB MCV(LOINC) 81 - 98 fl MCV 90 LAB MCH(LOINC) 27 - 33 pg MCH 30 LAB MCHC(LOINC) 32 - 36 X10 3 MCHC 34 LAB RDW/CV(LOINC) 12.0 - % 15.6 RDW/CV 13.7 LAB PLATELET(LOINC) 150 - 450 x10EE3/UL PLATELET 210 LAB MPV(LOINC) 6.4 - 10.5 fl MPV 9.5 Result Comment: AUTOMATED DIFFERENTIAL LAB NEUT %(LOINC) 46.0 - 76.0 % NEUT % 52.6 LAB LYMPH %(LOINC) 20.0 - 45.0 % LYMPH % 33.0 LAB MONOS %(LOINC) 0.0 - 10.0 % MONOS % 8.4 LAB EO %(LOINC) 0.0 - 7.0 % EO % 5.2 LAB BASO %(LOINC) 0.0 - 2.0 % BASO % 0.8 LAB Lymph #(LOINC) 0.80 - 2.80 x10EE3/U L Lymph # High 3.70 LAB Neut #(LOINC) 1.50 - 7.10 x10EE3/U L Neut # 5.90 LAB Sharp #(LOINC) 0.20 - 1.00 x10EE3/U L Sharp # 0.90 LAB EO #(LOINC) 0.00 - 0.50 x10EE3/U L EO # High 0.60 LAB Baso #(LOINC) 0.00 - 0.10 x10EE3/U L Baso # 0.10 LAB MANUAL DIFF(LOINC) MANUAL DIFF N/A LAB MORPHOLOGY(LOINC ) MORPHOLOGY N/A Result Comment: {CD] Performed By: #### [id number] #### [facility],[address] [place] [address] PROTHROMBIN TIME AND Collected: 06/02/2018 Status: F Source: [facility] INR 6:25 AM [facility] REPOSITORY TYPE CODE TESTS RESULT OUT OF REFERENCE UNITS RANGE LAB PROTHROMBIN TIME AND INR(LOINC) PROTHROMBIN TIME AND INR Result Comment: PROTHROMBIN TIME AND INR LAB PT-COUMADIN(LOINC) sec PT-COUMADIN 10.4 LAB INR(LOINC) 0.8 - 1.2 INR 0.9 Result Comment: THE HEMOSIL THROMBOPLASTIN REAGENT USED IN THE PROTHROMBIN TIME TEST INTERACTS WITH THE DRUG CUBICIN (DAPTOMYCIN) AND WILL RESULT IN FALSELY ELEVATED PT / INR RESULTS INR INTERPRETATION INR INDICATION PREVENTION AND TREATMENT OF THROMBOEMBOLISM ASSOCIATED WITH: 2.0 - 3.0 ATRIAL FIBRILLATION, BIOPROSTHETIC HEART VALVES, PULMONARY EMBOLISM, VENOUS THROMBOSIS, SYSTEMIC EMBOLISM POST MYOCARDIAL INFARCTION 2.5 - 3.5 MECHANICAL HEART VALVES Performed By: #### [id number] #### [facility],[address] [place] [address] PROGRESS Observed: 05/26/2018 Status: COMPLETED Source: [place] 9:07 AM [facility] REPOSITORY HNO ID: [id number] Author: Quincy Byrd Service: (none) Author Type: Nurse Practitioner Type: Progress Notes Filed: 05/26/2018 10:48 AM Note Text: Subjective HPI HPI Gerardo Corea is a 32 year old male who presents today for CC of sinus pressure. This started 2 days ago. Has tried otc medictation. Symptoms are worsened by nothing. Risk factors severe allergies. Everyday smoker. Symptoms started after being around a cat few days ago, hx of severe cat allergies. .Patient presents with: sinus pressure and congestion: x 2 days PAST MEDICAL HISTORY Diagnosis Date - Esophageal reflux - PMH - PAST MEDICAL HISTORY OF kidney transplant PAST SURGICAL HISTORY Procedure Laterality Date - RENAL ALLOTRANSPLANTATION W/ GRAFT W/O RECIPIENT NEPHRECTOMY ALLERGIES Animal Dander MEDICATIONS PROAIR HFA 90 mcg/actuation inhaler INHALE TWO PUFFS EVERY 6 HOURS NEEDED FOR SHORTNESS OF BREATH furosemide (LASIX) 40 mg tablet Take 40 mg by mouth once daily. labetalol (TRANDATE) 100 mg tablet Take 100 mg by mouth twice daily. amLODIPine (NORVASC) 5 mg tablet Take 5 mg by mouth once daily. pantoprazole DR (PROTONIX) 20 mg tablet Take 20 mg by mouth once daily. omega-3s/dha/epa/fish oil/D3 (VITAMIN-D + OMEGA-3 ORAL) Take by mouth. mycophenolate mofetil (CELLCEPT) 250 mg capsule Take by mouth. 3 tablets twice daily PROGRAF 1 MG CAP Take two tablets twice daily cyclobenzaprine (FLEXERIL) 10 mg tablet Take 1 tablet by mouth every 8 hours as needed (FOR PAIN OR MUSCLE SPASM). No family history on file. Social History Substance Use Topics - Smoking status: Passive Smoke Exposure - Never Smoker Packs/day: 0.50 Years: 4.00 Types: Cigarettes - Smokeless tobacco: Current User Comment: pt trying to quit smoking-06/07/09 - Alcohol use No Review of Systems Constitutional: Negative for chills, fever and weight loss. HENT: Positive for congestion. Negative for ear pain, nosebleeds, sinus pain and sore throat. Respiratory: Positive for cough. Negative for shortness of breath and wheezing. Musculoskeletal: Negative for neck pain. Objective Blood pressure 142/88, pulse 65, temperature 36.2 ?C (97.2 ?F), temperature source Tympanic, weight 98.8 kg (217 lb 12.8 oz), SpO2 97 %. Physical Exam Constitutional: He is oriented to person, place, and time and well-developed, well-nourished, and in no distress. Non-toxic appearance. He does not have a sickly appearance. No distress. HENT: Head: Normocephalic and atraumatic. Right Ear: Hearing, tympanic membrane, external ear and ear canal normal. Left Ear: Hearing, tympanic membrane, external ear and ear canal normal. Nose: Nose normal. Mouth/Throat: Uvula is midline, oropharynx is clear and moist and mucous membranes are normal. Mod/severe congestion audible. Eyes: Pupils are equal, round, and reactive to light. Conjunctivae and lids are normal. Right eye exhibits no discharge. Left eye exhibits no discharge. No scleral icterus. Neck: Trachea normal and normal range of motion. Neck supple. Cardiovascular: Normal rate, regular rhythm and normal heart sounds. Pulmonary/Chest: Effort normal and breath sounds normal. Lymphadenopathy: He has no cervical adenopathy. Neurological: He is alert and oriented to person, place, and time. Skin: No rash noted. He is not diaphoretic. ASSESSMENT/PLAN: 1. URI, acute - ICD9: 465.9, ICD10: J06.9 (primary diagnosis) - Discussed viral etiology and rationale for treatment. - Symptomatic treatment with prn analgesia - Supportive care with fluids and rest - Follow up in 3-5 days if symptoms persist or sooner if worsening of symptoms - METHYLPREDNISOLONE 4 MG TABLETS IN A DOSE PACK 2. Pet allergy - ICD9: 477.8, ICD10: J30.81 Medrol pack ordered, patient is to check with drafter structural if is permited to take prescription. -also discussed short course of afrin for severe congestion - METHYLPREDNISOLONE 4 MG TABLETS IN A DOSE PACK Prescription instructions reviewed with patient as applicable. Patient advised if symptoms do not improve or if symptoms worsen sooner, to contact the office for further evaluation by their primary care physician. Potential red flag symptoms discussed with the patient. Reviewed appropriate action plan to take if red flag symptoms occur. Patient agreeable to treatment plan. Quincy Byrd APRN.CNP CNOV Observed: 05/26/2018 Status: COMPLETED Source: [place] 8:45 AM [facility] REPOSITORY Office Visit ([facility]) GERARDO COREA ([id number]) 1985 M Date Time Provider Department 05/26/18 8:45 AM QUINCY BYRD (EMEKA) [facility] During your visit today, we recorded the following information about you: Temperature Pulse Blood pressure Weight 97.2 degrees 65/minute 142/88 98.8 kg Quincy Byrd APRN.CNP 05/26/2018 10:48 AM Signed Subjective HPI HPI Gerardo Hunt Nahomy is a 32 year old male who presents today for CC of sinus pressure. This started 2 days ago. Has tried otc medictation. Symptoms are worsened by nothing. Risk factors severe allergies. Everyday smoker. Symptoms started after being around a cat few days ago, hx of severe cat allergies. .Patient presents with: sinus pressure and congestion: x 2 days PAST MEDICAL HISTORY Diagnosis Date - Esophageal reflux - PMH - PAST MEDICAL HISTORY OF kidney transplant PAST SURGICAL HISTORY Procedure Laterality Date - RENAL ALLOTRANSPLANTATION W/ GRAFT W/O RECIPIENT NEPHRECTOMY ALLERGIES Animal Dander MEDICATIONS PROAIR HFA 90 mcg/actuation inhaler INHALE TWO PUFFS EVERY 6 HOURS NEEDED FOR SHORTNESS OF BREATH furosemide (LASIX) 40 mg tablet Take 40 mg by mouth once daily. labetalol (TRANDATE) 100 mg tablet Take 100 mg by mouth twice daily. amLODIPine (NORVASC) 5 mg tablet Take 5 mg by mouth once daily. pantoprazole DR (PROTONIX) 20 mg tablet Take 20 mg by mouth once daily. omega-3s/dha/epa/fish oil/D3 (VITAMIN-D + OMEGA-3 ORAL) Take by mouth. mycophenolate mofetil (CELLCEPT) 250 mg capsule Take by mouth. 3 tablets twice daily PROGRAF 1 MG CAP Take two tablets twice daily cyclobenzaprine (FLEXERIL) 10 mg tablet Take 1 tablet by mouth every 8 hours as needed (FOR PAIN OR MUSCLE SPASM). No family history on file. Social History Substance Use Topics - Smoking status: Passive Smoke Exposure - Never Smoker Packs/day: 0.50 Years: 4.00 Types: Cigarettes - Smokeless tobacco: Current User Comment: pt trying to quit smoking-06/07/09 - Alcohol use No Review of Systems Constitutional: Negative for chills, fever and weight loss. HENT: Positive for congestion. Negative for ear pain, nosebleeds, sinus pain and sore throat. Respiratory: Positive for cough. Negative for shortness of breath and wheezing. Musculoskeletal: Negative for neck pain. Objective Blood pressure 142/88, pulse 65, temperature 36.2 ?C (97.2 ?F), temperature source Tympanic, weight 98.8 kg (217 lb 12.8 oz), SpO2 97 %. Physical Exam Constitutional: He is oriented to person, place, and time and well-developed, well-nourished, and in no distress. Non-toxic appearance. He does not have a sickly appearance. No distress. HENT: Head: Normocephalic and atraumatic. Right Ear: Hearing, tympanic membrane, external ear and ear canal normal. Left Ear: Hearing, tympanic membrane, external ear and ear canal normal. Nose: Nose normal. Mouth/Throat: Uvula is midline, oropharynx is clear and moist and mucous membranes are normal. Mod/severe congestion audible. Eyes: Pupils are equal, round, and reactive to light. Conjunctivae and lids are normal. Right eye exhibits no discharge. Left eye exhibits no discharge. No scleral icterus. Neck: Trachea normal and normal range of motion. Neck supple. Cardiovascular: Normal rate, regular rhythm and normal heart sounds. Pulmonary/Chest: Effort normal and breath sounds normal. Lymphadenopathy: He has no cervical adenopathy. Neurological: He is alert and oriented to person, place, and time. Skin: No rash noted. He is not diaphoretic. ASSESSMENT/PLAN: 1. URI, acute - ICD9: 465.9, ICD10: J06.9 (primary diagnosis) - Discussed viral etiology and rationale for treatment. - Symptomatic treatment with prn analgesia - Supportive care with fluids and rest - Follow up in 3-5 days if symptoms persist or sooner if worsening of symptoms - METHYLPREDNISOLONE 4 MG TABLETS IN A DOSE PACK 2. Pet allergy - ICD9: 477.8, ICD10: J30.81 Medrol pack ordered, patient is to check with drafter structural if is permited to take prescription. -also discussed short course of afrin for severe congestion - METHYLPREDNISOLONE 4 MG TABLETS IN A DOSE PACK Prescription instructions reviewed with patient as applicable. Patient advised if symptoms do not improve or if symptoms worsen sooner, to contact the office for further evaluation by their primary care physician. Potential red flag symptoms discussed with the patient. Reviewed appropriate action plan to take if red flag symptoms occur. Patient agreeable to treatment plan. Quincy Byrd APRN.EMEKA Byrd APRN.CNP 05/26/2018 9:28 AM Signed RESPIRATORY INFECTION GENERAL INFORMATION: An upper respiratory tract infection, or cold, is a viral infection of the airway passages. It can be caused by any one of almost 200 different viruses. Common symptoms include a runny or stuffy nose, sneezing, watery eyes, sore throat, cough, and slight fever. Colds are contagious, especially during the first 3 or 4 days and cannot be cured by antibiotics. They are spread by coughs, sneezes, and direct contact, especially [id number]. A respiratory tract infection usually clears up in a few days, but some people may be sick for a week or two. INSTRUCTIONS: 1. Be careful not to blow your nose too hard because this may cause a nosebleed. 2. Use a cool-mist humidifier (vaporizer) to increase air moisture. This will make it easier for you to breathe. Do not use hot steam. 3. Rest as much as possible and get plenty of sleep. 4. Wash your hands often, especially after you blow your nose. Cover your mouth and nose with a tissue when you sneeze or cough. 5. Drink plenty of clear fluids (8 glasses a day) such as water, fruit juice, tea, clear soups, and carbonated beverages. CONTACT YOUR DOCTOR IF : 1. Your fever lasts more than 3 days. 2. You have a sore throat that gets worse or you see white or yellow spots in your throat. 3. Your cough gets worse or lasts more than 10 days. 4. You develop a rash anywhere on your skin. 5. You have an earache or a headache. 6. You have thick greenish or yellowish discharge from your nose. RETURN IMMEDIATELY IF: 1. You cough up thick yellow, green, moody, or bloody sputum. 2. You have difficulty breathing, pain in your chest, or your skin or nails look moody or blue. 3. You have shaking chills or a temperature over 102 F (39 C). Referring Provider: SELF [200] Allergies As of Date: 05/26/2018 Noted Allergy Reaction ANIMAL DANDER 05/28/2005 Date Reviewed: 05/26/2018 Reviewed by: Quincy ([facility]) - Fully Assessed Reason for Visit: sinus pressure and congestion [Other] Cmt: x 2 days Primary Visit Diagnosis:URI, acute [J06.9] Other Visit Diagnosis:Pet allergy [J30.81] Order(s):methylPREDNISolone (MEDROL, MONIQUE,) 4 mg Dose-PackFollow dosing instructions, take with food.Disp: 1 PackageRfl: 0 Prescriptions as of 05/26/2018 Sig: PROAIR HFA 90 MCG/ACTUATION A* INHALE TWO PUFFS EVERY 6 HOUR* FUROSEMIDE 40 MG TABLET Take 40 mg by mouth once artie* LABETALOL 100 MG TABLET Take 100 mg by mouth twice da* AMLODIPINE 5 MG TABLET Take 5 mg by mouth once daily. PANTOPRAZOLE 20 MG TABLET,DEL* Take 20 mg by mouth once artie* VITAMIN-D + OMEGA-3 ORAL Take by mouth. MYCOPHENOLATE MOFETIL 250 MG * Take by mouth. 3 tablets twi* PROGRAF 1 MG CAPSULE Take two tablets twice daily METHYLPREDNISOLONE 4 MG TABLE* Follow dosing instructions, t* CYCLOBENZAPRINE 10 MG TABLET Take 1 tablet by mouth every * Patient not taking: Reported on 05/26/2018 Problem List As Of Date 05/26/2018 Noted Resolved ONYCHIA OF TOE [L03.039] INVALID FOR* Renal Transplant INVALID FOR* More... FSGS (Focal Segmental Glomerulosclerosis) [N05.*INVALID FOR* Other instructions from your clinician: RESPIRATORY INFECTION GENERAL INFORMATION: An upper respiratory tract infection, or cold, is a viral infection of the airway passages. It can be caused by any one of almost 200 different viruses. Common symptoms include a runny or stuffy nose, sneezing, watery eyes, sore throat, cough, and slight fever. Colds are contagious, especially during the first 3 or 4 days and cannot be cured by antibiotics. They are spread by coughs, sneezes, and direct contact, especially [id number]. A respiratory tract infection usually clears up in a few days, but some people may be sick for a week or two. INSTRUCTIONS: 1. Be careful not to blow your nose too hard because this may cause a nosebleed. 2. Use a cool-mist humidifier (vaporizer) to increase air moisture. This will make it easier for you to breathe. Do not use hot steam. 3. Rest as much as possible and get plenty of sleep. 4. Wash your hands often, especially after you blow your nose. Cover your mouth and nose with a tissue when you sneeze or cough. 5. Drink plenty of clear fluids (8 glasses a day) such as water, fruit juice, tea, clear soups, and carbonated beverages. CONTACT YOUR DOCTOR IF : 1. Your fever lasts more than 3 days. 2. You have a sore throat that gets worse or you see white or yellow spots in your throat. 3. Your cough gets worse or lasts more than 10 days. 4. You develop a rash anywhere on your skin. 5. You have an earache or a headache. 6. You have thick greenish or yellowish discharge from your nose. RETURN IMMEDIATELY IF: 1. You cough up thick yellow, green, moody, or bloody sputum. 2. You have difficulty breathing, pain in your chest, or your skin or nails look moody or blue. 3. You have shaking chills or a temperature over 102 F (39 C). Prescriptions ordered this encounter Disp Refills Start End METHYLPREDNISOLONE 4 MG TABLETS IN A* 1 Pa* 0 05/26/2018 06/01/2018 Class: Print RX Sig: Follow dosing instructions, take with food. Letter Text [facility] Quincy Byrd CNP [address], [place] [address] 05/26/2018 Gerardo Corea CCF# [id number] [address] [facility] [address] TO WHOM IT MAY CONCERN: This is to confirm that Gerardo Corea had an appointment and was seen at the [facility] in the Department of Urgent Care by Quincy Byrd CNP on 05/26/2018. Sincerely yours, Quincy Byrd CNP Encounter Status:Closed by QUINCY BYRD CNP on 05/26/18 HOSP Observed: 05/25/2018 Status: COMPLETED Source: [place] 12:00 AM [facility] OTHER CAMPUS REPOSITORY Patient:Gerardo Corea MRN: <[id number]> Height:5' 10(1.778 m) Weight:217 lb 12.8 oz (98.793 kg) Outpatient Medications as of 06/05/18: PROAIR HFA 90 mcg/actuation inhaler furosemide (LASIX) 40 mg tablet labetalol (TRANDATE) 100 mg tablet amLODIPine (NORVASC) [address] (PROTONIX) 20 mg tablet omega-3s/dha/epa/fish oil/D3 (VITAMIN-D + OMEGA-3 ORAL) mycophenolate mofetil (CELLCEPT) 250 mg capsule PROGRAF 1 MG CAP Admission/Clinic Administered Medications as of 06/05/18: Patient has no admission medications. 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 This started 2 days ago. Has tried otc medictation. Symptoms are worsened by nothing. Risk factors severe allergies. Everyday smoker. Symptoms started after being around a cat few days ago, hx of severe cat allergies. .Patient presents with: sinus pressure and congestion: x 2 days PAST MEDICAL HISTORY Diagnosis Date - Esophageal reflux - PMH - PAST MEDICAL HISTORY OF kidney transplant PAST SURGICAL HISTORY Procedure Laterality Date - RENAL ALLOTRANSPLANTATION W/ GRAFT W/O RECIPIENT NEPHRECTOMY ALLERGIES Animal Dander MEDICATIONS PROAIR HFA 90 mcg/actuation inhaler INHALE TWO PUFFS EVERY 6 HOURS NEEDED FOR SHORTNESS OF BREATH furosemide (LASIX) 40 mg tablet Take 40 mg by mouth once daily. labetalol (TRANDATE) 100 mg tablet Take 100 mg by mouth twice daily. amLODIPine (NORVASC) 5 mg tablet Take 5 mg by mouth once daily. pantoprazole DR (PROTONIX) 20 mg tablet Take 20 mg by mouth once daily. omega-3s/dha/epa/fish oil/D3 (VITAMIN-D + OMEGA-3 ORAL) Take by mouth. mycophenolate mofetil (CELLCEPT) 250 mg capsule Take by mouth. 3 tablets twice daily PROGRAF 1 MG CAP Take two tablets twice daily cyclobenzaprine (FLEXERIL) 10 mg tablet Take 1 tablet by mouth every 8 hours as needed (FOR PAIN OR MUSCLE SPASM). No family history on file. Social History Substance Use Topics - Smoking status: Passive Smoke Exposure - Never Smoker Packs/day: 0.50 Years: 4.00 Types: Cigarettes - Smokeless tobacco: Current User Comment: pt trying to quit smoking-06/07/09 - Alcohol use No Review of Systems Constitutional: Negative for chills, fever and weight loss. HENT: Positive for congestion. Negative for ear pain, nosebleeds, sinus pain and sore throat. Respiratory: Positive for cough. Negative for shortness of breath and wheezing. Musculoskeletal: Negative for neck pain. Objective Blood pressure 142/88, pulse 65, temperature 36.2 ?C (97.2 ?F), temperature source Tympanic, weight 98.8 kg (217 lb 12.8 oz), SpO2 97 %. Physical Exam Constitutional: He is oriented to person, place, and time and well-developed, well-nourished, and in no distress. Non-toxic appearance. He does not have a sickly appearance. No distress. HENT: Head: Normocephalic and atraumatic. Right Ear: Hearing, tympanic membrane, external ear and ear canal normal. Left Ear: Hearing, tympanic membrane, external ear and ear canal normal. Nose: Nose normal. Mouth/Throat: Uvula is midline, oropharynx is clear and moist and mucous membranes are normal. Mod/severe congestion audible. Eyes: Pupils are equal, round, and reactive to light. Conjunctivae and lids are normal. Right eye exhibits no discharge. Left eye exhibits no discharge. No scleral icterus. Neck: Trachea normal and normal range of motion. Neck supple. Cardiovascular: Normal rate, regular rhythm and normal heart sounds. Pulmonary/Chest: Effort normal and breath sounds normal. Lymphadenopathy: He has no cervical adenopathy. Neurological: He is alert and oriented to person, place, and time. Skin: No rash noted. He is not diaphoretic. ASSESSMENT/PLAN: 1. URI, acute - ICD9: 465.9, ICD10: J06.9 (primary diagnosis) - Discussed viral etiology and rationale for treatment. - Symptomatic treatment with prn analgesia - Supportive care with fluids and rest - Follow up in 3-5 days if symptoms persist or sooner if worsening of symptoms - METHYLPREDNISOLONE 4 MG TABLETS IN A DOSE PACK 2. Pet allergy - ICD9: 477.8, ICD10: J30.81 Medrol pack ordered, patient is to check with drafter structural if is permited to take prescription. -also discussed short course of afrin for severe congestion - METHYLPREDNISOLONE 4 MG TABLETS IN A DOSE PACK Prescription instructions reviewed with patient as applicable. Patient advised if symptoms do not improve or if symptoms worsen sooner, to contact the office for further evaluation by their primary care physician. Potential red flag symptoms discussed with the patient. Reviewed appropriate action plan to take if red flag symptoms occur. Patient agreeable to treatment plan. Quincy Byrd APRN.EMEKA Byrd APRN.EMEKA 05/26/2018 9:28 AM Signed RESPIRATORY INFECTION GENERAL INFORMATION: An upper respiratory tract infection, or cold, is a viral infection of the airway passages. It can be caused by any one of almost 200 different viruses. Common symptoms include a runny or stuffy nose, sneezing, watery eyes, sore throat, cough, and slight fever. Colds are contagious, especially during the first 3 or 4 days and cannot be cured by antibiotics. They are spread by coughs, sneezes, and direct contact, especially [id number]. A respiratory tract infection usually clears up in a few days, but some people may be sick for a week or two. INSTRUCTIONS: 1. Be careful not to blow your nose too hard because this may cause a nosebleed. 2. Use a cool-mist humidifier (vaporizer) to increase air moisture. This will make it easier for you to breathe. Do not use hot steam. 3. Rest as much as possible and get plenty of sleep. 4. Wash your hands often, especially after you blow your nose. Cover your mouth and nose with a tissue when you sneeze or cough. 5. Drink plenty of clear fluids (8 glasses a day) such as water, fruit juice, tea, clear soups, and carbonated beverages. CONTACT YOUR DOCTOR IF : 1. Your fever lasts more than 3 days. 2. You have a sore throat that gets worse or you see white or yellow spots in your throat. 3. Your cough gets worse or lasts more than 10 days. 4. You develop a rash anywhere on your skin. 5. You have an earache or a headache. 6. You have thick greenish or yellowish discharge from your nose. RETURN IMMEDIATELY IF: 1. You cough up thick yellow, green, moody, or bloody sputum. 2. You have difficulty breathing, pain in your chest, or your skin or nails look moody or blue. 3. You have shaking chills or a temperature over 102 F (39 C). DISCHARGE SUMMARY Observed: 05/07/2018 Status: F Source: [place] 8:15 PM [facility] REPOSITORY [facility] Medical Records Department [address] [place] [id number] Discharge Summary 05/07/182010 MR#: [id number] Acct: [id number] Name: NAHOMYGERARDO Rep #: [id number] : 1985 32 From: Johann Parikh DO PCP: Johann Bailey DO Status: DIS MADELINE Y Location: [place] [address] Discharge Date and Diagnosis Date of Admission: 05/05/18 Date of Discharge: 05/06/18 - Primary Discharge Diagnosis #1 uncontrolled hypertension #2 acute kidney injury #3 chronic kidney disease stage III - Secondary Discharge Diagnosis Chronic Problems Elevated serum creatinine (Chronic) History of kidney transplant (Chronic) CKD (chronic kidney disease) stage 3, GFR 30-59 ml/min (Chronic) HTN (hypertension) (Chronic) Tobacco use (Chronic) GERD (gastroesophageal reflux disease) (Chronic) Hospital Course and Treatment Operations: None Procedures: - - Renal artery ultrasound Summary of Care Provided: The patient is a 32 year old M was directly admitted to PCU at [facility] at the request of his drafter structural due to uncontrolled high blood pressure. Patient's medications were adjusted during his hospital stay, blood pressure was under control with addition of several medications. Patient's renal function improved slightly during his hospitalization. Physical exam: On examination he appeared in good health and spirits. Vital signs as documented. Skin warm and dry and without overt rashes. Neck without JVD. Lungs clear. Heart exam notable for regular rhythm, normal sounds and absence of murmurs, rubs or gallops. Abdomen unremarkable and without evidence of organomegaly, masses, or abdominal aortic enlargement. Extremities nonedematous. Neuro: Cranial nerves II through XII are grossly intact, no focal motor deficits were noted. Psych: Patient is alert and oriented x3 and is appropriate, patient does not appear anxious or depressed Patient was seen and examined on 05/06/18 and felt to be in stable condition for discharge home. - Physical Exam Vital Signs Temp Pulse Resp BP Pulse Ox 97.4 F L 74 18 147/94 H 97 05/06/18 08:38 05/06/18 11:05 05/06/18 08:57 05/06/18 08:38 05/06/18 08:38 Oxygen Delivery Method Room Air Weight: 97.6 kg Body Mass Index (BMI) 29.9 Intake and Output for Last 24 Hours Intake Total 240 / 240 Output Total 1375 / 1375 Balance -1135 / -1135 Discharge Activity: Return to Normal Activity Weight Bearing Status: Full weight bearing Home Medications: Medications to take at Discharge Cholecalciferol (Vitamin D3) [Vitamin D3] 2,000 unit PO DAILY 01/15/18 Mycophenolate Mofetil [Cellcept] 750 mg PO BID 01/15/18 Acetaminophen [Tylenol Tablet] 650 mg PO Q6H PRN PRN tablet 01/21/18 Oxycodone [Oxyir] 5 mg PO Q4H PRN PRN 7 Days #25 tablet 01/21/18 Tacrolimus Anhydrous [Prograf] 3 mg PO BID #1 capsule 01/21/18 Cholecalciferol (Vitamin D3) [Vitamin D3] 2,000 unit PO 05/05/18 Pantoprazole Sodium [Protonix] 40 mg PO BID 05/05/18 Acetaminophen [Tylenol Tablet] 650 mg PO Q6H PRN PRN tablet 05/06/18 Amlodipine [Norvasc] 5 mg PO DAILY tablet 05/06/18 Furosemide [Lasix] 40 mg PO DAILY #30 tablet 05/06/18 Labetalol [Trandate (Beta Evelina)] 100 mg PO BID #60 tablet 05/06/18 Following Prescrptions Were Given to Patient: Furosemide [Lasix] 40 mg PO DAILY #30 tablet Labetalol [Trandate (Beta Evelina)] 100 mg PO BID #60 tablet Primary Care Physician: Johann Bailey DO [Primary Care Provider] - Please follow up with your Primary Care Physician in: at regular office visit Please Follow Up With: Kris Kamara MD When: call for appointment Disposition: Home Minutes spent on discharge:: 25 Patient Condition:: Stable Medical Necessity - Tobacco Use Smoking Status: Current every day smoker Tobacco Use: Cigarettes Meaningful Use Info Meaningful Use Diagnoses (Choose all that apply): None applicable Code Visit OBSV E AND M: 89701 Observation care discharge 05/07/182014 <Electronically signed by Johann Parikh DO> Date Johann Parikh DO Cosigner Signature (if applicable): Date CC: Johann Bailey DO; Johann Parikh DO Signed 12 LEAD ELECTROCARDIOGRAM Observed: 05/07/2018 Status: F Source: [place] 3:56 PM [facility] REPOSITORY [facility] Cardiovascular Services [address] [place], [place] [id number] 12 Lead EKG 05/05/182024 MR#: [id number] Acct: [id number] Name: GERARDO COREA Marilee Rep #: [id number] : 1985 32 From: Joshua Shipman MD Attending Dr: Johann Parikh DO Status: DIS MADELINE Ordering Dr: Ale Che Date: 05/05/18 [facility] Sex: M C Admitted: 05/05/18 Test Reason : DIRECT ADMIT Blood Pressure : / mmHG Vent. Rate : 065 BPM Atrial Rate : 065 BPM P-R Int : 142 ms QRS Dur : 104 ms QT Int : 410 ms P-R-T Axes : 044 062 053 degrees QTc Int : 426 ms Normal sinus rhythm Normal ECG When compared with ECG of 15-JAN-2018 13:43, No significant change was found Confirmed by JOSHUA SHIPMAN MD ([id number]), news video editor SYLVIA THOMASON ([id number]) on 05/07/2018 3:55:58 PM Referred By: Ale Che Confirmed By:JOSHUA SHIPMAN MD 05/07/18 1556 Date Joshua Shipman MD CC: Ale Che; Johann Bailey DO; Johann Parikh DO Signed RENAL ARTERY DUPLEX Observed: 05/06/2018 Status: F Source: [place] 5:10 PM [facility] REPOSITORY [facility] Cardiovascular Services [address] [place] [address] Renal Artery Duplex Ultrasound 05/06/18 0801 MR#: [id number] Acct: [id number] Name: GERARDO COREA Rep #: [id number] : 1985 32 From: Dionisio Alonso MD Attending Dr: Johann Parikh DO Status: DIS MADELINE Ordering Dr: Ale Che Date: 05/06/18 [facility] Sex: M C Admitted: 05/05/18 Reason For Study: HYPERTENSION Right Renal Artery Transplant artery Origin - 111.0/20.1 cm/s Prox - 111.0/20.1 cm/s Mid - 95.8/20.1 cm/s Distal - 89.2/19.6 cm/s RT RAR - 1.2. Right Renal Parenchyma Upper Pole Medula 17.6/5.7 PSV/EDV. Right upper pole medulla EDR .32 . Right upper pole medulla R.I. .68 . Upper Jass Cortx 13.3/4.0 PSV/EDV. Right upper pole cortex EDR .30 . Right upper pole cortex R.I. .70 . Right lower Pole medulla 30.9/10.7 PSV/EDV . Right lower pole medulla EDR .35 . Right lower pole medulla R.I. .65 . Lower Pole Cortex 20.6/6.7 PSV/EDV. Right lower pole cortex EDR .33 . Right lower pole cortex R.I. .68 . Right Renal Hilar Right Hilar avg 69.3/15.5 PSV/EDV. Right hilar acceleration time 51 m/sec. Right Renal Dimensions Right kidney size 12.0 cm . Right cortical dimension 1.2 cm . Aorta Proximal abdominal aorta 1.8 x 1.7 cm . Distal abdominal aorta 1.5 x 1.6 cm . Proximal abdominal aorta peak systolic velocity is 93.0 cm/sec . Distal abdominal aorta peak systolic velocity is 102.0 cm/sec . Interpretation Summary Right kidney 12 cm length Right renal transplant artery with <60% stenosis. No criteria exist for transplant artery evaluation but normal flows are identified. Abdominal aorta 1.78 x 1.72 cm maximally proximally Ordering Physician: Ale Che Referring Physician: Johann Bailey Performed By: Jennifer Castorena RVT 05/06/18 4353 Date Dionisio Alonso MD CC: Ale Che; Johann Bailey DO; Johann Parikh DO Date Dictated: 05/06/18 0801 Date Transcribed: 05/06/181708 Rn Care Transition: Signed DISCHARGE INSTRUCTION Observed: 05/06/2018 Status: F Source: [place] 11:30 AM [facility] REPOSITORY [facility] Medical Records Department [address] [place] [address] Instructions for Home/Discharge Instructions 05/06/18 1128 MR#: [id number] Acct: [id number] Name: GERARDO COREA Rep #: [id number] : 1985 32 From: Johann Parikh DO PCP: Johann Bailey DO Status: ADM IN - Discharge Diagnoses Current Active Problems: Current Active and Chronic Problems TED (acute kidney injury) (Acute) CKD (chronic kidney disease) stage 3, GFR 30-59 ml/min (Chronic) Uncontrolled hypertension (Acute) HTN (hypertension) (Chronic) Tobacco use (Chronic) GERD (gastroesophageal reflux disease) (Chronic) You will use the following diet at home:: No restrictions Your food should be the consistency of: Regular Your liquids should be the consistency of: Regular/Thin Discharge Activity: Return to Normal Activity Weight Bearing Status: Full weight bearing Allergies/Adverse Reactions: Allergies No Known Allergies Allergy (Verified 01/19/18 22:05) Medications to take at Discharge Cholecalciferol (Vitamin D3) [Vitamin D3] 2,000 unit PO DAILY 01/15/18 Mycophenolate Mofetil [Cellcept] 750 mg PO BID 01/15/18 Acetaminophen [Tylenol Tablet] 650 mg PO Q6H PRN PRN tablet 01/21/18 Oxycodone [Oxyir] 5 mg PO Q4H PRN PRN 7 Days #25 tablet 01/21/18 Tacrolimus Anhydrous [Prograf] 3 mg PO BID #1 capsule 01/21/18 Cholecalciferol (Vitamin D3) [Vitamin D3] 2,000 unit PO 05/05/18 Pantoprazole Sodium [Protonix] 40 mg PO BID 05/05/18 Acetaminophen [Tylenol Tablet] 650 mg PO Q6H PRN PRN tablet 05/06/18 Amlodipine [Norvasc] 5 mg PO DAILY tablet 05/06/18 Furosemide [Lasix] 40 mg PO DAILY #30 tablet 05/06/18 Labetalol [Trandate (Beta Evelian)] 100 mg PO BID #60 tablet 05/06/18 The following prescriptions were given: Furosemide [Lasix] 40 mg PO DAILY #30 tablet Labetalol [Trandate (Beta Evelina)] 100 mg PO BID #60 tablet Primary Care Physician: Johann Bailey DO [Primary Care Provider] - Please follow up with your Primary Care Physician in: at regular office visit Test Results: Test results from this visit will be discussed in further detail at your follow-up appointment, if applicable. Please Follow Up With: Kris Kamara MD When: call for appointment 05/06/18 1130 <Electronically signed by Johann Parikh DO> Date Johann Parikh DO CC: Lucina Kamara M.D.; Johann Bailey DO CONSULTATION Observed: 05/06/2018 Status: F Source: [place] 9:35 AM [facility] Medical Records Department [address] [place] [address] Consultation 05/06/18 0923 MR#: [id number] Acct: [id number] Name: GERARDO COREA Rep #: [id number] : 1985 32 From: Kris Kamara MD PCP: Johann Bailey DO Status: ADM IN Location: [place] [address] Problem List (1) TED (acute kidney injury) Status: Acute (2) Uncontrolled hypertension Status: Acute Consultation - Renal 05/06/18 PCP/ Referring MD: Requesting physician: Dr Che Primary care physician: Johann Bailey DO Reason for Consultation:: TED Kidney transplant - History of Present Illness History of Present Illness: The patient is a 32 year old M well known to us, 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 12 year out. on immunosupression as below recently had high BP readings, edema, poor appetite and weakness all within last 2 weeks several medications were adjusted , amlodipine to 10 mg daily, addition of chlorthalidone and addition of clonidine. BP remained high hence referred to admission overnight he received lasix 40 mg BID IV. feels better - Allergies Allergies: Allergies No Known Allergies Allergy (Verified 01/19/18 22:05) - Current Medications Current Medications: Current Medications Acetaminophen (Tylenol) 650 mg PO Q6H PRN PRN PRN Reason: Non-cardiac pain (mod-severe) Al Hydroxide/Mg Hydroxide (Mylanta Ii) 30 ml PO Q6H PRN PRN PRN Reason: Gastric burning Amlodipine Besylate (Norvasc) 5 mg PO DAILY [facility] Last Admin: 05/06/18 08:47 Dose: 5 mg Cholecalciferol (Vitamin D) 2,000 unit PO DAILYCM [facility] Last Admin: 05/06/18 08:47 Dose: 2,000 unit Furosemide (Lasix) 40 mg IV BID@1000,1800 [facility] Last Admin: 05/06/18 08:47 Dose: 40 mg Heparin Sodium (Porcine) (Heparin Na) 5,000 unit SC Q12 [facility] Last Admin: 05/06/18 08:47 Dose: Not Given Hydralazine HCl (Apresoline Iv) 10 mg IV Q4H PRN PRN PRN Reason: SBP > 160 Labetalol HCl (Trandate) 100 mg PO BID [facility] Last Admin: 05/06/18 08:47 Dose: 100 mg Magnesium Hydroxide (Milk Of Magnesia) 30 ml PO DAILY PRN PRN Reason: Constipation Mycophenolate Mofetil (Cellcept) 750 mg PO BID [facility] Last Admin: 05/06/18 08:47 Dose: 750 mg Ondansetron HCl (Zofran) 4 mg IV Q8H PRN PRN PRN Reason: NAUSEA Pantoprazole Sodium (Protonix) 40 mg PO BID [facility] Last Admin: 05/06/18 08:47 Dose: 40 mg Sodium Chloride () 5 - 30 ml IV UD PRN PRN Reason: SALINE FLUSH Tacrolimus (Prograf) 3 mg PO BID [facility] Last Admin: 05/06/18 08:47 Dose: 3 mg - Past Medical History Past Medical History (Chronic Problems): Chronic Problems Elevated serum creatinine (Chronic) History of kidney transplant (Chronic) CKD (chronic kidney disease) stage 3, GFR 30-59 ml/min (Chronic) HTN (hypertension) (Chronic) Tobacco use (Chronic) GERD (gastroesophageal reflux disease) (Chronic) - Past Surgical History Surgical History: - - Renal transplant, fistula insertion/creation x 2 - Social History Smoking Status: Current every day smoker Alcohol: None Drugs: None - Family History Maternal History Items: - - Mother healthy, donated her kidney to her son. Paternal History Items: Diabetes, Hypertension Review of Systems Constitutional: Denies: Chills, Fever, Weight Change HEENT: Denies: Head Aches, Sinus Congestion, Sinus Drainage Cardiovascular: Denies: Chest Pain, Palpitations Respiratory: Denies: Cough, Shortness of breath at rest, Sputum production Gastrointestinal: Denies: Abdominal Pain, Nausea, Vomiting Genitourinary: Denies: Dysuria Musculoskeletal: Denies: Joint Pain, Joint Tenderness Skin: Denies: Rash, Wounds Neurological: Denies: Numbness, Tingling, Focal weakness Psychiatric: Denies: Anxiety, Depression, Homicidal Ideations, Suicidal Ideations Hematologic/ Lymphatic: Denies: Easy Bruising, Easy Bleeding Patient Problems: Active and Suspected Problems TED (acute kidney injury) (Acute) Uncontrolled hypertension (Acute) - Physical Exam General: Alert, Oriented x3, Cooperative HEENT: Atraumatic, PERRLA, EOMI, Normocephalic Neck: Supple, No JVD, Negative Carotid Bruits Lungs: Clear to auscultation, Normal air movement Cardiovascular: Regular rate, No murmurs Abdomen: Bowel Sounds Present, Soft, Non Tender Extremities: No edema, Capillary Refill Less than 3 Seconds Skin: No rashes, No breakdown Musculoskeletal: No Tenderness to Palpation of Joints or Extremities Neurological: Cranial nerves II-XII grossly intact Psych/Mental Status: Normal Affect, Appropriate Vital Signs Temp Pulse Resp BP Pulse Ox 97.4 F L 65 18 147/94 H 97 05/06/18 08:38 05/06/18 08:38 05/06/18 08:57 05/06/18 08:38 05/06/18 08:38 Oxygen Delivery Method Room Air Weight: 97.6 kg Body Mass Index (BMI) 29.9 Intake and Output for Last 24 Hours Intake Total 240 / 240 Output Total 1375 / 1375 Balance -1135 / -1135 Laboratory Tests Past 24 Hrs Assessment/Plan All Active Problems Cellulitis (Acute) TED (acute kidney injury) (Acute) Uncontrolled hypertension (Acute) TED CKD stage 3 kidney transplant Creatinine most of last year is 2 to 2.4. now around 3.2 or so primary kidney disease was related FSGS creatinine is more than baseline overall. ? progression of kidney disease vs sub acute rejection will plan for a kidney biopsy as outpatient HTN. likely volume related continue amlodipine 5 mg daily change lasix to 40 mg PO daily continue labetalol at current dose will follow on renal doppler d/w Dr Parikh 05/06/18 0935 <Electronically signed by Kris Kamara MD> Date Kris Kamara MD Cosigner Signature (if applicable): Date CC: Ale Che; Lucina Kamara M.D.; Johann Bailey DO Signed BASIC METABOLIC Collected: 05/06/2018 Status: F Source: [place] PROFILE (BMP) 5:50 AM [facility] REPOS[facility] TYPE CODE TESTS RESULT OUT OF RANGE REFERENCE UNITS LAB L501.0100 74-106 mg/dL Normal GLU 104 Result Comment: Fasting Glucose result from 100 to 125 mg/dL suggests IMPAIRED HOMEOSTASIS per A.D.A. criteria. Please note revised GLUCOSE reference range effective 2017. LAB L501.1000 7-18 mg/dL High BUN 46 LAB L501.1100 0.70-1.30 mg/dL High CREAT,SERUM 3.25 Result Comment: The validity of the calculated GFR AND GFRAA in patients over 70 years has not been determined. Clinical correlation is essential. LAB L501.1110 >60 mL/min Low EST GFR 23 Result Comment: Non- GFR Calc LAB L501.1115 >60 mL/min Low EST GFR - AA 28 Result Comment: GFR Calc LAB L501.1255 ml/min Normal Estimated CRCL 34.11 LAB L501.1300 10-20 RATIO Normal BUN/CRE 14.2 LAB L501.2200 8.5-10 mg/dL Normal .1 CA 8.6 LAB L501.5300 136-14 mmol/L Normal 5 NA 141 LAB L501.5600 3.5-5. mmol/L Normal 1 K 3.6 LAB L501.5900 98-107 mmol/L High CL 110 LAB L501.6100 21.0-3 mmol/L Low 2.0 CO2 20.0 LAB L501.6200 5-15 Normal GAP 11 Performed By: #### L500.2500 #### [facility] [address] [place], [place], [address] CBC-COMPLETE BLOOD CNT Collected: 05/05/2018 Status: F Source: [place] NO DIFF 8:45 PM [facility] REPOS[facility] TYPE CODE TESTS RESULT OUT OF RANGE REFERENCE UNITS LAB L100.1000 4.4-11.0 K/mm3 Normal WBC 9.0 LAB L100.1200 4.6-6.2 M/mm3 Normal RBC 4.64 LAB L100.1300 13.0-16.5 g/dl Normal HGB 14.5 LAB L100.1400 40-54 % Normal HCT 42.1 LAB L100.1500 80-94 fL Normal MCV 90.7 LAB L100.1600 27.0-32.0 pg Normal MCH 31.3 LAB L100.1700 32-36 g/gl Normal MCHC 34.4 LAB L100.1810 11.6-14.6 % Normal RDW CV 13.9 LAB L100.1820 35.1-43.9 fl High RDW SD 45.7 LAB L100.1900 150-450 K/mm3 Normal PLT 208 LAB L100.2000 6.2-12.0 fl Normal MPV 10.9 Performed By: #### L100.0500 #### [facility] [address] [place], [place], [id number] COMPREHENSIVE METABOLIC Collected: 05/05/2018 Status: F Source: [place] PROFIL 8:45 PM [facility] TYPE CODE TESTS RESULT OUT OF RANGE REFERENCE UNITS LAB L501.0100 74-106 mg/dL High GLU 111 Result Comment: Fasting Glucose result from 100 to 125 mg/dL suggests IMPAIRED HOMEOSTASIS per A.D.A. criteria. Please note revised GLUCOSE reference range effective 2017. LAB L501.1000 7-18 mg/dL High BUN 44 LAB L501.1100 0.70-1.30 mg/dL High CREAT,SERUM 3.32 Result Comment: The validity of the calculated GFR AND GFRAA in patients over 70 years has not been determined. Clinical correlation is essential. LAB L501.1110 >60 mL/min Low EST GFR 23 Result Comment: Non- GFR Calc LAB L501.1115 >60 mL/min Low EST GFR - AA 27 Result Comment: GFR Calc LAB L501.1255 ml/min Normal Estimated CRCL 33.39 LAB L501.1300 10-20 RATIO Normal BUN/CRE 13.3 LAB L501.1500 6.4-8. g/dL Low 2 T PROT 6.3 LAB L501.1800 3.2-5. g/dL Low 0 ALB 2.6 LAB L501.1950 2.2-4. g/dL Normal 2 GLOB 3.7 LAB L501.2000 0.9-2. RATIO Low 4 A/G 0.7 LAB L501.2200 8.5-10 mg/dL Low .1 CA 7.9 LAB L501.4100 15-37 U/L Normal AST 20 Result Comment: Slight Hemolysis, Result may be falsely increased. LAB L501.4305 45-117 U/L High ALK P 126 LAB L501.4405 16-61 U/L Normal ALT 27 LAB L501.4600 0.20-1.00 mg/dL Normal T BILI 0.20 LAB L501.5300 136-145 mmol/L Normal NA 140 LAB L501.5600 3.5-5.1 mmol/L Normal K 3.9 Result Comment: Slight Hemolysis, Result may be falsely increased. LAB L501.5900 98-107 mmol/L High CL 110 LAB L501.6100 21.0-32.0 mmol/L Low CO2 19.0 LAB L501.6200 5-15 Normal GAP 11 Performed By: #### L500.4050, L501.2300, L501.5200 #### [facility] [address] [place], [place], [id number] PHOSPHORUS Collected: 05/05/2018 Status: F Source: [place] 8:45 PM [facility] TYPE CODE TESTS RESULT OUT OF RANGE REFERENCE UNITS LAB L501.2300 2.5-4.9 mg/dL Normal PHOS 4.3 Performed By: #### L500.4050, L501.2300, L501.5200 #### [facility] [address] [place], [address] MAGNESIUM Collected: 05/05/2018 Status: F Source: [place] 8:45 PM [facility] TYPE CODE TESTS RESULT OUT OF RANGE REFERENCE UNITS LAB L501.5200 1.6-2.6 mg/dL Normal MG 1.7 Result Comment: Slight Hemolysis, Result may be falsely increased. Performed By: #### L500.4050, L501.2300, L501.5200 #### [facility] [address] [place], [address] HISTORY AND PHYSICAL Observed: 05/05/2018 Status: F Source: [place] EXAM 8:25 PM [facility] REPOSITORY [facility] Medical Records Department [address] [place] [address] History and Physical 05/05/181952 MR#: [id number] Acct: [id number] Name: ALEX COREAGODWIN Hunt Rep #: [id number] : 1985 32 From: Ale Che PCP: Johann Bailey DO Status: ADM MADELINE Y Location: [place] [address] Problem List (1) TED (acute kidney injury) Status: Acute (2) Uncontrolled hypertension Status: Acute (3) CKD (chronic kidney disease) stage 3, GFR 30-59 ml/min Status: Chronic (4) HTN (hypertension) Status: Chronic Qualifiers: Hypertension type: essential hypertension Qualified Code(s): I10 - Essential (primary) hypertension (5) Tobacco use Status: Chronic (6) GERD (gastroesophageal reflux disease) Status: Chronic Qualifiers: Esophagitis presence: esophagitis presence not specified Qualified Code(s): K21.9 - Gastro-esophageal reflux disease without esophagitis (7) History of kidney transplant Status: Chronic History of Present Illness Date of Admission: 05/05/18 Chief Complaint: TED, Uncontrolled HTN The patient is a 32 y/o M w/ PMHx: ESRD secondary to FSGS s/p LRD Renal Transplant at [facility] 2005 from his mother w/ now CKD stage III progressing toward CKD stage IV w/ baseline Cr prior to current presentation 2.4-2.6, Tobacco use, GERD, HTN who presents to the [facility] on 05/05/18 as direct admission w/ history off worsening hypertension over the last 1 month with Program Director/Air Personality increase of his norvasc but resulting BL LE increased edema and ongoing elevated BP with addition of chlorthalidone and PRN clonidine with intermittent improvement in his BP but worsening renal function w/ Cr 3.4, notably increased from baseline. Discussed case w/ Dr. Kamara who has been caring for the patient. At home his BPs have been varying, 150/105-->SBP in the 180s. He upon presentation notes having taken clonidine today secondary to elevated BPs. He has been wearing SYLVIA hose for the last 3 days secondary to the severity of the edema, 2+ pitting prior his notes with some improvement with these interventions. He denies any chest pain, dyspnea, headaches, vision changes with recent elevated BPs. Past Medical History Past Medical History (Chronic Problems): Chronic Problems Elevated serum creatinine (Chronic) History of kidney transplant (Chronic) CKD (chronic kidney disease) stage 3, GFR 30-59 ml/min (Chronic) HTN (hypertension) (Chronic) Tobacco use (Chronic) GERD (gastroesophageal reflux disease) (Chronic) Allergies No Known Allergies Allergy (Verified 01/19/18 22:05) Home Medications: Ambulatory Orders Medication Instructions Recorded Cholecalciferol (Vitamin D3) 2,000 unit PO DAILY 01/15/18 [Vitamin D3] Mycophenolate Mofetil [Cellcept] 750 mg PO BID 01/15/18 Surgical History: - - Renal transplant, fistula insertion/creation x 2 Psychiatric History: No pertinent psych hx Lives: Spouse/ Significant Other Tobacco Use: Cigarettes - 3-4 per day. Alcohol: None Drugs: None - *Family History Maternal History Items: - - Mother healthy, donated her kidney to her son. Paternal History Items: Diabetes, Hypertension Review of Systems Constitutional: Denies: Chills, Fever, Weight Change HEENT: Denies: Head Aches, Sinus Congestion, Sinus Drainage Cardiovascular: Denies: Chest Pain, Palpitations Respiratory: Denies: Cough, Shortness of breath at rest, Sputum production Gastrointestinal: Denies: Abdominal Pain, Nausea, Vomiting Genitourinary: Denies: Dysuria Musculoskeletal: Denies: Joint Pain, Joint Tenderness Skin: Denies: Rash, Wounds Neurological: Denies: Numbness, Tingling, Focal weakness Psychiatric: Denies: Anxiety, Depression, Homicidal Ideations, Suicidal Ideations Hematologic/ Lymphatic: Denies: Easy Bruising, Easy Bleeding VTE Information - Inpt Only VTE Present on Admission: No VTE Mechan Device Prophylaxis: SCD's VTE Pharm Prophylaxis ordered?: Yes Patient Problems: Active and Suspected Problems TED (acute kidney injury) (Acute) Uncontrolled hypertension (Acute) Subjective: Seated upright in the bed, NAD currently. Objective: Physical Examination: General: awake, alert, oriented x 3 and cooperative, seated upright in bed in no apparent distress. Skin: normal color, turgor, no icterus, cyanosis. HEENT: AT/NC, EOMI, PERRLA, MMM, no carotid bruits or JVD noted. Lungs: CTA bilaterally, moderate effort, mild decrease BL bases, no rales, ronchi or wheezing. Heart: Regular rate and rhythm; no gallop, rub audible. Abdomen: soft, overweight, NTTP, ND, normal BS, no HSM. Extremities: no cyanosis, clubbing, BL LE pedal to proximal huff 1+ pitting edema, and patient note was worse prior, has been wearing TEDs, LUE w/ fistula present. Neurological: patient awake, alert, oriented x 3; cognitive function intact; pupils equally reactive to light and accomodation; cranial nerves II-XII grossly normal, moving all 4 extremities, no focal deficits, strength preserved. Psychiatric: affect appears normal, no acute evidence of depressive or anxiety feelings. Assessment/Plan All Active Problems Cellulitis (Acute) TED (acute kidney injury) (Acute) Uncontrolled hypertension (Acute) The patient is a 32 y/o M w/ PMHx: ESRD secondary to FSGS s/p LRD Renal Transplant at [facility] 2005 from his mother w/ now CKD stage III progressing toward CKD stage IV w/ baseline Cr prior to current presentation 2.4-2.6, Tobacco use, GERD, HTN who presents to the [facility] on 05/05/18 as direct admission w/ history off worsening hypertension over the last 1 month with Program Director/Air Personality increase of his norvasc but resulting BL LE increased edema and ongoing elevated BP with addition of chlorthalidone and PRN clonidine with intermittent improvement in his BP but worsening renal function. (1) Acute kidney injury on CKD stage III: Secondary to his worsened hypertension and also nephrotoxic regimen in addition to possibly allograft dysfunction w/ possibly recurrence FSGS. Admission Cr 3.[address] Kamara recent report, prior baseline creatinine noted to be 2.4-2.6. Given concurrent uncontrolled hypertension with BL LE edema per discussion w/ Nephrology will obtain renal artery doppler of specifically the transplanted kidney as suspectible to stenosis, initiate IV lasix 40 mg BID, decrease norvasc to 5 mg daily, discontinue chlorthalidone, add labetolol, add hydralazine if needed. Repeat BMP upon admission and in AM. (2) Uncontrolled Hypertension: Per discussion w/ Nephrology will place on lasix IV 40 mg BID given worsened BL LE edema and worsened renal function w/ likely ineffectiveness of other agents, decrease the prior norvasc back to 5 mg daily which he had been on prior, add labetolol. PRN hydralazine. If severely worsens may consider transitioning to drip. Snug RADHA wraps. (3) Renal Transplant Status: Maintain on home cellcept, prograf. Possible allograft dysfunction w/ possibly recurrence FSGS. Continue evaluation as noted #1. (4) Tobacco Abuse: Encouraged cessation, inpatient consultation per RT, defer NR given only 3-5 cigarette/day (5) GERD: PPI. (6) DVT Prophylaxis: SCDs, heparin. Code Visit Inpatient E AND M: [id number] Init Hosp L3 05/05/182024 <Electronically signed by Ale Che > Date Ale Che Cosigner Signature: Date (if applicable) CC: Ale Che; Johann Bailey DO Signed BMP WITH EGFR Collected: 05/05/2018 Status: F Source: [place] 2:40 PM [facility] REPOSITORY TYPE CODE TESTS RESULT OUT OF RANGE REFERENCE UNITS LAB BMP with eGFR(LOINC) BMP with eGFR Result Comment: BASIC METABOLIC PANEL LAB SODIUM(LOINC) 136 - 145 mmol/l SODIUM 136 LAB POTASSIUM(LOINC) 3.5 - 5.1 mmol/L POTASSIUM 3.8 LAB CHLORIDE(LOINC) 98 - 107 mmol/L CHLORIDE High 108 LAB CO2(LOINC) 21.0 - mmol/L 31.0 CO2 Low 17.9 LAB GLUCOSE(LOINC) 74 - 106 mg/dl GLUCOSE High 116 LAB BUN(LOINC) 6 - 20 mg/dl BUN High 44 LAB CREATININE(LOINC) 0.7 - 1.3 mg/dl High CREATININE 3.3 LAB CALCIUM(LOINC) 8.6 - mg/dl 10.2 CALCIUM 9.1 LAB ANION GAP(LOINC) 10 - 20 mmol/L ANION GAP 14 LAB AGE(LOINC) years AGE 32 LAB eGFR(LOINC) 60 - 999 ML/MINUTE eGFR Low 22 LAB eGFR(AA)(LOINC) 60 - 999 ML/MINUTE eGFR(AA) Low 26 Result Comment: ACCORDING TO THE NATIONAL KIDNEY DISEASE EDUCATION PROGRAM(NKDE), A NORMAL eGFR IS A VALUE GREATER THAN OR EQUAL TO 60 ML/MIN/1.73 SQ METERS. CHRONIC KIDNEY DISEASE: <60mL/MIN/1.73 SQ METERS KIDNEY FAILURE: <15mL/MIN/1.73 SQ METERS THIS TEST SHOULD ONLY BE USED FOR PATIENTS 18 YEARS OF AGE AND OLDER. Performed By: #### [id number] #### [facility],[address] [place] [address] TACROLIMUS/FK506 [CCL] Collected: 05/05/2018 Status: F Source: [place] 2:40 PM [facility] REPOSITORY TYPE CODE TESTS RESULT OUT OF RANGE REFERENCE UNITS LAB TACROLIMUS/ FK506 [CCL](LOINC ) TACROLIMUS/F K506 [CCL] Result Comment: _TACROLIMUS/FK506 [CCL]_ TACROLIMUS/FK506 [CCL] Reported: 05/06/2018 13:22 Status=F TEST RESULT FLAG RANGE UNITS Tacrolimus / FK506 8.8 5.0-20.0 ng/mL 05/06/18.1324.rfl.COMPLETE.ATLR These reference ranges are provided as a general recommendation. Individualized target levels for a given patient will depend on many factors (including the type of organ transplant, time since transplantation, concurrent medications, and other clinical factors), and should be assessed by those health care providers experienced in the management of immunosuppression. Reference ranges and high/low indicator flags are provided as general guidelines only. The treating physician must determine appropriate target levels/dosing based on the specific clinical situation. Test performed by chemiluminescent immunoassay using [employer]. Performed By: #### [id number] #### [facility],[address] [place] [address] PTH, INTACT [CCL] Collected: 05/05/2018 Status: F [facility] REPOSITORY TYPE CODE TESTS RESULT OUT OF REFERENCE UNITS RANGE LAB PTH, INTACT [CCL](LOINC) PTH, INTACT [CCL] Result Comment: _PTH, INTACT [CCL]_ PTH, INTACT [CCL] Reported: 05/06/2018 13:22 Status=F TEST RESULT FLAG RANGE UNITS PTH, Intact 418 H 15-65 pg/mL 05/06/18.1324.rfl.COMPLETE.ATLR Performed By: #### [id number] #### [facility],[address] [place] [address] PTH, INTACT Collected: 05/05/2018 Status: F Source: [place] 2:40 PM CLINIC REFERENCE REPOSITORY TYPE CODE TESTS RESULT OUT OF REFERENCE UNITS RANGE LAB PTH(LOINC) 15-65 pg/mL High PTH, Intact 418 Performed By: #### PTHI #### [facility] Routine Lab [address] [address] #### FK506 #### [facility] Immunology [address] [place] [id number] TACROLIMUS / FK506 Collected: 05/05/2018 Status: F Source: [place] 2:40 PM CLINIC REFERENCE REPOSITORY TYPE CODE TESTS RESULT OUT OF REFERENCE UNITS RANGE LAB FK506(LOIN 5.0-20.0 ng/mL C) Tacrolimus / 8.8 FK506 Performed By: #### PTHI #### [facility] Routine [facility] [address] [place] [address] #### FK506 #### [facility] [address] [place] [address] FINAL SURGICAL Observed: 04/09/2018 Status: C Source: [facility] PATHOLOGY REPORT 2:19 PM [facility]ATION REPOSITORY . Pathology Reports Accession: Collected Date/Time: Received Date/Time: Pathologist: [id number] 04/09/2018 14:19 EDT 04/09/2018 14:20 EDT MD BRI DA SILVA Final Surgical Pathology Report CORRECTED REPORT: CORRECTED REPORT DUE TO INCORRECT LOCATION ENTERED DURING REGISTRATION. THERE WAS NO CHANGE IN THE DIAGNOSIS. REFER TO [id number]. DIAGNOSIS: A) GASTRO-ESOPHAGEAL JUNCTION, BIOPSY: - MODERATE REFLUX ASSOCIATED CHANGES AND FRAGMENTS 0F FIBRINOPURULENT DEBRIS SUGGESTING BIOPSY FROM REGION OF ULCERATION. - NO MORPHOLOGIC EVIDENCE OF MALIGNANCY OR VIRAL CYTOPATHIC EFFECT. - GASTRIC MUCOSA WITH MODERATE CHRONIC INFLAMMATION IS ALSO PRESENT. - NEGATIVE FOR ROMEO'S. - PAS STAIN IS NEGATIVE FOR FUNGAL MICRO-ORGANISMS. B) ESOPHAGEAL ULCER, BIOPSY: - SQUAMOUS ESOPHAGEAL MUCOSA WITH ACUTE INFLAMMATION AND A SMALL AREA OF FIBRINOPURULENT DEBRIS CONSISTENT WITH BIOPSY FROM REGION OF ULCERATION. - NO EVIDENCE OF MALIGNANCY IN THIS BIOPSY SPECIMEN. COMMENT: [facility] # [id number] CLINICAL INFORMATION: DYSPHAGIA/ ESOPHAGEAL ULCER SPECIMEN: A ESOPH, BX - GE JUNCTION B ESOPH, BX - ESOPHAGEAL ULCER GROSS DESCRIPTION: A. Received in formalin labeled A are a few white-pink tissue fragments ranging from minute to 0.2 cm. TS -1 B. Received in formalin labeled BR few sepulveda tissue fragments ranging from 0.2-0.4 cm. TS -1 Dictated by Stefania RANDLE ([facility]) MICROSCOPIC DESCRIPTION: Slides reviewed. Electronically Signed by Pathology Report verified by [facility] Electronically signed by BRI DA SILVA MD Sign out Date: 06/17/2018 12:41 Performing Lab: [facility], [address] [place] [address] [place] Performed By: #### SPFR #### [address] [place] [address] FINAL SURGICAL Observed: 04/09/2018 Status: F Source: [facility] PATHOLOGY REPORT 10:45 AM [facility] REPOSITORY . Pathology Reports Accession: Collected Date/Time: Received Date/Time: Pathologist: [id number] 04/09/2018 10:45 EDT 04/09/2018 10:47 EDT MD BRI DA SILVA Final Surgical Pathology Report DIAGNOSIS: A) GASTRO-ESOPHAGEAL JUNCTION, BIOPSY: MODERATE REFLUX ASSOCIATED CHANGES AND FRAGMENTS OF FIBRINOPURULENT DEBRIS SUGGESTING BIOPSY FROM REGION OF ULCERATION. NO MORPHOLOGIC EVIDENCE OF MALIGNANCY OR VIRAL CYTOPATHIC EFFECT. GASTRIC MUCOSA WITH MODERATE CHRONIC INFLAMMATION IS ALSO PRESENT. NEGATIVE FOR ROMEO'S. PAS STAIN IS NEGATIVE FOR FUNGAL MICRO-ORGANISMS. B) ESOPHAGEAL ULCER, BIOPSY: SQUAMOUS ESOPHAGEAL MUCOSA WITH ACUTE INFLAMMATION AND A SMALL AREA OF FIBRINOPURULENT DEBRIS CONSISTENT WITH BIOPSY FROM REGION OF ULCERATION. NO EVIDENCE OF MALIGNANCY IN THIS BIOPSY SPECIMEN. COMMENT: [facility] - A# [id number] CLINICAL INFORMATION: DYSPHAGIA/ESOPHAGEAL ULCER SPECIMEN: A ESOPH, BX - GE JUNCTION B ESOPH, BX - ESOPHAGEAL ULCER GROSS DESCRIPTION: A. Received in formalin labeled A are a few white-pink tissue fragments ranging from minute to 0.2 cm. TS-1. B. Received in formalin labeled B are a few sepulveda tissue fragments ranging from 0.2 - 0.4 cm. TS-1. Dictated by Stefania RANDLE ([facility]) MICROSCOPIC DESCRIPTION: Slides reviewed. Electronically Signed by Pathology Report verified by [facility] Electronically signed by BRI DA SILVA MD Sign out Date: 06/17/2018 09:57 Performing Lab: [facility], [address] [place] [address] Performed By: #### SPFR #### [address] [place] [address] Observed: 04/09/2018 Status: F Source: [place] H.PYLORI SCREEN(CLOTEST) 8:49 AM [facility] H.PYLORI SCREEN(CLOtest) CLOtest 1 hour _NEGATIVE 04/09/18.1010.JLN. 3 hour _NEGATIVE 04/09/18.1314.JLN. 24 HOURS _NEGATIVE 04/10/18.1009.KLS. CLOtest USE IS INTENDED FOR THE PRESUMPTIVE DIAGNOSIS OF H. PYLORI INFECTION. IF THERE ARE FACTORS THAT MIGHT ADVERSELY AFFECT THE PERFORMANCE OF THE CLOtest, CONSIDER OTHER DIAGNOSTIC MEASURES SUCH SEROLOGY TO EXCLUDE A DIAGNOSIS OF H. PYLORI IN PATIENTS WITH CLINICAL SYMPTOMS OF GASTROINTESTINAL DISEASE. Performed By: #### [id number] #### [facility],[address] [place], [place] [id number] OPERATIVE PROCEDURES Observed: 04/09/2018 Status: F [facility] AM [facility] OPERATIVE REPORT NAME ACCOUNT SEX AGE ADMIT DISCHARGE PT MED. RECORD# NUMBER DATE DATE TYPE NAHOMY, [id number] 04/09/18 04/09/18 2 MARIAMALIBIA [id number] ROOM: [facility] DATE OF : 1985 DICTATING PHYSICIAN: Yudy Kelley DATE OF SURGERY: April 09, 2018 SURGEON: Yudy Kelley MD INDUSTRIAL TRAINING SPECIALIST: ANESTHESIOLOGIST: ANESTHETIC: MAC. PREOPERATIVE DIAGNOSIS: Dysphagia. POSTOPERATIVE DIAGNOSIS: (1) Dysphagia. (2) Schatzki's ring. (3) Esophageal ulcers. OPERATION PERFORMED: (1) EGD. (2) Esophageal balloon dilatation. (3) SUYAPA test of the gastric antrum. (4) Random four-quadrant biopsy of the GE junction. (5) Random cold grasp biopsy of the esophageal ulcers. COMPLICATIONS: None. ESTIMATED BLOOD LOSS: Minimal. DRAINS: None. SPECIMENS: (1) SUYAPA test. (2) GE junction. (3) Esophageal ulcers. SIGNIFICANT FINDINGS: Positive Schatzki's ring with associated GE junction edema and inflammation. Positive partially-healed esophageal ulcers in the lower esophagus. DISPOSITION: Home. Diet: Regular. Activity: Regular. Medications: The patient was encouraged and re-prescribed omeprazole 40 mg p.o. b.i.d. and was instructed to resume all previous home medications. Work: The patient was instructed that he may return to work tomorrow. Follow up in Dr. Kelley's clinic in 2 weeks. DESCRIPTION OF OPERATION: Prior to initiation of MAC anesthesia, the patient's Page 1 of 2 GERARDO COREA Operative Report oropharyngeal cavity was locally anesthetized, and a bite block was placed. Following the initiation of MAC anesthesia, the patient was placed in the left lateral decubitus position. The flexible endoscope was then introduced into the oral cavity and advanced under direct visualization. The upper and middle esophagus were without significant findings. Upon approaching the lower esophagus, the patient was noted to have partially-healed esophageal ulcers circumferentially along the lower esophagus just proximal to the GE junction. The GE junction was noted to be edematous as well. In addition, the GE junction was noted to be significantly narrowed. The endoscope was then advanced into the stomach and the stomach insufflated with CO2 gas. There were no abnormalities appreciated along the gastric body. The scope was advanced to the gastric antrum and retroflexed. On retroflexion, no abnormalities were appreciated. The scope was then straightened and advanced to the second portion of the duodenum. There were no abnormalities within the second portion of the duodenum, first portion of the duodenum, or the duodenal bulb. The scope was then withdrawn back to the gastric antrum, where SUYAPA testing was performed. The scope was then withdrawn to the level of the GE junction, where random four-quadrant cold grasp biopsies were obtained. The scope was then withdrawn more proximally to the area of the esophageal ulcerations, and cold grasp biopsies were obtained from 3 or 4 esophageal ulcers. Because of the Schatzki's ring and the complaint of dysphagia, balloon dilatation to 15 mm was performed x2 with each dilatation being sustained for at least one minute. The balloon was desufflated, and the esophagus was inspected and found to be intact. The scope was inserted into the stomach and the stomach desufflated. The scope was then slowly withdrawn. The oropharyngeal cavity was inspected on the way out and found to be within normal limits. The scope was then removed. The patient was awakened and taken to the PACU in good and stable condition. Dictated By: Yudy Kelley MD 04/10/18 10:24 JOB #: [id number] Transcribed By: maribel 04/10/18 12:42 Electronically signed by: E-SIGN DR. KELLEY 04/17/18 10:17 Page 2 of 2 GERARDO COREA Operative Report BMP WITH EGFR Collected: 02/25/2018 Status: F Source: [facility] 6:32 AM [facility] REPOSITORY TYPE CODE TESTS RESULT OUT OF RANGE REFERENCE UNITS LAB BMP with eGFR(LOINC) BMP with eGFR Result Comment: BASIC METABOLIC PANEL LAB SODIUM(LOINC) 136 - 145 mmol/l SODIUM 139 LAB POTASSIUM(LOINC) 3.5 - 5.1 mmol/L POTASSIUM 4.3 LAB CHLORIDE(LOINC) 98 - 107 mmol/L CHLORIDE High 111 LAB CO2(LOINC) 21.0 - mmol/L 31.0 CO2 Low 18.5 LAB GLUCOSE(LOINC) 74 - 106 mg/dl GLUCOSE High 112 LAB BUN(LOINC) 6 - 20 mg/dl BUN High 39 LAB CREATININE(LOINC) 0.7 - 1.3 mg/dl High CREATININE 2.6 LAB CALCIUM(LOINC) 8.6 - mg/dl 10.2 CALCIUM 9.4 LAB ANION GAP(LOINC) 10 - 20 mmol/L ANION GAP 14 LAB AGE(LOINC) years AGE 32 LAB eGFR(LOINC) 60 - 999 ML/MINUTE eGFR Low 28 LAB eGFR(AA)(LOINC) 60 - 999 ML/MINUTE eGFR(AA) Low 34 Result Comment: ACCORDING TO THE NATIONAL KIDNEY DISEASE EDUCATION PROGRAM(NKDE), A NORMAL eGFR IS A VALUE GREATER THAN OR EQUAL TO 60 ML/MIN/1.73 SQ METERS. CHRONIC KIDNEY DISEASE: <60mL/MIN/1.73 SQ METERS KIDNEY FAILURE: <15mL/MIN/1.73 SQ METERS THIS TEST SHOULD ONLY BE USED FOR PATIENTS 18 YEARS OF AGE AND OLDER. Performed By: #### [id number] #### [facility],[address] [place] [address] TACROLIMUS [QUEST] Collected: 02/25/2018 Status: F Source: [facility] 6:32 AM [facility] REPOSITORY TYPE CODE TESTS RESULT OUT OF REFERENCE UNITS RANGE LAB TACROLIMUS [QUEST](LOINC) TACROLIMUS [QUEST] Result Comment: _TACROLIMUS_ TACROLIMUS, HIGHLY SENSITIVE, LC/MS/MS Reported: 02/27/2018 06:30 Status=F TEST RESULT FLAG RANGE UNITS TACROLIMUS, LC/MS/MS 4.6 mcg/L 02/27/18.42.rfl.CORRCTD .AMRR .16572-3 No definitive therapeutic or toxic ranges have been established. Optimal blood drug levels are influenced by type of transplant, patient response, time post- transplant, co-administration of other drugs, and drug formulation. The following trough range is a suggested guideline: 5.0-20.0 mcg/L This test was developed and its analytical performance characteristics have been determined by [employer] [place], [place]. It has not been cleared or approved by the U.S. Food and Drug Administration. This assay has been validated pursuant to the CLIA regulations and is used for clinical purposes. Test Performed by [facility] [place], [employer] [place], [address] [place], [place] Lamont Sharp M.D., Ph.D., Director of Laboratories , CLIA [id number] 02/27/18.XMT.SENT REF 02/27/18.XMT.SENT REF Performed By: #### [id number] #### [facility],[address] [place] [id number] OPERATIVE PROCEDURES Observed: 02/20/2018 Status: F Source: [facility] 10:29 AM [facility] OPERATIVE REPORT NAME ACCOUNT SEX AGE ADMIT DISCHARGE PT MED. RECORD# NUMBER DATE DATE TYPE NAHOMY [id number] Marilee 32 02/18/18 Stephanie Hunt [address] ROOM: [facility] DATE OF : 1985 DICTATING PHYSICIAN: Yudy Kelley DATE OF SURGERY: February 18, 2018 SURGEON: Yudy Kelley M.D. INDUSTRIAL TRAINING SPECIALIST: ANESTHESIOLOGIST: ANESTHETIC: MAC. PREOPERATIVE DIAGNOSES: (1) Intractable chronic gastroesophageal reflux disease. (2) Dysphagia. POSTOPERATIVE DIAGNOSES: (1) Hiatal hernia. (2) Schatzki's ring. OPERATION PERFORMED: (1) EGD. (2) Random 4 quadrant cold grasp biopsy of GE junction. (3) Esophageal balloon dilatation. COMPLICATIONS: None. ESTIMATED BLOOD LOSS: Minimal. DRAINS: None. SPECIMEN: GE junction. SIGNIFICANT FINDINGS: Small hiatal hernia without associated gastritis, esophagitis or peptic ulcer disease. Positive Schatzki ring at the GE junction. Balloon dilatation performed without complication. DISPOSITION: Home. DIET: Regular. ACTIVITY: Regular. MEDICATIONS: Regular. Page 1 of 2 NAHOMY GERARDO Marilee Operative Report RECOMMENDATIONS: At this point, recommend patient continue omeprazole and antireflux diet and lifestyle modifications. Additional recommendation will be based on pathology and assessment of dysphagia symptoms following dilatation. He will follow up in Dr. Kelley's clinic in 2 weeks. DESCRIPTION OF OPERATION: Prior to the initiation of MAC anesthesia, the patient's oropharyngeal cavity was locally anesthetized and a bite block was placed. Following initiation of MAC anesthesia, the patient was placed in the left lateral decubitus position. Flexible endoscope was then entered into the oral cavity and advanced under direct visualization. There were no abnormalities appreciated with the upward midesophagus. Upon approaching the lower esophagus at the GE junction, the patient was noted to have a Schatzki's ring. There was no associated esophagitis and/or esophageal ulcers. In addition, the patient was appreciated to have a small hiatal hernia. The scope was advanced into the stomach and the stomach was insufflated with CO2 gas. The gastric body appeared grossly within normal limits. The scope was advanced to the gastric antrum. There were no abnormalities appreciated at the gastric antrum. Retroflexion from this vantage point was performed. Again, the small hiatal hernia was appreciated from the distal view. The scope was then straightened and advanced to the second portion of the duodenum under direct visualization. The scope was then slowly withdrawn. There were no abnormalities within the second portion of the duodenum, first portion of the duodenum of the duodenal bulb. The scope was then withdrawn to the level of the GE junction and the Schatzki's ring and random 4 quadrant cold grasp biopsies were obtained. Esophageal balloon dilation to 15 mm was performed x1 minute. Following dilatation there was no evidence of esophageal rupture, tear or complications. The scope was advanced back into the stomach and the stomach was desufflated. The scope was then slowly withdrawn. The oropharynx was inspected on the way up and found to be within normal limits. Dictated By: Yudy Kelley MD 02/18/18 10:13 JOB #: [id number] Transcribed By: tio 02/18/18 12:02 Electronically signed by: E-SIGN DR. KELLEY 02/20/18 10:28 Page 2 of 2 GERARDO COREA Operative Report FINAL SURGICAL Observed: 02/18/2018 Status: F Source: [facility] PATHOLOGY REPORT 2:27 PM [facility] REPOSITORY . Pathology Reports Accession: Collected Date/Time: Received Date/Time: Pathologist: [id number] 02/18/2018 14:27 EDT 02/18/2018 14:27 EDT DO JOHANN SMALL Final Surgical Pathology Report DIAGNOSIS: G-E JUNCTION: - SQUAMOUS MUCOSA WITH REFLUX ESOPHAGITIS. COMMENT: [facility] - A# [id number] CLINICAL INFORMATION: UPPER GI SCREENING SPECIMEN: A ESOPH, BX - GE JUNCTION GROSS DESCRIPTION: Received in formalin labeled GE junction are 4 white, semitranslucent tissue fragments ranging from 0.2-0.3 cm. TS -1 Dictated by Stefania RANDLE ([facility]) MICROSCOPIC DESCRIPTION: Slides reviewed. Electronically Signed by Pathology Report verified by [facility] Electronically signed by JOHANN SMALL DO Sign out Date: 02/19/2018 12:13 Performing Lab: [facility], [address] [place] [address] Performed By: #### SPFR #### [place] [address] DISCHARGE SUMMARY Observed: 01/26/2018 Status: F Source: [place] 10:20 AM [facility] REPOSITORY [facility] Medical Records Department [address] [place] [address] Discharge Summary 01/26/18 1016 MR#: [id number] Acct: [id number] Name: GERARDO COREA Rep #: [id number] : 1985 32 From: Johann Parikh DO PCP: Johann Bailey DO Status: DIS IN Y [place] [facility] [id number] Discharge Date and Diagnosis Date of Admission: 01/20/18 Date of Discharge: 01/21/18 - Primary Discharge Diagnosis #1 left upper arm cellulitis #2 left upper arm superficial thrombophlebitis #3 kidney disease stage III - Secondary Discharge Diagnosis Chronic Problems Elevated serum creatinine (Chronic) History of kidney transplant (Chronic) Hospital Course and Treatment Operations: None Procedures: None Summary of Care Provided: The patient is a 32 year old M seen in the emergency room at [facility] with chief complaint of left upper arm redness and possible cellulitis, he complained of redness and swelling and discomfort of his left upper arm for approximately 3 days. Patient had recently been admitted to the hospital for acute kidney injury and has been given IV fluids and that same arm. Evaluation in the emergency room showed no leukocytosis on his CBC, his creatinine was 2.9, patient was given a dose of vancomycin and admitted to the hospitalist service on MedSurg 2. Is treated with IV antibiotics and analgesic medications. Patient continued to have left upper arm pain and consideration was given to the fact that the patient might have a DVT in the left upper arm, duplex scan of the left arm was carried out which showed superficial thrombophlebitis in the left arm. I contacted vascular surgery who advised treating the patient with aspirin and warm compresses to the left arm. Nephrology saw the patient in consultation and they agreed that aspirin therapy was permitted with the patient's kidney disease. On 01/21/18, patient was seen and examined and felt to be in stable condition for discharge home Discharge Activity: Return to Normal Activity Return to work on:: 01/27/18 Weight Bearing Status: Full weight bearing Home Medications: Medications to take at Discharge Cholecalciferol (Vitamin D3) [Vitamin D3] 2,000 unit PO DAILY 01/15/18 Mycophenolate Mofetil [Cellcept] 750 mg PO BID 01/15/18 Omeprazole 40 mg PO DAILY 01/15/18 Amlodipine [Norvasc] 5 mg PO DAILY #30 tab 01/17/18 Acetaminophen [Tylenol Tablet] 650 mg PO Q6H PRN PRN tablet 01/21/18 Cephalexin [Keflex] 500 mg PO Q12 #14 cap 01/21/18 Oxycodone [Oxyir] 5 mg PO Q4H PRN PRN 7 Days #25 tablet 01/21/18 Tacrolimus Anhydrous [Prograf] 3 mg PO BID #1 capsule 01/21/18 Following Prescrptions Were Given to Patient: Oxycodone [Oxyir] 5 mg PO Q4H PRN PRN 7 Days #25 tablet PRN Reason: Severe Pain (-04/08) Cephalexin [Keflex] 500 mg PO Q12 #14 cap Tacrolimus Anhydrous [Prograf] 3 mg PO BID #1 capsule Primary Care Physician: Johann Bailey DO [Primary Care Provider] - Please follow up with your Primary Care Physician in: Next Friday at 3:40 pm Disposition: Home Minutes spent on discharge:: 32 Patient Condition:: Stable Medical Necessity - Tobacco Use Smoking Status: Light Smoker (<10/day) Tobacco Use: Cigarettes Meaningful Use Info Meaningful Use Diagnoses (Choose all that apply): None applicable Code Visit Inpatient E AND M: 96686 Disch Hosp 01/26/18 1020 <Electronically signed by Johann Parikh DO> Date Johann Parikh DO Cosigner Signature (if applicable): Date CC: Johann Bailey DO; Johann Parikh DO Signed VENOUS DUPLEX UPPER Observed: 01/21/2018 Status: F Source: [place] [facility] 6:31 PM [facility] REPOSITORY [facility] Cardiovascular Services [address] [place] [id number] Venous Duplex US, Unilateral 01/21/18 0925 MR#: [id number] Acct: [id number] Name: GERARDO COREA Rep #: [id number] : 1985 32 From: Peter Salas MD Attending Dr: Johann Parikh DO Status: DIS IN Ordering Dr: Lyndsey Jimenez MD Date: 01/21/18 Location: [facility] [place] Sex: M C Admitted: 01/20/18 Reason For Study: F/U LUE SVT Left Proximal Left jugular vein is spontaneous, widely patent, phasic, with no intraluminal echogenicity noted. Left subclavian vein is spontaneous, widely patent, phasic, with no intraluminal echogenicity noted. Left Arm Left axillary vein is spontaneous, patent, phasic, competent, compressible and demonstrates augmentation. Left brachial vein is compressible. Cephalic v is partially compressible from wrist to antecubital space Median Cubital vein is dilated and non- compressible. Basilic vein is dilated and non-compressible from axillary/basilic junction to antecubital space. Thrombus does not extend into deep system. No change from previous exam. Left Lower Arm Left radial vein is compressible. Left ulnar vein is compressible. < Interpretation Summary Deep veins of the left upper extremity are patent and compressible segmentally. There is no evidence of deep vein thrombosis. Acute superficial thrombophlebitis is noted in the left cephalic vein from the wrist to the left antecubital space. Acute superficial thrombophlebitis is noted in the left median cubital vein. Acute superficial thrombophlebitis is noted in the left basilic vein from the left antecubital space to the junction with the deep venous system in the axilla, but not extending into the deep venous system. There has been no change since a prior study on 01/20/2018. Ordering Physician: Lyndsey Jimenez Referring Physician: Johann Bailey Performed By: Jennifer Castorena RVT Reason For Study: F/U LUE SVT < Interpretation Summary Ordering Physician: Lyndsey Jimenez Referring Physician: Johann Bailey Performed By: Jennifer Castorena RVT 01/21/18 1830 Date Peter Salas MD CC: Lyndsey Jimenez MD; Johann Bailey DO; Johann Parikh DO Date Dictated: 01/21/18924 Date Transcribed: 01/21/181829 Rn Care Transition: Signed VENOUS DUPLEX UPPER Observed: 01/21/2018 Status: F Source: [facility] 6:27 PM [facility] REPOSITORY [facility] Cardiovascular Services [address] [place] [address] Venous Duplex US, Unilateral 01/20/18 1042 MR#: [id number] Acct: [id number] Name: GERARDO COREA Rep #: [id number] : 1985 32 From: Peter Salas MD Attending Dr: Johann Parikh DO Status: DIS IN Ordering Dr: Lyndsey Jimenez MD Date: 01/20/18 Location: [facility] Sex: M C Admitted: 01/20/18 Reason For Study: LUE pain/swelling Left Proximal Left jugular vein is spontaneous, widely patent, phasic, with no intraluminal echogenicity noted. Left subclavian vein is spontaneous, widely patent, phasic, with no intraluminal echogenicity noted. Left Arm Left axillary vein is spontaneous, patent, phasic, competent, compressible and demonstrates augmentation. Left brachial vein is compressible. Cephalic v is partially compressible from wrist to antecubital space. Median cubital v is dilated and non- compressible. Basilic vein is dilated and non-compressible from Axillary/Basilic junction to antecubital space. Thrombus is at level of but not extending into deep system. Left Lower Arm Left radial vein is compressible. Left ulnar vein is compressible. < Interpretation Summary Deep veins of the left upper extremity are patent and compressible segmentally. There is no evidence of deep vein thrombosis. Acute superficial thrombophlebitis is noted in the left cephalic vein from the wrist to the left antecubital space. Acute superficial thrombophlebitis is noted in the left median cubital vein. Acute superficial thrombophlebitis is noted in the left basilic vein from the left antecubital space to the junction with the deep venous system in the axilla, but not extending into the deep venous system. Ordering Physician: Lyndsey Jimenez Referring Physician: Johann Bailey Performed By: Jennifer Castorena RVT Reason For Study: LUE pain/swelling < Interpretation Summary Ordering Physician: Lyndsey Jimenez Referring Physician: Johann Bailey Performed By: Jennifer Castorena RVT 01/21/181825 Date Peter Salas MD CC: Lyndsey Jimenez MD; Johann Bailey DO; Johann Parikh DO Date Dictated: 01/20/18 1042 Date Transcribed: 01/21/181825 Rn Care Transition: Signed CONSULTATION Observed: 01/21/2018 Status: F Source: [place] 1:48 PM [facility] REPOSITORY [facility] Medical Records Department [address] [place] [address] Consultation 01/21/18 1343 MR#: [id number] Acct: [id number] Name: GERARDO COREA Rep #: [id number] : 1985 32 From: Kris Kamara MD PCP: Johann Bailey DO Status: ADM IN Y Location: [place] [id number] Problem List (1) History of kidney transplant Status: Chronic Consultation - Renal 01/21/18 PCP/ Referring MD: Requesting physician: Dr Jimenez Primary care physician: Johann Bailey DO Reason for Consultation:: Kidney transplant - History of Present Illness History of Present Illness: The patient is a 32 year old M well known to us. 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 was recently admitted here for diarrhea. came back now with LUE cellulitis/thrombophlebitis. Sustained slight TED in last hospital stay. currently feels better - Allergies Allergies: Allergies No Known Allergies Allergy (Verified 01/19/18 22:05) - Current Medications Current Medications: Current Medications Acetaminophen (Tylenol) 650 mg PO Q6H PRN PRN PRN Reason: PAIN Amlodipine Besylate (Norvasc) 5 mg PO DAILY [facility] Last Admin: 01/21/18 10:19 Dose: 5 mg Cephalexin (Keflex) 500 mg PO Q12 SHERLYN Cholecalciferol (Vitamin D) 2,000 unit PO DAILY [facility] Last Admin: 01/21/18 10:19 Dose: 2,000 unit Enoxaparin Sodium (Lovenox) 40 mg SC DAILY [facility] Last Admin: 01/21/18 10:21 Dose: 40 mg Hydromorphone HCl (Dilaudid Inj) 1 mg IV Q2H PRN PRN PRN Reason: SEVERE PAIN (6-10/10) Last Admin: 01/21/18 12:16 Dose: 1 mg Magnesium Hydroxide (Milk Of Magnesia) 30 ml PO DAILY PRN PRN PRN Reason: Constipation Mycophenolate Mofetil (Cellcept) 750 mg PO BID [facility] Last Admin: 01/21/18 10:20 Dose: Not Given Oxycodone HCl (Oxyir) 5 mg PO Q4H PRN PRN PRN Reason: SEVERE PAIN (6-1010) Last Admin: 01/21/18 10:19 Dose: 5 mg Pantoprazole Sodium (Protonix) 40 mg PO DAILY [facility] Last Admin: 01/21/18 10:19 Dose: 40 mg Sodium Chloride () 5 - 30 ml IV UD PRN PRN Reason: SALINE FLUSH Last Admin: 01/21/18 12:16 Dose: 10 ml Tacrolimus (Prograf) 4 mg PO BID [facility] Last Admin: 01/21/18 10:20 Dose: Not Given - Past Medical History Past Medical History (Chronic Problems): Chronic Problems Elevated serum creatinine (Chronic) History of kidney transplant (Chronic) - Past Surgical History Surgical History: - - Renal transplant, fistula insertion - Social History Smoking Status: Light Smoker (<10/day) - Family History Maternal History Items: No pertinent history Paternal History Items: Diabetes, Hypertension Review of Systems Constitutional: Denies: Chills, Fever, Weight Change HEENT: Denies: Head Aches, Sinus Congestion, Sinus Drainage Cardiovascular: Denies: Chest Pain, Palpitations Respiratory: Denies: Cough, Shortness of breath at rest, Sputum production Gastrointestinal: Denies: Abdominal Pain, Nausea, Vomiting Genitourinary: Denies: Dysuria Musculoskeletal: Denies: Joint Pain, Joint Tenderness Skin: Denies: Rash, Wounds Neurological: Denies: Numbness, Tingling, Focal weakness Psychiatric: Denies: Anxiety, Depression, Homicidal Ideations, Suicidal Ideations Hematologic/ Lymphatic: Denies: Easy Bruising, Easy Bleeding Patient Problems: Active and Suspected Problems Cellulitis (Acute) - Physical Exam General: Alert, Oriented x3, Cooperative HEENT: Atraumatic, PERRLA, EOMI, Normocephalic Neck: Supple, No JVD, Negative Carotid Bruits Lungs: Clear to auscultation, Normal air movement Cardiovascular: Regular rate, No murmurs Abdomen: Bowel Sounds Present, Soft, Non Tender Extremities: No edema, Capillary Refill Less than 3 Seconds Skin: No rashes, No breakdown Musculoskeletal: No Tenderness to Palpation of Joints or Extremities Neurological: Cranial nerves II-XII grossly intact Psych/Mental Status: Normal Affect, Appropriate Vital Signs Temp Pulse Resp BP Pulse Ox 98.4 F 73 18 142/92 H 99 01/21/18 08:31 01/21/18 08:31 01/21/18 08:31 01/21/18 08:31 01/21/18 08:31 Oxygen Delivery Method Room Air Weight: 91.8 kg Body Mass Index (BMI) 28.2 Intake and Output for Last 24 Hours Intake Total 1320 / 1320 890 / 890 Balance 1320 / 1320 890 / 890 Laboratory Tests Past 24 Hrs WBC 9.5 RBC 3.98 L Hgb 12.0 L Hct 37.5 L MCV 94.2 H MCH 30.2 MCHC 32.0 RDW 12.7 RDW Differential 43.7 Assessment/Plan All Active Problems Cellulitis (Acute) CKD 3 Kidney transplant Baseline immunosupression is tacrolimus 4 mg BID and cellcept 750 mg BID Last level was somewhat high at 12.5. usual goal is 6-8 recently lisinopril was stopped and amlodipine started usually CCBs increase tacro levels. repeat levels from 2 days ago is pending. change to 3 mg BID for now continue same dose of cellcept ok to send home on keflex d/w Dr Parikh, at bedside 01/21/18 3147 <Electronically signed by Kris Kamara MD> Date Kris Kamara MD Cosigner Signature (if applicable): Date CC: Lucina Kamara M.D.; Johann Bailey DO; Dionisio Ceja MD Signed DISCHARGE INSTRUCTION Observed: 01/21/2018 Status: F Source: [place] 1:47 PM [facility] REPOSITORY [facility] Medical Records Department [address] [place] [address] Instructions for Home/Discharge Instructions 01/21/18 1344 MR#: [id number] Acct: [id number] Name: GERARDO COREA Rep #: [id number] : 1985 32 From: Johann Parikh DO PCP: Johann Bailey DO Status: ADM IN - Discharge Diagnoses Current Active Problems: Current Active and Chronic Problems History of kidney transplant (Chronic) Cellulitis (Acute) You will use the following diet at home:: No restrictions Your food should be the consistency of: Regular Your liquids should be the consistency of: Regular/Thin Discharge Activity: Return to Normal Activity Return to work on:: 01/27/18 Weight Bearing Status: Full weight bearing Additional Instructions: Take one 325 mg aspirin twice a day for two weeks, warm compress to left upper arm 3-4 times daily, elevate arm when seated if able Allergies/Adverse Reactions: Allergies No Known Allergies Allergy (Verified 01/19/18 22:05) Medications to take at Discharge Cholecalciferol (Vitamin D3) [Vitamin D3] 2,000 unit PO DAILY 01/15/18 Mycophenolate Mofetil [Cellcept] 750 mg PO BID 01/15/18 Omeprazole 40 mg PO DAILY 01/15/18 Amlodipine [Norvasc] 5 mg PO DAILY #30 tab 01/17/18 Acetaminophen [Tylenol Tablet] 650 mg PO Q6H PRN PRN tablet 01/21/18 Cephalexin [Keflex] 500 mg PO Q12 #14 cap 01/21/18 Oxycodone [Oxyir] 5 mg PO Q4H PRN PRN 7 Days #25 tablet 01/21/18 Tacrolimus Anhydrous [Prograf] 3 mg PO BID #1 capsule 01/21/18 The following prescriptions were given: Oxycodone [Oxyir] 5 mg PO Q4H PRN PRN 7 Days #25 tablet PRN Reason: Severe Pain (6-10) Cephalexin [Keflex] 500 mg PO Q12 #14 cap Tacrolimus Anhydrous [Prograf] 3 mg PO BID #1 capsule Primary Care Physician: Johann Bailey DO [Primary Care Provider] - Please follow up with your Primary Care Physician in: Next Friday at 3:40 pm Test Results: Test results from this visit will be discussed in further detail at your follow-up appointment, if applicable. 01/21/18 1347 <Electronically signed by Johann Parikh DO> Date Johann Parikh DO CC: Lucina Kamara M.D.; Johann Bailey DO; Dionisio Ceja MD CONSULTATION Observed: 01/21/2018 Status: F Source: [place] 1:12 PM [facility] REPOSITORY [facility] Medical Records Department [address] [place] [address] Consultation 01/21/18 1305 MR#: [id number] Acct: [id number] Name: GERARDO COREA Rep #: [id number] : 1985 32 From: Dionisio Ceja MD PCP: Johann Bailey DO Status: ADM IN Y Location[place] [facility] [place] [id number] Problem List (1) Cellulitis Status: Acute Reason for Consult: cellulitis Consulted by: Dr. 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 Had PIV placed in L antecubital in ED. IV was removed due to some leaking, he was discharged 01/17, felt like he had a bruise at the site. On 01/18 had progressive swelling, redness, and pain at the site. No fever. Pain was moderate, worse with movement. No drainage or purulence. Came to ED due to worsening sx, admitted. Given vanc, cefazolin, then abx changed to zosyn this AM due to mildly worsened swelling. Stable pain, redness, and warmth. Full ROS performed and neg except as noted above. - Medical History Past Medical History (Chronic Problems): Chronic Problems Elevated serum creatinine (Chronic) History of kidney transplant (Chronic) Allergies/Adverse Reactions: Allergies No Known Allergies Allergy (Verified 01/19/18 22:05) Home Medications: Ambulatory Orders Medication Instructions Recorded Cholecalciferol (Vitamin D3) 2,000 unit PO DAILY 01/15/18 [Vitamin D3] Mycophenolate Mofetil [Cellcept] 750 mg PO BID 01/15/18 - Social History Tobacco Use: cigarettes Vital Signs Temp Pulse Resp BP Pulse Ox 98.4 F 73 18 142/92 H 99 01/21/18 08:31 01/21/18 08:31 01/21/18 08:31 01/21/18 08:31 01/21/18 08:31 Oxygen Delivery Method Room Air Weight: 91.8 kg Body Mass Index (BMI) 28.2 Laboratory Tests Past 24 Hrs WBC 9.5 RBC 3.98 L Hgb 12.0 L Hct 37.5 L MCV 94.2 H MCH 30.2 MCHC 32.0 RDW 12.7 RDW Differential 43.7 - Other Studies Radiology: [] reviewed Other Studies: [] Route of nutrition/ use of supplements: [] Nutritional Intake: [] IV Site: [] Betancourt Catheter: [] - Physical Exam General: Alert, Oriented x3, Cooperative, No apparent distress HEENT: Atraumatic, PERRLA, EOMI Neck: Supple, No Nodes Lungs: Clear to auscultation, Normal air movement Cardiovascular: Regular rate, Regular Rhythm, No murmurs Abdomen: Bowel Sounds Present, Soft, Non Tender, Non-Distended Extremities: - - LUE swelling Skin: - - L antecub with area of mild redness, warmth, and swelling IV Site: Peripheral, without redness Neurological: Cranial nerves II-XII grossly intact - Assessment/Plan Antibiotics: [] Assessment/Plan: [] Active and Suspected Problems Cellulitis (Acute) LUE SVT with phlebitis at site of recent PIV - not clear if there is associated cellulitis, very low suspicion for suppurative thrombophlebitis. Ok to narrow abx to short 7 day total course of abx, will treat with keflex. Given location and lack of improvement, would recommend anticoagulation to help resolve sx more quickly. Thank you, will follow, d/w primary team. 01/21/18 1312 <Electronically signed by Dionisio Ceja MD> Date Dionisio Ceja MD Cosigner Signature (if applicable): Date CC: Lucina Kamara M.D.; Johann Bailey DO; Dionisio Ceja MD Signed CBC W/DIFF, AUTOMATED Collected: 01/21/2018 Status: F Source: [place] 8:15 AM [facility] REPOSITORY TYPE CODE TESTS RESULT OUT OF RANGE REFERENCE UNITS LAB L100.1000 4.4-11.0 K/mm3 Normal WBC 9.5 LAB L100.1200 4.6-6.2 M/mm3 Low RBC 3.98 LAB L100.1300 13.0-16.5 g/dl Low HGB 12.0 LAB L100.1400 40-54 % Low HCT 37.5 LAB L100.1500 80-94 fL High MCV 94.2 LAB L100.1600 27.0-32.0 pg Normal MCH 30.2 LAB L100.1700 32-36 g/gl Normal MCHC 32.0 LAB L100.1810 11.6-14.6 % Normal RDW CV 12.7 LAB L100.1820 35.1-43.9 fl Normal RDW SD 43.7 LAB L100.1900 150-450 K/mm3 Normal PLT 222 LAB L100.2000 6.2-12.0 fl Normal MPV 10.3 LAB L100.2100 47-70 % Normal NEUT% 58.7 LAB L100.2200 19-41 % Normal LY% 26.6 LAB L100.2300 0-10 % High MONO% 10.1 LAB L100.2400 0-5 % Normal EO% 3.7 LAB L100.2500 0-1 % Normal BASO% 0.3 LAB L100.2550 0.0-0.9 % Normal IM GRAN % 0.600 Result Comment: IG% - Immature Granulocytes (promyelocytes, myelocytes and metamyelocytes) > 1% indicates that a LEFT SHIFT is Present. LAB L100.2620 2.0-7.7 X10 3/uL Normal Absolute Neut 5.6 LAB L100.2720 0.83-4.51 X10 3/ul Normal Absolute Lymph 2.51 Performed By: #### L100.0100 #### [facility] [address] [place], [place], [address] RENAL PROFILE Collected: 01/21/2018 Status: F Source: [place] 8:15 AM [facility] REPOSITORY TYPE CODE TESTS RESULT OUT OF RANGE REFERENCE UNITS LAB L501.0100 74-106 mg/dL Normal GLU 92 Result Comment: Please note revised GLUCOSE reference range effective 2017. LAB L501.1000 7-18 mg/dL High BUN 24 LAB L501.1100 0.70-1.30 mg/dL High CREAT,SERUM 2.48 Result Comment: The validity of the calculated GFR AND GFRAA in patients over 70 years has not been determined. Clinical correlation is essential. LAB L501.1110 >60 mL/min Low EST GFR 32 Result Comment: Non- GFR Calc LAB L501.1115 >60 mL/min Low EST GFR - AA 38 Result Comment: GFR Calc LAB L501.1255 ml/min Normal Estimated CRCL 44.70 LAB L501.1300 10-20 RATIO Low BUN/CRE 9.7 LAB L501.1800 3.2-5. g/dL Low 0 ALB 3.1 LAB L501.2200 8.5-10 mg/dL Normal .1 CA 9.5 LAB L501.2300 2.5-4. mg/dL Normal 9 PHOS 3.6 LAB L501.5300 136-14 mmol/L Normal 5 NA 138 LAB L501.5600 3.5-5. mmol/L Normal 1 K 5.0 LAB L501.5900 98-107 mmol/L Normal CL 107 LAB L501.6100 21.0-3 mmol/L Normal 2.0 CO2 23.0 Performed By: #### L500.3600 #### [facility] [address] [place], [address] CBC W/DIFF, AUTOMATED Collected: 01/20/2018 Status: F Source: [place] 7:35 AM [facility] REPOSITORY TYPE CODE TESTS RESULT OUT OF RANGE REFERENCE UNITS LAB L100.1000 4.4-11.0 K/mm3 Normal WBC 10.1 LAB L100.1200 4.6-6.2 M/mm3 Low RBC 3.44 LAB L100.1300 13.0-16.5 g/dl Low HGB 10.7 LAB L100.1400 40-54 % Low HCT 32.5 LAB L100.1500 80-94 fL High MCV 94.5 LAB L100.1600 27.0-32.0 pg Normal MCH 31.1 LAB L100.1700 32-36 g/gl Normal MCHC 32.9 LAB L100.1810 11.6-14.6 % Normal RDW CV 12.6 LAB L100.1820 35.1-43.9 fl Normal RDW SD 42.1 LAB L100.1900 150-450 K/mm3 Normal PLT 201 LAB L100.2000 6.2-12.0 fl Normal MPV 10.1 LAB L100.2100 47-70 % Normal NEUT% 61.8 LAB L100.2200 19-41 % Normal LY% 23.5 LAB L100.2300 0-10 % High MONO% 10.3 LAB L100.2400 0-5 % Normal EO% 3.3 LAB L100.2500 0-1 % Normal BASO% 0.3 LAB L100.2550 0.0-0.9 % Normal IM GRAN % 0.800 Result Comment: IG% - Immature Granulocytes (promyelocytes, myelocytes and metamyelocytes) > 1% indicates that a LEFT SHIFT is Present. LAB L100.2620 2.0-7.7 X10 3/uL Normal Absolute Neut 6.2 LAB L100.2720 0.83-4.51 X10 3/ul Normal Absolute Lymph 2.36 Performed By: #### L100.0100 #### [facility] [address] [place], [address] BASIC METABOLIC Collected: 01/20/2018 Status: F Source: [place] PROFILE (BMP) 7:35 AM [facility] REPOSITORY TYPE CODE TESTS RESULT OUT OF RANGE REFERENCE UNITS LAB L501.0100 74-106 mg/dL High GLU 111 Result Comment: Fasting Glucose result from 100 to 125 mg/dL suggests IMPAIRED HOMEOSTASIS per A.D.A. criteria. Please note revised GLUCOSE reference range effective 2017. LAB L501.1000 7-18 mg/dL High BUN 29 LAB L501.1100 0.70-1.30 mg/dL High CREAT,SERUM 2.60 Result Comment: The validity of the calculated GFR AND GFRAA in patients over 70 years has not been determined. Clinical correlation is essential. LAB L501.1110 >60 mL/min Low EST GFR 30 Result Comment: Non- GFR Calc LAB L501.1115 >60 mL/min Low EST GFR - AA 36 Result Comment: GFR Calc LAB L501.1255 ml/min Normal Estimated CRCL 42.64 LAB L501.1300 10-20 RATIO Normal BUN/CRE 11.2 LAB L501.2200 8.5-10 mg/dL Normal .1 CA 9.0 LAB L501.5300 136-14 mmol/L Normal 5 NA 141 LAB L501.5600 3.5-5. mmol/L Normal 1 K 4.5 LAB L501.5900 98-107 mmol/L High CL 108 LAB L501.6100 21.0-3 mmol/L Normal 2.0 CO2 25.0 LAB L501.6200 5-15 Normal GAP 8 Performed By: #### L500.2500 #### [facility] [address] [place], [address] BEDSIDE GLUCOSE Collected: 01/20/2018 Status: F Source: [place] 6:57 AM [facility] REPOSITORY TYPE CODE TESTS RESULT OUT OF REFERENCE UNITS RANGE LAB L501.080 70-110 mg/dL High BEDSIDE GLU 121 Result Comment: MANAGEMENT OF PATIENT CARE PER NURSING PROTOCOL Performed By: #### L501.080 #### [facility] Point of Care [address] [place] [address] EMERGENCY DEPARTMENT Observed: 01/20/2018 Status: F Source: [place] SUMMARY 4:20 AM [facility] REPOSITORY [facility] Medical Records Department [address] [place] [address] Emergency Department Summary 01/19/18 2322 MR#: [id number] Acct: [id number] Name: GERARDO COREA Rep #: [id number] : 1985 32 From: Tomer Alicea MD PCP: Johann Bailey DO Status: ADM IN - ER Visit Summary Date of Service: 01/19/18 Chief Complaint: [] Left arm redness and infection History of Present Illness: The patient is a 32 M planing of cellulitis to his left inner arm for the last 3 days gradual onset continuous. He was recently admitted for acute on chronic kidney disease. He was prerenal secondary to nausea vomiting and diarrhea that has resolved. She was on a Z-Monique earlier in the week for bronchitis but only took for 2 days. He just got discharged from our hospital couple days ago. He has a history of chronic kidney disease status post transplant plant. He is on CellCept and Prograf. He had an IV in his left antecubital he thinks got his arm infected. No abscess. No previous infections. No fevers or chills. Increasing pain and redness noted. Physical Examination: [] Vital signs reviewed General: Well-nourished well-developed Head: Normocephalic atraumatic Eyes: Pupils equal round and reactive to light extraocular movements intact ENT: TMs clear no hemotympanum no trauma Neck: Nontender full range of motion Cardiovascular: Regular rate rhythm no murmurs normal S1-S2 Respiratory: No distress clear to auscultation bilaterally chest nontender Abdomen: Soft nontender nondistended normal bowel sounds no masses Back: Nontender no CVA tenderness Extremities: Left inner arm from mid bicep to mid forearm shows a cellulitis. No abscess. Skin: Normal color no trauma Neuro alert oriented cranial nerves II through XII intact normal strength sensation reflexes Test Results: [] Emergency Department Course and Treatment: [] Patient given a dose of vancomycin which should cover all gram positives. Blood culture sent. Lab work obtained and the patient will be admitted for further treatment of his cellulitis. Lab work shows no leukocytosis. Creatinine 2.9. Treatment Plan: [] Disposition: [] Impression: [] Left arm cellulitis This note was generated with ClickMedixation software. It may contain incorrect words, spelling, and punctuation that were not noted in review of the chart prior to signing ED Disposition - Plan for ED Patient: Chief Complaint: Cellulitis Referrals: Johann Bailey DO [Primary Care Provider] - What to do if you have Problems For any increased pain, shortness of breath, bleeding, nausea or vomiting, chest pain, or any unexpected problems, contact your Primary Care Provider. Call [facility] ([phone]) or report to the closest Emergency Room. Call 911 if necessary. 01/20/18 0420 <Electronically signed by Tomer Alicea MD> Date Tomer Alicea MD Cosigner Signature (If Indicated): Date CC: Johann Bailey DO BEDSIDE GLUCOSE Collected: 01/20/2018 Status: F Source: [place] 2:25 AM [facility] REPOSITORY TYPE CODE TESTS RESULT OUT OF RANGE REFERENCE UNITS LAB L501.080 70-110 mg/dL Normal BEDSIDE GLU 98 Result Comment: MANAGEMENT OF PATIENT CARE PER NURSING PROTOCOL Performed By: #### L501.080 #### [facility] Point of Care [address] [place] [address] HISTORY AND PHYSICAL Observed: 01/20/2018 Status: F Source: [place] EXAM 1:32 AM [facility] REPOSITORY [facility] Medical Records Department [address] [place] [address] History and Physical 01/20/18 0119 MR#: [id number] Acct: [id number] Name: GERARDO COREA Rep #: [id number] : 1985 32 From: Gómez Lino MD PCP: Johann Bailey DO Status: REG ER Y Location: ED Problem List (1) History of kidney transplant Status: Chronic (2) Cellulitis Status: Acute (3) Elevated serum creatinine Status: Chronic History of Present Illness Date of Admission: 01/20/18 Chief Complaint: skin infection The patient is a 32 year old male patient who was just in the hospital for acute on chronic kidney disease who presents to the ER with a skin infection in his left arm. The arm was 8/10 painful this evening so he came in for evaluation. The area of erythema in on the left arm over the elbow and extends to mid forearm up to mid humerus. Vancomycin was initiated in the ER. The patient is on immunosuppressive therapy for his kidney transplant. Past Medical History Past Medical History (Chronic Problems): Chronic Problems Elevated serum creatinine (Chronic) History of kidney transplant (Chronic) Allergies No Known Allergies Allergy (Verified 01/19/18 22:05) Home Medications: Ambulatory Orders Medication Instructions Recorded Cholecalciferol (Vitamin D3) 2,000 unit PO DAILY 01/15/18 [Vitamin D3] Mycophenolate Mofetil [Cellcept] 750 mg PO BID 01/15/18 Surgical History: - - Renal transplant, fistula insertion Smoking Status: Never smoker - *Family History Maternal History Items: No pertinent history Paternal History Items: Diabetes, Hypertension Review of Systems Constitutional: Denies: Chills, Fever, Weight Change HEENT: Denies: Head Aches, Sinus Congestion, Sinus Drainage Cardiovascular: Denies: Chest Pain, Palpitations Respiratory: Denies: Cough, Shortness of breath at rest, Sputum production Gastrointestinal: Denies: Abdominal Pain, Nausea, Vomiting Genitourinary: Denies: Dysuria Musculoskeletal: Denies: Joint Pain, Joint Tenderness Skin: Reports: Wounds - left arm infection/pain. Denies: Rash Neurological: Denies: Numbness, Tingling, Focal weakness Psychiatric: Denies: Anxiety, Depression, Homicidal Ideations, Suicidal Ideations Hematologic/ Lymphatic: Denies: Easy Bruising, Easy Bleeding VTE Information - Inpt Only VTE Present on Admission: No VTE Mechan Device Prophylaxis: SCD's VTE Pharm Prophylaxis ordered?: No Patient Problems: Active and Suspected Problems Cellulitis (Acute) - Physical Exam General: Alert, Oriented x3, Cooperative HEENT: Atraumatic, Normocephalic Neck: Supple Lungs: Clear to auscultation, Normal air movement Cardiovascular: Regular rate, Normal S1, Normal S2, No murmurs Abdomen: Bowel Sounds Present Extremities: No edema, Capillary Refill Less than 3 Seconds Skin: Ulcer/ Wound - cellulitis, left arm left mid upper arm to left lower arm, erthema, tender Musculoskeletal: No Tenderness to Palpation of Joints or Extremities Neurological: Neuro grossly intact Psych/Mental Status: Normal Affect, Appropriate Vital Signs Temp Pulse Resp BP Pulse Ox 99.9 F H 71 16 145/77 H 95 01/19/18 22:01 01/20/18 00:35 01/20/18 00:35 01/20/18 00:35 01/20/18 00:35 Oxygen Delivery Method Room Air Weight: 202 lb 9.677 oz Body Mass Index (BMI) 29.0 Laboratory Tests Past 24 Hrs WBC 9.6 RBC 3.51 L Hgb 10.7 L Hct 32.7 L MCV 93.2 MCH 30.5 MCHC 32.7 Assessment/Plan All Active Problems Cellulitis (Acute) Chronic Problems Elevated serum creatinine (Chronic) History of kidney transplant (Chronic) Plan - admit to general medical floor - continue vancomycin pharmacy to dose - cbc, bmp in am - morphine 2mg q 2 hrs prn pain - scds for dvt prophylaxis - continue routine home medications Code Visit Inpatient E AND M: [id number] Init Hosp L3 01/20/18 0132 <Electronically signed by Gómez Lino MD> Date Gómez Lino MD Cosigner Signature: Date (if applicable) CC: Johann Bailey DO; Gómez Lino MD Signed CBC W/DIFF, AUTOMATED Collected: 01/19/2018 Status: F Source: [place]OX[place] 10:15 PM [facility] REPOSITORY TYPE CODE TESTS RESULT OUT OF RANGE REFERENCE UNITS LAB L100.1000 4.4-11.0 K/mm3 Normal WBC 9.6 LAB L100.1200 4.6-6.2 M/mm3 Low RBC 3.51 LAB L100.1300 13.0-16.5 g/dl Low HGB 10.7 LAB L100.1400 40-54 % Low HCT 32.7 LAB L100.1500 80-94 fL Normal MCV 93.2 LAB L100.1600 27.0-32.0 pg Normal MCH 30.5 LAB L100.1700 32-36 g/gl Normal MCHC 32.7 LAB L100.1810 11.6-14.6 % Normal RDW CV 12.9 LAB L100.1820 35.1-43.9 fl Normal RDW SD 43.2 LAB L100.1900 150-450 K/mm3 Normal PLT 215 LAB L100.2000 6.2-12.0 fl Normal MPV 10.8 LAB L100.2100 47-70 % Normal NEUT% 62.3 LAB L100.2200 19-41 % Normal LY% 24.9 LAB L100.2300 0-10 % Normal MONO% 9.0 LAB L100.2400 0-5 % Normal EO% 3.2 LAB L100.2500 0-1 % Normal BASO% 0.3 LAB L100.2550 0.0-0.9 % Normal IM GRAN % 0.300 Result Comment: IG% - Immature Granulocytes (promyelocytes, myelocytes and metamyelocytes) > 1% indicates that a LEFT SHIFT is Present. LAB L100.2620 2.0-7.7 X10 3/uL Normal Absolute Neut 6.0 LAB L100.2720 0.83-4.51 X10 3/ul Normal Absolute Lymph 2.40 Performed By: #### L100.0100 #### [facility] [address] [place], [address] BASIC METABOLIC Collected: 01/19/2018 Status: F Source: [place] PROFILE ([facility]) 10:15 PM [facility] REPOSITORY TYPE CODE TESTS RESULT OUT OF RANGE REFERENCE UNITS LAB L501.0100 74-106 mg/dL High GLU 131 Result Comment: Fasting Glucose result greater than or equal to 126 mg/dL suggests DIABETES MELLITUS per A.D.A. criteria. Please note revised GLUCOSE reference range effective 2017. LAB L501.1000 7-18 mg/dL High BUN 31 LAB L501.1100 0.70-1.30 mg/dL High CREAT,SERUM 2.94 Result Comment: The validity of the calculated GFR AND GFRAA in patients over 70 years has not been determined. Clinical correlation is essential. LAB L501.1110 >60 mL/min Low EST GFR 26 Result Comment: Non- GFR Calc LAB L501.1115 >60 mL/min Low EST GFR - AA 32 Result Comment: GFR Calc LAB L501.1255 ml/min Normal Estimated CRCL 36.56 LAB L501.1300 10-20 RATIO Normal BUN/CRE 10.5 LAB L501.2200 8.5-10 mg/dL Normal .1 CA 9.2 LAB L501.5300 136-14 mmol/L Normal 5 NA 138 LAB L501.5600 3.5-5. mmol/L Normal 1 K 4.6 LAB L501.5900 98-107 mmol/L Normal CL 107 LAB L501.6100 21.0-3 mmol/L Normal 2.0 CO2 23.0 LAB L501.6200 5-15 Normal GAP 8 Performed By: #### L500.2500 #### [facility] [address] [place], [address] Observed: 01/19/2018 Status: F Source: ROXANA CULTURE, BLOOD (WB) 10:15 PM [facility] REPOSITORY No growth in 5 days. Performed By: #### M200.1000 #### [facility] [address] [place], [address] Observed: 01/19/2018 Status: F Source: [place] CULTURE, BLOOD (WB) 10:15 PM [facility] REPOSITORY No growth in 5 days. Performed By: #### M200.1000 #### [facility] [address] [place], [place], [address] BMP WITH EGFR Collected: 01/19/2018 Status: F Source: [facility]ANN[facility] 2:50 PM [facility] REPOSITORY TYPE CODE TESTS RESULT OUT OF RANGE REFERENCE UNITS LAB BMP with eGFR(LOINC) BMP with eGFR Result Comment: BASIC METABOLIC PANEL LAB SODIUM(LOINC) 136 - 145 mmol/l SODIUM Low 135 LAB POTASSIUM(LOINC) 3.5 - 5.1 mmol/L POTASSIUM 4.4 LAB CHLORIDE(LOINC) 98 - 107 mmol/L CHLORIDE 102 LAB CO2(LOINC) 21.0 - mmol/L 31.0 CO2 Low 20.1 LAB GLUCOSE(LOINC) 74 - 106 mg/dl GLUCOSE High 140 LAB BUN(LOINC) 6 - 20 mg/dl BUN High 30 LAB CREATININE(LOINC) 0.7 - 1.3 mg/dl High CREATININE 3.1 LAB CALCIUM(LOINC) 8.6 - mg/dl 10.2 CALCIUM 9.5 LAB ANION GAP(LOINC) 10 - 20 mmol/L ANION GAP 17 LAB AGE(LOINC) years AGE 32 LAB eGFR(LOINC) 60 - 999 ML/MINUTE eGFR Low 23 LAB eGFR(AA)(LOINC) 60 - 999 ML/MINUTE eGFR(AA) Low 28 Result Comment: ACCORDING TO THE NATIONAL KIDNEY DISEASE EDUCATION PROGRAM(NKDE), A NORMAL eGFR IS A VALUE GREATER THAN OR EQUAL TO 60 ML/MIN/1.73 SQ METERS. CHRONIC KIDNEY DISEASE: <60mL/MIN/1.73 SQ METERS KIDNEY FAILURE: <15mL/MIN/1.73 SQ METERS THIS TEST SHOULD ONLY BE USED FOR PATIENTS 18 YEARS OF AGE AND OLDER. Performed By: #### [id number] #### [facility],[address] [place] [address] TACROLIMUS [QUEST] Collected: 01/19/2018 Status: F Source: [facility] 2:50 PM [facility] REPOSITORY TYPE CODE TESTS RESULT OUT OF REFERENCE UNITS RANGE LAB TACROLIMUS [QUEST](LOINC) TACROLIMUS [QUEST] Result Comment: _TACROLIMUS_ TACROLIMUS, HIGHLY SENSITIVE, LC/MS/MS Reported: 01/20/2018 17:55 Status=F TEST RESULT FLAG RANGE UNITS TACROLIMUS, LC/MS/MS 13.3 mcg/L 01/20/[id number].AMRR [id number] No definitive therapeutic or toxic ranges have been established. Optimal blood drug levels are influenced by type of transplant, patient response, time post- transplant, co-administration of other drugs, and drug formulation. The following trough range is a suggested guideline: 5.0-20.0 mcg/L This test was developed and its analytical performance characteristics have been determined by [employer] [place], [place]. It has not been cleared or approved by the U.S. Food and Drug Administration. This assay has been validated pursuant to the CLIA regulations and is used for clinical purposes. Test Performed by [facility], [facility], [address] [place] [address] Lamont Sharp M.D., Ph.D., Director of Laboratories , CLIA [id number] Performed By: #### [id number] #### [facility],[address] [place], [place] [address] DISCHARGE SUMMARY Observed: 01/17/2018 Status: F Source: [place] 12:04 PM [facility] REPOSITORY [facility] Medical Records Department [address] [place] [address] Discharge Summary 01/17/18 1156 MR#: [id number] Acct: [id number] Name: ALEX COREAGODWIN Hunt Rep #: [id number] : 1985 32 From: Kathya Breaux MD PCP: Johann Bailey DO Status: DIS IN Y Location: [place] [id number] Discharge Date and Diagnosis Date of Admission: 01/15/18 Date of Discharge: 01/17/18 - Primary Discharge Diagnosis #1 acute kidney injury on top of stage III chronic kidney disease. #2 status post kidney transplant. #3 hyperkalemia. #4 acute viral gastroenteritis. Hospital Course and Treatment Imaging Results: Clinical Impression(s) from Imaging Studies Chest X-Ray 01/15/18 13:10 IMPRESSION: Normal x-ray examination of the chest. Electronically Signed: Kendell Schultz DO at 13:41 EDT Tel , Service support , Dr. Sepulveda, nephrology. Operations: None Procedures: None Summary of Care Provided: Patient seen and examined on the day of discharge and appeared to be stable to be discharged home. He denies any complaints. His vital signs are stable. His blood pressure started to go up since we stopped his lisinopril. - Physical Exam General: Alert, Oriented x3, Cooperative, No apparent distress. HEENT: Atraumatic, PERRLA, EOMI. Neck: Supple, No JVD, Negative Carotid Bruits, Trachea Midline, Thyroid Normal. Lungs: Clear to auscultation, Normal air movement, No rhonchi, No wheeze, No rales. Cardiovascular: Regular rate, Regular Rhythm, Normal S1, Normal S2, PMI Normal. Abdomen: Bowel Sounds Present, Soft, Non Tender, Non-Distended, No Hepato-splenomegaly. Extremities: No clubbing, No cyanosis, No edema Skin: No rashes, No breakdown Neurological: Neuro grossly intact Vital Signs are stable. Hospital course: The patient is a 32 year old M was referred to the ED from his PCPs office because of worsening kidney function. This patient had a history of kidney transplant, has been on immunosuppressive therapy. He had a blood work done as outpatient and he was found to have creatinine 4.09 and potassium 5.7. Patient did complain of diarrhea with nausea and vomiting which is attributed to probable viral gastritis. He was found to have acute kidney injury on top of stage III chronic kidney disease which is attributed to prerenal etiology secondary to dehydration as well as nausea and vomiting and diarrhea. His baseline creatinine according to nephrology has been around 2 mg/dL. Patient was treated with IV fluids and lisinopril was discontinued. With IV fluid therapy, patient's potassium went back to normal and his creatinine came down to 2.44. Nephrology consulted and recommended no other treatments to be given at this time. There was no evidence of organ rejection or dysfunction. His blood pressure has been in the range of 140-150 after discontinuation of lisinopril. After discussion with nephrology on the day of discharge, we agreed to discharge patient home, agreed to discontinue lisinopril and to start patient on Norvasc for hypertension. Patient discharged home in a stable medical condition, discharged on Norvasc 5 mg p.o. daily, recommended to continue and complete Zithromax that was started for bronchitis as outpatient, continued on CellCept and Prograf, order given to repeat BMP in 3 days, follow-up with PCP in 1 week and follow-up with nephrology according to Dr. Derick webb. This note was generated with Flutter dictation software. It may contain incorrect words, spelling, and punctuation that were not noted in checking the note before signing. Discharge Activity: Return to Normal Activity Weight Bearing Status: Weight bearing as tolerated Call your doctor if you observe: Fever of 101 or Higher, Shortness of breath, Dizziness, Fainting spells, Chest pain, Increased palpitations (irregular heartbeat), Uncontrolled pain Home Medications: Medications to take at Discharge Azithromycin [Zithromax] 250 mg PO DAILY 01/15/18 Cholecalciferol (Vitamin D3) [Vitamin D3] 2,000 unit PO DAILY 01/15/18 Mycophenolate Mofetil [Cellcept] 750 mg PO BID 01/15/18 Omeprazole 40 mg PO DAILY 01/15/18 Tacrolimus Anhydrous [Prograf] 4 mg PO BID 01/15/18 Amlodipine [Norvasc] 5 mg PO DAILY #30 tab 01/17/18 Following Prescrptions Were Given to Patient: Amlodipine [Norvasc] 5 mg PO DAILY #30 tab Primary Care Physician: Johann Bailey DO [Primary Care Provider] - Please follow up with your Primary Care Physician in: 1 week. Please Follow Up With: Leonela Orantes MD When: please call his office. Disposition: Home Minutes spent on discharge:: 32 Patient Condition:: Stable Medical Necessity - Tobacco Use Smoking Status: Light Smoker (<10/day) Tobacco Use: Cigarettes Meaningful Use Info Meaningful Use Diagnoses (Choose all that apply): None applicable Code Visit Inpatient E AND M: 29471 Disch Hosp 01/17/18 1204 <Electronically signed by Kathya Breaux MD> Date Kathya Breaux MD Cosigner Signature (if applicable): Date CC: Kathya Breaux; Johann Bailey DO; Leonela Orantes MD Signed DISCHARGE INSTRUCTION Observed: 01/17/2018 Status: F Source: [place]OX[place] 10:21 AM [facility] REPOSITORY [facility] Medical Records Department [address] [place] [id number] Instructions for Home/Discharge Instructions 01/17/18 1020 MR#: [id number] Acct: [id number] Name: GERARDO COREA Rep #: [id number] : 1985 32 From: Kathya Breaux MD PCP: Johann Bailey DO Status: ADM IN - Discharge Diagnoses Current Active Problems: Current Active and Chronic Problems Elevated serum creatinine (Acute) You will use the following diet at home:: Cardiac, Renal (restricted protein/sodium) Discharge Activity: Return to Normal Activity Weight Bearing Status: Weight bearing as tolerated Call your doctor if you observe: Fever of 101 or Higher, Shortness of breath, Dizziness, Fainting spells, Chest pain, Increased palpitations (irregular heartbeat), Uncontrolled pain Allergies/Adverse Reactions: Allergies No Known Allergies Allergy (Verified 01/15/18 12:32) Medications to take at Discharge Azithromycin [Zithromax] 250 mg PO DAILY 01/15/18 Cholecalciferol (Vitamin D3) [Vitamin D3] 2,000 unit PO DAILY 01/15/18 Mycophenolate Mofetil [Cellcept] 750 mg PO BID 01/15/18 Omeprazole 40 mg PO DAILY 01/15/18 Tacrolimus Anhydrous [Prograf] 4 mg PO BID 01/15/18 Amlodipine [Norvasc] 5 mg PO DAILY #30 tab 01/17/18 The following prescriptions were given: Amlodipine [Norvasc] 5 mg PO DAILY #30 tab Primary Care Physician: Johann Bailey DO [Primary Care Provider] - Please follow up with your Primary Care Physician in: 1 week. Test Results: Test results from this visit will be discussed in further detail at your follow-up appointment, if applicable. Please Follow Up With: Leonela Orantes MD When: please call his office. 01/17/18 1021 <Electronically signed by Kathya Breaux MD> Date Kathya Breaux MD CC: Julia Lundberg MD; Johann Bailey DO RENAL PROFILE Collected: 01/17/2018 Status: F Source: [place] 6:47 AM [facility] REPOSITORY TYPE CODE TESTS RESULT OUT OF RANGE REFERENCE UNITS LAB L501.0100 74-106 mg/dL High GLU 119 Result Comment: Fasting Glucose result from 100 to 125 mg/dL suggests IMPAIRED HOMEOSTASIS per A.D.A. criteria. Please note revised GLUCOSE reference range effective 2017. LAB L501.1000 7-18 mg/dL High BUN 33 LAB L501.1100 0.70-1.30 mg/dL High CREAT,SERUM 2.44 Result Comment: The validity of the calculated GFR AND GFRAA in patients over 70 years has not been determined. Clinical correlation is essential. LAB L501.1110 >60 mL/min Low EST GFR 32 Result Comment: Non- GFR Calc LAB L501.1115 >60 mL/min Low EST GFR - AA 39 Result Comment: GFR Calc LAB L501.1255 ml/min Normal Estimated CRCL 45.43 LAB L501.1300 10-20 RATIO Normal BUN/CRE 13.5 LAB L501.1800 3.2-5. g/dL Normal 0 ALB 3.2 LAB L501.2200 8.5-10 mg/dL Normal .1 CA 9.1 LAB L501.2300 2.5-4. mg/dL Normal 9 PHOS 3.2 LAB L501.5300 136-14 mmol/L Normal 5 NA 143 LAB L501.5600 3.5-5. mmol/L Normal 1 K 4.0 LAB L501.5900 98-107 mmol/L Normal CL 105 LAB L501.6100 21.0-3 mmol/L Normal 2.0 CO2 30.0 Performed By: #### L500.3600 #### [facility] [address] [place], [address] URINE SODIUM Collected: 01/16/2018 Status: F Source: [place] 6:15 PM [facility] REPOSITORY TYPE CODE TESTS RESULT OUT OF RANGE REFERENCE UNITS LAB L501.5500 Not Establ. mmol/L Normal UR NA 99 Performed By: #### L501.5500 #### [facility] [address] [place], [address] CREATININE, URINE Collected: 01/16/2018 Status: F Source: [place] 6:15 PM [facility] REPOSITORY TYPE CODE TESTS RESULT OUT OF RANGE REFERENCE UNITS LAB L502.0300 NO RANGE EST. mg/dL Normal URINE 39.70 CREAT Performed By: #### L502.0300 #### [facility] [address] [place], [address] 12 LEAD ELECTROCARDIOGRAM Observed: 01/16/2018 Status: F Source: [place] 1:00 PM [facility] REPOSITORY [facility] Cardiovascular Services [address] [place] [address] 12 Lead EKG 01/15/18 1343 MR#: [id number] Acct: [id number] Name: GERARDO COREA Rep #: [id number] : 1985 32 From: Joshua Shipman MD Attending Dr: Gregor Ball MD Status: ADM MADELINE Ordering Dr: Carroll Araujo MD Date: 01/15/18 Location: [facility] Sex: M C Admitted: 01/15/18 Test Reason : ABNL LABS Blood Pressure : / mmHG Vent. Rate : 069 BPM Atrial Rate : 069 BPM P-R Int : 146 ms QRS Dur : 104 ms QT Int : 382 ms P-R-T Axes : 042 054 043 degrees QTc Int : 409 ms Normal sinus rhythm Normal ECG Confirmed by JOSHUA SHIPMAN MD ([id number]), news video editor SYLVIA THOMASON ([id number]) on 01/16/2018 1:00:05 PM Referred By: RENETTA Confirmed By:JOSHUA SHIPMAN MD 01/16/18 1300 Date Joshua Shipman MD CC: Gregor Ball MD; Johann Mckeonuel Renetta MD Signed CONSULTATION Observed: 01/16/2018 Status: F Source: [place] 9:51 AM [facility] REPOSITORY [facility] Medical Records Department [address] [place] [address] Consultation 01/16/18 0931 MR#: [id number] Acct: [id number] Name: GERARDO COREA Rep #: [id number] : 1985 32 From: Leonela Orantes MD PCP: Johann Bailey DO Status: ADM MADELINE Y Location: [facility] [id number] Consultation - Renal 01/16/18 PCP/ Referring MD: Requesting physician: Gregor Ball MD Primary care physician: Johann Bailey DO Reason for Consultation:: TED in renal transplant pt - History of Present Illness History of Present Illness: The patient is a 32 year old 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 He is s/p LRD kidney transplant at [facility] in 2005 from his mom. He is immunosuppressed with tacrolimus and mycophenolate. The pt is followed by Dr. Kamara. His baseline SCr has been around 2.0 mg/dL. He has also been dealing with rising proteinuria, and he had been placed on lisinopril a few months ago. The pt presents with TED, SCr was 4.09 mg/dL on 01/14/18. The pt has been ill for the last 10 days. He started with decreased appetite and nausea. He also complained of diarrhea for 2 days prior to admission. He also has dysphagia for the last month. 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 The pt also has cough which is productive. He was placed on Zpak 2 days prior to admission. The pt feels better since admit and with IVF. He denies CP, SOB, nausea or edema today. There has been no LUTS. There is no hematuria or dysuria. He does admits to chill. The pt denies chronic use of NSAID. There is no recent exposure to IV contrast. - Allergies Allergies: Allergies No Known Allergies Allergy (Verified 01/15/18 12:32) - Current Medications Current Medications: Current Medications Acetaminophen (Tylenol) 650 mg PO Q6H PRN PRN PRN Reason: Mild Pain (1-3)/Temp > 100.7 F Last Admin: 01/15/18 21:45 Dose: 650 mg Sodium Bicarbonate 150 meq/ (Dextrose) 1,150 mls @ 150 mls/hr IV .Q7H40M [facility] Last Admin: 01/16/18 05:52 Dose: 150 mls/hr Lisinopril (Zestril) 10 mg PO DAILY [facility] Mycophenolate Mofetil (Cellcept) 750 mg PO BID [facility] Last Admin: 01/16/18 08:34 Dose: Not Given Pantoprazole Sodium (Protonix) 40 mg PO DAILY [facility] Sodium Chloride () 5 - 30 ml IV UD PRN PRN Reason: SALINE FLUSH Last Admin: 01/16/18 09:12 Dose: 20 ml Tacrolimus (Prograf) 4 mg PO BID [facility] Last Admin: 01/16/18 08:34 Dose: Not Given - Past Surgical History Surgical History: - - Renal transplant, fistula insertion - Social History Smoking Status: Light Smoker (<10/day) Alcohol: Occasional Drugs: None - Family History Maternal History Items: No pertinent history Paternal History Items: Diabetes, Hypertension Review of Systems Constitutional: Reports: Anorexia, Chills, Night Sweats, Malaise, Weakness, Fatigue. Denies: Fever Eyes: Denies: Blurred vision, Pain, Redness HEENT: Reports: Sore Throat. Denies: Head Aches, Sinus Congestion, Sinus Drainage Cardiovascular: Denies: Chest Pain, Claudication, Chest Pressure, Edema, Orthopnea, Palpitations Respiratory: Reports: Cough, Sputum production Gastrointestinal: Reports: Diarrhea, Nausea. Denies: Abdominal Pain, Constipation, Hematemesis, Hematochezia, Vomiting Genitourinary: Denies: Dysuria, Frequency, Hematuria, Hesitancy, Incontinence, Urgency Musculoskeletal: Reports: Muscle pain. Denies: Joint Pain, Joint Tenderness Skin: Denies: Rash, Wounds Neurological: Denies: Numbness, Tingling, Focal weakness Psychiatric: Denies: Anxiety, Depression, Homicidal Ideations, Suicidal Ideations Endocrine: Denies: Polydipsia, Polyuria Hematologic/ Lymphatic: Denies: Easy Bruising, Easy Bleeding Patient Problems: Active and Suspected Problems Elevated serum creatinine (Acute) - Physical Exam General: Alert, Oriented x3 HEENT: Atraumatic, PERRLA, EOMI Oral: Dry Mucosa Neck: Supple, No JVD Lungs: Clear to auscultation Cardiovascular: Regular rate, Regular Rhythm, Normal S1, Normal S2, No rub noted Abdomen: Bowel Sounds Present, Soft, Non Tender, Non-Distended Extremities: No clubbing, No cyanosis, No edema Skin: No rashes Musculoskeletal: No Tenderness to Palpation of Joints or Extremities Lymphatic: No Cervical, Supraclavicular, or Inguinal Adenopathy Neurological: Cranial nerves II-XII grossly intact Psych/Mental Status: Normal Affect Vital Signs Temp Pulse Resp BP Pulse Ox 98.8 F 75 18 130/84 H 97 01/16/18 08:34 01/16/18 08:34 01/16/18 08:34 01/16/18 08:34 01/16/18 08:34 Oxygen Delivery Method Room Air Weight: 90.775 kg Body Mass Index (BMI) 27.8 Intake and Output for Last 24 Hours Intake Total 300 / 300 3550 / 3550 Output Total 700 / 700 Balance 300 / 300 2850 / 2850 Laboratory Tests Past 24 Hrs Sodium 140 Potassium 4.1 Chloride 110 H Carbon Dioxide 20.0 L Anion Gap 10 Assessment/Plan All Active Problems Elevated serum creatinine (Acute) 1. Acute kidney injury on chronic kidney disease stage 3. Baseline SCr is 2.00 mg/dL. Pt has allograft dysfunction. May also have recurrence of FSGS. TED is likely prerenal from decreased intake, concurrent use of ACEI, GI loss. Allograft function is already improved with hydration. Would continue IVF. Stop ACEI for now. Will check urine indices. I have low suspicion for other causes of TED at this point. Doubt acute rejection or obstruction. However, I will expand the work up to include other causes of TED if SCr fails to continue to improve. 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 Meds reviewed. 2. s/p LRD kidney transplant. Continue current immunosupression with tacrolimus and mycophenolate. 3. Hyperkalemia. Resolved. Will monitor K. 4. Nausea/Vomiting/Diarrhea. Gastroenteritis. Likely viral. Continue supportive care. 5. Cough. Will defer to hospitalist. 01/16/18 5421 <Electronically signed by Leonela Orantes MD> Date Leonela Orantes MD Cosigner Signature (if applicable): Date CC: Julia Lundberg MD; Johann Bailey DO Signed BASIC METABOLIC Collected: 01/16/2018 Status: F Source: [place] PROFILE (BMP) 6:05 AM [facility] REPOSITORY TYPE CODE TESTS RESULT OUT OF RANGE REFERENCE UNITS LAB L501.0100 74-106 mg/dL High GLU 122 Result Comment: Fasting Glucose result from 100 to 125 mg/dL suggests IMPAIRED HOMEOSTASIS per A.D.A. criteria. Please note revised GLUCOSE reference range effective 2017. LAB L501.1000 7-18 mg/dL High BUN 45 LAB L501.1100 0.70-1.30 mg/dL High CREAT,SERUM 2.82 Result Comment: The validity of the calculated GFR AND GFRAA in patients over 70 years has not been determined. Clinical correlation is essential. LAB L501.1110 >60 mL/min Low EST GFR 27 Result Comment: Non- GFR Calc LAB L501.1115 >60 mL/min Low EST GFR - AA 33 Result Comment: GFR Calc LAB L501.1255 ml/min Normal Estimated CRCL 39.31 LAB L501.1300 10-20 RATIO Normal BUN/CRE 16.0 LAB L501.2200 8.5-10 mg/dL Normal .1 CA 8.5 LAB L501.5300 136-14 mmol/L Normal 5 NA 140 LAB L501.5600 3.5-5. mmol/L Normal 1 K 4.1 LAB L501.5900 98-107 mmol/L High CL 110 LAB L501.6100 21.0-3 mmol/L Low 2.0 CO2 20.0 LAB L501.6200 5-15 Normal GAP 10 Performed By: #### L500.2500 #### [facility] [address] [place], [address] HISTORY AND PHYSICAL Observed: 01/15/2018 Status: F Source: [place] EXAM 6:47 PM [facility] REPOSITORY [facility] Medical Records Department [address] [place] [address] History and Physical 01/15/18 1839 MR#: [id number] Acct: [id number] Name: GERARDO COREA Rep #: [id number] : 1985 32 From: Johann Parikh DO PCP: Johann Bailey DO Status: ADM MADELINE Y Location: [place] [address] Problem List (1) Elevated serum creatinine Status: Acute History of Present Illness Date of Admission: 01/15/18 Chief Complaint: Elevated creatinine The patient is a 32 year old M who was seen in the emergency room at [facility] after his PCP called him today informing him that he had an elevation of his creatinine on his labs. Patient has a history of kidney disease and underwent a renal transplant in 2004, his usual creatinine is around 2, his family physician renetta lab yesterday and his creatinine was 4.09. Patient has no complaints of any fatigue, he was recently placed on Zithromax for an upper respiratory tract infection but he denies any fevers, chills, or diaphoresis. Patient has no complaints of any shortness of breath. Evaluation in the emergency room today included labs which were remarkable for a potassium of 5.2, BUN was 55, creatinine was 3.65, white blood cell count was 14,000, hemoglobin was 11.4. Patient had a chest x-ray which showed no active disease. Nephrology was contacted by the emergency room physician, nephrology recommended D5W with bicarb be administered and the patient be admitted. Hospitalist service was called for admission, patient will be placed in observation status for acute kidney injury and seen in consultation by nephrology. IV fluids will be administered and labs will be repeated. Past Medical History Allergies No Known Allergies Allergy (Verified 01/15/18 12:32) Home Medications: Ambulatory Orders Medication Instructions Recorded Azithromycin [Zithromax] 250 mg PO DAILY 01/15/18 Cholecalciferol (Vitamin D3) 2,000 unit PO DAILY 01/15/18 [Vitamin D3] Surgical History: - - Renal transplant, fistula insertion Psychiatric History: No pertinent psych hx Lives: Spouse/ Significant Other Smoking Status: Light Smoker (<10/day) Tobacco Use: Cigarettes Alcohol: Occasional Drugs: None - *Family History Maternal History Items: No pertinent history Paternal History Items: Diabetes, Hypertension Review of Systems Constitutional: Denies: Anorexia, Chills, Fever, Night Sweats, Malaise, Weakness, Weight Change, Fatigue Eyes: Denies: Blurred vision, Cataracts, Conjunctivae Inflammation, Double vision, Drainage HEENT: Denies: Difficulty Swallowing, Dysphasia, Ear Pain, Eye Pain, Head Aches, Hearing Changes, Nasal bleeding, Nasal Congestion, Post Nasal Drip Cardiovascular: Denies: Chest Pain, Claudication, Chest Pressure, Chest Tightness, Edema, Heaviness, Orthopnea, Palpitations, Paroxysmal Noc. Dyspnea Respiratory: Reports: Cough, Sputum production - Yellow sputum production. Denies: Hemoptysis, Shortness of breath at rest, Shortness of breath upon exertion Gastrointestinal: Denies: Abdominal Pain, Constipation, Diarrhea, Hematemesis, Hematochezia, Nausea, Melena, Vomiting Genitourinary: Denies: Dysuria, Frequency, Hematuria, Hesitancy, Incontinence, Urgency Musculoskeletal: Denies: Back Pain, Foot Pain, Hand Pain, Joint Pain, Joint stiffness, Joint swelling, Joint Tenderness, Leg Pain Skin: Denies: Dryness, Jaundice, Pruritis, Rash Neurological: Denies: Blurred vision, Double vision, Change in Speech, Slurred speech, Difficulty swallowing, Focal weakness, Headaches, Incoordination, Numbness, Tingling Psychiatric: Denies: Anxiety, Depression, Homicidal Ideations, Suicidal Ideations Endocrine: Denies: Change in Body Habitus, Heat/ Cold Intolerance, Polydipsia, Polyuria Hematologic/ Lymphatic: Denies: Adenopathy, Anemia, Easy Bruising, Easy Bleeding, Petechiae, Purpura VTE Information - Inpt Only VTE Present on Admission: No VTE Mechan Device Prophylaxis: None VTE Pharm Prophylaxis ordered?: No Reason prophylaxis not ordered:: Treatment Not Indicated - low risk for VTE Patient Problems: Active and Suspected Problems Elevated serum creatinine (Acute) - Physical Exam General: Alert, Oriented x3, Cooperative, No apparent distress, Well developed, Well nourished HEENT: Atraumatic, PERRLA, EOMI, Normocephalic Oral: Moist Mucosa Neck: Supple, No JVD, Negative Carotid Bruits, No Nuchal Rigidity, Trachea Midline, Thyroid Normal Size and Texture Lungs: Clear to auscultation, Normal air movement, No rhonchi, No wheeze, No rales Cardiovascular: Regular rate, Regular Rhythm, Normal S1, Normal S2, No murmurs, No Ectopic Activity, PMI Normal, No rub noted, No Gallop Abdomen: Bowel Sounds Present, Soft, Non Tender, Non-Distended, No hernias noted Extremities: No clubbing, No cyanosis, No edema, Capillary Refill Less than 3 Seconds Skin: No rashes, No breakdown Musculoskeletal: No Tenderness to Palpation of Joints or Extremities Neurological: Cranial nerves II-XII grossly intact, Neuro grossly intact, Sensory exam intact to light touch and pain, Coordination normal Psych/Mental Status: Normal Affect, Appropriate, Alert and oriented to time, place, person, mood and affect Vital Signs Temp Pulse Resp BP Pulse Ox 98.4 F 76 18 127/70 H 100 01/15/18 16:15 01/15/18 16:15 01/15/18 16:15 01/15/18 16:15 01/15/18 16:15 Oxygen Delivery Method Room Air Weight: 90.775 kg Body Mass Index (BMI) 27.8 Intake and Output for Last 24 Hours Intake Total 300 / 300 Balance 300 / 300 Assessment/Plan All Active Problems Elevated serum creatinine (Acute) #1 acute kidney injury on a backdrop of chronic kidney disease- [facility], he will be seen by nephrology, he will be given IV fluids, labs will be rechecked. Patient's states that the patient works in a hot environment as a line welder and she feels he may not been keeping up with his fluids. #2 bronchitis-patient was placed on Zithromax yesterday for possible bronchitis, patient will continue his medication as an outpatient, it is likely he may be discharged tomorrow and he can resume this medication then. Patient has no evidence of any infiltrates on his chest x-ray and is afebrile. #3 GERD #4 chronic kidney disease #5 hyperkalemia-mild, this is probably not significant Code Visit OBSV E AND M: 32512 Initial observation care L3 01/15/18 6128 <Electronically signed by Johann Parikh DO> Date Johann Parikh DO Cosigner Signature: Date (if applicable) CC: Johann Bailey ; Johann Parikh DO Signed EMERGENCY DEPARTMENT Observed: 01/15/2018 Status: F Source: [place] SUMMARY 4:27 PM [facility] REPOSITORY [facility] Medical Records Department [address] [place] [address] Emergency Department Summary 01/15/18 1432 MR#: [id number] Acct: [id number] Name: GERARDO COREA Rep #: [id number] : 1985 32 From: Carroll Araujo MD PCP: Johann Bailey DO Status: ADM MADELINE - ER Visit Summary Date of Service: 01/15/18 Chief Complaint: Elevated creatinine History of Present Illness: The patient is a [address] Bailey and Dr. Kamara. He has a history of a kidney transplant in 2004 at [facility]. They no longer have a transplant team so he only sees his drafter structural. He is currently on CellCept and Prograf. Reports he has not missed any doses. Patient reports that over the course of the past 10 days he has had chills, a sore throat is 2 out of 10 severity, cough productive green/yellow sputum without blood and wheezing that is relieved by his inhaler. States over the past 2 days he has had generalized weakness. He had 3-4 episodes of diarrhea yesterday. No blood in his stools. No abdominal pain, nausea, or vomiting. No dysuria, hematuria or frequency. Patient saw his primary care physician in the office yesterday and had blood work obtained which showed his creatinine was 4.09. He reports his baseline is 2. Physical Examination: Vitals: 99.3, 124/64, 84, 16, 98% on room air which is not hypoxic. General: Well-nourished and well-developed. Head: Normocephalic atraumatic. Neck: Supple, no lymphadenopathy. No JVD. Nontender. Cardiovascular: Regular rate and rhythm. No murmurs. Respiratory: No respiratory distress. Clear to auscultation bilaterally. Abdominal: Soft, nontender, nondistended, normal bowel sounds. No guarding, rebound, or peritoneal signs. Back: Nontender. Extremities: Nontender, no edema. Skin: Normal color, no rash. Neurologic: Alert and oriented 3. Cranial nerves II through XII are intact. Normal strength and sensation. Psych: Normal affect. Test Results: EKG is sinus at 69 with a QRS interval of 104. There is not an old EKG for comparison. Chest x-ray is normal. CBC is remarkable for a white count of 14.0, H AND H 11.4 and 34.1, segment neutrophils 83, lymphs lites of 8. Chem-7 is more for a creatinine of 3.65 with a BUN of 55. Potassium is 5.2, chloride is 112, CO2 is 14, glucose 145. LFTs marked for an ALT of 13 and AST of 6. UA shows protein only. Lactic acid is 0.7. Strep is negative. Emergency Department Course and Treatment: The patient was discussed with Dr. Lundberg and was started on D5 water with 3 A of sodium bicarb at 150 cc/h. With the prolonged QRS he was given a dose of calcium chloride IV. He was also given D50 and insulin IV. Treatment Plan: Patient was discussed with Dr. Parikh. He will be admitted to the hospital for further relation and treatment. Disposition: Admitted in improved condition. Impression: 1. Acute on chronic renal insufficiency. 2. History of a kidney transplant. 3. Hyperkalemia. 4. URI. This note was generated with Flutter dictation software. It may contain incorrect words, spelling, and punctuation that were not noted in review of the chart prior to signing ED Disposition - Plan for ED Patient: Chief Complaint: Abn Labs Referrals: Johann Bailey, DO [Primary Care Provider] - What to do if you have Problems For any increased pain, shortness of breath, bleeding, nausea or vomiting, chest pain, or any unexpected problems, contact your Primary Care Provider. Call [facility] ([phone]) or report to the closest Emergency Room. Call 911 if necessary. 01/15/18 8601 <Electronically signed by Carroll Araujo MD> Date Carroll Pedraza Signature (If Indicated): Date CC: Johann Bailey DO URINALYSIS, COMPLETE Collected: 01/15/2018 Status: F Source: [place] 1:51 PM [facility] RE[facility] Order Comment: Order Date: 01/15/18 Has pt arrived? Y How was Urine Obtained? CLEAN CATCH TYPE CODE TESTS RESULT OUT OF RANGE REFERENCE UNITS LAB L400.3000 Yellow COLOR Normal Yellow LAB L400.3050 Clear Normal CLARITY Clear LAB L400.3200 Normal mg/dl Normal GLUCOSE, UR Normal LAB L400.3300 Negative mg/dL Normal BILIRUBIN URINE Negative LAB L400.3400 Negative mg/dl Normal KETONE UR Negative LAB L400.3465 1.002-1.030 Normal SP.GR. DIPSTX 1.010 LAB L400.3550 5.0 - 8.0 pH UR Normal 6.0 LAB L400.3600 Negative mg/dl High PROT DIPSTX 100 LAB L400.3700 Normal mg/dl Normal UROBILI Normal LAB L400.3750 Negative Normal NITRITE UR Negative LAB L400.3780 Negative /ul Normal OCCULT BLOOD-UR Negative LAB L400.3800 Negative /ul LEUK Normal ESTERASE Negative LAB L400.4050 0-5 /hpf WBC 0 Normal SEEN LAB L400.4100 0-5 /hpf 0 Normal RBC-UA SEEN LAB L400.4150 0-5 /hpf SQUAM 0 Normal EPI SEEN LAB L400.4300 None Seen /hpf 0 Normal BACTERIA SEEN LAB L400.4350 <or=2+ /hpf 0 Normal MUCUS, URINE SEEN Performed By: #### L400.0001 #### [facility] [address] [place], [address] CBC W/DIFF, AUTOMATED Collected: 01/15/2018 Status: F Source: [place] 1:00 PM [facility] REPOSITORY TYPE CODE TESTS RESULT OUT OF RANGE REFERENCE UNITS LAB L100.1000 4.4-11.0 K/mm3 High WBC 14.0 LAB L100.1200 4.6-6.2 M/mm3 Low RBC 3.69 LAB L100.1300 13.0-16.5 g/dl Low HGB 11.4 LAB L100.1400 40-54 % Low HCT 34.1 LAB L100.1500 80-94 fL Normal MCV 92.4 LAB L100.1600 27.0-32.0 pg Normal MCH 30.9 LAB L100.1700 32-36 g/gl Normal MCHC 33.4 LAB L100.1810 11.6-14.6 % Normal RDW CV 13.2 LAB L100.1820 35.1-43.9 fl High RDW SD 44.7 LAB L100.1900 150-450 K/mm3 Normal PLT 165 LAB L100.2000 6.2-12.0 fl Normal MPV 10.8 LAB L100.2100 47-70 % High NEUT% 82.6 LAB L100.2200 19-41 % Low LY% 7.9 LAB L100.2300 0-10 % Normal MONO% 8.2 LAB L100.2400 0-5 % Normal EO% 0.9 LAB L100.2500 0-1 % Normal BASO% 0.1 LAB L100.2550 0.0-0.9 % Normal IM GRAN % 0.300 Result Comment: IG% - Immature Granulocytes (promyelocytes, myelocytes and metamyelocytes) > 1% indicates that a LEFT SHIFT is Present. LAB L100.2620 2.0-7.7 X10 3/uL High Absolute Neut 11.6 LAB L100.2720 0.83-4.51 X10 3/ul Normal Absolute Lymph 1.11 Performed By: #### L100.0100 #### [facility] [address] [place], [address] COMPREHENSIVE METABOLIC Collected: 01/15/2018 Status: F Source: [facility] 1:00 PM [facility] REPOSIT[facility] TYPE CODE TESTS RESULT OUT OF RANGE REFERENCE UNITS LAB L501.0100 74-106 mg/dL High GLU 145 Result Comment: Fasting Glucose result greater than or equal to 126 mg/dL suggests DIABETES MELLITUS per A.D.A. criteria. Please note revised GLUCOSE reference range effective 2017. LAB L501.1000 7-18 mg/dL High BUN 55 LAB L501.1100 0.70-1.30 mg/dL High CREAT,SERUM 3.65 Result Comment: The validity of the calculated GFR AND GFRAA in patients over 70 years has not been determined. Clinical correlation is essential. LAB L501.1110 >60 mL/min Low EST GFR 20 Result Comment: Non- GFR Calc LAB L501.1115 >60 mL/min Low EST GFR - AA 25 Result Comment: GFR Calc LAB L501.1255 ml/min Normal Estimated CRCL 30.37 LAB L501.1300 10-20 RATIO Normal BUN/CRE 15.1 LAB L501.1500 6.4-8. g/dL Normal 2 T PROT 7.2 LAB L501.1800 3.2-5. g/dL Normal 0 ALB 3.2 LAB L501.1950 2.2-4. g/dL Normal 2 GLOB 4.0 LAB L501.2000 0.9-2. RATIO Low 4 A/G 0.8 LAB L501.2200 8.5-10 mg/dL Normal .1 CA 8.5 LAB L501.4100 15-37 U/L Low AST 6 LAB L501.4305 45-117 U/L Normal ALK P 102 LAB L501.4405 16-61 U/L Low ALT 13 LAB L501.4600 0.20-1 mg/dL Normal .00 T BILI 0.40 LAB L501.5300 136-14 mmol/L Low 5 NA 135 LAB L501.5600 3.5-5. mmol/L High 1 K 5.2 LAB L501.5900 98-107 mmol/L High CL 112 LAB L501.6100 21.0-3 mmol/L Low 2.0 CO2 14.0 LAB L501.6200 5-15 Normal GAP 9 Performed By: #### L500.4050 #### [facility] [place], [address] LACTIC ACID Collected: 01/15/2018 Status: F Source: [place] 1:00 PM [facility] REPOS[facility] Order Comment: Yes/No query for Sepsis Lactate Rule Y TYPE CODE TESTS RESULT OUT OF RANGE REFERENCE UNITS LAB L503.6005 0.4-2.0 mmol/L Normal LACTIC ACID 0.7 Performed By: #### L503.6005 #### [facility] [address], [address] Observed: 01/15/2018 Status: F Source: [place] CULTURE, BLOOD (WB) 1:00 PM [facility] REPOSIT[facility] BC No growth in 5 days. Performed By: #### M200.1000 #### [facility] [address] [facility] [address] [place], [address] TACROLIMUS (PROGRAF) Collected: 01/15/2018 Status: F Source: [place] 1:00 PM [facility] REPOSIT[facility] TYPE CODE TESTS RESULT OUT OF RANGE REFERENCE UNITS LAB L3380.1100 2.0-20.0 ng/mL Normal TACROLIMUS 12.8 Result Comment: Trough (immediately following transplant) 15.0 Trough (steady state, 2 weeks or more after transplant): 3.0 - 8.0 Detection Limit = 1.0 Performed by LC-MS/MS technology. Performed at: - [facility] [id number] [employer] Salesperson: Cayden Patel MD, Phone: [phone] Performed By: #### L3380.1000 #### [facility] (refer to report for specific site) refer to report for address and phone number Observed: 01/15/2018 Status: F Source: [place] CULTURE, BLOOD (WB) 12:56 PM [facility] REPOS[facility] BC No growth in 5 days. Performed By: #### M200.1000 #### [facility] [address] [place], [place], [address] CHEST PA AND LATERAL Observed: 01/15/2018 Status: F Source: [place] 12:47 PM [facility] REPOSITORY [facility] Imaging Services [address] [place] [address] Chest PA and Lateral MR#: [id number] Acct: [id number] Name: GERARDO COREA Marilee Rep #: [id number] : 1985 M 32 From: Kendell Schultz DO PCP: Johann Bailey DO Status: REG ER Study: Chest PA and Lateral Date of Exam: 01/15/18 Exam# [id number] Ordering Dr: Carroll Araujo MD STUDY: X-RAY CHEST REASON FOR EXAM: Male, 32 years old. Increased creatinine TECHNIQUE: PA and lateral views of the chest. COMPARISON: 01/19/2013 FINDINGS: The lungs are clear and expanded. There is no demonstrated pleural abnormality. Normal size heart. Normal mediastinum and stephanie. Normal visualized pulmonary arteries. Normal visualized aortic arch and descending thoracic aorta. Normal visualized thoracic spine. Normal visualized ribs, clavicles, and shoulders. There is no demonstrated abnormality of the visualized soft tissue structures of the upper abdomen. RAD/Chest PA and Lateral IMPRESSION: Normal x-ray examination of the chest. Electronically Signed: Kendell Schultz DO at 13:41 EDT Tel , Service support , CC: Johann Bailey DO; Carroll Araujo MD Rn Care Transition: Signed Observed: 01/15/2018 Status: F Source: [place] STREP A (THROAT 12:46 PM [facility]) REPOSITORY Order Date: 01/15/18 Has pt arrived? Y Strep A Rapid Rapid Strep A Screen NEGATIVE A Disk (Conf. Cult) Negative for Strep Group A : All NEGATIVE screens will be confirmed with a culture. Performed By: #### M100.676 #### [facility] [address] [place], [place], [address] CBC W/DIFF, AUTOMATED Collected: 01/14/2018 Status: F Source: [place] 3:31 PM [facility] REPOSIT[facility] TYPE CODE TESTS RESULT OUT OF RANGE REFERENCE UNITS LAB L100.1000 4.4-11.0 K/mm3 High WBC 13.3 LAB L100.1200 4.6-6.2 M/mm3 Low RBC 3.84 LAB L100.1300 13.0-16.5 g/dl Low HGB 11.7 LAB L100.1400 40-54 % Low HCT 36.1 LAB L100.1500 80-94 fL Normal MCV 94.0 LAB L100.1600 27.0-32.0 pg Normal MCH 30.5 LAB L100.1700 32-36 g/gl Normal MCHC 32.4 LAB L100.1810 11.6-14.6 % Normal RDW CV 13.6 LAB L100.1820 35.1-43.9 fl High RDW SD 46.6 LAB L100.1900 150-450 K/mm3 Normal PLT 173 LAB L100.2000 6.2-12.0 fl Normal MPV 11.7 LAB L100.2100 47-70 % High NEUT% 75.7 LAB L100.2200 19-41 % Low LY% 14.6 LAB L100.2300 0-10 % Normal MONO% 8.6 LAB L100.2400 0-5 % Normal EO% 0.8 LAB L100.2500 0-1 % Normal BASO% 0.1 LAB L100.2550 0.0-0.9 % Normal IM GRAN % 0.200 Result Comment: IG% - Immature Granulocytes (promyelocytes, myelocytes and metamyelocytes) > 1% indicates that a LEFT SHIFT is Present. LAB L100.2620 2.0-7.7 X10 3/uL High Absolute Neut 10.1 LAB L100.2720 0.83-4.51 X10 3/ul Normal Absolute Lymph 1.95 Performed By: #### L100.0100 #### [facility] [place], [address] COMPREHENSIVE METABOLIC Collected: 01/14/2018 Status: F Source: [facility] 3:31 PM [facility] REPOSIT[facility] TYPE CODE TESTS RESULT OUT OF RANGE REFERENCE UNITS LAB L501.0100 74-106 mg/dL Normal GLU 93 Result Comment: Please note revised GLUCOSE reference range effective 2017. LAB L501.1000 7-18 mg/dL High BUN 52 LAB L501.1100 0.70-1.30 mg/dL High CREAT,SERUM 4.09 Result Comment: The validity of the calculated GFR AND GFRAA in patients over 70 years has not been determined. Clinical correlation is essential. LAB L501.1110 >60 mL/min Low EST GFR 18 Result Comment: Non- GFR Calc LAB L501.1115 >60 mL/min Low EST GFR - AA 22 Result Comment: GFR Calc LAB L501.1300 10-20 RATIO Normal BUN/CRE 12.7 LAB L501.1500 6.4-8.2 g/dL T Normal PROT 7.8 LAB L501.1800 3.2-5.0 g/dL Normal ALB 3.5 LAB L501.1950 2.2-4.2 g/dL High GLOB 4.3 LAB L501.2000 0.9-2.4 RATIO Low A/G 0.8 LAB L501.2200 8.5-10.1 mg/dL CA Normal 8.6 LAB L501.4100 15-37 U/L Low AST 10 LAB L501.4305 45-117 U/L Normal ALK P 115 LAB L501.4405 16-61 U/L Normal ALT 16 LAB L501.4600 0.20-1.00 mg/dL T Normal BILI 0.60 LAB L501.5300 136-145 mmol/L NA Normal 136 LAB L501.5600 3.5-5.1 mmol/L High K 5.7 LAB L501.5900 98-107 mmol/L High CL 112 LAB L501.6100 21.0-32.0 mmol/L Low CO2 12.0 LAB L501.6200 5-15 Normal GAP 12 Performed By: #### L500.4050 #### [facility] [address] [place] [address]. [place], [place], [address] RENAL FUNCTION PANEL Collected: 07/31/2017 Status: F Source: [facility] WITH EGFR 5:30 AM [facility] REPOSITORY TYPE CODE TESTS RESULT OUT OF REFERENCE UNITS RANGE LAB RENAL FUNCTION PANEL WITH eGFR(LOINC) RENAL FUNCTION PANEL WITH eGFR Result Comment: RENAL FUNCTION PANEL LAB SODIUM(LOINC) 136 - 145 mmol/l SODIUM 136 LAB POTASSIUM(LOINC) 3.5 - 5.1 mmol/L POTASSIUM 4.4 LAB CHLORIDE(LOINC) 98 - 107 mmol/L CHLORIDE 107 LAB GLUCOSE(LOINC) 74 - 106 mg/dl GLUCOSE 102 LAB BUN(LOINC) 6 - 20 mg/dl BUN High 29 LAB CREATININE(LOINC) 0.7 - 1.3 mg/dl High CREATININE 2.2 LAB CALCIUM(LOINC) 8.6 - mg/dl 10.2 CALCIUM 9.8 LAB ALBUMIN(LOINC) 3.4 - 4.8 g/dL ALBUMIN 4.0 LAB B/C RATIO(LOINC) 0 - 30 ratio B/C RATIO 13 LAB CO2(LOINC) 21.0 - mmol/L 31.0 CO2 21.5 LAB PHOSPHORUS(LOINC) 2.7 - 4.9 mg/dl PHOSPHORUS 3.4 LAB AGE(LOINC) years AGE 32 LAB eGFR(LOINC) 60 - 999 ML/MINUTE eGFR Low 34 LAB eGFR(AA)(LOINC) 60 - 999 ML/MINUTE eGFR(AA) Low 42 Result Comment: ACCORDING TO THE NATIONAL KIDNEY DISEASE EDUCATION PROGRAM(NKDE), A NORMAL eGFR IS A VALUE GREATER THAN OR EQUAL TO 60 ML/MIN/1.73 SQ METERS. CHRONIC KIDNEY DISEASE: <60mL/MIN/1.73 SQ METERS KIDNEY FAILURE: <15mL/MIN/1.73 SQ METERS THIS TEST SHOULD ONLY BE USED FOR PATIENTS 18 YEARS OF AGE AND OLDER. Performed By: #### [id number] #### [place] [address] URINE CREATININE AND Collected: 07/31/2017 Status: F Source: [facility] PROTEIN RATIO 5:30 [facility] REPOSITORY TYPE CODE TESTS RESULT OUT OF REFERENCE UNITS RANGE LAB CREATININE mg/dl UR(LOINC) CREATININE UR 126.8 LAB URINE TOTAL 0.00 - 10.00 mg/dL PROTEIN(LOINC) URINE High TOTAL PROTEIN 179.00 LAB PC RATIO(LOINC) 0 - 10 mg/dL PC RATIO 1 Performed By: #### [id number] #### [place] [id number] TACROLIMUS [QUEST] Collected: 07/31/2017 Status: F Source: [facility] 5:30 [facility] REPOSITORY TYPE CODE TESTS RESULT OUT OF REFERENCE UNITS RANGE LAB TACROLIMUS [QUEST](LOINC) TACROLIMUS [QUEST] Result Comment: _TACROLIMUS_ LAB CALLED TO/BY(LOINC) OSCAR/WARREN CALLED TO/BY [id number] Result Comment: TACROLIMUS, HIGHLY SENSITIVE, LC/MS/MS Reported: 08/01/2017 20:41 Status=F TEST RESULT FLAG RANGE UNITS TACROLIMUS, LC/MS/MS 3.8 mcg/L 08/01/17.2053.[facility]PLETE.[facility] .52395-2 No definitive therapeutic or toxic ranges have been established. Optimal blood drug levels are influenced by type of transplant, patient response, time post- transplant, co-administration of other drugs, and drug formulation. The following trough range is a suggested guideline: 5.0-20.0 mcg/L This test was developed and its analytical performance characteristics have been determined by [facility] [place], [place]. It has not been cleared or approved by the U.S. Food and Drug Administration. This assay has been validated pursuant to the CLIA regulations and is used for clinical purposes. Test Performed by [facility], [facility], [address] [place] [address] Lamont Sharp M.D., Ph.D., Director of Laboratories , CLIA [id number] Performed By: #### [id number] #### [facility],[address] [place] [address] ALLERGIES ALLERGIES DATE TYPE / CODE NAME / CODE REACTION SEVERITY SOURCE 07/08/2018 Drug No Known Unknown [place] Allergy/[id number](S Allergies/F0019 [facility] [place]OM[place]) 78785(RXNORM) Hospital Repository 05/28/2005 DRUG ANIMAL DANDER [facility]/[id number](S Clinic Main NOMED CT) [place] Repository [id number](SNOMED ANIMAL DANDER [facility]) Health System Repository Miscellaneous No Known Drug Moderate [facility] Allergy/[id number](S Allergies ([facility] NOM[facility]) Modifier) Hospital (Qualifier Repository Value) ENCOUNTERS ENCOUNTERS ADMIT/DISCHARGE ACCOUNT NUMBER ADMITTING ENCOUNTER LOCATION SOURCE CLASS 07/23/2018 [id number] Ambulatory [facility] ding:SDC Repository 07/20/2018/ [id number] KIMBERLY, Ambulatory Gregor 019 [facility] Repository 07/17/2018/ [id number] KIMBERLY, Ambulatory Gregor 019 [facility] Repository 07/15/2018 [id number] Ambulatory [facility] ding:LAB Repository 07/08/2018/ [id number] Ambulatory BMSBuilding: Roxana 019 [facility] Repository 07/04/2018 [id number] Ambulatory BMSBuilding: Roxana [facility] Repository 07/03/2018/ [id number] White, Ale Inpatient [place]ox[place] 019 Encounter [facility] ding:NP5Hivf Repository : HG282Mxp: 1 07/03/2018 [id number] White, Ale Ambulatory BMSBuilding: Roxana [facility] Repository 07/03/2018 [id number] White, Ale Ambulatory BMSBuilding: [place] [facility] Repository 07/03/2018 [id number] White, Ale Ambulatory BMSBuilding: [place]oxana [facility] Repository 07/03/2018 [id number] White, Ale Ambulatory BMSBuilding: [place] [facility] Repository 07/03/2018/ [id number] KIMBERLY, Ambulatory Gregor 019 [facility] Repository 06/05/2018/ [id number] Yane Junior Inpatient [place] 018 [facility] ng:CCLERoom: Repository POOLBed: 06 06/05/2018/ [id number] JUNIOR CHE Ambulatory [place] 018 A [facility] Other [place]vin Repository 06/02/2018/ [id number] JUNIOR CHE Ambulatory Gregor 018 [facility] Repository 05/26/2018/ [id number] Ambulatory [place] 018 [facility] Repository 05/05/2018/ [id number] Ale Che Ambulatory [place]oxana 018 [facility] ding:PCURoom Repository : AMQ075Eek: 1 05/05/2018 [id number] Ale Che Ambulatory BMSBuilding: [place]oxana [facility] Repository 05/05/2018 [id number] Ambulatory BMSBuilding: Roxana [facility] Repository 05/05/2018/ [id number] Ambulatory BMSBuilding: [place] 018 BMS.[facility] Repository 05/05/2018 [id number] Ale Che Ambulatory BMSBuilding: [place] [facility] Repository 05/05/2018/ [id number] KIMBERLY, Ambulatory Gregor 018 [facility] Repository 04/09/2018/ [id number] Ambulatory ABuilding:[place] Myri[address] Repository 04/09/2018/ [id number] MARLEEN, Ambulatory Buildin Gregor 018 YUDY T Room: [address] Repository 02/25/2018/ [id number] KIMBERLY, Ambulatory Gregor 018 [facility] Repository 02/18/2018 [id number] JOHANN BAILEY Ambulatory Gregor A [facility] Repository 02/18/2018 [id number] KIMBERLY, Ambulatory Gregor [facility] Repository 02/18/2018 [id number] KIMBERLY, Ambulatory [facility] Repository 02/18/2018/ [id number] MARLEEN, Ambulatory Buildin Gregor 018 YUDY T Room: [address] Repository 01/20/2018 [id number] Ambulatory BMSBuilding: [place]oxana [facility] Repository 01/20/2018/ [id number] Gómez Lino Inpatient Rox[place] 018 Encounter [facility] ding:TF3Rbnh Repository : IA332Hmm: 1 01/20/2018 [id number] Gómez Lino Ambulatory BMSBuilding: [place]oxana [facility] Repository 01/20/2018 [id number] Gómez Lino Ambulatory BMSBuilding: [place] [facility] Repository 01/19/2018/ [id number] ASHELFAH, Ambulatory Gregor 018 [facility] Repository 01/15/2018/ [id number] Tereletsky, Inpatient [place] 018 Johann Encounter [facility] ding:QW4Zkeo Repository : UC100Nde: 1 01/15/2018 [id number] Tereletsky, Ambulatory BMSBuilding: [place] Johann [facility] Repository 01/15/2018 [id number] Tereletsky, Ambulatory BMSBuilding: [place] Johann [facility] Repository 01/15/2018 [id number] Tereletsky, Ambulatory BMSBuilding: Roxana Johann [facility] Repository 01/14/2018 [id number] Ambulatory [place] Roxana [facility] ding:BFHLAB Repository 07/31/2017/ [id number] KIMBERLY, Ambulatory Gregor 018 [facility] Repository PAYERS PAYERS ENCOUNTER GUARANTOR PAYER SUBSCRIBER SOURCE 07/23/2018 GERARDO Hunt Primary GERARDO Schmidt [id number] S Insurance:ANTHEMPolicy WILLIHIOB: [facility] Number: [id number] [id number] Repository 78990Dol: (260) e Date:0288-93-90IN [phone] () [address], [place] [address]IV: 07/23/2018 Secondary NOT GIVENUNK [place] Insurance:SELF PAY [facility] Number: Effective Repository Date:2018-07-08 07/20/2018 GERARDO Hunt Primary GERARDO Crow WILLISDOB: Insurance:ANTHEM BLUE WILLISDOB: [facility] S [employer]OSS [employer]ERCIAL [id number] [place] Number: [place] [id number]: [id number] [place] [id number] Date:Plan Name: () 07/17/2018 MARIAMALIBIA Hunt Primary GERARDO Crow WILLISDOB: Insurance:ANTHEM LAURI WILLISDOB: [facility] [id number] [place] Number: [place], [id number]: [id number] [place] [id number] Date:Plan Name: () 07/15/2018 MARIAMALIBIA Hunt Primary GERARDO Hunt [place] [id number] S Insurance:ANTHEMPolicy WILLISDOB: [facility] Number: [id number] [place] [id number] Repository 085[address]Ljc: 419) e Date:6320-51-15PL [phone] () [address] [place] [address]EI: 07/15/2018 Secondary NOT GIVENUNK [place] Insurance:SELF PAY [facility] Number: Effective Repository Date:2018-07-15 07/08/2018 MARIAMALIBIA Hunt Primary GERARDO Hunt [place] [id number] S Insurance:ANTHEMPolicy WILLISDOB: [facility] Number: [id number] [place] [id number] Repository [address]Pnj: (419) e Date:6134-54-97FX [phone] () [address] [place] [address]NZ: 07/08/2018 Secondary NOT GIVENUNK [place] Insurance:SELF PAY [facility] Number: Effective Repository Date:2018-07-07 07/04/2018 ALEXER M Primary CHRISTJAXSONER M [place] [id number] S Insurance:ANTHEMPolicy WILLISDOB: [facility] Number: [id number] [place] [id number] Repository 58232Lpk: (419) e Date:0769-66-64ES [phone] () [address]TAVYYCC, [place] [address]PN: 07/04/2018 Secondary NOT GIVENUNK [place] Insurance:SELF PAY [facility] Number: Effective Repository Date:2018-07-04 07/03/2018 ALEXER M Primary CHRISTJAXSONER M [place] [id number] S Insurance:ANTHEMPolicy WILLISDOB: [facility] Number: [id number] [place] [id number] Repository 99387Xwu: (419) e Date:4791-45-45PV [phone] () [address]CJFGYMZ, [place] [address]XD: 07/03/2018 Secondary NOT GIVENUNK [place] Insurance:SELF PAY [facility] Number: Effective Repository Date:2018-07-03 07/03/2018 GERARDO M Primary CHRISTJAXSONER M [place] [id number] S Insurance:ANTHEMPolicy WILLISDOB: [facility] Number: [id number] [place] [id number] Repository 59[address]Vqr: (419) e Date:3315-27-73PE [phone] () [address]BYGBKCS, [place] [address]FM: 07/03/2018 Secondary NOT GIVENUNK [place] Insurance:SELF PAY [facility] Number: Effective Repository Date:2018-07-03 07/03/2018 ALEXER M Primary CHRISTJAXSONER M [place] [id number] S Insurance:ANTHEMPolicy WILLISDOB: [facility] Number: [id number] [place] [id number] Repository 58[address]Pyr: (419) e Date:4282-49-70IH [phone] () [address]OCJROFE, [place] [address]NJ: 07/03/2018 Secondary NOT GIVENUNK [place] Insurance:SELF PAY [facility] Number: Effective Repository Date:2018-07-03 07/03/2018 GERARDO Hunt Primary GERARDO M [place] [id number] S Insurance:ANTHEMPolicy WILLISDOB: [facility] Number: [id number] [place], [place] [id number] Repository 665[address]Cvt: (053) e Date:1029-37-05MU [phone] () [address]RWQKUDW, [place] [address]IW: 07/03/2018 Secondary NOT GIVENUNK [place] Insurance:SELF PAY [facility] Number: Effective Repository Date:2018-07-03 07/03/2018 MARIAMALIBIA Hunt Primary GERARDO Hunt [place] [id number] S Insurance:ANTHEMPolicy WILLISDOB: [facility] Number: [id number] [place] [id number] Repository 00[address]Umd: (267) e Date:8716-51-38MM [phone] () [address]HZWHIUE, [place] [address]XN: 07/03/2018 Secondary NOT GIVENUNK [place] Insurance:SELF PAY [facility] Number: Effective Repository Date:2018-07-03 07/03/2018 GERARDO Marilee Primary GERARDO M Gregor Crow WILLISDOB: Insurance:ANTHEM BLUE WILLISDOB: [facility] S [employer] [id number] [place] [address] Number: [facility] [id number]: [id number] [place] [id number] Date:Plan Name: () 06/05/2018 GERARDO Hunt Primary Insurance:LAURI Tsai WILLISDOB: CARD OPolicy Number: WILLISDOB: [facility] [id number] 2091-96-19[facility] Date: [place], [place] [address]Elc: () 06/02/2018 ALEXER M Primary CHRISTOPHER M Gregor Crow WILLISDOB: Insurance:ANTHEM BLUE [facility]ISDOB[facility] [id number] [place] Number: [facility] [id number]: [id number] [place] [id number] Date:Plan Name:B2 () 05/05/2018 CHRISTJAXSONER M Primary CHRISTOPHER M [place] [id number] S Insurance:ANTHEMPolicy WILLISDOB: [facility] Number: [id number] [place] [id number] Repository [address]Dfn: (838) e Date:3639-85-82NK [phone] () [address]GSMKTPG, [place] [address]YX: 05/05/2018 Secondary NOT GIVENUNK [place] Insurance:SELF PAY [facility] Number: Effective Repository Date:2018-05-05 05/05/2018 MARIAMAJAXSONER M Primary CHRISTJAXSONER M [place] [id number] S Insurance:ANTHEMPolicy WILLISDOB: [facility] Number: [id number] [place] [id number] Repository [address]Qfi: [phone]) e Date:1516-44-89KE [phone] () [address]JNDQPEI, [place] [address]RJ: 05/05/2018 Secondary NOT GIVENUNK [place] Insurance:SELF PAY [facility] Number: Effective Repository Date:2018-05-05 05/05/2018 MARIAMAJAXSONER M Primary CHRISTOPHER M [place] [id number] S Insurance:ANTHEMPolicy WILLISDOB: [facility] Number: [id number] [place], [place] [id number] Repository [address]Lsz: [phone]) e Date:4062-85-03BU [phone] () [address] [place] [address]ZP: 05/05/2018 Secondary NOT GIVENUNK [place] Insurance:SELF PAY [facility] Number: Effective Repository Date:2018-05-05 05/05/2018 CHRISTJAXSONER M Primary CHRISTOPHER M [place] [id number] S Insurance:ANTHEMPolicy WILLISDOB: [facility] Number: [id number] [place] [id number] Repository [address]Cso: (419) e Date:7644-79-78RP [phone] () [address]YTTHAZD, [place] [address]PX: 05/05/2018 Secondary NOT GIVENUNK [place] Insurance:SELF PAY [facility] Number: Effective Repository Date:2018-05-05 05/05/2018 ALEXER M Primary CHRISTJAXSONER [place] [id number] S Insurance:ANTHEMPolicy WILLISDOB: [facility] Number: [id number] [place], [place] [id number] Repository 409[address]Qwg: (144) e Date:1604-53-04DQ [phone] () [address]LLCFFIU, [place] [address]WE: 05/05/2018 Secondary NOT GIVENUNK [place] Insurance:SELF PAY [facility] Number: Effective Repository Date:2018-05-05 05/05/2018 ALEXER M Primary [facility] WILLISDOB: Insurance:ANTHSHIV BLUE WILLISDOB: [facility] S [employer] [id number] [place] Number: [facility] [id number]: [id number] [place] [id number] Date:Plan Name:B2 () 04/09/2018 [facility] Primary [facility] WILLISDOB: Insurance:ANTHEM BLUE WILLISDOB: [facility] s CROSS INSCOPolicy [id number] [place] [address] Number: [facility] FoundationONVMU, [place] [id number] [place], [address]Qpk: (999) Date:2017-01-11 ID [id number]: [id number] () [id number] Name:SHELTON BREEN ()Tel: ([phone]) [phone], [place] [phone] (CM) [address]PI: 04/09/2018 ALEXER M Primary CHRISTJAXSONER Marilee Crow WILLISDOB: Insurance:ANTHSHIV BLUE BASSAMSDOB: [facility] S [employer]OSS COMMERCIAL [id number] [facility] [place] Number: FRANK, [id number]: [id number] [place] [phone] e Date:Plan Name: () 02/25/2018 ALEXER M Primary CHRISTOPHER Marilee Crow WILLISDOB: Insurance:ANTHSHIV BLUE BASSAMSDOB: [facility] S [employer] [id number] [facility] [place] Number: FRANK [id number]: [id number] [place] [phone] e Date:Plan Name: () 02/18/2018 MARIAMAJAXSONGODWIN M Primary CHRISTJAXSONER Marilee Crow WILLISDOB: Insurance:ANTHSHIV BANEGASSDOB: [facility] S [employer] [id number] [facility] [place] Number: [place]ANK, [id number]: [id number] [place] [phone] e Date:Plan Name: () 02/18/2018 GERARDO M Primary CHRISTJAXSONER Marilee Crow WILLISDOB: Insurance:ANTHEM BLUE WILLISDOB: [facility] S [employer] [id number] [place] Number: FRANK [id number]: [id number] [place] [phone] e Date:Plan Name: () 02/18/2018 MARIAMALIBIA Hunt Primary CHRISTJAXSONER Marilee Crow WILLISDOB: Insurance:ANTHEM BLUE WILLISDOB: [facility] [id number] [place], [place] [address] Number: [place] [id number]: [id number] [place] [id number] Date:Plan Name: () 02/18/2018 MARIAMAJAXSONGODWIN Marilee Primary CHRISTJAXSONER Marilee SWENSONOB: Insurance:ANTHEM BLUE WILLISDOB: [facility] [id number] [place] [address] Number: FRANK [id number]: [id number] [place] [phone] e Date:Plan Name: () 01/20/2018 GERARDO Hunt Primary CHRISTJAXSONER M [place] [id number] S Insurance:ANTHEMPolicy WILLISDOB: [facility] Number: [id number] [place], [place] [id number] Repository [address]Exm: 419 e Date:3985-12-93DC [phone] () [address]IZOBTWR, [place] [address]VF: 01/20/2018 Secondary NOT GIVENUNK [place] Insurance:SELF PAY [facility] Number: Effective Repository Date:2018-01-20 01/20/2018 GERARDO M Primary CHRISTOPHER M [place] [id number] S Insurance:ANTHEMPolicy WILLISDOB: [facility] Number: [id number] [place], [place] [id number] Repository [address]Wox: [phone]) e Date:1227-54-02NF [phone] () [address]QSBTNFH [place] [address]QP: 01/20/2018 Secondary NOT GIVENUNK [place] Insurance:SELF PAY [facility] Number: Effective Repository Date:2018-01-19 01/20/2018 GERARDO Hunt Primary CHRISTJAXSONER M [place] [id number] S Insurance:ANTHEMPolicy WILLISDOB: [facility] Number: [id number] [place], [place] [id number] Repository [address]Wto: (419) e Date:6813-91-83VO [phone] () [address]HEZIMTW [place] [address]OW: 01/20/2018 Secondary NOT GIVENUNK [place] Insurance:SELF PAY [facility] Number: Effective Repository Date:2018-01-20 01/20/2018 GERARDO Hunt Primary CHRISTJAXSONER M [place] [id number] S Insurance:ANTHEMPolicy WILLISDOB: [facility] Number: [id number] Park, [place] [id number] Repository [address]Shk: 419) e Date:6490-72-02DT [phone] () [address]VUHWGZZ, [place] [address]LM: 01/20/2018 Secondary NOT GIVENUNK [place] Insurance:SELF PAY [facility] Number: Effective Repository Date:2018-01-20 01/19/2018 GERARDO Hunt Primary CHRISTJAXSONER M Gregor Crow WILLISDOB: Insurance:ANTHEM BLUE WILLISDOB: [facility] S [employer] [id number] [place] Number: [facility] [id number]: [id number] [place] [id number] Date:Plan Name:B2 () 01/15/2018 Gerardo Hunt Primary Christjaxsoner Marilee Roxana [id number] S Insurance:ANTHEMPolicy WillisDOB: [facility] Number: [id number], [place] [id number] Repository [address]Jju: 419) e Date:6419-09-44CL [phone] () [address]DAJNIUQ, [place] [address]JP: 01/15/2018 Secondary NOT GIVENUNK [place] Insurance:SELF PAY [facility] Number: Effective Repository Date:2018-01-15 01/15/2018 Christjaxsoner M Primary Christopher M [place] [id number] S Insurance:ANTHEMPolicy WillisDOB: [facility] Number: [id number], [place] [id number] Repository [address]Cth: (419) e Date:0870-36-42PQ [phone] () [address]WPPGZXL, [place] [address]KT: 01/15/2018 Secondary NOT GIVENUNK [place] Insurance:SELF PAY [facility] Number: Effective Repository Date:2018-01-15 01/15/2018 Christjaxsoner M Primary Christopher M [place] [id number] S Insurance:ANTHEMPolicy WillisDOB: [facility] Number: [id number], [place] [id number] Repository [address]Cng: (419) e Date:3004-90-62LN [phone] () [address]MLKHKCT, [place] [address]FB: 01/15/2018 Secondary NOT GIVENUNK [place] Insurance:SELF PAY [facility] Number: Effective Repository Date:2018-01-15 01/15/2018 Christopher M Primary Christopher M R[place] [id number] S Insurance:ANTHEMPolicy WillisDOB: [facility] Number: [id number], [place] [id number] Repository [address]Puk: (419) e Date:0584-17-40WX [phone] () [address]IRITDGQ, [place] [address]MM: 01/15/2018 Secondary NOT GIVENUNK [place] Insurance:SELF PAY [facility] Number: Effective Repository Date:2018-01-15 01/14/2018 Gerardo Hunt Primary Gerardo Schmidt [id number] S Insurance:Gale BanegasFLNIKO: [facility] Number: [id number] [place], [place] [id number] Repository [address]Peq: 567 Date:1980-49-79MJ [phone] () 807353SARFUIS, [place] [address]BX: 01/14/2018 Secondary NOT GIVENUNK [place] Insurance:SELF PAY [facility] Number: Effective Repository Date:2018-01-14 07/31/2017 GERARDO Hunt Primary ALEXER M Gregor SWENSONOB: Insurance:SOFIA SWENSONOB: [facility] S CROSS COMMERCIAL [id number] [place], [place] Number: FRANK [id number]: [id number] [place] [address] e Date:Plan Name:B2 ()
== END ==
PROVIDERS: Family Provider Family Medicine; PCP Family Medicine
DX: D81.9 Combined immunodeficiency, unspecified (principal)
CPT/HCPCS: 36415; 87496

== ENCOUNTER 2018-09-07 17:38 | Emergency (ER) | payer BC, SELFPAY ==
[2018-07-08 08:28] VITALS: BMI 30.7
[2018-09-07 17:39] VITALS: BP 147/87; PULSE 87; RESP 14; TEMP 37.7; O2SAT 98; BMI 30.2
[2018-09-07 18:25] VITALS: BP 147/87; PULSE 87; RESP 14; TEMP 37.7; O2SAT 98
[2018-09-07 19:30] VITALS: BP 136/94; PULSE 75; RESP 16; TEMP 36.7; O2SAT 99
--- NOTE | 2018-09-07 19:33 | ED.DCSUM_ITS ---
- ER Visit Summary Date of Service: 09/07/18 Chief Complaint: Catheter check History of Present Illness: The patient is a 33 M with a history of end-stage renal disease. He had a right subclavian catheter placed by Dr. Alonso earlier this year. He said it has come loose and he was concerned that it could be introducing bacteria into his bloodstream. He has no fevers or any symptoms. Physical Examination: Afebrile and vital signs unremarkable. Heart and lung exams unremarkable. Skin clean dry and intact. Catheter clean. Test Results: None performed Emergency Department Course and Treatment: Patient was discussed with Dr. Alonso. He instructed me on removal. I spoke with the patient. Risks were discussed. He would like to follow-up with Dr. Alonso tomorrow. Patient should return for fever or any other issues. Treatment Plan: As above Disposition: Discharge Impression: 1. Attention to tunneled catheter site This note was generated with [employer] dictation software. It may contain incorrect words, spelling, and punctuation that were not noted in review of the chart prior to signing ED Disposition - Plan for ED Patient: Referrals: Fredrick Oglesby DO [Primary Care Provider] -
--- NOTE | 2018-09-07 19:33 | ED.DEP ---
ED Disposition - Plan for ED Patient: Referrals: Dionisio Alonso MD [STAFF PHYSICIAN] -
== END 2018-09-07 19:48 | disposition home or self-care (01) ==
PROVIDERS: Emergency Provider Emergency Medicine; Family Provider Family Medicine; PCP Family Medicine
DX: T82.898A Other specified complication of vascular prosthetic devices, implants and grafts, initial encounter (principal); Z72.0 Tobacco use
CPT/HCPCS: 99282

== ENCOUNTER → 2020-06-19 16:26 | Outpatient (CLI) | payer BC, SELFPAY ==
[2018-09-08 14:04] VITALS: BMI 30.2
[2020-06-19 17:14] LABS: D-Dimer Quantitative (DVT/PE) 0.31 FEU/ug/m (0.27-0.49)
== END ==
LOC: BFHLAB 16:27
PROVIDERS: PCP Family Medicine; Visit Provider Family Medicine
DX: M79.89 Other specified soft tissue disorders (principal); R60.0 Localized edema
CPT/HCPCS: 36415; 85379